=== PATIENT | male | born 1930 | race Caucasian/White ===

== ENCOUNTER 2016-10-31 16:00 | Emergency (ER) | payer MEDICARE, BC ==
[2016-10-31 16:36] VITALS: RESP 16
[2016-10-31] MEDS ORDERED: HYDROcodone/APAP 5-325MG 1 EACH TAB PO STA (17:47)
[2016-10-31 18:31] LABS: INR 1.5 (<1.1); Partial Thromboplastin Time 26.8 sec (22.0-30.0); Prothrombin Time 14.6 sec (9.0-12.0)
--- NOTE | 2016-10-31 18:54 | ED ---
Lower Extremity Injury HPI - General Chief Complaint: Extremity Injury, Lower Stated Complaint: Fall/Leg Lac Time Seen by Provider: 10/31/16 17:42 Source: patient Mode of arrival: ambulatory Limitations: no limitations - History of Present Illness Initial Comments: 86-year-old male presents emergency Department chief complaint left leg injury. Patient states that something was blowing across yard and struck him in the leg. Patient states she is a skin tear. 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 Patient states she also is taking Coumadin and had an elevated INR recently. Patient restarted taking Coumadin after being off for a few days. Patient states he is able to ambulate. Patient states his tetanus is up-to- date. Patient offers no other complaints. - Related Data Home Medications Medication Instructions Recorded Confirmed Acetaminophen-Codeine 300-30mg 1 tab PO Q6H PRN 08/28/15 07/09/16 [Tylenol w/codeine #3] Albuterol Nebulized [Ventolin 2.5 mg INHALATION RT-Q4H PRN 08/28/15 07/09/16 Nebulized] Diphenoxylate HCl/Atropine 1 tab PO QID PRN 08/28/15 07/09/16 [Lomotil] Finasteride [Proscar] 5 mg PO DAILY 08/28/15 07/09/16 Temazepam [Restoril] 7.5 mg PO HS 08/28/15 07/09/16 Tamsulosin HCl [Flomax] 0.4 mg PO DAILY 08/29/15 07/09/16 predniSONE 5 mg PO BID 07/09/16 07/09/16 Previous Rx's Medication Instructions Recorded Digoxin [Lanoxin] 125 mcg PO Q2D #0 07/11/16 Furosemide [Lasix] 20 mg PO DAILY #0 07/11/16 Warfarin [Coumadin] 1 mg PO DAILY #0 07/11/16 rOPINIRole HCL [Requip] 0.25 mg PO HS #30 tab 07/11/16 traMADol HCl [Ultram] 50 mg PO QID PRN #30 tab 07/11/16 Cephalexin [Keflex] 500 mg PO Q6HR #40 cap 10/31/16 Allergies Allergy/AdvReac Type Severity Reaction Status Date / Time No Known Allergies Allergy Verified 10/31/16 18:09 Review of Systems ROS Statement: Those systems with pertinent positive or pertinent negative responses have been documented in the HPI. ROS Other: All systems not noted in ROS Statement are negative. Past Medical History Past Medical History: Atrial Fibrillation, Cancer, COPD, CVA/TIA, Hypertension Additional Past Medical History / Comment(s): 2 TIA affected balance, colon and skin CA, PVD, CHF History of Any Multi-Drug Resistant Organisms: None Reported Past Surgical History: Heart Catheterization, Hernia Repair Additional Past Surgical History / Comment(s): double laminectomy, colon resection, cataract surg Past Anesthesia/Blood Transfusion Reactions: No Reported Reaction Past Psychological History: No Psychological Hx Reported Smoking Status: Former smoker Past Alcohol Use History: None Reported Past Drug Use History: None Reported - Past Family History Brother(s) History Unknown: Yes Family Medical History: Cancer General Exam Limitations: no limitations General appearance: alert, in no apparent distress Head exam: Present: atraumatic, normocephalic, normal inspection Respiratory exam: Present: normal lung sounds bilaterally. Absent: respiratory distress, wheezes, rales, rhonchi, stridor Cardiovascular Exam: Present: regular rate, normal rhythm, normal heart sounds. Absent: systolic murmur, diastolic murmur, rubs, gallop, clicks Extremities exam: Present: other (Left lower leg distal to knee there is a large skin tear measuring approximately 6 cm x 6 cm with irregular edges) Course Vital Signs 10/31/16 16:33 Temperature 97.2 F L Pulse Rate 87 Respiratory 16 Rate Blood Pressure 128/60 O2 Sat by Pulse 99 Oximetry Medical Decision Making - Medical Decision Making Patient's wound was thoroughly cleaned, there was missing skin noted the skin was laid over the open wound and there is no active bleeding. Patient's INR is 1.5. Patient was placed on antibiotics at this time. Return parameters were discussed. Patient refused x-ray of his leg. - Lab Data Lab Results 10/31/16 Range/Units 18:00 PT 14.6 H (9.0-12.0) sec INR 1.5 (<1.1) APTT 26.8 (22.0-30.0) sec Disposition Clinical Impression: Skin tear of left lower leg without complication Disposition: HOME SELF-CARE Condition: Stable Instructions: Skin Tear (ED) Additional Instructions: Please return to the Emergency Department if symptoms worsen or any other concerns. Prescriptions: Cephalexin [Keflex] 500 mg PO Q6HR #40 cap Time of Disposition: 18:54
[2016-10-31 19:14] VITALS: BP 176/79; PULSE 78; TEMP 98.6
== END 2016-10-31 19:14 | disposition home or self-care (01) ==
LOC: EC 16:00
DX: S81.812A Laceration without foreign body, left lower leg, initial encounter (principal); W22.8XXA Striking against or struck by other objects, initial encounter; Y92.007 Garden or yard of unspecified non-institutional (private) residence as the place of occurrence of the external cause; Z79.899 Other long term (current) drug therapy; I10 Essential (primary) hypertension; J44.9 Chronic obstructive pulmonary disease, unspecified; I48.91 Unspecified atrial fibrillation; Z98.61 Coronary angioplasty status; I50.9 Heart failure, unspecified; Z79.01 Long term (current) use of anticoagulants; Z79.51 Long term (current) use of inhaled steroids; Z86.73 Personal history of transient ischemic attack (TIA), and cerebral infarction without residual deficits; Z87.891 Personal history of nicotine dependence
CPT/HCPCS: 36415; 85610; 85730; 99284

== ENCOUNTER 2017-07-06 08:14 | Emergency (ER) | payer MEDICARE, BC ==
[2017-07-06 08:19] VITALS: TEMP 97
[2017-07-06] MEDS ORDERED: IPRATROPIUM-ALBUTEROL 3 ML NEB INHALATION STA (08:23)
[2017-07-06] MEDS ORDERED: SODIUM CHLORIDE 0.9% 1,000 ML IV STA (08:23)
[2017-07-06] MEDS ORDERED: methylPREDNISolone SOD SUCCI 125 MG/2 ML VIAL IV STA (08:23)
--- NOTE | 2017-07-06 08:37 | ED ---
SOB HPI - General Chief Complaint: Shortness of Breath Stated Complaint: CARLOS Time Seen by Provider: 07/06/17 08:19 Source: patient, RN notes reviewed Mode of arrival: wheelchair Limitations: no limitations - History of Present Illness Initial Comments: This is a 87-year-old male with a history of atrial fibrillation CHF and COPD who presents with complaints of shortness of breath this started last night. This is in spite of his home updrafts. He did take extra Lasix an extra oral prednisone. He had some sweats no fevers or chills no phlegm production no other complaints no chest pain. MD Complaint: shortness of breath - Related Data Home Medications Medication Instructions Recorded Confirmed Acetaminophen-Codeine 300-30mg 1 tab PO Q6H PRN 08/28/15 07/09/16 [Tylenol w/codeine #3] Albuterol Nebulized [Ventolin 2.5 mg INHALATION RT-Q4H PRN 08/28/15 07/09/16 Nebulized] Diphenoxylate HCl/Atropine 1 tab PO QID PRN 08/28/15 07/09/16 [Lomotil] Finasteride [Proscar] 5 mg PO DAILY 08/28/15 07/09/16 Temazepam [Restoril] 7.5 mg PO HS 08/28/15 07/09/16 Tamsulosin HCl [Flomax] 0.4 mg PO DAILY 08/29/15 07/09/16 predniSONE 5 mg PO BID 07/09/16 07/09/16 Previous Rx's Medication Instructions Recorded Digoxin [Lanoxin] 125 mcg PO Q2D #0 07/11/16 Furosemide [Lasix] 20 mg PO DAILY #0 07/11/16 Warfarin [Coumadin] 1 mg PO DAILY #0 07/11/16 rOPINIRole HCL [Requip] 0.25 mg PO HS #30 tab 07/11/16 traMADol HCl [Ultram] 50 mg PO QID PRN #30 tab 07/11/16 Cephalexin [Keflex] 500 mg PO Q6HR #40 cap 10/31/16 Azithromycin [Zithromax Z-pack] 250 mg PO DIRECTED #6 tab 07/06/17 methylPREDNISolone Dose Pack 4 mg PO DIRECTED #21 package 07/06/17 [Medrol Dose Pack] Allergies Allergy/AdvReac Type Severity Reaction Status Date / Time No Known Allergies Allergy Verified 07/06/17 08:18 Review of Systems ROS Statement: Those systems with pertinent positive or pertinent negative responses have been documented in the HPI. ROS Other: All systems not noted in ROS Statement are negative. Past Medical History Past Medical History: Atrial Fibrillation, Cancer, COPD, CVA/TIA, Hypertension Additional Past Medical History / Comment(s): 2 TIA affected balance, colon and skin CA, PVD, CHF History of Any Multi-Drug Resistant Organisms: None Reported Past Surgical History: Heart Catheterization, Hernia Repair Additional Past Surgical History / Comment(s): double laminectomy, colon resection, cataract surg Past Anesthesia/Blood Transfusion Reactions: No Reported Reaction Past Psychological History: No Psychological Hx Reported Smoking Status: Former smoker Past Alcohol Use History: None Reported Past Drug Use History: None Reported - Past Family History Brother(s) History Unknown: Yes Family Medical History: Cancer General Exam - General Exam Comments Initial Comments: This is a well-developed well-nourished awake alert oriented x 3 male Limitations: no limitations General appearance: alert, in no apparent distress Head exam: Present: atraumatic, normocephalic, normal inspection Eye exam: Present: normal appearance, PERRL, EOMI. Absent: scleral icterus, conjunctival injection, periorbital swelling ENT exam: Present: normal exam, mucous membranes moist Neck exam: Present: normal inspection. Absent: tenderness, meningismus, lymphadenopathy Respiratory exam: Present: decreased breath sounds. Absent: respiratory distress, wheezes, rales, rhonchi, stridor Cardiovascular Exam: Present: irregular rhythm, normal heart sounds. Absent: systolic murmur, diastolic murmur, rubs, gallop, clicks GI/Abdominal exam: Present: soft. Absent: distended, tenderness, guarding, rebound, rigid Extremities exam: Present: normal inspection, full ROM, normal capillary refill. Absent: tenderness, pedal edema, joint swelling, calf tenderness Back exam: Present: normal inspection Neurological exam: Present: alert, oriented X3, CN II-XII intact Psychiatric exam: Present: normal affect, normal mood Skin exam: Present: warm, dry, intact, normal color. Absent: rash Course Vital Signs 07/06/17 07/06/17 07/06/17 08:16 09:19 09:24 Temperature 97.0 F L Pulse Rate 97 95 98 Respiratory 20 Rate Blood Pressure 142/79 O2 Sat by Pulse 99 Oximetry - Reevaluation(s) Reevaluation #1: 07/06/17 10:42 I did reevaluate the patient is feeling better after the initial treatment. Medical Decision Making - Medical Decision Making The patient is feeling much improved at this time and will be discharge is lung sounds are greatly improved improved aeration no wheezing. Patient will be discharged she is instructed to take an extra Lasix for 2 days he'll be placed on a Medrol Dosepak short course of antibiotics is a follow-up with his doctor return when necessary - Lab Data Result diagrams: 07/06/17 08:51 07/06/17 08:51 Lab Results 07/06/17 07/06/17 07/06/17 Range/Units 08:51 08:51 08:51 WBC 9.8 (3.8-10.6) k/uL RBC 4.09 L (4.30-5.90) m/uL Hgb 12.1 L (13.0-17.5) gm/dL Hct 38.3 L (39.0-53.0) % MCV 93.6 (80.0-100.0) fL MCH 29.5 (25.0-35.0) pg MCHC 31.5 (31.0-37.0) g/dL RDW 13.3 (11.5-15.5) % Plt Count 177 (150-450) k/uL Neutrophils % 88 % Lymphocytes % 5 % Monocytes % 5 % Eosinophils % 1 % Basophils % 0 % Neutrophils # 8.5 H (1.3-7.7) k/uL Lymphocytes # 0.5 L (1.0-4.8) k/uL Monocytes # 0.5 (0-1.0) k/uL Eosinophils # 0.1 (0-0.7) k/uL Basophils # 0.0 (0-0.2) k/uL Hypochromasia Slight PT (9.0-12.0) sec INR (<1.2) APTT (22.0-30.0) sec Sodium 142 (137-145) mmol/L Potassium 4.8 (3.5-5.1) mmol/L Chloride 106 (98-107) mmol/L Carbon Dioxide 30 (22-30) mmol/L Anion Gap 6 mmol/L BUN 30 H (9-20) mg/dL Creatinine 1.18 (0.66-1.25) mg/dL Est GFR (MDRD) Af Amer >60 (>60 ml/min/1.73 sqM) Est GFR (MDRD) Non-Af 59 (>60 ml/min/1.73 sqM) Glucose 96 (74-99) mg/dL Calcium 9.3 (8.4-10.2) mg/dL Magnesium 2.2 (1.6-2.3) mg/dL Total Bilirubin 0.8 (0.2-1.3) mg/dL AST 22 (17-59) U/L ALT 31 (21-72) U/L Alkaline Phosphatase 59 (38-126) U/L Total Creatine Kinase 55 (55-170) U/L CK-MB (CK-2) 2.1 (0.0-2.4) ng/mL CK-MB (CK-2) Rel Index 3.8 Troponin I 0.023 (0.000-0.034) ng/mL NT-Pro-B Natriuret Pep pg/mL Total Protein 6.4 (6.3-8.2) g/dL Albumin 3.4 L (3.5-5.0) g/dL Digoxin 0.8 ng/mL 07/06/17 07/06/17 Range/Units 08:51 08:51 WBC (3.8-10.6) k/uL RBC (4.30-5.90) m/uL Hgb (13.0-17.5) gm/dL Hct (39.0-53.0) % MCV (80.0-100.0) fL MCH (25.0-35.0) pg MCHC (31.0-37.0) g/dL RDW (11.5-15.5) % Plt Count (150-450) k/uL Neutrophils % % Lymphocytes % % Monocytes % % Eosinophils % % Basophils % % Neutrophils # (1.3-7.7) k/uL Lymphocytes # (1.0-4.8) k/uL Monocytes # (0-1.0) k/uL Eosinophils # (0-0.7) k/uL Basophils # (0-0.2) k/uL Hypochromasia PT 27.1 H (9.0-12.0) sec INR 2.8 H (<1.2) APTT 35.6 H (22.0-30.0) sec Sodium (137-145) mmol/L Potassium (3.5-5.1) mmol/L Chloride (98-107) mmol/L Carbon Dioxide (22-30) mmol/L Anion Gap mmol/L BUN (9-20) mg/dL Creatinine (0.66-1.25) mg/dL Est GFR (MDRD) Af Amer (>60 ml/min/1.73 sqM) Est GFR (MDRD) Non-Af (>60 ml/min/1.73 sqM) Glucose (74-99) mg/dL Calcium (8.4-10.2) mg/dL Magnesium (1.6-2.3) mg/dL Total Bilirubin (0.2-1.3) mg/dL AST (17-59) U/L ALT (21-72) U/L Alkaline Phosphatase (38-126) U/L Total Creatine Kinase (55-170) U/L CK-MB (CK-2) (0.0-2.4) ng/mL CK-MB (CK-2) Rel Index Troponin I (0.000-0.034) ng/mL NT-Pro-B Natriuret Pep 2580 pg/mL Total Protein (6.3-8.2) g/dL Albumin (3.5-5.0) g/dL Digoxin ng/mL - EKG Data -: EKG Interpreted by Me (Atrial fibrillation rate of 86 QRS 80 QT since QTC of 340/416 nonspecific S) - Radiology Data Radiology results: report reviewed (I did review the imaging and report no acute findings patient does demonstrate evidence of chronic lung disease with cardiomegaly.), image reviewed Disposition Clinical Impression: Acute exacerbation of chronic obstructive airways disease Disposition: HOME SELF-CARE Condition: Good Instructions: COPD (Chronic Obstructive Pulmonary Disease) (ED) Prescriptions: Azithromycin [Zithromax Z-pack] 250 mg PO DIRECTED #6 tab methylPREDNISolone Dose Pack [Medrol Dose Pack] 4 mg PO DIRECTED #21 package Referrals: Yazmin Niño MD [Primary Care Provider] - 1-2 days
[2017-07-06 09:07] LABS: Basophils % (A) 0 %; CH 29.5; CHCM 31.7; Eosinophils # (A) 0.1 k/uL (0-0.7); Eosinophils % (A) 1 %; HCT 38.3 % (39.0-53.0); HDW 2.66; HGB 12.1 gm/dL (13.0-17.5); Hypochromasia Slight; Luc # (Auto) 0.11; Luc % (Auto) 1; Lymphocytes # (A) 0.5 k/uL (1.0-4.8); Lymphocytes % (A) 5 %; MCH 29.5 pg (25.0-35.0); MCHC 31.5 g/dL (31.0-37.0); MCV 93.6 fL (80.0-100.0); Mean Platelet Volume 7.5; Monocytes # (A) 0.5 k/uL (0-1.0); Monocytes % (A) 5 %; Neutrophils # (A) 8.5 k/uL (1.3-7.7); Neutrophils % (A) 88 %; RBC 4.09 m/uL (4.30-5.90); RDW 13.3 % (11.5-15.5); WBC 9.8 k/uL (3.8-10.6); WBC (Perox) 9.18
[2017-07-06 09:16] LABS: INR 2.8 (<1.2); Partial Thromboplastin Time 35.6 sec (22.0-30.0); Prothrombin Time 27.1 sec (9.0-12.0)
[2017-07-06 09:19] LABS: ALT 31 U/L (21-72); AST 22 U/L (17-59); Alkaline Phosphatase 59 U/L (38-126); Anion Gap 6 mmol/L; Blood Urea Nitrogen 30 mg/dL (9-20); Calcium 9.3 mg/dL (8.4-10.2); Carbon Dioxide 30 mmol/L (22-30); Chloride 106 mmol/L (98-107); Glucose 96 mg/dL (74-99); Magnesium 2.2 mg/dL (1.6-2.3); Non-African American GFR(MDRD) 59 (>60 ml/min/1.73 sqM); Potassium 4.8 mmol/L (3.5-5.1); Sodium 142 mmol/L (137-145); Total Bilirubin 0.8 mg/dL (0.2-1.3); Total Protein 6.4 g/dL (6.3-8.2)
--- NOTE | 2017-07-06 09:19 | XR ---
EXAMINATION TYPE: XR chest 2V DATE OF EXAM: 07/06/2017 HISTORY: difficulty breathing. REFERENCE: Previous study dated 08/28/2015. FINDINGS: The lungs are overinflated. The heart is mildly enlarged. There is a calcified lymph node p rojecting over the hilum on the lateral projection. Pleural spaces are clear. IMPRESSION: 1. COPD. 2. EVIDENCE OF OLD GRANULOMATOUS DISEASE. 3. MILD CARDIOMEGALY.
[2017-07-06 09:32] LABS: Digoxin 0.8 ng/mL
[2017-07-06 10:12] LABS: Creatine Kinase MB 2.1 ng/mL (0.0-2.4); Troponin I 0.023 ng/mL (0.000-0.034)
[2017-07-06 10:52] VITALS: BP 159/74; PULSE 74; RESP 17
== END 2017-07-06 11:09 | disposition home or self-care (01) ==
LOC: EC 08:14
DX: J44.1 Chronic obstructive pulmonary disease with (acute) exacerbation (principal); I48.91 Unspecified atrial fibrillation; I10 Essential (primary) hypertension; Z85.828 Personal history of other malignant neoplasm of skin; Z86.73 Personal history of transient ischemic attack (TIA), and cerebral infarction without residual deficits; Z87.891 Personal history of nicotine dependence; Z79.52 Long term (current) use of systemic steroids; Z79.899 Other long term (current) drug therapy
CPT/HCPCS: 99285; 96374; 36415; 94640; 93005; 83880; 80053; 82550; 82553; 80162; 83735; 84484; 85025; 85610; 85730; 71020; J2930

== ENCOUNTER 2018-02-10 07:56 | Emergency (ER) | payer MEDICARE, BC ==
[2018-02-10 07:59] VITALS: TEMP 97.7
[2018-02-10] MEDS ORDERED: DEXAMETHASONE SOD PHOSPHATE 10 MG/ML 1 ML VIAL IV STA (08:18)
[2018-02-10] MEDS ORDERED: IPRATROPIUM-ALBUTEROL 3 ML NEB INHALATION STA (08:18)
[2018-02-10] MEDS ORDERED: DEXAMETHASONE SOD PHOSPHATE 10 MG/ML 1 ML VIAL IM STA (08:40)
--- NOTE | 2018-02-10 08:51 | ED ---
General Adult HPI - General Chief complaint: Shortness of Breath Stated complaint: Diff Breathing Time Seen by Provider: 02/10/18 08:00 Source: patient, RN notes reviewed, old records reviewed Mode of arrival: wheelchair Limitations: no limitations - History of Present Illness Initial comments: 87-year-old male history of congestive heart failure and COPD presents for evaluation of worsening dyspnea. Patient states this is the same as his previous COPD exacerbations. He does have an appointment with his choker hooker this afternoon however he thought he needed steroids prior to this evaluation. His had minimal cough. No chest pain. No worsening lower extremity swelling. Patient denies fever. His mild cough is nonproductive. Patient has some chronic abdominal pain which is mild and is going to be evaluated by his primary care physician this week with computed tomography scan. - Related Data Home Medications Medication Instructions Recorded Confirmed Acetaminophen-Codeine 300-30mg 1 tab PO Q6H PRN 08/28/15 07/09/16 [Tylenol w/codeine #3] Albuterol Nebulized [Ventolin 2.5 mg INHALATION RT-Q4H PRN 08/28/15 07/09/16 Nebulized] Diphenoxylate HCl/Atropine 1 tab PO QID PRN 08/28/15 07/09/16 [Lomotil] Finasteride [Proscar] 5 mg PO DAILY 08/28/15 07/09/16 Temazepam [Restoril] 7.5 mg PO HS 08/28/15 07/09/16 Tamsulosin HCl [Flomax] 0.4 mg PO DAILY 08/29/15 07/09/16 predniSONE 5 mg PO BID 07/09/16 07/09/16 Previous Rx's Medication Instructions Recorded Digoxin [Lanoxin] 125 mcg PO Q2D #0 07/11/16 Furosemide [Lasix] 20 mg PO DAILY #0 07/11/16 Warfarin [Coumadin] 1 mg PO DAILY #0 07/11/16 rOPINIRole HCL [Requip] 0.25 mg PO HS #30 tab 07/11/16 traMADol HCl [Ultram] 50 mg PO QID PRN #30 tab 07/11/16 Cephalexin [Keflex] 500 mg PO Q6HR #40 cap 10/31/16 Azithromycin [Zithromax Z-pack] 250 mg PO DIRECTED #6 tab 07/06/17 methylPREDNISolone Dose Pack 4 mg PO DIRECTED #21 package 07/06/17 [Medrol Dose Pack] predniSONE 50 mg PO DAILY #5 tab 02/10/18 Allergies Allergy/AdvReac Type Severity Reaction Status Date / Time No Known Allergies Allergy Verified 02/10/18 07:59 Review of Systems ROS Statement: Those systems with pertinent positive or pertinent negative responses have been documented in the HPI. ROS Other: All systems not noted in ROS Statement are negative. Past Medical History Past Medical History: Atrial Fibrillation, Cancer, COPD, CVA/TIA, Hypertension Additional Past Medical History / Comment(s): 2 TIA affected balance, colon and skin CA, PVD, CHF History of Any Multi-Drug Resistant Organisms: None Reported Past Surgical History: Heart Catheterization, Hernia Repair Additional Past Surgical History / Comment(s): double laminectomy, colon resection, cataract surg Past Anesthesia/Blood Transfusion Reactions: No Reported Reaction Past Psychological History: No Psychological Hx Reported Smoking Status: Former smoker Past Alcohol Use History: None Reported Past Drug Use History: None Reported - Past Family History Brother(s) History Unknown: Yes Family Medical History: Cancer General Exam Limitations: no limitations General appearance: alert, in no apparent distress Head exam: Present: atraumatic, normocephalic Eye exam: Present: normal appearance, PERRL ENT exam: Present: normal exam Neck exam: Present: normal inspection. Absent: tenderness, meningismus Respiratory exam: Present: wheezes, decreased breath sounds. Absent: respiratory distress Cardiovascular Exam: Present: regular rate, normal rhythm GI/Abdominal exam: Present: soft. Absent: distended, tenderness Extremities exam: Present: normal inspection, normal capillary refill. Absent: pedal edema Neurological exam: Present: alert, oriented X3, CN II-XII intact. Absent: motor sensory deficit Psychiatric exam: Present: normal affect, normal mood Skin exam: Present: warm, dry, intact. Absent: cyanosis, diaphoretic Course Vital Signs 02/10/18 02/10/18 02/10/18 07:58 08:22 08:30 Temperature 97.7 F Pulse Rate 95 75 77 Respiratory 24 Rate Blood Pressure 128/56 O2 Sat by Pulse 97 Oximetry Medical Decision Making - Medical Decision Making 87 yo male presenting with worsening dyspnea and mild cough. Patient states he this is his COPD. He does not want an x-ray, he does not want blood work. He only wants steroid shot and be started on a course of steroids. He is willing to accept one breathing treatment while in the emergency department. Patient is alert and oriented. He will follow-up with his choker hooker. Disposition Clinical Impression: Acute exacerbation of chronic obstructive airways disease Disposition: HOME SELF-CARE Condition: Fair Instructions: COPD (Chronic Obstructive Pulmonary Disease) (ED) Prescriptions: predniSONE 50 mg PO DAILY #5 tab Is patient prescribed a controlled substance at d/c from ED?: No Referrals: Yazmin Niño MD [Primary Care Provider] - 1-2 days Lizeth Up MD [STAFF PHYSICIAN] - 1-2 days Time of Disposition: 08:50
[2018-02-10 09:40] VITALS: RESP 18
[2018-02-10 09:56] VITALS: BP 154/69; PULSE 75
== END 2018-02-10 09:53 | disposition home or self-care (01) ==
LOC: EC 07:56
DX: J44.1 Chronic obstructive pulmonary disease with (acute) exacerbation (principal); R10.9 Unspecified abdominal pain; G89.29 Other chronic pain; I48.91 Unspecified atrial fibrillation; I11.0 Hypertensive heart disease with heart failure; I50.9 Heart failure, unspecified; Z86.73 Personal history of transient ischemic attack (TIA), and cerebral infarction without residual deficits; Z85.828 Personal history of other malignant neoplasm of skin; Z85.038 Personal history of other malignant neoplasm of large intestine; Z95.818 Presence of other cardiac implants and grafts; Z87.891 Personal history of nicotine dependence; Z79.52 Long term (current) use of systemic steroids; Z79.899 Other long term (current) drug therapy; Z53.8 Procedure and treatment not carried out for other reasons
CPT/HCPCS: 94640; 93005; 99285; 96372; J1100

== ENCOUNTER 2018-04-16 20:12 | Inpatient (IN) | payer MEDICARE, BC ==
[2018-04-16 20:35] LABS: Basophils % (A) 0 %; Eosinophils % (A) 0 %; HCT 36.9 % (39.0-53.0); HGB 11.9 gm/dL (13.0-17.5); Lymphocytes # (A) 0.4 k/uL (1.0-4.8); Lymphocytes % (A) 5 %; MCH 29.1 pg (25.0-35.0); MCHC 32.2 g/dL (31.0-37.0); MCV 90.4 fL (80.0-100.0); Mean Platelet Volume 7.7; Monocytes # (A) 0.4 k/uL (0-1.0); Monocytes % (A) 4 %; Neutrophils # (A) 7.5 k/uL (1.3-7.7); Neutrophils % (A) 88 %; Platelet Count 142 k/uL (150-450); RBC 4.09 m/uL (4.30-5.90); RDW 14.3 % (11.5-15.5); WBC 8.5 k/uL (3.8-10.6)
[2018-04-16 20:37] LABS: Glucose,Whole Blood 104 mg/dL (75-99)
[2018-04-16 20:44] LABS: Partial Thromboplastin Time 29.3 sec (22.0-30.0); Prothrombin Time 26.5 sec (9.0-12.0)
[2018-04-16 20:46] LABS: ALT 25 U/L (21-72); AST 23 U/L (17-59); Albumin 3.4 g/dL (3.5-5.0); Alcohol <10 mg/dL; Alkaline Phosphatase 57 U/L (38-126); Amylase 61 U/L (30-110); Anion Gap 8 mmol/L; Blood Urea Nitrogen 51 mg/dL (9-20); Calcium 8.7 mg/dL (8.4-10.2); Carbon Dioxide 27 mmol/L (22-30); Chloride 102 mmol/L (98-107); Glucose 107 mg/dL (74-99); Lipase 38 U/L (23-300); Potassium 5.3 mmol/L (3.5-5.1); Sodium 137 mmol/L (137-145); Total Protein 6.5 g/dL (6.3-8.2)
--- NOTE | 2018-04-16 20:48 | ED ---
General Adult HPI - General Stated complaint: FALL Time Seen by Provider: 04/16/18 20:13 Source: RN notes reviewed, old records reviewed - History of Present Illness Initial comments: This is a 87-year-old male the ER for evaluation. Today's presenting for evaluation regards to fall. Patient may be to stop fall. Plan is had he did land on his extremities with multiple abrasions, left upper extremity right upper extremity left knee right knee. Patient denies loss of consciousness denies headache or neck pain. - Related Data Home Medications Medication Instructions Recorded Confirmed RX: Albuterol Nebulized [Ventolin 2.5 mg INHALATION RT-Q4H PRN 08/28/15 07/09/16 Nebulized] RX: Finasteride [Proscar] 5 mg PO DAILY 08/28/15 02/10/18 RX: Tamsulosin HCl [Flomax] 0.4 mg PO DAILY 08/29/15 02/10/18 RX: predniSONE 5 mg PO BID 07/09/16 02/10/18 HYDROcodone/APAP 10-325MG [[place] 1 tab PO BID PRN 02/10/18 02/10/18 10-325] Lisinopril [Prinivil] 10 mg PO DAILY 02/10/18 02/10/18 RX: Digoxin [Lanoxin] 125 mcg PO DAILY 02/10/18 02/10/18 RX: Warfarin [Coumadin] 1 mg PO TUTHSA 02/10/18 02/10/18 Temazepam [Restoril] 15 mg PO HS 02/10/18 02/10/18 Warfarin [Coumadin] 2 mg PO SUMOWEFR 02/10/18 02/10/18 Previous Rx's Medication Instructions Recorded RX: Furosemide [Lasix] 20 mg PO DAILY #0 07/11/16 RX: predniSONE 50 mg PO DAILY #5 tab 02/10/18 Allergies Allergy/AdvReac Type Severity Reaction Status Date / Time No Known Allergies Allergy Verified 02/10/18 09:14 Review of Systems ROS Statement: Those systems with pertinent positive or pertinent negative responses have been documented in the HPI. ROS Other: All systems not noted in ROS Statement are negative. Past Medical History Past Medical History: Atrial Fibrillation, Cancer, COPD, CVA/TIA, Hypertension Additional Past Medical History / Comment(s): 2 TIA affected balance, colon and skin CA, PVD, CHF History of Any Multi-Drug Resistant Organisms: None Reported Past Surgical History: Heart Catheterization, Hernia Repair Additional Past Surgical History / Comment(s): double laminectomy, colon resection, cataract surg Past Anesthesia/Blood Transfusion Reactions: No Reported Reaction Past Psychological History: No Psychological Hx Reported Smoking Status: Former smoker Past Alcohol Use History: None Reported Past Drug Use History: None Reported - Past Family History Brother(s) History Unknown: Yes Family Medical History: Cancer General Exam General appearance: alert, in no apparent distress Head exam: Present: atraumatic, normocephalic, normal inspection Eye exam: Present: normal appearance, PERRL, EOMI. Absent: scleral icterus, conjunctival injection, periorbital swelling ENT exam: Present: normal exam, mucous membranes moist Neck exam: Present: normal inspection. Absent: tenderness, meningismus, lymphadenopathy Respiratory exam: Present: normal lung sounds bilaterally. Absent: respiratory distress, wheezes, rales, rhonchi, stridor Cardiovascular Exam: Present: regular rate, normal rhythm, normal heart sounds. Absent: systolic murmur, diastolic murmur, rubs, gallop, clicks GI/Abdominal exam: Present: soft, normal bowel sounds. Absent: distended, tenderness, guarding, rebound, rigid Extremities exam: Present: normal inspection, full ROM, normal capillary refill. Absent: tenderness, pedal edema, joint swelling, calf tenderness Back exam: Present: normal inspection Neurological exam: Present: alert, oriented X3, CN II-XII intact Psychiatric exam: Present: normal affect, normal mood Skin exam: Present: warm, dry, intact, normal color. Absent: rash Course Vital Signs 04/16/18 20:15 Temperature 98.9 F Pulse Rate 73 Respiratory 17 Rate Blood Pressure 158/67 O2 Sat by Pulse 97 Oximetry EKG Findings - EKG Comments: EKG Findings:: EKG shows A. fib rate of 76, QRS 80, QTC 382 Medical Decision Making - Lab Data Result diagrams: 04/16/18 20:21 04/16/18 20:21 Lab Results 04/16/18 04/16/18 04/16/18 Range/Units 20:21 20:21 20:21 WBC 8.5 (3.8-10.6) k/uL RBC 4.09 L (4.30-5.90) m/uL Hgb 11.9 L (13.0-17.5) gm/dL Hct 36.9 L (39.0-53.0) % MCV 90.4 (80.0-100.0) fL MCH 29.1 (25.0-35.0) pg MCHC 32.2 (31.0-37.0) g/dL RDW 14.3 (11.5-15.5) % Plt Count 142 L (150-450) k/uL Neutrophils % 88 % Lymphocytes % 5 % Monocytes % 4 % Eosinophils % 0 % Basophils % 0 % Neutrophils # 7.5 (1.3-7.7) k/uL Lymphocytes # 0.4 L (1.0-4.8) k/uL Monocytes # 0.4 (0-1.0) k/uL Eosinophils # 0.0 (0-0.7) k/uL Basophils # 0.0 (0-0.2) k/uL PT (9.0-12.0) sec INR (<1.2) APTT (22.0-30.0) sec Sodium 137 (137-145) mmol/L Potassium 5.3 H (3.5-5.1) mmol/L Chloride 102 (98-107) mmol/L Carbon Dioxide 27 (22-30) mmol/L Anion Gap 8 mmol/L BUN 51 H (9-20) mg/dL Creatinine 1.40 H (0.66-1.25) mg/dL Est GFR (CKD-EPI)AfAm 52 (>60 ml/min/1.73 sqM) Est GFR (CKD-EPI)NonAf 45 (>60 ml/min/1.73 sqM) Glucose 107 H (74-99) mg/dL POC Glucose (mg/dL) (75-99) mg/dL POC Glu Cosmetics Machine Operator ID Plasma Lactic Acid Cameron (0.7-2.0) mmol/L Calcium 8.7 (8.4-10.2) mg/dL Total Bilirubin 1.0 (0.2-1.3) mg/dL AST 23 (17-59) U/L ALT 25 (21-72) U/L Alkaline Phosphatase 57 (38-126) U/L Total Creatine Kinase 37 L (55-170) U/L CK-MB (CK-2) 1.4 (0.0-2.4) ng/mL CK-MB (CK-2) Rel Index 3.8 Troponin I 0.031 (0.000-0.034) ng/mL Total Protein 6.5 (6.3-8.2) g/dL Albumin 3.4 L (3.5-5.0) g/dL Amylase 61 (30-110) U/L Lipase 38 (23-300) U/L Urine Color Urine Appearance (Clear) Urine pH (5.0-8.0) Ur Specific Stanton (1.001-1.035) Urine Protein (Negative) Urine Glucose (UA) (Negative) Urine Ketones (Negative) Urine Blood (Negative) Urine Nitrite (Negative) Urine Bilirubin (Negative) Urine Urobilinogen (<2.0) mg/dL Ur Leukocyte Esterase (Negative) Serum Alcohol <10 mg/dL Blood Type Blood Type Recheck Antibody Screen Spec Expiration Date 04/16/18 04/16/18 04/16/18 Range/Units 20:21 20:21 20:21 WBC (3.8-10.6) k/uL RBC (4.30-5.90) m/uL Hgb (13.0-17.5) gm/dL Hct (39.0-53.0) % MCV (80.0-100.0) fL MCH (25.0-35.0) pg MCHC (31.0-37.0) g/dL RDW (11.5-15.5) % Plt Count (150-450) k/uL Neutrophils % % Lymphocytes % % Monocytes % % Eosinophils % % Basophils % % Neutrophils # (1.3-7.7) k/uL Lymphocytes # (1.0-4.8) k/uL Monocytes # (0-1.0) k/uL Eosinophils # (0-0.7) k/uL Basophils # (0-0.2) k/uL PT 26.5 H (9.0-12.0) sec INR 3.0 H (<1.2) APTT 29.3 (22.0-30.0) sec Sodium (137-145) mmol/L Potassium (3.5-5.1) mmol/L Chloride (98-107) mmol/L Carbon Dioxide (22-30) mmol/L Anion Gap mmol/L BUN (9-20) mg/dL Creatinine (0.66-1.25) mg/dL Est GFR (CKD-EPI)AfAm (>60 ml/min/1.73 sqM) Est GFR (CKD-EPI)NonAf (>60 ml/min/1.73 sqM) Glucose (74-99) mg/dL POC Glucose (mg/dL) (75-99) mg/dL POC Glu Cosmetics Machine Operator ID Plasma Lactic Acid Cameron 1.1 (0.7-2.0) mmol/L Calcium (8.4-10.2) mg/dL Total Bilirubin (0.2-1.3) mg/dL AST (17-59) U/L ALT (21-72) U/L Alkaline Phosphatase (38-126) U/L Total Creatine Kinase (55-170) U/L CK-MB (CK-2) (0.0-2.4) ng/mL CK-MB (CK-2) Rel Index Troponin I (0.000-0.034) ng/mL Total Protein (6.3-8.2) g/dL Albumin (3.5-5.0) g/dL Amylase (30-110) U/L Lipase (23-300) U/L Urine Color Urine Appearance (Clear) Urine pH (5.0-8.0) Ur Specific Stanton (1.001-1.035) Urine Protein (Negative) Urine Glucose (UA) (Negative) Urine Ketones (Negative) Urine Blood (Negative) Urine Nitrite (Negative) Urine Bilirubin (Negative) Urine Urobilinogen (<2.0) mg/dL Ur Leukocyte Esterase (Negative) Serum Alcohol mg/dL Blood Type A Positive Blood Type Recheck No Antibody Screen NEGATIVE Spec Expiration Date 04/19/2018232004/16/18 04/16/18 Range/Units 20:35 22:52 WBC (3.8-10.6) k/uL RBC (4.30-5.90) m/uL Hgb (13.0-17.5) gm/dL Hct (39.0-53.0) % MCV (80.0-100.0) fL MCH (25.0-35.0) pg MCHC (31.0-37.0) g/dL RDW (11.5-15.5) % Plt Count (150-450) k/uL Neutrophils % % Lymphocytes % % Monocytes % % Eosinophils % % Basophils % % Neutrophils # (1.3-7.7) k/uL Lymphocytes # (1.0-4.8) k/uL Monocytes # (0-1.0) k/uL Eosinophils # (0-0.7) k/uL Basophils # (0-0.2) k/uL PT (9.0-12.0) sec INR (<1.2) APTT (22.0-30.0) sec Sodium (137-145) mmol/L Potassium (3.5-5.1) mmol/L Chloride (98-107) mmol/L Carbon Dioxide (22-30) mmol/L Anion Gap mmol/L BUN (9-20) mg/dL Creatinine (0.66-1.25) mg/dL Est GFR (CKD-EPI)AfAm (>60 ml/min/1.73 sqM) Est GFR (CKD-EPI)NonAf (>60 ml/min/1.73 sqM) Glucose (74-99) mg/dL POC Glucose (mg/dL) 104 H (75-99) mg/dL POC Glu Cosmetics Machine Operator ID Nic Chong Plasma Lactic Acid Cameron (0.7-2.0) mmol/L Calcium (8.4-10.2) mg/dL Total Bilirubin (0.2-1.3) mg/dL AST (17-59) U/L ALT (21-72) U/L Alkaline Phosphatase (38-126) U/L Total Creatine Kinase (55-170) U/L CK-MB (CK-2) (0.0-2.4) ng/mL CK-MB (CK-2) Rel Index Troponin I (0.000-0.034) ng/mL Total Protein (6.3-8.2) g/dL Albumin (3.5-5.0) g/dL Amylase (30-110) U/L Lipase (23-300) U/L Urine Color Yellow Urine Appearance Clear (Clear) Urine pH 6.5 (5.0-8.0) Ur Specific [place] 1.012 (1.001-1.035) Urine Protein Negative (Negative) Urine Glucose (UA) Negative (Negative) Urine Ketones Negative (Negative) Urine Blood Negative (Negative) Urine Nitrite Negative (Negative) Urine Bilirubin Negative (Negative) Urine Urobilinogen <2.0 (<2.0) mg/dL Ur Leukocyte Esterase Negative (Negative) Serum Alcohol mg/dL Blood Type Blood Type Recheck Antibody Screen Spec Expiration Date Disposition Clinical Impression: Fall, Multiple skin tears, Fever, Weakness Disposition: ADMITTED IP TO THIS HOSP Condition: Fair Instructions: Fall Prevention for Older Adults (ED) Is patient prescribed a controlled substance at d/c from ED?: No Referrals: Yazmin Niño MD [Primary Care Provider] - 1-2 days
[2018-04-16 21:05] LABS: Creatine Kinase MB 1.4 ng/mL (0.0-2.4); Troponin I 0.031 ng/mL (0.000-0.034)
--- NOTE | 2018-04-16 21:07 | XR ---
PROCEDURE: XR pelvis AP view DATE AND TIME: 04/16/2018 8:33 PM CLINICAL INDICATION: [facility] trauma TECHNIQUE: Department protocol. 1V COMPARISON: None FINDINGS: There is no fracture or malalignment. The soft tissues are unremarkable. IMPRESSION: NO ACUTE PROCESS.
--- NOTE | 2018-04-16 21:14 | XR ---
EXAMINATION: XR chest 1V portable DATE AND TIME: 04/16/2018 8:33 PM CLINICAL INDICATION: trauma TECHNIQUE: Portable AP supine - 2V COMPARISON: 07/06/2017 FINDINGS: The lungs are clear. The pleural spaces are negative. The cardiomediastinal silhouette is unremarkable. The skeletal structures and soft tissues are negative for acute findings. IMPRESSION: NO ACUTE PROCESS - SUPINE AP PORTABLE CHEST RADIOGRAPH.
--- NOTE | 2018-04-16 21:29 | CT ---
EXAMINATION TYPE: CT brain jet [place] DATE OF EXAM: 04/16/2018 COMPARISON: 09/23/2012 HISTORY: Fall down stairs. Patient on blood thinners. CT DLP: 1107.1 mGycm Automated exposure control for dose reduction was used. TECHNIQUE: CT scan of the head and cervical spine are performed without contrast. FINDINGS: There is no acute intracranial hemorrhage, mass effect, or midline shift identified. No def inite new attenuation defect. The ventricles and sulci are within normal limits in size. The globes are intact and the visualized sinuses are clear. Cervical spine is visualized in its entirety from C1 through upper thoracic levels and demonstrates s atisfactory alignment without evidence of acute fracture or dislocation. Severe multilevel spondylosi s changes are seen. Prevertebral soft tissue appears within normal limits. The C1-C2 articulation is unremarkable. IMPRESSION: 1. There is no acute fracture or dislocation evident in the cervical spine. 2. No acute intracranial hemorrhage, mass effect, or midline shift is seen.
--- NOTE | 2018-04-16 22:07 | XR ---
PROCEDURE: XR elbow complete LT 3V DATE AND TIME: 04/16/2018 9:15 PM CLINICAL INDICATION: [facility] TECHNIQUE: Department protocol. 3V COMPARISON: None FINDINGS: There is a 5 mm metallic solitary radiopaque foreign body projecting anteromedial to the di stal humeral shaft. There is no fracture or malalignment. The soft tissues are otherwise unremarkable. IMPRESSION: 1. Negative for fracture or malalignment. 2. Radiopaque foreign body.
--- NOTE | 2018-04-16 22:08 | XR ---
PROCEDURE: XR forearm LT - 2V DATE AND TIME: 04/16/2018 9:15 PM CLINICAL INDICATION: [facility] Pain TECHNIQUE: Department protocol. COMPARISON: None FINDINGS: There is no fracture or malalignment. The soft tissues are unremarkable. IMPRESSION: Negative for fracture or malalignment. The 5 mm radiopaque foreign body anteromedial to the distal humeral shaft is visualized on these view s.
--- NOTE | 2018-04-16 22:10 | XR ---
PROCEDURE: XR knee complete bilateral - total 6 views DATE AND TIME: 04/16/2018 9:15 PM CLINICAL INDICATION: Pain after injury TECHNIQUE: Department protocol. 3V for each knee. COMPARISON: None FINDINGS: There is no fracture or malalignment. The soft tissues are unremarkable. 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 IMPRESSION: NO ACUTE PROCESS.
[2018-04-16 23:06] LABS: Appearance,Urine Clear (Clear); Bilirubin,Urine Negative (Negative); Blood,Urine Negative (Negative); Color,Urine Yellow; Glucose,Urine (UA) Negative (Negative); Ketones,Urine Negative (Negative); Leukocyte Esterase,Urine Negative (Negative); Nitrite,Urine Negative (Negative); PH, Urine 6.5 (5.0-8.0); Protein,Urine Negative (Negative); Specific Gravity,Urine 1.012 (1.001-1.035); Urobilinogen,Urine <2.0 mg/dL (<2.0)
[2018-04-16] MEDS ORDERED: cefTRIAXone 2,000 MG in SODIUM CHLORIDE 0.9% 100 ML IVPB STA (23:08)
[2018-04-16] MEDS ORDERED: SODIUM CHLORIDE 0.9% 1,000 ML IV ONE (23:09)
[2018-04-16 23:18] LABS: Amphetamine Screen,Urine Not Detected (NotDetected); Barbiturate Screen,Urine Not Detected (NotDetected); Benzodiazepines Screen,Urine Detected (NotDetected); Cocaine Screen,Urine Not Detected (NotDetected); Methadone Screen, Urine Not Detected (NotDetected); Opiate Screen,Urine Detected (NotDetected); Oxycodone Screen, Urine Not Detected (NotDetected); Phencyclidine Screen,Urine Not Detected (NotDetected); Tricyclic Antidepressant,Urine Not Detected (NotDetected); Urn Cannabinoid Scrn Not Detected (NotDetected)
[2018-04-16] MEDS ORDERED: cefTRIAXone IN SWFI 2,000 MG/20 ML SYRINGE IVP ONE (23:30)
[2018-04-17] MEDS ORDERED: HYDROcodone/APAP 5-325MG 1 EACH TAB PO STA (00:15)
[2018-04-17] MEDS ORDERED: CYCLOBENZAPRINE 5 MG TAB PO PRN (08:20)
[2018-04-17] MEDS ORDERED: ALBUTEROL NEBULIZED 2.5 MG/3 ML INHALATION PRN ×2 (08:20→09:12)
[2018-04-17] MEDS: predniSONE 5 MG TAB PO SCH ×2 (10:27→20:08)
[2018-04-17] MEDS: DIGOXIN 125 MCG TAB PO SCH (10:28)
[2018-04-17] MEDS: FINASTERIDE 5 MG TAB PO SCH (10:28)
[2018-04-17] MEDS: SODIUM CHLORIDE 0.9% 1,000 ML IV SCH (10:29)
[2018-04-17 10:34] LABS: Basophils % (A) 0 %; Eosinophils # (A) 0.1 k/uL (0-0.7); Eosinophils % (A) 1 %; HCT 34.4 % (39.0-53.0); HGB 10.9 gm/dL (13.0-17.5); Hypochromasia Slight; Lymphocytes % (A) 15 %; MCH 29.2 pg (25.0-35.0); MCHC 31.6 g/dL (31.0-37.0); MCV 92.4 fL (80.0-100.0); Mean Platelet Volume 8.1; Monocytes # (A) 0.4 k/uL (0-1.0); Monocytes % (A) 7 %; Neutrophils # (A) 4.9 k/uL (1.3-7.7); Neutrophils % (A) 74 %; Platelet Count 140 k/uL (150-450); RBC 3.72 m/uL (4.30-5.90); RDW 14.3 % (11.5-15.5); WBC 6.5 k/uL (3.8-10.6)
[2018-04-17 10:48] LABS: INR 2.9 (<1.2); Prothrombin Time 25.6 sec (9.0-12.0)
[2018-04-17 10:58] LABS: Calcium 8.3 mg/dL (8.4-10.2); Potassium 4.4 mmol/L (3.5-5.1)
[2018-04-17] MEDS: TAMSULOSIN 0.4 MG CAP.ER.24H PO SCH (12:55)
[2018-04-17] MEDS: IPRATROPIUM-ALBUTEROL 3 ML NEB INHALATION SCH ×3 (13:46→19:09)
[2018-04-17] MEDS: HYDROcodone/APAP 10-325MG 1 EACH TAB PO PRN ×2 (14:24→20:05)
[2018-04-17 15:03] VITALS: BMI 19.1
[2018-04-17] MEDS ORDERED: DIPH,PERTUS(ACELL)TETVAC-LF 0.5 ML VIAL IM ONE (15:15)
--- NOTE | 2018-04-17 15:28 | P.HPIM ---
History of Present Illness This is a pleasant 87 years old male with past medical history of CVA, atrial fibrillation on warfarin 1 mg daily except on Saturday he takes 2 mg, COPD, hypertension, CHF, peripheral vascular disease, status post cardiac cath, presents because of all multiple limb lacerations. Also patient noticed to be on Restoril is one of the bile benzodiazepines, which is one of the beers criteria of a decreased for an elderly people, discussed with the patient and he agrees to stop it. In the emergency room patient was found to have acute renal failure with kidney creatinine is 1.4. In the emergency room he got 1 dose of Rocephin 2000 mg, he has negative CT of the head, negative bilateral knee x-rays. Negative x-ray of the left elbow and humerus, and the pelvis. Chest x-ray is negative for acute process. EKG shows atrial fibrillation with heart rate is 76 bpm and he was given normal saline in 100 mL per hour, and given Narco for pain. We'll check digoxin level Review of Systems CONSTITUTIONAL: No fever, no malaise, no fatigue. HEENT: No recent visual problems or hearing problems. Denied any sore throat. CARDIOVASCULAR: No orthopnea, PND, no palpitations, no syncope. PULMONARY: No shortness of breath, no cough, no hemoptysis. GASTROINTESTINAL: No diarrhea, no nausea, no vomiting, no abdominal pain. Normoactive bowel sounds. NEUROLOGICAL: No headaches, no weakness, no numbness. HEMATOLOGICAL: Denies any bleeding or petechiae. GENITOURINARY: Denies any burning micturition, frequency, or urgency. MUSCULOSKELETAL/RHEUMATOLOGICAL: Denies any joint pain, swelling, or any muscle pain. ENDOCRINE: Denies any polyuria or polydipsia. Past Medical History Past Medical History: Atrial Fibrillation, Cancer, COPD, CVA/TIA, Hypertension Additional Past Medical History / Comment(s): 2 TIA affected balance, colon and skin CA, PVD, CHF History of Any Multi-Drug Resistant Organisms: None Reported Past Surgical History: Heart Catheterization, Hernia Repair Additional Past Surgical History / Comment(s): double laminectomy, colon resection, cataract surg Past Anesthesia/Blood Transfusion Reactions: No Reported Reaction Past Psychological History: No Psychological Hx Reported Smoking Status: Former smoker Past Alcohol Use History: None Reported Past Drug Use History: None Reported - Past Family History Brother(s) History Unknown: Yes Family Medical History: Cancer Medications and Allergies Home Medications Medication Instructions Recorded Confirmed Type RX: Albuterol Nebulized [Ventolin 2.5 mg INHALATION RT-Q4H PRN 08/28/15 History Nebulized] RX: Finasteride [Proscar] 5 mg PO DAILY 08/28/15 04/17/18 History RX: Tamsulosin HCl [Flomax] 0.4 mg PO DAILY 08/29/15 04/17/18 History RX: predniSONE 5 mg PO BID 07/09/16 04/17/18 History HYDROcodone/APAP 10-325MG [[place] 1 tab PO BID PRN 02/10/18 04/17/18 History 10-325] Lisinopril [Prinivil] 10 mg PO DAILY 02/10/18 04/17/18 History RX: Digoxin [Lanoxin] 125 mcg PO DAILY 02/10/18 04/17/18 History RX: Warfarin [Coumadin] 2 mg PO WE 02/10/18 04/17/18 History Temazepam [Restoril] 15 mg PO HS 02/10/18 04/17/18 History Warfarin [Coumadin] 1 mg PO SUMOTUTHFRSA 02/10/18 04/17/18 History Cyclobenzaprine [Flexeril] 5 mg PO BID PRN 04/17/18 04/17/18 History RX: Furosemide [Lasix] 20 mg PO BID 04/17/18 04/17/18 History Allergies Allergy/AdvReac Type Severity Reaction Status Date / Time No Known Allergies Allergy Verified 04/17/18 08:52 Physical Exam Vitals: Vital Signs Temp Pulse Pulse Pulse Resp BP BP 04/17/18 14:06 68 04/17/18 13:50 64 04/17/18 08:35 68 04/17/18 08:25 64 04/17/18 08:00 96.9 F L 56 L 18 148/65 04/17/18 01:00 16 04/17/18 00:59 97.6 F 69 17 136/56 04/16/18 20:15 98.9 F 73 17 158/67 Pulse Ox 04/17/18 14:06 04/17/18 13:50 04/17/18 08:35 04/17/18 08:25 04/17/18 08:00 100 04/17/18 01:00 04/17/18 00:59 98 04/16/18 20:15 97 Intake and Output 04/16/18 04/17/18 04/17/18 22:59 06:59 14:59 Output Total 80 Balance -80 Output: Post Void Residual 80 Other: # Voids 1 # Bowel Movements 1 Weight 62.051 kg GENERAL: The patient is alert and oriented x3, not in any acute distress. Well developed, well nourished. HEENT: Pupils are round and equally reacting to light. EOMI. No scleral icterus. No conjunctival pallor. Normocephalic, atraumatic. No pharyngeal erythema. No thyromegaly. CARDIOVASCULAR: S1 and S2 present. No murmurs, rubs, or gallops. PULMONARY: Chest is clear to auscultation, no wheezing or crackles. ABDOMEN: Soft, nontender, nondistended, normoactive bowel sounds. No palpable organomegaly. MUSCULOSKELETAL: No joint swelling or deformity. EXTREMITIES: No cyanosis, clubbing, or pedal edema. Multiple lacerations including the left knee, on the right and left forearms, left shoulder. Some of the wounds are oozing blood as pt is on coumadin NEUROLOGICAL: Gross neurological examination did not reveal any focal deficits. SKIN: No rashes. Results CBC & Chem 7: 04/17/18 10:15 04/17/18 10:15 Labs: Abnormal Lab Results - Last 24 Hours (Table) 04/16/18 04/16/18 04/16/18 Range/Units 20:21 20:21 20:21 RBC 4.09 L (4.30-5.90) m/uL Hgb 11.9 L (13.0-17.5) gm/dL Hct 36.9 L (39.0-53.0) % Plt Count 142 L (150-450) k/uL Lymphocytes # 0.4 L (1.0-4.8) k/uL PT (9.0-12.0) sec INR (<1.2) Potassium 5.3 H (3.5-5.1) mmol/L BUN 51 H (9-20) mg/dL Creatinine 1.40 H (0.66-1.25) mg/dL Glucose 107 H (74-99) mg/dL POC Glucose (mg/dL) (75-99) mg/dL Calcium (8.4-10.2) mg/dL Total Creatine Kinase 37 L (55-170) U/L Albumin 3.4 L (3.5-5.0) g/dL Urine Opiates Screen (NotDetected) U Benzodiazepines Scrn (NotDetected) 04/16/18 04/16/18 04/16/18 Range/Units 20:21 20:35 22:52 RBC (4.30-5.90) m/uL Hgb (13.0-17.5) gm/dL Hct (39.0-53.0) % Plt Count (150-450) k/uL Lymphocytes # (1.0-4.8) k/uL PT 26.5 H (9.0-12.0) sec INR 3.0 H (<1.2) Potassium (3.5-5.1) mmol/L BUN (9-20) mg/dL Creatinine (0.66-1.25) mg/dL Glucose (74-99) mg/dL POC Glucose (mg/dL) 104 H (75-99) mg/dL Calcium (8.4-10.2) mg/dL Total Creatine Kinase (55-170) U/L Albumin (3.5-5.0) g/dL Urine Opiates Screen Detected H (NotDetected) U Benzodiazepines Scrn Detected H (NotDetected) 04/17/18 04/17/18 04/17/18 Range/Units 10:15 10:15 10:15 RBC 3.72 L (4.30-5.90) m/uL Hgb 10.9 L (13.0-17.5) gm/dL Hct 34.4 L (39.0-53.0) % Plt Count 140 L (150-450) k/uL Lymphocytes # (1.0-4.8) k/uL PT 25.6 H (9.0-12.0) sec INR 2.9 H (<1.2) Potassium (3.5-5.1) mmol/L BUN 47 H (9-20) mg/dL Creatinine (0.66-1.25) mg/dL Glucose (74-99) mg/dL POC Glucose (mg/dL) (75-99) mg/dL Calcium 8.3 L (8.4-10.2) mg/dL Total Creatine Kinase (55-170) U/L Albumin (3.5-5.0) g/dL Urine Opiates Screen (NotDetected) U Benzodiazepines Scrn (NotDetected) Thrombosis Risk Factor Assmnt - Choose All That Apply Any of the Below Risk Factors Present?: Yes Each Factor Represents 1 point: Abnormal pulmonary function (COPD), Medical pt on bed rest Other Risk Factors: Yes Each Risk Factor Represents 3 Points: Age 75 years or older Other congenital or acquired thrombophilia - If yes, enter type in comment: Yes Each Risk Factor Represents 5 Points: Multiple trauma (< 1 month) Thrombosis Risk Factor Assessment Total Risk Factor Score: 10 Thrombosis Risk Factor Assessment Level: High Risk Assessment and Plan Assessment: Fall, without evidence of losing consciousness Multiple lacerations and extremities including on the left knee, right forearm and left forearm. With bleeding wounds. Some of the wounds look dirty Acute kidney injury on admission, improving with IV fluid h/o CVA atrial fibrillation on warfarin 1 mg daily except on Saturday he takes 2 mg, COPD hypertension CHF peripheral vascular disease Plan: This is a pleasant 87 years old male WITH falls and rhythm lacerations and acute kidney injury. Continue with same treatment. Continuous symptomatic treatment. Resume home medications. Patient was started on ceftriaxone will continue with that in view of his multiple wounds, at [place] sulfadiazine ointment, tetanus shot when patient stated to me past one was several years ago and some of the was wound looked clean. Continue with IV fluid, but with gentle hydration. Monitor for respiratory status. Patient on admission has Lasix and lisinopril put on hold. Start lisinopril tomorrow as his creatinine is improving. Check digoxin level: Pending. Resume warfarin first dose on . Her monitor INR. GI and DVT prophylaxis. Further recommendations based on the clinical course with the patient Digoxin: Pending, restoril is DC'd DVT prophylaxis: On Coumadin GI prophylaxis Pepcid PT/OT: Pending
[2018-04-17] MEDS: SYMBICORT 160-4.5 MCG INHALER INHALATION SCH (19:09)
[2018-04-17] MEDS ORDERED: FAMOTIDINE 20 MG/2 ML VIAL IV SCH ×2 (21:00)
[2018-04-17] MEDS ORDERED: TEMAZEPAM 15 MG CAP PO SCH (21:00)
[2018-04-18] MEDS: cefTRIAXone IN SWFI 1,000 MG/10 ML SYRINGE IVP SCH ×2 (00:14→23:29)
[2018-04-18] MEDS: SODIUM CHLORIDE 0.9% 1,000 ML IV SCH (02:42)
[2018-04-18] MEDS: FINASTERIDE 5 MG TAB PO SCH (08:24)
[2018-04-18] MEDS: DIGOXIN 125 MCG TAB PO SCH (08:24)
[2018-04-18] MEDS: LISINOPRIL 10 MG TAB PO SCH (08:24)
[2018-04-18] MEDS: TAMSULOSIN 0.4 MG CAP.ER.24H PO SCH (08:25)
[2018-04-18] MEDS: predniSONE 5 MG TAB PO SCH ×2 (08:25→19:47)
[2018-04-18] MEDS: SYMBICORT 160-4.5 MCG INHALER INHALATION SCH ×2 (08:54→20:42)
[2018-04-18] MEDS: IPRATROPIUM-ALBUTEROL 3 ML NEB INHALATION SCH ×4 (08:54→20:12)
[2018-04-18 09:58] LABS: INR 2.1 (<1.2); Prothrombin Time 18.7 sec (9.0-12.0)
--- NOTE | 2018-04-18 14:04 | P.CNOR ---
History of Present Illness - [facility] Consult date: 04/18/18 Requesting physician: Angelo Head Consult reason: other (Falls) History of present illness: Patient is a pleasant 87-year-old male seen at bedside this morning. Orthopedics was consulted for evaluation of his radiologic studies and rule out fractures or other acute orthopedic injury. He was admitted through the emergency department on 04/16/2018 after he had fallen at home. He states he fell down 3 stairs. He suffered multiple bruises and abrasions. He has multiple comorbidities and is on chronic Coumadin. Today at bedside he states he has no significant new pain complaints. He states he has no new significant joint pain, neck pain, back pain, numbness, tingling or radicular symptoms. He states he just has some aches. He has no other complaints. Review of Systems All systems: negative Constitutional: Denies chills, Denies fever Eyes: denies blurred vision, denies pain Ears, nose, mouth and throat: Denies headache, Denies sore throat Cardiovascular: Denies chest pain, Denies shortness of breath Respiratory: Denies cough Gastrointestinal: Denies abdominal pain, Denies diarrhea, Denies nausea, Denies vomiting Musculoskeletal: Denies myalgias Integumentary: Denies pruritus, Denies rash Neurological: Denies numbness, Denies weakness Psychiatric: Denies anxiety, Denies depression Endocrine: Denies fatigue, Denies weight change Past Medical History Past Medical History: Atrial Fibrillation, Cancer, COPD, CVA/TIA, Hypertension Additional Past Medical History / Comment(s): 2 TIA affected balance, colon and skin CA, PVD, CHF History of Any Multi-Drug Resistant Organisms: None Reported Past Surgical History: Heart Catheterization, Hernia Repair Additional Past Surgical History / Comment(s): double laminectomy, colon resection, cataract surg Past Anesthesia/Blood Transfusion Reactions: No Reported Reaction Past Psychological History: No Psychological Hx Reported Smoking Status: Former smoker Past Alcohol Use History: None Reported Past Drug Use History: None Reported - Past Family History Brother(s) History Unknown: Yes Family Medical History: Cancer Medications and Allergies Home Medications Medication Instructions Recorded Confirmed Type Albuterol Nebulized [Ventolin 2.5 mg INHALATION RT-Q4H PRN 08/28/15 04/17/18 History Nebulized] Finasteride [Proscar] 5 mg PO DAILY 08/28/15 04/17/18 History Tamsulosin HCl [Flomax] 0.4 mg PO DAILY 08/29/15 04/17/18 History predniSONE 5 mg PO BID 07/09/16 04/17/18 History Digoxin [Lanoxin] 125 mcg PO DAILY 02/10/18 04/17/18 History HYDROcodone/APAP 10-325MG [[place] 1 tab PO BID PRN 02/10/18 04/17/18 History 10-325] Lisinopril [Prinivil] 10 mg PO DAILY 02/10/18 04/17/18 History Temazepam [Restoril] 15 mg PO HS 02/10/18 04/17/18 History Warfarin [Coumadin] 1 mg PO SUMOTUTHFRSA 02/10/18 04/17/18 History Warfarin [Coumadin] 2 mg PO WE 02/10/18 04/17/18 History Cyclobenzaprine [Flexeril] 5 mg PO BID PRN 04/17/18 04/17/18 History Furosemide [Lasix] 20 mg PO BID 04/17/18 04/17/18 History Allergies Allergy/AdvReac Type Severity Reaction Status Date / Time No Known Allergies Allergy Verified 04/17/18 08:52 Physical Examination Inspection of the cervical spine is benign. There is no step-off or deformity. He can flex 2 fingerbreadths and extend to 20. His negative Spurling sign. Upper extremities she has full painless range of motion of bilateral shoulders, elbows, wrists and hands. Neurovascular status intact with full motor and sensation throughout. Reflexes are 2+ and negative Jessie sign. There are multiple bruises and abrasions to bilateral upper extremities of which none require surgical repair Thoracic and lumbar spine shows no deformity or step-off. Lower extremities he has full painless range of motion of hips, knees, ankles and feet. Neurovascular status intact with motor and sensation throughout. Calves are soft and nontender. There is 2+ dorsalis pedis pulses less than 2 second capillary refill. 2+ knee jerk and ankle jerk reflexes. There is no clonus. Downgoing toes with Babinski. There are multiple bruises and abrasions at the lower extremities of which none require surgical repair. Results X-rays of the knee, elbow, pelvis and forearm were reviewed and show no fractures or dislocations. CT of the cervical spine was reviewed where shows multiple levels of advanced spondylosis and degenerative disc disease with C5 6 there is at least moderate canal stenosis secondary to chronic-appearing disc osteophyte complex. - Labs Labs: Abnormal Lab Results - Last 24 Hours (Table) 04/18/18 Range/Units 09:20 PT 18.7 H (9.0-12.0) sec INR 2.1 H (<1.2) Microbiology - Last 24 Hours (Table) 04/16/18 23:40 Blood Culture - Preliminary Blood No Growth after 24 hours H & H 04/16/18 04/17/18 Range/Units 20:21 10:15 Hgb 11.9 L 10.9 L (13.0-17.5) gm/dL Hct 36.9 L 34.4 L (39.0-53.0) % Coagulation 04/16/18 04/17/18 04/18/18 Range/Units 20:21 10:15 09:20 INR 3.0 H 2.9 H 2.1 H (<1.2) Result Diagrams: 04/17/18 10:15 04/17/18 10:15 - Diagnostic results Elbow x-ray: report reviewed, image reviewed Knee x-ray: report reviewed, image reviewed Assessment and Plan (1) Fall Narrative/Plan: His x-rays are negative for any acute orthopedic injury. His physical exam is relatively benign which no immediate orthopedic intervention is required. He may follow up with Dr. Alanis as an outpatient. Thank you Current Visit: Yes Status: Acute Priority: Medium Code(s): W19.XXXA - UNSPECIFIED FALL, INITIAL ENCOUNTER SNOMED Code(s): 3177023 Time with Patient: Less than 30
[2018-04-18] MEDS ORDERED: WARFARIN 1 MG TAB PO SCH (18:00)
[2018-04-18] MEDS: HYDROcodone/APAP 10-325MG 1 EACH TAB PO PRN (19:47)
[2018-04-18] MEDS ORDERED: FAMOTIDINE 20 MG TAB PO SCH (21:00)
[2018-04-18 23:07] VITALS: RESP 17
[2018-04-19] MEDS: SODIUM CHLORIDE 0.9% 1,000 ML IV SCH (03:09)
[2018-04-19] MEDS: IPRATROPIUM-ALBUTEROL 3 ML NEB INHALATION SCH ×3 (06:05→15:52)
[2018-04-19] MEDS: SYMBICORT 160-4.5 MCG INHALER INHALATION SCH (07:52)
[2018-04-19] MEDS: predniSONE 5 MG TAB PO SCH (08:01)
[2018-04-19] MEDS: LISINOPRIL 10 MG TAB PO SCH (08:02)
[2018-04-19] MEDS: FINASTERIDE 5 MG TAB PO SCH (08:02)
[2018-04-19] MEDS: DIGOXIN 125 MCG TAB PO SCH (08:02)
[2018-04-19] MEDS: TAMSULOSIN 0.4 MG CAP.ER.24H PO SCH (08:02)
[2018-04-19] MEDS: HYDROcodone/APAP 10-325MG 1 EACH TAB PO PRN (08:05)
[2018-04-19 08:55] LABS: INR 1.8 (<1.2); Prothrombin Time 16.6 sec (9.0-12.0)
--- NOTE | 2018-04-19 15:19 | P.PN ---
Subjective Progress Note Date: 04/18/18 87 years old male with past medical history of CVA, atrial fibrillation on warfarin 1 mg daily except on Saturday he takes 2 mg, COPD, hypertension, CHF, peripheral vascular disease, status post cardiac cath, presents because of all multiple limb lacerations. Also patient noticed to be on Restoril is one of the bile benzodiazepines, which is one of the beers criteria of a decreased for an elderly people, discussed with the patient and he agrees to stop it. In the emergency room patient was found to have acute renal failure with kidney creatinine is 1.4. In the emergency room he got 1 dose of Rocephin 2000 mg, he has negative CT of the head, negative bilateral knee x-rays. Negative x-ray of the left elbow and humerus, and the pelvis. Chest x-ray is negative for acute process. EKG shows atrial fibrillation with heart rate is 76 bpm and he was given normal saline in 100 mL per hour, and given Narco for pain. Objective - Vital Signs Vital signs: Vital Signs Temp 97.3 F L 04/18/18 07:00 Pulse 72 04/18/18 09:09 Resp 16 04/18/18 07:00 BP 150/72 04/18/18 07:00 Pulse Ox 100 04/18/18 07:00 Intake & Output 04/17/18 04/18/18 04/18/18 18:59 06:59 18:59 Output Total 80 Balance -80 Weight 62.051 kg Output: Post Void Residual 80 Other: # Voids 3 1 # Bowel Movements 2 1 - Exam GENERAL: The patient is alert and oriented x3, not in any acute distress. Well developed, well nourished. HEENT: Pupils are round and equally reacting to light. EOMI. No scleral icterus. No conjunctival pallor. Normocephalic, atraumatic. No pharyngeal erythema. No thyromegaly. CARDIOVASCULAR: S1 and S2 present. No murmurs, rubs, or gallops. PULMONARY: Chest is clear to auscultation, no wheezing or crackles. ABDOMEN: Soft, nontender, nondistended, normoactive bowel sounds. No palpable organomegaly. MUSCULOSKELETAL: No joint swelling or deformity. EXTREMITIES: No cyanosis, clubbing, or pedal edema. Multiple lacerations including the left knee, on the right and left forearms, left shoulder. Some of the wounds are oozing blood as pt is on coumadin NEUROLOGICAL: Gross neurological examination did not reveal any focal deficits. SKIN: No rashes. - Labs CBC & Chem 7: 04/17/18 10:15 04/17/18 10:15 Labs: Abnormal Lab Results - Last 24 Hours (Table) 04/18/18 Range/Units 09:20 PT 18.7 H (9.0-12.0) sec INR 2.1 H (<1.2) Microbiology - Last 24 Hours (Table) 04/16/18 23:40 Blood Culture - Preliminary Blood No Growth after 24 hours Assessment and Plan Plan: Fall, without evidence of losing consciousness Multiple lacerations and extremities including on the left knee, right forearm and left forearm. With bleeding wounds. Some of the wounds look dirty Acute kidney injury on admission, improving with IV fluid h/o CVA atrial fibrillation on warfarin 1 mg daily except on Saturday he takes 2 mg, COPD hypertension CHF peripheral vascular disease Plan: This is a pleasant 87 years old male WITH falls and rhythm lacerations and acute kidney injury. Continue with same treatment. Continuous symptomatic treatment. Resume home medications. Patient was started on ceftriaxone will continue with that in view of his multiple wounds, at [place] sulfadiazine ointment, tetanus shot when patient stated to me past one was several years ago and some of the was wound looked clean. Continue with IV fluid, but with gentle hydration. Monitor for respiratory status. Patient on admission has Lasix and lisinopril put on hold. Start lisinopril tomorrow as his creatinine is improving. Check digoxin level: Pending. Resume warfarin first dose on . Her monitor INR. GI and DVT prophylaxis. Further recommendations based on the clinical course with the patient Digoxin: Pending, restoril is DC'd DVT prophylaxis: On Coumadin GI prophylaxis Pepcid PT/OT: Pending Time with Patient: Greater than 30
[2018-04-19 15:30] VITALS: BP 138/63; PULSE 72; TEMP 98.2
[2018-04-23] MEDS ORDERED: WARFARIN 2 MG TAB PO SCH (18:00)
== END 2018-04-19 16:34 | disposition home or self-care (01) | DRG 605 ==
LOC: EC 20:12 → 4MS4W 23:10 → OBSVTOIN 04-17 09:59
PROVIDERS: ADMIT Hospitalist; ATTEND Hospitalist
DX: S81.012A Laceration without foreign body, left knee, initial encounter (principal); N17.9 Acute kidney failure, unspecified; S51.812A Laceration without foreign body of left forearm, initial encounter; S51.811A Laceration without foreign body of right forearm, initial encounter; J44.9 Chronic obstructive pulmonary disease, unspecified; I11.0 Hypertensive heart disease with heart failure; I50.9 Heart failure, unspecified; I73.9 Peripheral vascular disease, unspecified; I48.91 Unspecified atrial fibrillation; W10.9XXA Fall (on) (from) unspecified stairs and steps, initial encounter; M50.322 Other cervical disc degeneration at C5-C6 level; M47.9 Spondylosis, unspecified; M48.02 Spinal stenosis, cervical region; R40.2412 Glasgow coma scale score 13-15, at arrival to emergency department; Z87.891 Personal history of nicotine dependence; Y92.009 Unspecified place in unspecified non-institutional (private) residence as the place of occurrence of the external cause; Z90.49 Acquired absence of other specified parts of digestive tract; Z79.01 Long term (current) use of anticoagulants; Z79.52 Long term (current) use of systemic steroids; Z79.899 Other long term (current) drug therapy; Z85.038 Personal history of other malignant neoplasm of large intestine; Z85.828 Personal history of other malignant neoplasm of skin
CPT/HCPCS: 36415; 51702; 70450; 71045; 72125; 72170; 80048; 80053; 80162; 80306; 80320; 81003; 82150; 82550; 82553; 83605; 83690; 84484; 85025; 85610; 85730; 86850; 86900; 86901; 87040; 90715; 93005; 94640; 94760; 96374; 99285

== ENCOUNTER 2018-11-21 10:12 | Inpatient (IN) | payer MEDICARE, BC ==
[2018-11-21] MEDS ORDERED: SODIUM CHLORIDE 0.9% 1,000 ML IV ONE ×2 (11:10)
[2018-11-21] MEDS ORDERED: TOPICAL SKIN ADHESIVE 1 EACH AMP TOPICAL ONE (11:13)
[2018-11-21 11:27] LABS: Basophils % (A) 0 %; Eosinophils % (A) 0 %; HGB 11.7 gm/dL (13.0-17.5); Lymphocytes # (A) 0.6 k/uL (1.0-4.8); Lymphocytes % (A) 4 %; MCH 28.3 pg (25.0-35.0); MCHC 32.5 g/dL (31.0-37.0); MCV 87.2 fL (80.0-100.0); Mean Platelet Volume 8.2; Monocytes # (A) 0.6 k/uL (0-1.0); Monocytes % (A) 4 %; Neutrophils # (A) 12.7 k/uL (1.3-7.7); Neutrophils % (A) 90 %; Platelet Count 141 k/uL (150-450); RBC 4.13 m/uL (4.30-5.90); RDW 13.7 % (11.5-15.5); WBC 14.2 k/uL (3.8-10.6)
[2018-11-21 11:34] LABS: INR 3.3 (<1.2); Partial Thromboplastin Time 43.4 sec (22.0-30.0); Prothrombin Time 32.2 sec (9.0-12.0)
[2018-11-21 11:40] LABS: Albumin 3.5 g/dL (3.5-5.0); Calcium 9.2 mg/dL (8.4-10.2); Potassium 4.6 mmol/L (3.5-5.1); Total Bilirubin 1.6 mg/dL (0.2-1.3); Total Protein 6.5 g/dL (6.3-8.2)
--- NOTE | 2018-11-21 11:47 | ED ---
Fall HPI - General Chief Complaint: Fall Stated Complaint: Syncope Time Seen by Provider: 11/21/18 10:28 Source: patient, family, RN notes reviewed, old records reviewed Mode of arrival: wheelchair - History of Present Illness Initial Comments: Patient is an 88-year-old male who presents today after falling getting out of bed. Patient reports that he landed on the ground for 2 hours until his was able to pick him up. Patient reports that he has an abrasion over his left elbow. He denies any chest pain shortness of breath. She reports she has not been eating or drinking much over the past few days. Patient's reports he's been increasingly frail and weak. Asians with concern he may have pneumonia. He does have a history of nodules on his lung. He follows with Dr. Cunningham. He has history of A. fib. Patient has history of cancer, COPD, CVA and hypertension. He denies any head injury related to any fall. Patient follows with Dr. Ta for cardiology. - Related Data Home Medications Medication Instructions Recorded Confirmed Albuterol Nebulized [Ventolin 2.5 mg INHALATION RT-Q4H PRN 08/28/15 11/21/18 Nebulized] Finasteride [Proscar] 5 mg PO DAILY 08/28/15 11/21/18 Tamsulosin HCl [Flomax] 0.4 mg PO DAILY 08/29/15 11/21/18 predniSONE 5 mg PO BID 07/09/16 11/21/18 Digoxin [Lanoxin] 125 mcg PO DAILY 02/10/18 11/21/18 HYDROcodone/APAP 10-325MG [[place] 1 tab PO TID PRN 02/10/18 11/21/18 10-325] Lisinopril [Prinivil] 10 mg PO DAILY 02/10/18 11/21/18 Temazepam [Restoril] 15 mg PO HS 02/10/18 11/21/18 Warfarin [Coumadin] 1 mg PO SUMOTUTHFRSA 02/10/18 11/21/18 Warfarin [Coumadin] 2 mg PO WE 02/10/18 11/21/18 Cyclobenzaprine [Flexeril] 5 mg PO BID PRN 04/17/18 11/21/18 Furosemide [Lasix] 20 mg PO BID 04/17/18 11/21/18 Ipratropium Nebulized [Atrovent 0.5 mg INHALATION Q6HR 11/21/18 11/21/18 Nebulized 0.2 MG/ML] Allergies Allergy/AdvReac Type Severity Reaction Status Date / Time No Known Allergies Allergy Verified 11/21/18 10:40 Review of Systems ROS Statement: Those systems with pertinent positive or pertinent negative responses have been documented in the HPI. ROS Other: All systems not noted in ROS Statement are negative. Past Medical History Past Medical History: Atrial Fibrillation, Cancer, COPD, CVA/TIA, Hypertension Additional Past Medical History / Comment(s): 2 TIA affected balance, colon and skin CA, PVD, CHF History of Any Multi-Drug Resistant Organisms: None Reported Past Surgical History: Heart Catheterization, Hernia Repair Additional Past Surgical History / Comment(s): double laminectomy, colon rese ction, cataract surg Past Anesthesia/Blood Transfusion Reactions: No Reported Reaction Past Psychological History: No Psychological Hx Reported Smoking Status: Former smoker Past Alcohol Use History: None Reported Past Drug Use History: None Reported - Past Family History Brother(s) History Unknown: Yes Family Medical History: Cancer General Exam - General Exam Comments Initial Comments: 88-year-old male. Frail. Weak. No significant distress. Limitations: no limitations General appearance: alert, in no apparent distress Head exam: Present: atraumatic, normocephalic, normal inspection Eye exam: Present: normal appearance, PERRL, EOMI. Absent: scleral icterus, conjunctival injection, periorbital swelling ENT exam: Present: normal exam Neck exam: Present: normal inspection. Absent: tenderness, meningismus, lymphadenopathy Respiratory exam: Present: normal lung sounds bilaterally. Absent: respiratory distress, wheezes, rales, rhonchi, stridor Cardiovascular Exam: Present: regular rate, normal rhythm, normal heart sounds. Absent: systolic murmur, diastolic murmur, rubs, gallop, clicks GI/Abdominal exam: Present: soft, normal bowel sounds, other (Multiple scars over abdomen from colon resection.). Absent: distended, tenderness, guarding, rebound, rigid Extremities exam: Present: normal inspection, full ROM, normal capillary refill, pedal edema (Bilateral pedal edema. Patient reports is chronic erythema to the right lower extremity.), other (Skin tear over her left elbow. Measuring 4 cm.). Absent: tenderness, joint swelling, calf tenderness Back exam: Present: normal inspection Neurological exam: Present: alert, oriented X3, CN II-XII intact, normal gait, other (Normal finger to nose. No over shooting.) Psychiatric exam: Present: normal affect, normal mood Skin exam: Present: warm, dry, intact, normal color. Absent: rash Course Vital Signs 11/21/18 10:16 Temperature 98.1 F Pulse Rate 84 Respiratory 18 Rate Blood Pressure 104/48 O2 Sat by Pulse 96 Oximetry Medical Decision Making - Medical Decision Making 88-year-old male presents emergency Department after unsteady balance fall while getting out of bed early this point. He laid on the ground for 2 hours. Patient was given IV fluids labwork obtained. He has since passed significant past medical history of CVA hypertension and CAD. Patient reports the only injury from his fall is a left elbow abrasion. His small skin. 2. This is closed with Dermabond. Patient denies any significant complaints of pain. Patient states that he has had poor appetite and slight cough. is concerned for pneumonia. Chest x-rays completed and shows evidence of an early right upper infiltrate or possibly atelectasis. White blood cell count was mildly mildly elevated at 14.2. Patient is given a liter bolus. Still unable to urinate. Pending urinalysis. Patient is given 1 g of Rocephin at this time for possibly early pneumonia. Labwork dishes some acute kidney injury.BUN of 42. Current and 1.42. Troponin is 0.036. INR is mildly elevated this happened 3.3. I will hold on vitamin K. I do not want to see the Patient on heparin as he does not complain of any chest pain this time. Troponin slightly elevated due to dehydration. We'll trend the troponin. I discussed the case with Dr. Giovani Batres discussed the case with on-call physician for [facility]. - Lab Data Result diagrams: 11/21/18 10:45 11/21/18 10:45 Lab Results 11/21/18 11/21/18 11/21/18 Range/Units 10:45 10:45 10:45 WBC 14.2 H (3.8-10.6) k/uL RBC 4.13 L (4.30-5.90) m/uL Hgb 11.7 L (13.0-17.5) gm/dL Hct 36.0 L (39.0-53.0) % MCV 87.2 (80.0-100.0) fL MCH 28.3 (25.0-35.0) pg MCHC 32.5 (31.0-37.0) g/dL RDW 13.7 (11.5-15.5) % Plt Count 141 L (150-450) k/uL Neutrophils % 90 % Lymphocytes % 4 % Monocytes % 4 % Eosinophils % 0 % Basophils % 0 % Neutrophils # 12.7 H (1.3-7.7) k/uL Lymphocytes # 0.6 L (1.0-4.8) k/uL Monocytes # 0.6 (0-1.0) k/uL Eosinophils # 0.0 (0-0.7) k/uL Basophils # 0.0 (0-0.2) k/uL PT 32.2 H (9.0-12.0) sec INR 3.3 H (<1.2) APTT 43.4 H (22.0-30.0) sec Sodium 137 (137-145) mmol/L Potassium 4.6 (3.5-5.1) mmol/L Chloride 102 (98-107) mmol/L Carbon Dioxide 27 (22-30) mmol/L Anion Gap 8 mmol/L BUN 42 H (9-20) mg/dL Creatinine 1.42 H (0.66-1.25) mg/dL Est GFR (CKD-EPI)AfAm 51 (>60 ml/min/1.73 sqM) Est GFR (CKD-EPI)NonAf 44 (>60 ml/min/1.73 sqM) Glucose 70 L (74-99) mg/dL Calcium 9.2 (8.4-10.2) mg/dL Total Bilirubin 1.6 H (0.2-1.3) mg/dL AST 24 (17-59) U/L ALT 25 (21-72) U/L Alkaline Phosphatase 77 (38-126) U/L Creatine Kinase 47 L (55-170) U/L Troponin I (0.000-0.034) ng/mL Total Protein 6.5 (6.3-8.2) g/dL Albumin 3.5 (3.5-5.0) g/dL 11/21/18 Range/Units 10:45 WBC (3.8-10.6) k/uL RBC (4.30-5.90) m/uL Hgb (13.0-17.5) gm/dL Hct (39.0-53.0) % MCV (80.0-100.0) fL MCH (25.0-35.0) pg MCHC (31.0-37.0) g/dL RDW (11.5-15.5) % Plt Count (150-450) k/uL Neutrophils % % Lymphocytes % % Monocytes % % Eosinophils % % Basophils % % Neutrophils # (1.3-7.7) k/uL Lymphocytes # (1.0-4.8) k/uL Monocytes # (0-1.0) k/uL Eosinophils # (0-0.7) k/uL Basophils # (0-0.2) k/uL PT (9.0-12.0) sec INR (<1.2) APTT (22.0-30.0) sec Sodium (137-145) mmol/L Potassium (3.5-5.1) mmol/L Chloride (98-107) mmol/L Carbon Dioxide (22-30) mmol/L Anion Gap mmol/L BUN (9-20) mg/dL Creatinine (0.66-1.25) mg/dL Est GFR (CKD-EPI)AfAm (>60 ml/min/1.73 sqM) Est GFR (CKD-EPI)NonAf (>60 ml/min/1.73 sqM) Glucose (74-99) mg/dL Calcium (8.4-10.2) mg/dL Total Bilirubin (0.2-1.3) mg/dL AST (17-59) U/L ALT (21-72) U/L Alkaline Phosphatase (38-126) U/L Creatine Kinase (55-170) U/L Troponin I 0.036 H* (0.000-0.034) ng/mL Total Protein (6.3-8.2) g/dL Albumin (3.5-5.0) g/dL 11/21/18 11:58 EKG shows atrial fibrillation, nonspecific ST abnormality. Abnormal EKG. Ventricular rate 80 bpm. Was undetected. Stressors and 76 most seconds. QT QTc is 3:30/408 ms. - Radiology Data Radiology results: report reviewed Subtle right upper lung opacity may represent atelectasis or developing pneumonia. Disposition Clinical Impression: Fall, Dehydration, Pneumonia, Elevated troponin I level, Multiple skin tears, Coagulopathy Disposition: ADMITTED IP TO THIS HOSP Condition: Stable Is patient prescribed a controlled substance at d/c from ED?: No Referrals: Yazmin Niño MD [Primary Care Provider] - 1-2 days Time of Disposition: 13:14
--- NOTE | 2018-11-21 11:52 | XR ---
EXAMINATION TYPE: XR chest 2V DATE OF EXAM: 11/21/2018 COMPARISON: 04/16/2018 HISTORY: Weakness TECHNIQUE: Frontal and lateral views of the chest are obtained. FINDINGS: Subtle new hazy lateral right upper lung opacity abuts the pleural surface and minor fissu re. Remainder the lungs are clear. Cardiomediastinal silhouette is stable and mildly enlarged. No acu te osseous pathology is seen. Hemidiaphragm eventration is noted. IMPRESSION: Subtle right upper lung opacity may represent atelectasis or developing pneumonia.
[2018-11-21] MEDS ORDERED: cefTRIAXone IN SWFI 1,000 MG/10 ML SYRINGE IVP STA (13:12)
[2018-11-21] MEDS ORDERED: NALOXONE 0.4 MG/ML 1 ML VIAL IV PRN (13:14)
[2018-11-21] MEDS ORDERED: ONDANSETRON 4 MG/2 ML VIAL IVP PRN (13:14)
[2018-11-21] MEDS ORDERED: SODIUM CHLORIDE 0.9% 1,000 ML IV SCH (13:15)
[2018-11-21] MEDS: HYDROcodone/APAP 5-325MG 1 EACH TAB PO PRN ×3 (14:29→22:38)
[2018-11-21] MEDS ORDERED: IPRATROPIUM-ALBUTEROL 3 ML NEB INHALATION PRN (18:08)
[2018-11-21 18:33] LABS: Appearance,Urine Cloudy (Clear); Bilirubin,Urine Negative (Negative); Blood,Urine Negative (Negative); Color,Urine Yellow; Glucose,Urine (UA) Negative (Negative); Hyaline Casts,Urine 1 /lpf (0-2); Ketones,Urine Negative (Negative); Leukocyte Esterase,Urine Small (Negative); Mucus,Urine Rare /hpf; Nitrite,Urine Negative (Negative); PH, Urine 5.5 (5.0-8.0); Protein,Urine Trace (Negative); RBC,Urine 5 /hpf (0-5); Specific Gravity,Urine 1.019 (1.001-1.035); Urobilinogen,Urine <2.0 mg/dL (<2.0); WBC,Urine 12 /hpf (0-5)
[2018-11-21] MEDS: IPRATROPIUM-ALBUTEROL 3 ML NEB INHALATION SCH (19:18)
[2018-11-21] MEDS ORDERED: ALBUTEROL NEBULIZED 2.5 MG/3 ML INHALATION PRN (19:43)
[2018-11-21] MEDS ORDERED: CYCLOBENZAPRINE 5 MG TAB PO PRN (19:43)
[2018-11-21] MEDS ORDERED: WARFARIN 2 MG TAB PO SCH (19:45)
[2018-11-21] MEDS: TEMAZEPAM 15 MG CAP PO PRN (19:48)
[2018-11-21] MEDS: SODIUM CHLORIDE 0.9% 1,000 ML IV SCH ×2 (19:49→23:53)
[2018-11-21] MEDS: FUROSEMIDE 20 MG TAB PO SCH (20:19)
[2018-11-22] MEDS ORDERED: ACETAMINOPHEN TAB 500 MG TAB PO PRN (01:15)
[2018-11-22] MEDS ORDERED: ALPRAZolam 0.25 MG TAB PO PRN (01:15)
[2018-11-22] MEDS: HYDROcodone/APAP 5-325MG 1 EACH TAB PO PRN ×5 (02:51→20:59)
[2018-11-22 02:54] LABS: Basophils % (A) 0 %; Eosinophils # (A) 0.1 k/uL (0-0.7); Eosinophils % (A) 2 %; HCT 32.7 % (39.0-53.0); HGB 10.2 gm/dL (13.0-17.5); Hypochromasia Moderate; Lymphocytes % (A) 11 %; MCH 28.2 pg (25.0-35.0); MCHC 31.4 g/dL (31.0-37.0); Mean Platelet Volume 8.5; Monocytes # (A) 0.5 k/uL (0-1.0); Monocytes % (A) 6 %; Neutrophils # (A) 6.9 k/uL (1.3-7.7); Neutrophils % (A) 79 %; Platelet Count 105 k/uL (150-450); RBC 3.63 m/uL (4.30-5.90); RDW 13.5 % (11.5-15.5); WBC 8.7 k/uL (3.8-10.6)
[2018-11-22 02:57] LABS: INR 4.6 (<1.2); Prothrombin Time 44.5 sec (9.0-12.0)
[2018-11-22 03:04] LABS: Albumin 2.7 g/dL (3.5-5.0); Calcium 8.2 mg/dL (8.4-10.2); Potassium 4.3 mmol/L (3.5-5.1); Total Bilirubin 0.7 mg/dL (0.2-1.3); Total Protein 5.4 g/dL (6.3-8.2)
[2018-11-22] MEDS: IPRATROPIUM-ALBUTEROL 3 ML NEB INHALATION SCH ×4 (07:17→19:48)
[2018-11-22] MEDS: SYMBICORT 160-4.5 MCG INHALER INHALATION SCH ×2 (07:18→19:48)
[2018-11-22] MEDS: LISINOPRIL 10 MG TAB PO SCH (08:13)
[2018-11-22] MEDS: PANTOPRAZOLE 40 MG/10 ML VIAL IV SCH (08:14)
[2018-11-22] MEDS: TAMSULOSIN 0.4 MG CAP.ER.24H PO SCH (08:14)
[2018-11-22] MEDS: FUROSEMIDE 20 MG TAB PO SCH ×2 (08:14→17:15)
[2018-11-22] MEDS: MULTIVITAMINS, THERA 1 EACH TAB PO SCH (08:14)
[2018-11-22] MEDS: DIGOXIN 125 MCG TAB PO SCH (08:17)
[2018-11-22] MEDS: FINASTERIDE 5 MG TAB PO SCH (08:17)
--- NOTE | 2018-11-22 09:03 | HP ---
HISTORY AND PHYSICAL DATE OF SERVICE: 11/21/2018 CHIEF COMPLAINT: Fall and syncope. HISTORY OF PRESENT ILLNESS: This 88-year-old gentleman with a past medical history of multiple medical problems including history of atrial ablation, history of CHF, COPD, CVA, hypertension and hyperlipidemia, history of DJD, history of pneumonia being followed by Dr. Yazmin Niño in the outpatient setting was complaining of weakness. The patient has balance issues. Patient had a fall. The patient had multiple fractures previously apparently including acetabular fracture. Currently the patient also has COPD. The patient has shortness of breath also. The patient fell down and was unable to get up and the patient taken to [facility] and admitted for further evaluation and treatment. The patient increasingly feeling weak per the 's report given to the ER. After admission, the patient was found to have high white count and troponin was found to be indeterminate. The chest x-ray which I reviewed personally, also showed possibly some pneumonic changes also. The patient admitted to the hospital for further evaluation and treatment. There is no history of any fever, rigors or chills at this time. A flu swab was also requested which is found to be negative. PAST MEDICAL HISTORY: History of atrial ablation, history of CHF, COPD, CVA, TIA, hypertension, hyperlipidemia, history of DJD, history of pneumonia, history of cardiac catheterization. MEDICATIONS: Prior to admission home medications are: 1. Atrovent 0.5 mg q.6h p.r.n. 2. Coumadin 1 mg Saturday, and , Saturday. 3. [place] 10 mg t.i.d. p.r.n. 4. Prednisone 5 mg p.o. b.i.d. 5. Coumadin 2 mg Saturday. 6. Restoril 15 mg q.h.s. 7. Flomax 0.4 daily. 8. Prinivil 10 mg p.o. daily. 9. Lasix 20 mg p.o. b.i.d. 10.Proscar 5 mg p.o. daily. 11.Lanoxin 125 mcg p.o. daily. 12.Flexeril 5 mg p.o. b.i.d. p.r.n. 13.Ventolin 2.5 q.4 p.r.n. ALLERGIES: None. FAMILY HISTORY: Family history of cancer in the family. SOCIAL HISTORY: Previous history of smoking. No history of current smoking or alcohol intake. REVIEW OF SYSTEMS: ENT: Diminished hearing and diminished vision. CARDIOVASCULAR: No angina or palpitations. RESPIRATORY: As mentioned earlier. GI no nausea or vomiting. no dysuria. NERVOUS SYSTEM: as mentioned earlier. ALLERGIES: No asthma or hayfever. MUSCULOSKELETAL as mentioned earlier. HEMATOLOGY/ONCOLOGY: As mentioned earlier. ENDOCRINE: No history of diabetes mellitus or hypothyroidism. CONSTITUTIONAL: As mentioned earlier. Dermatology: Negative. Rheumatology: Negative. Psychiatry: As mentioned earlier. PHYSICAL EXAMINATION: Alert and oriented x3. Pulse 84. Blood pressure 102/48. Respirations 18. Temperature 98.4, pulse ox 97% on room air. HEENT: Conjunctivae normal. Oral mucosa moist. Neck is no jugular venous distention. No carotid bruit. No lymph node enlargement. Cardiovascular system: S1, S2 muffled. RESPIRATORY: Breath sounds diminished in the bases. Bilateral scattered rhonchi and crackles. Expiratory wheezing also present. ABDOMEN: Soft, nontender. No mass palpable. LEGS: No edema. No swelling. CENTRAL NERVOUS SYSTEM: Higher functions as mentioned earlier. Moves all four limbs. Mild diffuse weakness. Lymphatics: No lymph nodes palpable in the neck, axillae or groin.. SKIN: No ulcer. Bruises. JOINTS: No active deforming arthropathy. LAB STUDIES: At this time shows WBC 14.7, hemoglobin 11.7, INR 3.3, and NT proBNP 6080 and troponin 0.036. ASSESSMENT: 1. Chronic obstructive pulmonary disease acute exacerbation with possible acute bilateral pneumonia. 2. Rule out congestive heart failure. 3. Increased creatinine with chronic kidney disease stage III. 4. Increased WBC. 5. Anemia, normocytic anemia of chronic disease. 6. History of atrial fibrillation. 7. History of congestive heart failure. 8. History of chronic obstructive pulmonary disease. 9. History of cerebrovascular accident, transient ischemic attack. 10.History of hypertension. 11.History of hyperlipidemia. 12.Gait dysfunction. 13.Falls and gait instability. 14.Degenerative joint disease. 16.History of prostate disorder. 17.History of cardiac catheterization. 18.History of degenerative joint disease, lumbar laminectomy and back pain. 19.History of depression. RECOMMENDATIONS AND DISCUSSION: In this 88-year-old gentleman who presented with multiple complex medical issues, we will monitor the patient closely, continue the current medications, management and symptomatic treatment. At this time, I recommend bronchodilators. I would also recommend continue with diuretics. Otherwise, I would also recommend empiric antibiotics and I would recommend evaluation by the Pulmonary and PT/OT evaluation, possible ECF rehab. Resume the home medications. Monitor PT, INR closely. Prognosis guarded because of multiple complex medical issues. Further recommendations to follow. A copy of dictation being forwarded to Dr. Niño who is the primary care physician. JORDI / ELYSSAN: [id number] / [id number]
[2018-11-22 13:25] VITALS: BMI 20.7
--- NOTE | 2018-11-22 14:12 | P.CNPUL ---
History of Present Illness Consult date: 11/22/18 Requesting physician: Napoleon Palacios Reason for consult: COPD, pneumonia Chief complaint: Fall and weakness History of present illness: This is an 88-year-old white male familiar to my service, I have seen this patient for many years for severe COPD. However the patient is not O2 dependent, he is prednisone dependent. Patient is also known to have history of atrial fibrillation, hypertension, hyperlipidemia, degenerative joint disease, his primary care physician is Dr. Niño. Patient has been seeing Dr. Cunningham recently at the [facility] pulmonary clinic. Last time he saw him was in the last couple of months. Patient was being followed for abnormal chest x-ray showing some nodule which has been stable and did not require any intervention. Patient was brought in this time. Mostly because he fell, did not have a syncopal episode, patient was very weak after he fell, and it took his about 2 hours to get him up from the floor. Patient was brought into the ER, and workup was basically nondiagnostic. His labs were all noted, his chest x-ray question atelectasis or scarring or possibly pneumonia in the right upper lobe. Patient had no symptoms to suggest pneumonia. He had no fever, no chills, no hemoptysis, no chest pain. And his overall pulmonary st atus has been relatively stable over the last couple of years. Considering his abnormal chest x-ray, I was asked to see him on consultation. Review of Systems CONSTITUTIONAL: No fever, mild fatigue and weakness HEENT: No recent visual problems or hearing problems. Denied any sore throat. CARDIOVASCULAR: No orthopnea, PND, no palpitations, no syncope. PULMONARY: No shortness of breath, no cough, no hemoptysis. GASTROINTESTINAL: No diarrhea, no nausea, no vomiting, no abdominal pain. Normoactive bowel sounds. NEUROLOGICAL: No headaches, status post falling, and unable to get up on his own. HEMATOLOGICAL: Denies any bleeding or petechiae. GENITOURINARY: Denies any burning micturition, frequency, or urgency. MUSCULOSKELETAL/RHEUMATOLOGICAL: Denies any joint pain, swelling, or any muscle pain. ENDOCRINE: Denies heat or cold intolerance, denies any symptoms of diabetes. Past Medical History Past Medical History: Atrial Fibrillation, Cancer, Heart Failure, COPD, CVA/TIA, Hyperlipidemia, Hypertension, Osteoarthritis (OA), Pneumonia, Prostate Disorder Additional Past Medical History / Comment(s): TIA x 2, balance issues, falls, past fall with acetabular fracture, colon and skin cancer with surgery, R sided abdominal hernia, seasonal allergies, PVD, past bilateral leg wounds, pneumotho rax with chest tube when in his 20s after a fall, bilateral tinnitis, chronic back pain, past L2 fracture, recent L4 fracture. History of Any Multi-Drug Resistant Organisms: None Reported Past Surgical History: Heart Catheterization, Hernia Repair Additional Past Surgical History / Comment(s): Laminictomy-lumbar, umbilical and incisional hernia repair, 1990 colon resection and temporary colostomy, skin cancer removal from face, L leg laser vein surgery, bronchoscopy, bilateral lower leg wounds with debridements, bilateral cataract removals. Past Anesthesia/Blood Transfusion Reactions: Postoperative Nausea & Vomiting (PONV) Additional Past Anesthesia/Blood Transfusion Reaction / Comment(s): Pt has received blood in past without reaction. Smoking Status: Former smoker - Past Family History Father Additional Family Medical History / Comment(s): Father had mental health issues. He lived to be 84 yrs old. Mother Family Medical History: Pneumonia Additional Family Medical History / Comment(s): Mother of pneumonia at the age of 29yrs. Brother(s) History Unknown: Yes Family Medical History: Cancer Medications and Allergies Home Medications Medication Instructions Recorded Confirmed Type Albuterol Nebulized [Ventolin 2.5 mg INHALATION RT-Q4H PRN 08/28/15 11/21/18 History Nebulized] Finasteride [Proscar] 5 mg PO DAILY 08/28/15 11/21/18 History Tamsulosin HCl [Flomax] 0.4 mg PO DAILY 08/29/15 11/21/18 History predniSONE 5 mg PO BID 07/09/16 11/21/18 History Digoxin [Lanoxin] 125 mcg PO DAILY 02/10/18 11/21/18 History HYDROcodone/APAP 10-325MG [[place] 1 tab PO TID PRN 02/10/18 11/21/18 History 10-325] Lisinopril [Prinivil] 10 mg PO DAILY 02/10/18 11/21/18 History Temazepam [Restoril] 15 mg PO HS 02/10/18 11/21/18 History Warfarin [Coumadin] 1 mg PO SUMOTUTHFRSA 02/10/18 11/21/18 History Warfarin [Coumadin] 2 mg PO WE 02/10/18 11/21/18 History Cyclobenzaprine [Flexeril] 5 mg PO BID PRN 04/17/18 11/21/18 History Furosemide [Lasix] 20 mg PO BID 04/17/18 11/21/18 History Ipratropium Nebulized [Atrovent 0.5 mg INHALATION Q6HR 11/21/18 11/21/18 History Nebulized 0.2 MG/ML] Allergies Allergy/AdvReac Type Severity Reaction Status Date / Time No Known Allergies Allergy Verified 11/21/18 10:40 Physical Exam Vitals: Vital Signs Temp Pulse Pulse Pulse Pulse Resp BP 11/22/18 12:40 98.3 F 84 17 128/48 11/22/18 11:08 82 11/22/18 10:56 80 11/22/18 07:48 18 11/22/18 07:28 78 11/22/18 07:18 76 11/22/18 05:00 98.2 F 59 L 18 130/65 11/21/18 22:49 69 117/53 11/21/18 20:46 98.5 F 84 18 102/48 11/21/18 19:24 88 11/21/18 19:20 82 Pulse Ox 11/22/18 12:40 96 11/22/18 11:08 11/22/18 10:56 11/22/18 07:48 11/22/18 07:28 11/22/18 07:18 11/22/18 05:00 96 11/21/18 22:49 11/21/18 20:46 11/21/18 19:24 11/21/18 19:20 Intake and Output 11/21/18 11/22/18 11/22/18 22:59 06:59 14:59 Intake Total 400 650 Balance 400 650 Intake: Intake, IV Titration 650 Amount Sodium Chloride 0.9% 1, 650 000 ml @ 75 mls/hr IV . [id number] [facility] Rx#:[id number] Oral 400 Other: Voiding Method Urinal Urinal Urinal Diaper Diaper Diaper Incontinent Incontinent Incontinent # Voids 2 2 Weight 63.503 kg Physical Exam: Revealed 88-year-old white male in no distress. Very pleasant. Head: Atraumatic, normocephalic. HEENT:[Neck is supple.] [No neck masses.] [No thyromegaly.] [No JVD.] Chest: [Diminished breath sounds at the bases, minimal wheezing on forced expiratory maneuver noted. Cardiac Exam: [Normal S1 and S2, no S3 gallop, no murmur.] Abdomen: [Soft, nontender, no megaly, no rebound, no guarding, normal bowel sounds.] Extremities: [No clubbing, no edema, no cyanosis.] Neurological Exam: [No focal neurologic deficit.] Results - Laboratory Findings CBC and BMP: 11/22/18 02:33 11/22/18 02:33 PT/INR, D-dimer PT 44.5 sec (9.0-12.0) H 11/22/18 02:33 INR 4.6 (<1.2) H 11/22/18 02:33 Abnormal lab findings: Abnormal Labs 11/21/18 11/21/18 11/21/18 10:45 10:45 10:45 WBC 14.2 H RBC 4.13 L Hgb 11.7 L Hct 36.0 L Plt Count 141 L Neutrophils # 12.7 H Lymphocytes # 0.6 L PT 32.2 H INR 3.3 H APTT 43.4 H Sodium BUN 42 H Creatinine 1.42 H Glucose 70 L Calcium Total Bilirubin 1.6 H Creatine Kinase 47 L Troponin I Total Protein Albumin Urine Protein Ur Leukocyte Esterase Urine WBC Urine Mucus 11/21/18 11/21/18 11/22/18 10:45 18:17 02:33 WBC RBC 3.63 L Hgb 10.2 L Hct 32.7 L Plt Count 105 L Neutrophils # Lymphocytes # PT INR APTT Sodium BUN Creatinine Glucose Calcium Total Bilirubin Creatine Kinase Troponin I 0.036 H* Total Protein Albumin Urine Protein Trace H Ur Leukocyte Esterase Small H Urine WBC 12 H Urine Mucus Rare H 11/22/18 11/22/18 02:33 02:33 WBC RBC Hgb Hct Plt Count Neutrophils # Lymphocytes # PT 44.5 H INR 4.6 H APTT Sodium 134 L BUN 39 H Creatinine 1.28 H Glucose Calcium 8.2 L Total Bilirubin Creatine Kinase Troponin I Total Protein 5.4 L Albumin 2.7 L Urine Protein Ur Leukocyte Esterase Urine WBC Urine Mucus - Diagnostic Findings Chest x-ray: image reviewed (Chest x-ray was reviewed, the findings in the right upper lobar most likely related to scarring, nonspecific, strongly doubt pneumonia.) Assessment and Plan Assessment: Impression: 1 status post fall, exact etiology is not clear, but not syncopal in nature. Apparently for some reason the patient lost his balance, and couldn't get up off the floor once he fell. 2 history of COPD, relatively stable and inactive at present. 3 no evidence of pneumonia on the chest x-ray, the findings are nonspecific and the patient has no clinical symptoms to suggest pneumonia. 4 chronic atrial fibrillation 5 previous CVA and TIA. 6 hypertension 7 falls and gait instability, etiology is not clear, may eventually require neurological evaluation on outpatient basis. 8 degenerative joint disease and previous lumbar laminectomy. Recommendation: Continue present treatment plan for his COPD, pulmonary-robertson, patient was cleared for discharge unless he has other issues not related to his lungs. Follow-up on outpatient basis with Dr. Octavio buckley at [facility]/pulmonary clinic. Time with Patient: Greater than 30
[2018-11-22] MEDS: SODIUM CHLORIDE 0.9% 1,000 ML IV SCH (18:30)
[2018-11-22] MEDS ORDERED: PANTOPRAZOLE 40 MG/10 ML VIAL IVP ONE (20:05)
[2018-11-22] MEDS: TEMAZEPAM 15 MG CAP PO PRN (20:59)
--- NOTE | 2018-11-22 23:27 | PN ---
PROGRESS NOTE DATE OF SERVICE: 11/22/2018 This 88-year-old gentleman was admitted with history of fall and syncope; also had some COPD exacerbation, bilateral pneumonia. The patient is on IV antibiotics also. No chest pain. No palpitations. No fever. EXAM: Alert and oriented x3. Pulse 84, blood pressure 98/40, respiration 17, temperature 98.2, pulse ox 98% on room air. HEENT: Conjunctivae clear. NECK: No JVD. CARDIAC: S1, S2 muffled. RESPIRATORY: Diminished breath sounds at the bases. Bilateral scattered rhonchi and crackles. ABDOMEN: Soft, nontender. LEGS: No edema, no swelling. LAB STUDIES: WBC 8.8, hemoglobin is ( ), and INR is 0.6. Creatinine is 1.28. Troponins are noted. Influenza is negative. ASSESSMENT: 1. Chronic obstructive pulmonary disease acute exacerbation with possible acute bilateral pneumonia. 2. Rule out congestive heart failure. 3. Increased creatinine with chronic kidney disease stage III. 4. Increased WBC. 5. Anemia, normocytic, anemia of chronic disease. 6. History atrial fibrillation. 7. Coumadin coagulopathy. 8. History of congestive heart failure. 9. History of chronic obstructive pulmonary disease. 10.History of cerebrovascular accident, transient ischemic attack. 11.History of hypertension. 12.History of hyperlipidemia. 13.Gait dysfunction. 14.Fall and gait instability. 15.Degenerative joint disease. 16.History of prostate disorder. 17.History of cardiac catheterization. 18.History of lumbar laminectomy and back pain. 19.History of depression. 20.NO CODE, NO CPR, NO VENT. RECOMMENDATIONS AND DISCUSSION: Recommend to continue current management and symptomatic treatment. PT/OT evaluation. Continue with antibiotics. Otherwise, I would also recommend closely follow with pulmonary. Guarded prognosis because of multiple complex medical issues. Further recommendations to follow. Possible ECF rehab. Patient has had falls and ecchymoses also. MMODL / IJN: [id number] /
[2018-11-23] MEDS: HYDROcodone/APAP 5-325MG 1 EACH TAB PO PRN ×2 (02:22→08:01)
[2018-11-23] MEDS: IPRATROPIUM-ALBUTEROL 3 ML NEB INHALATION SCH ×2 (07:09→11:07)
[2018-11-23] MEDS: SYMBICORT 160-4.5 MCG INHALER INHALATION SCH (07:09)
[2018-11-23 07:50] LABS: Basophils % (A) 1 %; Eosinophils # (A) 0.2 k/uL (0-0.7); Eosinophils % (A) 4 %; HCT 32.4 % (39.0-53.0); Hypochromasia Slight; Lymphocytes # (A) 0.8 k/uL (1.0-4.8); Lymphocytes % (A) 16 %; MCHC 31.1 g/dL (31.0-37.0); MCV 90.1 fL (80.0-100.0); Mean Platelet Volume 8.2; Monocytes # (A) 0.3 k/uL (0-1.0); Monocytes % (A) 7 %; Neutrophils # (A) 3.6 k/uL (1.3-7.7); Neutrophils % (A) 71 %; Platelet Count 128 k/uL (150-450); RBC 3.59 m/uL (4.30-5.90); RDW 13.7 % (11.5-15.5); WBC 5.1 k/uL (3.8-10.6)
[2018-11-23 07:52] LABS: INR 2.7 (<1.2); Prothrombin Time 26.1 sec (9.0-12.0)
[2018-11-23] MEDS: MULTIVITAMINS, THERA 1 EACH TAB PO SCH (08:01)
[2018-11-23] MEDS: TAMSULOSIN 0.4 MG CAP.ER.24H PO SCH (08:01)
[2018-11-23] MEDS: FUROSEMIDE 20 MG TAB PO SCH (08:01)
[2018-11-23] MEDS: LISINOPRIL 10 MG TAB PO SCH (08:01)
[2018-11-23] MEDS: DIGOXIN 125 MCG TAB PO SCH (08:03)
[2018-11-23] MEDS: PANTOPRAZOLE 40 MG/10 ML VIAL IV SCH (08:03)
[2018-11-23] MEDS: SODIUM CHLORIDE 0.9% 1,000 ML IV SCH (08:03)
[2018-11-23] MEDS: FINASTERIDE 5 MG TAB PO SCH (08:03)
[2018-11-23 08:08] LABS: Calcium 8.4 mg/dL (8.4-10.2); Potassium 4.7 mmol/L (3.5-5.1)
[2018-11-23 12:21] VITALS: BP 147/55; PULSE 72; RESP 17; TEMP 98.1
--- NOTE | 2018-11-23 14:29 | P.PN ---
Subjective Progress Note Date: 11/23/18 Principal diagnosis: Status post Fall and gait instability This is an 88-year-old white male familiar to my service, I have seen this patient for many years for severe COPD. However the patient is not O2 dependent, he is prednisone dependent. Patient is also known to have history of atrial fibrillation, hypertension, hyperlipidemia, degenerative joint disease, his primary care physician is Dr. Niño. Patient has been seeing Dr. Cunningham recently at the [facility] pulmonary clinic. Last time he saw him was in the last couple of months. Patient was being followed for abnormal chest x-ray showing some nodule which has been stable and did not require any intervention. Patient was brought in this time. Mostly because he fell, did not have a syncopal episode, patient was very weak after he fell, and it took his about 2 hours to get him up from the floor. Patient was brought into the ER, and workup was basically nondiagnostic. His labs were all noted, his chest x-ray question atelectasis or scarring or possibly pneumonia in the right upper lobe. Patient had no symptoms to suggest pneumonia. He had no fever, no chills, no hemoptysis, no chest pain. And his overall pulmonary status has been relatively stable over the last couple of years. Considering his abnormal chest x-ray, I was asked to see him on consultation. Patient was reevaluated today on 11/23/2018, patient is doing well, he was actually ambulating on his own with the use of a walker down the hallway earlier this morning. Patient denies any cough no wheezing, he is a bit unsteady on his feet, but overall he seems to be doing better. I did mention to the patient zarina t he could be considered for rehab referral, however he is extremely against the idea, and he is insisting that if he is to be discharged he will go only home. No rales. Very robertson, the patient is doing well, asymptomatic, no cough no wheezing, no fever no chills no hemoptysis. No documented fever since admission. Objective - Vital Signs Vital signs: Vital Signs Temp 98.1 F 11/23/18 12:20 Pulse 72 11/23/18 12:20 Resp 17 11/23/18 12:20 BP 147/55 11/23/18 12:20 Pulse Ox 98 11/23/18 12:20 Intake & Output 11/22/18 11/23/18 11/23/18 18:59 06:59 18:59 Intake Total 850 Balance 850 Weight 63.503 kg Intake: Intake, IV Titration 650 Amount Sodium Chloride 0.9% 1, 650 000 ml @ 75 mls/hr IV . [id number] [facility] Rx#:[id number] Oral 200 Other: Voiding Method Urinal Urinal Urinal Diaper Diaper Diaper Incontinent Incontinent Incontinent # Voids 2 1 - Exam Physical Exam: Revealed 88-year-old white male in no distress. Sitting in bed, asymptomatic Head: Atraumatic, normocephalic. HEENT:[Neck is supple.] [No neck masses.] [No thyromegaly.] [No JVD.] Chest: [Diminished breath sounds at the bases, minimal wheezing on forced expiratory maneuver noted. Cardiac Exam: [Normal S1 and S2, no S3 gallop, no murmur.] Abdomen: [Soft, nontender, no megaly, no rebound, no guarding, normal bowel sounds.] Extremities: [No clubbing, no edema, no cyanosis.] Neurological Exam: [No focal neurologic deficit.] - Labs CBC & Chem 7: 11/23/18 06:28 11/23/18 06:28 Labs: Abnormal Lab Results - Last 24 Hours (Table) 11/23/18 11/23/18 11/23/18 Range/Units 06:28 06:28 06:28 RBC 3.59 L (4.30-5.90) m/uL Hgb 10.0 L (13.0-17.5) gm/dL Hct 32.4 L (39.0-53.0) % Plt Count 128 L (150-450) k/uL Lymphocytes # 0.8 L (1.0-4.8) k/uL PT 26.1 H (9.0-12.0) sec INR 2.7 H (<1.2) BUN 38 H (9-20) mg/dL Creatinine 1.36 H (0.66-1.25) mg/dL Microbiology - Last 24 Hours (Table) 11/21/18 23:50 Urine Culture - Final Urine,Voided 11/21/18 13:35 Blood Culture - Preliminary Blood No Growth after 24 hours Assessment and Plan Assessment: Impression: 1 status post fall, exact etiology is not clear, but not syncopal in nature. Apparently for some reason the patient lost his balance, and couldn't get up off the floor once he fell. 2 history of COPD, relatively stable and inactive at present. 3 no evidence of pneumonia on the chest x-ray, the findings are nonspecific and the patient has no clinical symptoms to suggest pneumonia. 4 chronic atrial fibrillation 5 previous CVA and TIA. 6 hypertension 7 falls and gait instability, etiology is not clear, may eventually require neurological evaluation on outpatient basis. 8 degenerative joint disease and previous lumbar laminectomy. Recommendation: Patient will be cleared from our perspective for discharge planning, I'm suggesting that he goes to a rehab facility, however the patient is extremely against the idea. Patient could be followed up on outpatient basis by Dr. Cunningham, again his pulmonary status is relatively stable, and the f indings in the right upper lobe are nonspecific, could be monitored on outpatient basis. Time with Patient: Less than 30
--- NOTE | 2018-11-23 14:29 | P.PN ---
Subjective Progress Note Date: 11/23/18 Principal diagnosis: Status post fall secondary to loss of balance This is an 88-year-old white male familiar to my service, I have seen this patient for many years for severe COPD. However the patient is not O2 dependent, he is prednisone dependent. Patient is also known to have history of atrial fibrillation, hypertension, hyperlipidemia, degenerative joint disease, his primary care physician is Dr. Niño. Patient has been seeing Dr. Cunningham recently at the [facility] pulmonary clinic. Last time he saw him was in the last couple of months. Patient was being followed for abnormal chest x-ray showing some nodule which has been stable and did not re quire any intervention. Patient was brought in this time. Mostly because he fell, did not have a syncopal episode, patient was very weak after he fell, and it took his about 2 hours to get him up from the floor. Patient was brought into the ER, and workup was basically nondiagnostic. His labs were all noted, his chest x-ray question atelectasis or scarring or possibly pneumonia in the right upper lobe. Patient had no symptoms to suggest pneumonia. He had no fever, no chills, no hemoptysis, no chest pain. And his overall pulmonary status has been relatively stable over the last couple of years. Considering his abnormal chest x-ray, I was asked to see him on consultation. The patient is seen today 11/23/2018 in follow-up on the regular medical floor. He is awake and alert in no acute distress. Maintaining good O2 saturations in the upper 90s on room air. He's been afebrile. Hemodynamically stable. Blood and urine cultures negative. White count 5.1. Hemoglobin 10.0. INR 2.7. Creatinine 1.36. Influenza screen was negative. Objective - Vital Signs Vital signs: Vital Signs Temp 98.1 F 11/23/18 12:20 Pulse 72 11/23/18 12:20 Resp 17 11/23/18 12:20 BP 147/55 11/23/18 12:20 Pulse Ox 98 11/23/18 12:20 Intake & Output 11/22/18 11/23/18 11/23/18 18:59 06:59 18:59 Intake Total 850 Balance 850 Weight 63.503 kg Intake: Intake, IV Titration 650 Amount Sodium Chloride 0.9% 1, 650 000 ml @ 75 mls/hr IV . [id number] [facility] Rx#:[id number] Oral 200 Other: Voiding Method Urinal Urinal Urinal Diaper Diaper Diaper Incontinent Incontinent Incontinent # Voids 2 1 - Exam GENERAL EXAM: Alert, active, comfortable in no apparent distress. On room air. HEAD: Normocephalic. EYES: Normal reaction of pupils, equal size. NOSE: Clear with pink turbinates. THROAT: No erythema or exudates. NECK: No masses, no JVD. CHEST: No chest wall deformity. LUNGS: Equal air entry with no crackles, wheeze, rhonchi or dullness. Diminished in the bases. CVS: S1 and S2 normal with no audible murmur, regular rhythm. ABDOMEN: No hepatosplenomegaly, normal bowel sounds, no guarding or rigidity. SPINE: No scoliosis or deformity SKIN: No rashes CENTRAL NERVOUS SYSTEM: No focal deficits, tone is normal in all 4 extremities. EXTREMITIES: There is no peripheral edema. No clubbing, no cyanosis. Peripheral pulses are intact. - Labs CBC & Chem 7: 11/23/18 06:28 11/23/18 06:28 Labs: Abnormal Lab Results - Last 24 Hours (Table) 11/23/18 11/23/18 11/23/18 Range/Units 06:28 06:28 06:28 RBC 3.59 L (4.30-5.90) m/uL Hgb 10.0 L (13.0-17.5) gm/dL Hct 32.4 L (39.0-53.0) % Plt Count 128 L (150-450) k/uL Lymphocytes # 0.8 L (1.0-4.8) k/uL PT 26.1 H (9.0-12.0) sec INR 2.7 H (<1.2) BUN 38 H (9-20) mg/dL Creatinine 1.36 H (0.66-1.25) mg/dL Microbiology - Last 24 Hours (Table) 11/21/18 23:50 Urine Culture - Final Urine,Voided 11/21/18 13:35 Blood Culture - Preliminary Blood No Growth after 24 hours Assessment and Plan Assessment: Impression: 1 status post fall, exact etiology is not clear, but not syncopal in nature. Apparently for some reason the patient lost his balance, and couldn't get up off the floor once he fell. 2 history of COPD, relatively stable and inactive at present. 3 no evidence of pneumonia on the chest x-ray, the findings are nonspecific and the patient has no clinical symptoms to suggest pneumonia. 4 chronic atrial fibrillation 5 previous CVA and TIA. 6 hypertension 7 falls and gait instability, etiology is not clear, may eventually require neurological evaluation on outpatient basis. 8 degenerative joint disease and previous lumbar laminectomy. Recommendation: The patient was seen and evaluated by Dr. Up. He'll continue with his home pulmonary medications. Follow up with Dr. Cunningham at the [facility]. He is encouraged to call sooner with any vomiting issues or other questions or concerns I, the cosigning physician, performed a history & physical examination of the patient. Lungs sounds are clear, diminished. Maintaining good O2 saturations in the 90s on room air. I discussed the assessment and plan of care with my nurse practitioner, Mindy Wells. I attest to the above note as dictated by her.
--- NOTE | 2018-11-24 00:28 | DS ---
DISCHARGE SUMMARY DATE OF SERVICE: 11/23/2018. FINAL DIAGNOSES: 1. Chronic obstructive pulmonary disease acute exacerbation with possible acute bilateral pneumonia possibly gram-negative. 2. Rule out congestive heart failure. 3. Increased creatinine with chronic kidney stage III. 4. Increased WBC. 5. Anemia, normocytic anemia of chronic disease. 6. History atrial fibrillation. 7. History of Coumadin coagulopathy. 8. History of congestive heart failure. 9. History of chronic obstructive pulmonary disease. 10.History of cerebrovascular accident, transient ischemic attack. 11.Hypertension. 12.Hyperlipidemia. 13.Gait dysfunction. 14.History of fall and gait instability. 15.Degenerative joint disease. 16.History of prostate disorder. 17.History of cardiac catheterization. 18.History of lumbar laminectomy and back pain. 19.History of depression. 20.NO CODE, NO CPR, NO VENT. DISCHARGE DISPOSITION: The patient will be discharged in stable condition with guarded prognosis. HISTORY OF PRESENT ILLNESS: This 88 -year-old gentleman with past medical history of multiple medical problems was admitted with weakness and some cough and features of possible pneumonia. Treated with antibiotics. Patient improved significantly. Dr. Up saw the patient during this hospitalization. PHYSICAL EXAMINATION: On exam, vital signs are stable. Cardiovascular S1, S2. Abdomen soft. No system focal neurological deficits. The creatinine is 1.36 and WBC 5.9, hemoglobin is 10. As mentioned earlier patient has significant weakness and multiple falls, but however with antibiotic treatment, the patient improved significantly with clear chest and much improved appetite and general conditioning. DISCHARGE ADVICE AND MEDICATIONS: 1. Diet is cardiac diet. 2. Activity until follow up. 3. Follow up with Dr. Niño in 2-3 days. 4. Follow up with pulmonary service. MEDICATIONS: As follows: 1. Coumadin 1 mg. Saturday, Saturday, Saturday, , Saturday, Saturday and 2 mg Saturday. 2. Flexeril 5 mg b.i.d. p.r.n. 3. Flomax 0.4 daily. 4. Lanoxin 125 mcg p.o. daily. 5. Lasix 20 mg b.i.d. p.r.n. 6. [place] 10 mg t.i.d. p.r.n. 7. Prednisone 5 mg p.o. b.i.d. 8. Prinivil 10 mg. 9. Proscar 5 mg. 10.Restoril 50 mg q.h.s. 11.Ventolin 2.5 q.4 p.r.n. 12.Ceftin 500 mg p.o. b.i.d. for 3 days. 13.DuoNeb q.i.d. 14.Symbicort 160/4.5 two puffs b.i.d. Once again, the patient is being discharged in stable condition with guarded prognosis. MMODL / IJN: [id number] /
[2018-11-26] MEDS ORDERED: WARFARIN 2 MG TAB PO SCH (19:43)
== END 2018-11-23 13:35 | disposition home or self-care (01) | DRG 190 ==
LOC: EC 10:12 → 3NMEDONC 12:55
PROVIDERS: ADMIT Hospitalist; ATTEND Hospitalist
DX: J44.1 Chronic obstructive pulmonary disease with (acute) exacerbation (principal); J18.9 Pneumonia, unspecified organism; D68.9 Coagulation defect, unspecified; I13.0 Hypertensive heart and chronic kidney disease with heart failure and stage 1 through stage 4 chronic kidney disease, or unspecified chronic kidney disease; I50.9 Heart failure, unspecified; E86.0 Dehydration; I48.2 Chronic atrial fibrillation; N18.3 Chronic kidney disease, stage 3 (moderate); I73.9 Peripheral vascular disease, unspecified; D63.8 Anemia in other chronic diseases classified elsewhere; R63.0 Anorexia; I69.898 Other sequelae of other cerebrovascular disease; J44.0 Chronic obstructive pulmonary disease with (acute) lower respiratory infection; S50.312A Abrasion of left elbow, initial encounter; I25.10 Atherosclerotic heart disease of native coronary artery without angina pectoris; E78.5 Hyperlipidemia, unspecified; R26.9 Unspecified abnormalities of gait and mobility; M19.90 Unspecified osteoarthritis, unspecified site; N42.9 Disorder of prostate, unspecified; F32.9 Major depressive disorder, single episode, unspecified; M54.9 Dorsalgia, unspecified; G89.29 Other chronic pain; T45.515A Adverse effect of anticoagulants, initial encounter; Z66 Do not resuscitate; R74.8 Abnormal levels of other serum enzymes; J30.2 Other seasonal allergic rhinitis; Z90.49 Acquired absence of other specified parts of digestive tract; W06.XXXA Fall from bed, initial encounter; Z71.3 Dietary counseling and surveillance; Z68.20 Body mass index [BMI] 20.0-20.9, adult; Z79.52 Long term (current) use of systemic steroids; Z79.899 Other long term (current) drug therapy; Z79.01 Long term (current) use of anticoagulants; Z98.42 Cataract extraction status, left eye; Z98.41 Cataract extraction status, right eye; Z85.038 Personal history of other malignant neoplasm of large intestine; Z87.81 Personal history of (healed) traumatic fracture; Z87.01 Personal history of pneumonia (recurrent); Z85.828 Personal history of other malignant neoplasm of skin; Z87.891 Personal history of nicotine dependence; Z80.9 Family history of malignant neoplasm, unspecified
CPT/HCPCS: 12002; 36415; 71046; 80048; 80053; 81001; 82550; 83880; 84484; 85025; 85610; 85730; 87040; 87086; 87502; 93005; 94640; 96361; 96374; 99285

== ENCOUNTER 2019-03-15 14:17 | Inpatient (IN) | payer MEDICARE, BC ==
[2019-03-15] MEDS ORDERED: HYDROmorphone 0.5 MG/0.5 ML SYRINGE IVP STA (15:08)
[2019-03-15] MEDS ORDERED: TETANUS-DIPHTHERIA TOX (PF) 0.5 ML VIAL IM ONE (15:08)
[2019-03-15] MEDS ORDERED: SODIUM CHLORIDE 0.9% 500 ML 500 ML IV ONE (15:08)
--- NOTE | 2019-03-15 15:16 | ED ---
General Adult HPI - General Chief complaint: Fall Stated complaint: FALL Time Seen by Provider: 03/15/19 14:39 Source: patient, EMS Mode of arrival: EMS - History of Present Illness Initial comments: Patient is a 8-year-old male with a history of atrial fibrillation, currently on Coumadin, presents with a chief complaint of left leg pain after a fall injury. The patient was putting together a carport associated loss of swelling. When he fell he noticed there was a provided and he could not get himself up. EMS was called and brought the patient to the emergency department. Patient states he did not hit his head or lose consciousness, he denies any other injuries. Patie nt states that he is an 10 out of 10 pain. - Related Data Home Medications Medication Instructions Recorded Confirmed Finasteride [Proscar] 5 mg PO DAILY 08/28/15 03/15/19 Tamsulosin HCl [Flomax] 0.4 mg PO DAILY 08/29/15 03/15/19 predniSONE 5 mg PO BID 07/09/16 03/15/19 HYDROcodone/APAP 10-325MG [[place] 1 tab PO TID PRN 02/10/18 03/15/19 10-325] Lisinopril [Prinivil] 10 mg PO DAILY 02/10/18 03/15/19 Temazepam [Restoril] 15 mg PO HS PRN 02/10/18 03/15/19 Furosemide [Lasix] 20 mg PO BID 04/17/18 03/15/19 Budesonide [Pulmicort] 0.5 mg INHALATION RT-BID 03/15/19 03/15/19 Warfarin [Coumadin] 1 mg PO DAILY 03/15/19 03/15/19 Previous Rx's Medication Instructions Recorded Cephalexin [Keflex] 500 mg PO Q6HR 7 Days #28 cap 03/15/19 Sulfamethox-Tmp 800-160Mg [Bactrim 1 tab PO Q12HR #14 tab 03/15/19 DS 800-160 mg] Allergies Allergy/AdvReac Type Severity Reaction Status Date / Time No Known Allergies Allergy Verified 11/21/18 10:40 Review of Systems ROS Statement: Those systems with pertinent positive or pertinent negative responses have been documented in the HPI. ROS Other: All systems not noted in ROS Statement are negative. Past Medical History Past Medical History: Atrial Fibrillation, Cancer, Heart Failure, COPD, CVA/TIA, Hyperlipidemia, Hypertension, Osteoarthritis (OA), Pneumonia, Prostate Disorder Additional Past Medical History / Comment(s): TIA x 2, balance issues, falls, past fall with acetabular fracture, colon and skin cancer with surgery, R sided abdominal hernia, seasonal allergies, PVD, past bilateral leg wounds, pneumothorax with chest tube when in his 20s after a fall, bilateral tinnitis, chronic back pain, past L2 fracture, recent L4 fracture. History of Any Multi-Drug Resistant Organisms: None Reported Past Surgical History: Heart Catheterization, Hernia Repair Additional Past Surgical History / Comment(s): Laminictomy-lumbar, umbilical and incisional hernia repair, 1990 colon resection and temporary colostomy, skin cancer removal from face, L leg laser vein surgery, bronchoscopy, bilateral lower leg wounds with debridements, bilateral cataract removals. Past Anesthesia/Blood Transfusion Reactions: Postoperative Nausea & Vomiting (PONV) Additional Past Anesthesia/Blood Transfusion Reaction / Comment(s): Pt has received blood in past without reaction. Past Psychological History: No Psychological Hx Reported Smoking Status: Former smoker Past Alcohol Use History: None Reported Past Drug Use History: None Reported - Past Family History Father Additional Family Medical History / Comment(s): Father had mental health issues. He lived to be 84 yrs old. Mother Family Medical History: Pneumonia Additional Family Medical History / Comment(s): Mother of pneumonia at the age of 29yrs. Brother(s) History Unknown: Yes Family Medical History: Cancer General Exam Limitations: physical limitation General appearance: alert, in no apparent distress Head exam: Present: atraumatic, normocephalic Eye exam: Present: normal appearance ENT exam: Present: normal exam Neck exam: Present: normal inspection Respiratory exam: Present: normal lung sounds bilaterally. Absent: respiratory distress, wheezes Cardiovascular Exam: Present: regular rate, normal rhythm GI/Abdominal exam: Present: soft. Absent: distended, tenderness Rectal exam: Present: deferred Extremities exam: Present: other (Patient has a large skin tear over the left anterior lateral aspect of his lower extremity. There is exposed bone just distal to the knee. Patient is venous oozing blood. The extremities are otherwise neurovascularly intact.) Back exam: Present: normal inspection Neurological exam: Present: alert, oriented X3 Psychiatric exam: Present: normal affect, normal mood Skin exam: Present: warm, dry Course Vital Signs 07/21/19 07/21/19 07/21/19 14:20 15:23 15:34 Temperature 97.1 F L 97.1 F L Pulse Rate 92 92 85 Respiratory 18 18 16 Rate Blood Pressure 97/44 97/44 101/56 O2 Sat by Pulse 100 100 100 Oximetry 03/15/19 17:36 Temperature Pulse Rate 70 Respiratory 18 Rate Blood Pressure 115/57 O2 Sat by Pulse 100 Oximetry Medical Decision Making - Medical Decision Making Patient presents with a chief complaint of leg pain after a fall at home. On initial evaluation, vitals are stable, patient is in no acute distress. Examination of the leg shows a very large skin tear. Patient is chronically on prednisone likely causing fragile skin. There is exposed bone. Patient to be evaluated with basic labs including INR, x-rays of the pelvis and left lower extremity will be obtained. Patient given a tetanus booster, and a gram of Ancef. Patient given a half milligram of Dilaudid for pain. EKG performed at 1424 shows atrial fibrillation with a rate of 92 bpm, segs are otherwise within normal limits, no acute ischemic findings. X-ray does not show any acute fracture. Case is discussed with orthopedics, at this time they are recommending washout of the wound, sterile bandages. They'll follow-up with the patient in the office to discuss whether or not the patient would require skin flaps. Evaluation of the wound does not show that there is any viable tissue to suture. Patient's daughter who is a nurse in the emergency Department David Wiggins is now in the exam room, she states that she is willing and able to perform bandage changes. Patient will be discharged on Bactrim and Keflex and given close follow-up instructions to orthopedics. The patient's skin tear was irrigated extensively with sterile water. The wound was wrapped with Vaseline gauze, Kerlix, and Coban. Patient will be discharged with antibiotics. He was given follow-up instructions to orthopedics and instructed to follow-up in 1-2 days. - Lab Data Result diagrams: 03/15/19 14:35 03/15/19 14:35 Lab Results 03/15/19 03/15/19 03/15/19 Range/Units 14:35 14:35 14:35 WBC 6.0 (3.8-10.6) k/uL RBC 3.63 L (4.30-5.90) m/uL Hgb 10.6 L (13.0-17.5) gm/dL Hct 33.0 L (39.0-53.0) % MCV 90.9 (80.0-100.0) fL MCH 29.3 (25.0-35.0) pg MCHC 32.3 (31.0-37.0) g/dL RDW 15.5 (11.5-15.5) % Plt Count 149 L (150-450) k/uL Neutrophils % 80 % Lymphocytes % 12 % Monocytes % 5 % Eosinophils % 2 % Basophils % 1 % Neutrophils # 4.8 (1.3-7.7) k/uL Lymphocytes # 0.7 L (1.0-4.8) k/uL Monocytes # 0.3 (0-1.0) k/uL Eosinophils # 0.1 (0-0.7) k/uL Basophils # 0.0 (0-0.2) k/uL PT 22.4 H (9.0-12.0) sec INR 2.3 H (<1.2) Sodium 140 (137-145) mmol/L Potassium 4.4 (3.5-5.1) mmol/L Chloride 105 (98-107) mmol/L Carbon Dioxide 27 (22-30) mmol/L Anion Gap 8 mmol/L BUN 64 H (9-20) mg/dL Creatinine 1.59 H (0.66-1.25) mg/dL Est GFR (CKD-EPI)AfAm 45 (>60 ml/min/1.73 sqM) Est GFR (CKD-EPI)NonAf 39 (>60 ml/min/1.73 sqM) Glucose 163 H (74-99) mg/dL Calcium 8.5 (8.4-10.2) mg/dL Disposition Clinical Impression: Fall, Skin tear Disposition: HOME SELF-CARE Condition: Good Instructions (If sedation given, give patient instructions): Fall Prevention for Older Adults (ED) Is patient prescribed a controlled substance at d/c from ED?: No Referrals: Yazmin Niño MD [Primary Care Provider] - 1-2 days Arian Anderson MD [STAFF PHYSICIAN] - 1-2 days
[2019-03-15 15:40] LABS: Basophils % (A) 1 %; Eosinophils # (A) 0.1 k/uL (0-0.7); Eosinophils % (A) 2 %; HGB 10.6 gm/dL (13.0-17.5); Lymphocytes # (A) 0.7 k/uL (1.0-4.8); Lymphocytes % (A) 12 %; MCH 29.3 pg (25.0-35.0); MCHC 32.3 g/dL (31.0-37.0); MCV 90.9 fL (80.0-100.0); Mean Platelet Volume 7.8; Monocytes # (A) 0.3 k/uL (0-1.0); Monocytes % (A) 5 %; Neutrophils # (A) 4.8 k/uL (1.3-7.7); Neutrophils % (A) 80 %; Platelet Count 149 k/uL (150-450); RBC 3.63 m/uL (4.30-5.90); RDW 15.5 % (11.5-15.5)
[2019-03-15 15:46] LABS: INR 2.3 (<1.2); Prothrombin Time 22.4 sec (9.0-12.0)
[2019-03-15 15:50] LABS: Calcium 8.5 mg/dL (8.4-10.2); Potassium 4.4 mmol/L (3.5-5.1)
--- NOTE | 2019-03-15 16:20 | XR ---
EXAMINATION TYPE: XR ankle limited LT DATE OF EXAM: 03/15/2019 COMPARISON: NONE HISTORY: Laceration TECHNIQUE: 2 views FINDINGS: Ankle mortise is anatomic. I see no fracture nor dislocation. Joint spaces are normal. Ther e is some laceration soft tissue deformity over the anterior lower tibia. IMPRESSION: No fracture seen. No sign of a foreign body.
--- NOTE | 2019-03-15 16:21 | XR ---
EXAMINATION TYPE: XR pelvis AP view DATE OF EXAM: 03/15/2019 COMPARISON: 04/16/2018 HISTORY: Pain TECHNIQUE: Single view FINDINGS: Pelvic ring is intact. Proximal femurs and hip joints are intact. Sacroiliac joints are int act. There are surgical clips at the floor of the pelvis. IMPRESSION: No acute abnormality of the pelvis. No change. No fracture.
--- NOTE | 2019-03-15 16:22 | XR ---
EXAMINATION TYPE: XR femur LT DATE OF EXAM: 03/15/2019 COMPARISON: NONE HISTORY: Laceration TECHNIQUE: 4 views FINDINGS: The femur appears intact. I see no fracture nor dislocation. There is vascular calcificatio n in the femoral artery. Knee joint and hip joint appear intact. There is some lucency over the soft tissues of the proximal femur on the medial aspect of the thigh that could relate to laceration. IMPRESSION: No fracture. Possible laceration deformity.
--- NOTE | 2019-03-15 16:23 | XR ---
EXAMINATION TYPE: XR tibia fibula LT DATE OF EXAM: 03/15/2019 COMPARISON: NONE HISTORY: Laceration TECHNIQUE: 4 views FINDINGS: Tibia and fibula appear intact. I see no fracture nor dislocation. There is soft tissue def ormity on the medial aspect of the mid and proximal tibia consistent with laceration. Foreign body is possible. IMPRESSION: No fracture seen. Laceration deformity and possible foreign body.
[2019-03-15] MEDS ORDERED: LIDOCAINE 1%-EPI 1:100,000 20 ML VIAL SUBMUCOSAL ONE (17:20)
[2019-03-15] MEDS ORDERED: NALOXONE 0.4 MG/ML 1 ML VIAL IV PRN (19:47)
[2019-03-15] MEDS ORDERED: HYDROmorphone 0.5 MG/0.5 ML SYRINGE IVP PRN (19:47)
[2019-03-15] MEDS ORDERED: PHYTONADIONE ORAL 5 MG/5 ML ORAL.SYRG PO STA (19:49)
[2019-03-15] MEDS: HYDROcodone/APAP 10-325MG 1 EACH TAB PO PRN (21:42)
[2019-03-15] MEDS: TEMAZEPAM 15 MG CAP PO SCH (22:08)
[2019-03-16] MEDS: HYDROcodone/APAP 10-325MG 1 EACH TAB PO PRN ×4 (02:47→20:10)
[2019-03-16 08:46] LABS: Basophils % (A) 1 %; Eosinophils # (A) 0.2 k/uL (0-0.7); Eosinophils % (A) 4 %; HCT 33.8 % (39.0-53.0); HGB 10.4 gm/dL (13.0-17.5); Hypochromasia Slight; Lymphocytes # (A) 1.2 k/uL (1.0-4.8); Lymphocytes % (A) 19 %; MCH 28.4 pg (25.0-35.0); MCHC 30.6 g/dL (31.0-37.0); MCV 92.6 fL (80.0-100.0); Mean Platelet Volume 7.8; Monocytes # (A) 0.3 k/uL (0-1.0); Monocytes % (A) 4 %; Neutrophils # (A) 4.4 k/uL (1.3-7.7); Neutrophils % (A) 71 %; Platelet Count 164 k/uL (150-450); RBC 3.65 m/uL (4.30-5.90); RDW 15.5 % (11.5-15.5); WBC 6.1 k/uL (3.8-10.6)
[2019-03-16 08:47] LABS: Calcium 8.7 mg/dL (8.4-10.2); Potassium 4.4 mmol/L (3.5-5.1)
[2019-03-16] MEDS: TAMSULOSIN 0.4 MG CAP.ER.24H PO SCH (08:53)
[2019-03-16] MEDS: LISINOPRIL 10 MG TAB PO SCH (08:53)
[2019-03-16] MEDS: FINASTERIDE 5 MG TAB PO SCH (08:53)
[2019-03-16] MEDS: FUROSEMIDE 20 MG TAB PO SCH ×2 (08:53→16:06)
[2019-03-16] MEDS: predniSONE 5 MG TAB PO SCH ×2 (08:54→20:10)
[2019-03-16] MEDS: BUDESONIDE 0.5 MG/2 ML NEBU INHALATION SCH ×2 (09:02→19:48)
[2019-03-16 09:22] LABS: INR 1.9 (<1.2)
[2019-03-16] MEDS ORDERED: POLYETHYLENE GLYCOL 3350 17 GM POWD.PACK PO STA (11:12)
--- NOTE | 2019-03-16 11:34 | P.HPOR ---
History of Present Illness H&P Date: 03/16/19 Chief Complaint: Left lower leg skin tear The patient is a pleasant 88-year-old male with a medical history including A. fib, colon cancer, COPD, CVA, hyperlipidemia, hypertension, and BPH, who presented to the emergency department after sustaining an injury to his left lower leg. He states he was putting together a carport and a large piece of metal fell onto his leg. The patient is on prednisone and Coumadin and has very thin skin secondarily. Local wound care was administered in the emergency department and the patient was to be discharged home. However the patient was standing while still in the emergency department and the dressing became very saturated and there is a pool of blood on the floor. The patient was admitted for further evaluation and wound care by orthopedic surgery. Today, the patient states his pain is well-controlled. He denies fever, chills, rigors, chest pain, abdominal pain, and shortness of breath this morning. Review of Systems Constitutional: Denies chills, Denies fatigue, Denies fever Cardiovascular: Denies chest pain, Denies shortness of breath Respiratory: Denies cough Gastrointestinal: Denies diarrhea, Denies nausea, Denies vomiting Integumentary: Reports wounds (Complete skin loss to the anterior left lower leg) Past Medical History Past Medical History: Atrial Fibrillation, Cancer, Heart Failure, COPD, CVA/TIA, Hyperlipidemia, Hypertension, Osteoarthritis (OA), Pneumonia, Prostate Disorder Additional Past Medical History / Comment(s): TIA x 2, balance issues, falls, past fall with acetabular fracture, colon and skin cancer with surgery, R sided abdominal hernia, seasonal allergies, PVD, past bilateral leg wounds, pneumothorax with chest tube when in his 20s after a fall, bilateral tinnitis, chronic back pain, past L2 fracture, recent L4 fracture. History of Any Multi-Drug Resistant Organisms: None Reported Past Surgical History: Heart Catheterization, Hernia Repair Additional Past Surgical History / Comment(s): Laminictomy-lumbar, umbilical and incisional hernia repair, 1991 colon resection and temporary colostomy, skin cancer removal from face, L leg laser vein surgery, bronchoscopy, bilateral lower leg wounds with debridements, bilateral cataract removals. Past Anesthesia/Blood Transfusion Reactions: Postoperative Nausea & Vomiting (PONV) Additional Past Anesthesia/Blood Transfusion Reaction / Comment(s): Pt has received blood in past without reaction. Past Psychological History: No Psychological Hx Reported Smoking Status: Former smoker Past Alcohol Use History: None Reported Past Drug Use History: None Reported - Past Family History Father Additional Family Medical History / Comment(s): Father had mental health issues. He lived to be 84 yrs old. Mother Family Medical History: Pneumonia Additional Family Medical History / Comment(s): Mother of pneumonia at the age of 29yrs. Brother(s) History Unknown: Yes Family Medical History: Cancer Medications and Allergies Home Medications Medication Instructions Recorded Confirmed Type Finasteride [Proscar] 5 mg PO DAILY 08/28/15 03/15/19 History Tamsulosin HCl [Flomax] 0.4 mg PO DAILY 08/29/15 03/15/19 History predniSONE 5 mg PO BID 07/09/16 03/15/19 History HYDROcodone/APAP 10-325MG [[place] 1 tab PO TID PRN 02/10/18 03/15/19 History 10-325] Lisinopril [Prinivil] 10 mg PO DAILY 02/10/18 03/15/19 History Temazepam [Restoril] 15 mg PO HS PRN 02/10/18 03/15/19 History Furosemide [Lasix] 20 mg PO BID 04/17/18 03/15/19 History Budesonide [Pulmicort] 0.5 mg INHALATION RT-BID 03/15/19 03/15/19 History Cephalexin [Keflex] 500 mg PO Q6HR 7 Days #28 cap 03/15/19 Rx Sulfamethox-Tmp 800-160Mg [Bactrim 1 tab PO Q12HR #14 tab 03/15/19 Rx DS 800-160 mg] Warfarin [Coumadin] 1 mg PO DAILY 03/15/19 03/15/19 History Allergies Allergy/AdvReac Type Severity Reaction Status Date / Time No Known Allergies Allergy Verified 11/21/18 10:40 Physical Examination The patient is an 88 year old who is in no acute distress. He is alert and oriented 3. Exam of the left lower leg reveals complete skin loss to the anterior tibial area from the knee to 3 inches above the ankle. There appears to be fascia/periosteum covering the bone. There is minimal swelling to the leg. Calf is soft and nontender. Good foot and ankle motion. Foot is well- perfused and warm. Capillary refill less than 2 seconds. Results X-ray reports reviewed. No images were available at this time. - Labs Labs: Abnormal Lab Results - Last 24 Hours (Table) 03/15/19 03/15/19 03/15/19 Range/Units 14:35 14:35 14:35 RBC 3.63 L (4.30-5.90) m/uL Hgb 10.6 L (13.0-17.5) gm/dL Hct 33.0 L (39.0-53.0) % MCHC (31.0-37.0) g/dL Plt Count 149 L (150-450) k/uL Lymphocytes # 0.7 L (1.0-4.8) k/uL PT 22.4 H (9.0-12.0) sec INR 2.3 H (<1.2) BUN 64 H (9-20) mg/dL Creatinine 1.59 H (0.66-1.25) mg/dL Glucose 163 H (74-99) mg/dL 03/16/19 03/16/19 03/16/19 Range/Units 07:35 07:35 08:45 RBC 3.65 L (4.30-5.90) m/uL Hgb 10.4 L (13.0-17.5) gm/dL Hct 33.8 L (39.0-53.0) % MCHC 30.6 L (31.0-37.0) g/dL Plt Count (150-450) k/uL Lymphocytes # (1.0-4.8) k/uL PT 19.0 H (9.0-12.0) sec INR 1.9 H (<1.2) BUN 48 H (9-20) mg/dL Creatinine 1.44 H (0.66-1.25) mg/dL Glucose 104 H (74-99) mg/dL H & H 03/15/19 03/16/19 Range/Units 14:35 07:35 Hgb 10.6 L 10.4 L (13.0-17.5) gm/dL Hct 33.0 L 33.8 L (39.0-53.0) % Coagulation 03/15/19 03/16/19 Range/Units 14:35 08:45 INR 2.3 H 1.9 H (<1.2) Result Diagrams: 03/16/19 07:35 03/16/19 07:35 Assessment and Plan (1) Skin tear Current Visit: Yes Status: Acute Code(s): IMS2249 - SNOMED Code(s): 160466816 (2) Weakness Current Visit: No Status: Acute Code(s): R53.1 - WEAKNESS SNOMED Code(s): 23377556 Plan: The clinical and x-ray findings were discussed with the patient. The patient was also examined by Dr. Anderson. Continue IV antibiotics. A consult for infectious disease and wound care, Dr. Olson or Dr. Berger, will be placed. While we're waiting for wound care consultation, bacitracin will be ordered to apply to the wound as well as Adaptics, ABDs, and Kerlix. Skin grafting is not recommended at this time due to friable skin and lack of good donor skin. The patient was encouraged to increase motion to his left knee from 0-45 and con tinue ankle motion. We will await infectious disease/wound care recommendations at this time.
[2019-03-16] MEDS: BACITRACIN 500 UNIT/GM OINT 28.4 GM TUBE TOPICAL SCH ×2 (13:56→20:16)
[2019-03-16] MEDS ORDERED: WARFARIN 1 MG TAB PO ONE (18:00)
[2019-03-16] MEDS: TEMAZEPAM 15 MG CAP PO SCH (20:09)
--- NOTE | 2019-03-16 22:57 | P.CONS ---
History of Present Illness - History of Present Illness this is a pleasant 88 yo M with pmh of HTN, HLP, a fib on coumadin , CHF, COPD who is steroid dependant, CVA/TIA. multiple falls with acetabular fracture , colon and skin cancer status post surgeries, PVD , chronic back pain , previous L2 and L4 fractures, . pt presents with right leg injury after heavy metal fell on his leg. pt has significant bleed from his wound being on coumadin , pt was admitted to the hospital for further evaluation and management . INR 1.9. creatinine 1.59 and 1.44 (Baseline 1.2-1.4) . he had multiple xray which were negative for fracures. EKG: a fib with Heart rate of 92. Vitals stable Review of Systems CONSTITUTIONAL: No fever, no malaise, no fatigue. HEENT: No recent visual problems or hearing problems. Denied any sore throat. CARDIOVASCULAR: No orthopnea, PND, no palpitations, no syncope. PULMONARY: No shortness of breath, no cough, no hemoptysis. GASTROINTESTINAL: No diarrhea, no nausea, no vomiting, no abdominal pain. Normoactive bowel sounds. NEUROLOGICAL: No headaches, no weakness, no numbness. HEMATOLOGICAL: Denies any bleeding or petechiae. GENITOURINARY: Denies any burning micturition, frequency, or urgency. MUSCULOSKELETAL/RHEUMATOLOGICAL: Denies any joint pain, swelling, or any muscle pain. ENDOCRINE: Denies any polyuria or polydipsia. Past Medical History Past Medical History: Atrial Fibrillation, Cancer, Heart Failure, COPD, CVA/TIA, Hyperlipidemia, Hypertension, Osteoarthritis (OA), Pneumonia, Prostate Disorder Additional Past Medical History / Comment(s): TIA x 2, balance issues, falls, past fall with acetabular fracture, colon and skin cancer with surgery, R sided abdominal hernia, seasonal allergies, PVD, past bilateral leg wounds, pneumothorax with chest tube when in his 20s after a fall, bilateral tinnitis, chronic back pain, past L2 fracture, recent L4 fracture. History of Any Multi-Drug Resistant Organisms: None Reported Past Surgical History: Heart Catheterization, Hernia Repair Additional Past Surgical History / Comment(s): Laminictomy-lumbar, umbilical and incisional hernia repair, 1990 colon resection and temporary colostomy, skin cancer removal from face, L leg laser vein surgery, bronchoscopy, bilateral lower leg wounds with debridements, bilateral cataract removals. Past Anesthesia/Blood Transfusion Reactions: Postoperative Nausea & Vomiting (PONV) Additional Past Anesthesia/Blood Transfusion Reaction / Comm: Pt has received blood in past without reaction. Past Psychological History: No Psychological Hx Reported Smoking Status: Former smoker Past Alcohol Use History: None Reported Past Drug Use History: None Reported - Past Family History Father Additional Family Medical History / Comment(s): Father had mental health issues. He lived to be 84 yrs old. Mother Family Medical History: Pneumonia Additional Family Medical History / Comment(s): Mother of pneumonia at the age of 29yrs. Brother(s) History Unknown: Yes Family Medical History: Cancer Medications and Allergies Home Medications Medication Instructions Recorded Confirmed Type Finasteride [Proscar] 5 mg PO DAILY 08/28/15 03/15/19 History Tamsulosin HCl [Flomax] 0.4 mg PO DAILY 08/29/15 03/15/19 History predniSONE 5 mg PO BID 07/09/16 03/15/19 History HYDROcodone/APAP 10-325MG [[place] 1 tab PO TID PRN 02/10/18 03/15/19 History 10-325] Lisinopril [Prinivil] 10 mg PO DAILY 02/10/18 03/15/19 History Temazepam [Restoril] 15 mg PO HS PRN 02/10/18 03/15/19 History Furosemide [Lasix] 20 mg PO BID 04/17/18 03/15/19 History Budesonide [Pulmicort] 0.5 mg INHALATION RT-BID 03/15/19 03/15/19 History Cephalexin [Keflex] 500 mg PO Q6HR 7 Days #28 cap 03/15/19 Rx Sulfamethox-Tmp 800-160Mg [Bactrim 1 tab PO Q12HR #14 tab 03/15/19 Rx DS 800-160 mg] Warfarin [Coumadin] 1 mg PO DAILY 03/15/19 03/15/19 History Allergies Allergy/AdvReac Type Severity Reaction Status Date / Time No Known Allergies Allergy Verified 11/21/18 10:40 Physical Exam Vitals: Vital Signs Temp Pulse Pulse Resp BP BP Pulse Ox 03/16/19 19:57 58 L 03/16/19 19:50 60 12 03/16/19 19:33 98.0 F 61 18 109/58 99 03/16/19 15:00 97.7 F 74 16 107/57 03/16/19 09:00 80 03/16/19 07:00 97.6 F 80 14 112/57 03/16/19 06:43 68 16 119/68 03/16/19 03:01 73 16 119/68 98 Intake and Output 03/16/19 03/16/19 03/16/19 06:59 14:59 22:59 Intake Total 532 836 Balance 532 836 Intake: Oral 532 836 Other: Voiding Method Toilet # Voids 1 GENERAL: The patient is alert and oriented x3, not in any acute distress. Well developed, well nourished. HEENT: Pupils are round and equally reacting to light. EOMI. No scleral icterus. No conjunctival pallor. Normocephalic, atraumatic. No pharyngeal erythema. No thyromegaly. CARDIOVASCULAR: S1 and S2 present. No murmurs, rubs, or gallops. PULMONARY: Chest is clear to auscultation, no wheezing or crackles. ABDOMEN: Soft, nontender, nondistended, normoactive bowel sounds. No palpable organomegaly. MUSCULOSKELETAL: No joint swelling or deformity. EXTREMITIES: No cyanosis, clubbing, or pedal edema. right leg is wrapped in dressing ( pt refused to open the dressing for examination) NEUROLOGICAL: Gross neurological examination did not reveal any focal deficits. SKIN: No rashes. Results CBC & Chem 7: 03/16/19 07:35 03/16/19 07:35 Labs: Abnormal Lab Results - Last 24 Hours (Table) 03/16/19 03/16/19 03/16/19 Range/Units 07:35 07:35 08:45 RBC 3.65 L (4.30-5.90) m/uL Hgb 10.4 L (13.0-17.5) gm/dL Hct 33.8 L (39.0-53.0) % MCHC 30.6 L (31.0-37.0) g/dL PT 19.0 H (9.0-12.0) sec INR 1.9 H (<1.2) BUN 48 H (9-20) mg/dL Creatinine 1.44 H (0.66-1.25) mg/dL Glucose 104 H (74-99) mg/dL Assessment and Plan Assessment: right leg injury with local infection chronic a fib on coumadin chronic kidney disease h/o congestive heart failure hypertension hyperlipidemia COPD , not in acute exacerbation h/o CVA/TIA H/o multiple falls h/o colon and skin cancer status post surgeries chronic peripheral vascular disease chronic back pain previous L2 and L4 fractures Plan: pt presents with right leg injury and wound. continue with antibiotic as per ID recommendation and pt was started on cefazolin. pt is on steroid prednisone 5 mg daily also. add vitamin D and ca. pt got tetanus shot in ED. Labs and medication were reviewed.. Continue same treatment. Continue with symptomatic treatment. Resume home medication. Monitor lytes and vitals. DVT and GI prophylaxis. Further recommendations of the clinical course of the patient DVT prophylaxis: coumadin GI Prophylaxis: Pepcid PT/OT: Pending Prognosis is guarded
--- NOTE | 2019-03-16 23:57 | P.CONS ---
History of Present Illness - Reason for Consult Consult date: 03/16/19 Left leg wound Requesting physician: Arian Anderson - Chief Complaint Left leg laceration traumatic and bleeding x 1 day - History of Present Illness Patient is 88-year-old male presenting to the ER at [facility] with left lower extremity laceration sustained as an injury when the patient was putting together a carport metal fell on his left leg with resulting extensive laceration to the leg patient subsequently presented to the ER for further management of the same he has been complaining of pain to the left leg more of a dull aching to sharp 5 out of 10 and no radiation , no fever no chills, patient was seen in the ER and did have left leg wound care done and is supposed to be discharged home however was noticed to have significant sat uration of his dressing in the pool blood and the patient has been admitted hospital for further management of the same he did received a dose of cefazolin the ER infection disease was consulted for local wound care and need for antibiotic therapy Review of Systems Positive points has been mentioned in HPI rest of the systems are negative Past Medical History Past Medical History: Atrial Fibrillation, Cancer, Heart Failure, COPD, CVA/TIA, Hyperlipidemia, Hypertension, Osteoarthritis (OA), Pneumonia, Prostate Disorder Additional Past Medical History / Comment(s): TIA x 2, balance issues, falls, past fall with acetabular fracture, colon and skin cancer with surgery, R sided abdominal hernia, seasonal allergies, PVD, past bilateral leg wounds, pneumothorax with chest tube when in his 20s after a fall, bilateral tinnitis, chronic back pain, past L2 fracture, recent L4 fracture. History of Any Multi-Drug Resistant Organisms: None Reported Past Surgical History: Heart Catheterization, Hernia Repair Additional Past Surgical History / Comment(s): Laminictomy-lumbar, umbilical and incisional hernia repair, 1990 colon resection and temporary colostomy, skin cancer removal from face, L leg laser vein surgery, bronchoscopy, bilateral lower leg wounds with debridements, bilateral cataract removals. Past Anesthesia/Blood Transfusion Reactions: Postoperative Nausea & Vomiting (PONV) Additional Past Anesthesia/Blood Transfusion Reaction / Comm: Pt has received blood in past without reaction. Past Psychological History: No Psychological Hx Reported Smoking Status: Former smoker Past Alcohol Use History: None Reported Past Drug Use History: None Reported - Past Family History Father Additional Family Medical History / Comment(s): Father had mental health issues. He lived to be 84 yrs old. Mother Family Medical History: Pneumonia Additional Family Medical History / Comment(s): Mother of pneumonia at the age of 29yrs. Brother(s) History Unknown: Yes Family Medical History: Cancer Medications and Allergies Home Medications Medication Instructions Recorded Confirmed Type Finasteride [Proscar] 5 mg PO DAILY 08/28/15 03/15/19 History Tamsulosin HCl [Flomax] 0.4 mg PO DAILY 08/29/15 03/15/19 History predniSONE 5 mg PO BID 07/09/16 03/15/19 History HYDROcodone/APAP 10-325MG [[place] 1 tab PO TID PRN 02/10/18 03/15/19 History 10-325] Lisinopril [Prinivil] 10 mg PO DAILY 02/10/18 03/15/19 History Temazepam [Restoril] 15 mg PO HS PRN 02/10/18 03/15/19 History Furosemide [Lasix] 20 mg PO BID 04/17/18 03/15/19 History Budesonide [Pulmicort] 0.5 mg INHALATION RT-BID 03/15/19 03/15/19 History Cephalexin [Keflex] 500 mg PO Q6HR 7 Days #28 cap 03/15/19 Rx Sulfamethox-Tmp 800-160Mg [Bactrim 1 tab PO Q12HR #14 tab 03/15/19 Rx DS 800-160 mg] Warfarin [Coumadin] 1 mg PO DAILY 03/15/19 03/15/19 History Allergies Allergy/AdvReac Type Severity Reaction Status Date / Time No Known Allergies Allergy Verified 11/21/18 10:40 Physical Exam Vitals: Vital Signs Temp Pulse Pulse Resp BP BP Pulse Ox 03/16/19 19:57 58 L 03/16/19 19:50 60 12 03/16/19 19:33 98.0 F 61 18 109/58 99 03/16/19 15:00 97.7 F 74 16 107/57 03/16/19 09:00 80 03/16/19 07:00 97.6 F 80 14 112/57 03/16/19 06:43 68 16 119/68 03/16/19 03:01 73 16 119/68 98 Intake and Output 03/16/19 03/16/19 03/17/19 14:59 22:59 06:59 Intake Total 532 836 Balance 532 836 Intake: Oral 532 836 Other: Voiding Method Toilet # Voids 1 GENERAL DESCRIPTION: An elderly male lying in bed, no distress. No tachypnea or accessory muscle of respiration use. HEENT: Shows Pallor , no scleral icterus. Oral mucous membrane is dry. No pharyngeal erythema or thrush NECK: Trachea central, no thyromegaly. LUNGS: Unlabored breathing. Clear to auscultation anteriorly. No wheeze or crackle. HEART: S1, S2, irregular rate and rhythm. No loud murmur ABDOMEN: Soft, no tenderness , guarding or rigidity, no organomegaly EXTREMITIES: Left leg with extensive laceration to the wound base looks clean with no slough tissue no sniffing surrounding erythema minimal blood stained drainage. SKIN: No rash, no masses palpable. NEUROLOGICAL: The patient is awake, alert, oriented x3, mood and affect normal. Results CBC & Chem 7: 03/16/19 07:35 03/16/19 07:35 Labs: Abnormal Lab Results - Last 24 Hours (Table) 03/16/19 03/16/19 03/16/19 Range/Units 07:35 07:35 08:45 RBC 3.65 L (4.30-5.90) m/uL Hgb 10.4 L (13.0-17.5) gm/dL Hct 33.8 L (39.0-53.0) % MCHC 30.6 L (31.0-37.0) g/dL PT 19.0 H (9.0-12.0) sec INR 1.9 H (<1.2) BUN 48 H (9-20) mg/dL Creatinine 1.44 H (0.66-1.25) mg/dL Glucose 104 H (74-99) mg/dL Assessment and Plan Assessment: 1-patient with extensive left lower extremity laceration traumatic currently with no features suggestive of cellulitis however in view of the extensive wound patient has on the left leg with consider a short course of empiric antibiotic therapy directed against the gram-positive skin chyna Plan: 1-local wound care to the left leg wound with non adherent dressing, once the skin fall off completely to apply Aquacel silver dressing followed by Kerlix to be changed every 24 hours 48 hour 2-short course of IV cefazolin 1 g every 8 hours while inpatient we will follow on clinical condition and culture to further adjust medication if needed Thank you for this consultation will follow this patient along with you Time with Patient: Greater than 30
[2019-03-17] MEDS: HYDROcodone/APAP 10-325MG 1 EACH TAB PO PRN ×4 (04:59→20:27)
[2019-03-17] MEDS: TAMSULOSIN 0.4 MG CAP.ER.24H PO SCH (08:27)
[2019-03-17] MEDS: FINASTERIDE 5 MG TAB PO SCH (08:27)
[2019-03-17] MEDS: BACITRACIN 500 UNIT/GM OINT 28.4 GM TUBE TOPICAL SCH ×2 (08:27→20:09)
[2019-03-17] MEDS: predniSONE 5 MG TAB PO SCH ×2 (08:27→20:09)
[2019-03-17] MEDS: LISINOPRIL 10 MG TAB PO SCH (08:27)
[2019-03-17] MEDS: CALCIUM CARB-VIT D 500MG-200UN 1 EACH TAB PO SCH ×3 (08:27→16:32)
[2019-03-17] MEDS: FUROSEMIDE 20 MG TAB PO SCH ×2 (08:27→16:32)
[2019-03-17] MEDS: POLYETHYLENE GLYCOL 3350 17 GM POWD.PACK PO SCH (08:28)
[2019-03-17 08:31] LABS: INR 1.3 (<1.2); Prothrombin Time 13.4 sec (9.0-12.0)
[2019-03-17 08:33] LABS: Calcium 8.5 mg/dL (8.4-10.2); Potassium 4.8 mmol/L (3.5-5.1)
[2019-03-17 08:37] LABS: Basophils % (A) 0 %; Eosinophils # (A) 0.1 k/uL (0-0.7); Eosinophils % (A) 2 %; HCT 31.1 % (39.0-53.0); HGB 9.6 gm/dL (13.0-17.5); Hypochromasia Slight; Lymphocytes % (A) 16 %; MCH 28.7 pg (25.0-35.0); MCHC 30.9 g/dL (31.0-37.0); MCV 92.6 fL (80.0-100.0); Mean Platelet Volume 7.6; Monocytes # (A) 0.4 k/uL (0-1.0); Monocytes % (A) 6 %; Neutrophils # (A) 4.7 k/uL (1.3-7.7); Neutrophils % (A) 74 %; Platelet Count 143 k/uL (150-450); RBC 3.36 m/uL (4.30-5.90); RDW 15.5 % (11.5-15.5); WBC 6.4 k/uL (3.8-10.6)
[2019-03-17] MEDS: BUDESONIDE 0.5 MG/2 ML NEBU INHALATION SCH ×2 (09:05→20:19)
--- NOTE | 2019-03-17 09:09 | P.PN ---
Subjective Progress Note Date: 03/17/19 Principal diagnosis: Extensive skin tear left lower leg The patient is an 88-year-old male with a medical history including A. fib, colon cancer, COPD, CVA, hyperlipidemia, hypertension, and BPH, who presented to the emergency department after sustaining an injury to his left lower leg. He states he was putting together a carport and a large piece of metal fell onto his leg. The patient is on prednisone and Coumadin and has very thin skin secondarily. Local wound care was administered in the emergency department and the patient was to be discharged home. However the patient was standing while still in the emergency department and the dressing became very saturated and there is a pool of blood on the floor. The patient was admitted for further evaluation and wound care by orthopedic surgery. Today, the patient states his pain is well-controlled. He states he would like to get out of bed and ambulate in the hallway. Dr. Berger has evaluated the patient and suggest applying an Aquacel dressing after the skin flap has fallen off his leg. He continues on Kefzol IV. He denies fever, chills, rigors, chest pain, abdominal pain, and shortness of breath this morning. Objective - Vital Signs Vital signs: Vital Signs Temp 97.8 F 03/17/19 07:00 Pulse 70 03/17/19 09:07 Resp 15 03/17/19 07:00 BP 112/57 03/17/19 07:00 Pulse Ox 98 03/17/19 07:00 Intake & Output 03/16/19 03/17/19 03/17/19 18:59 06:59 18:59 Intake Total 828 1130 Balance 828 1130 Weight 59.6 kg Intake: Intake, IV Titration 50 Amount ceFAZolin 1,000 mg In 50 Sodium Chloride 0.9% 50 ml @ 100 mls/hr IVPB Q8HR [facility] Rx#:[id number] Oral 828 1080 Other: Voiding Method Toilet # Voids 1 - Exam The patient is an 88 year old who is in no acute distress. He is alert and oriented 3. Exam of the left lower leg reveals complete skin loss to the anterior tibial area from the knee to 3 inches above the ankle. There appears to be fascia/periosteum covering the bone. There is minimal swelling to the leg. Calf is soft and nontender. Good foot and ankle motion. Foot is well- perfused and warm. Capillary refill less than 2 seconds. - Labs CBC & Chem 7: 03/17/19 07:27 03/17/19 07:27 Labs: Abnormal Lab Results - Last 24 Hours (Table) 03/16/19 03/17/19 03/17/19 Range/Units 08:45 07:27 07:27 RBC 3.36 L (4.30-5.90) m/uL Hgb 9.6 L (13.0-17.5) gm/dL Hct 31.1 L (39.0-53.0) % MCHC 30.9 L (31.0-37.0) g/dL Plt Count 143 L (150-450) k/uL PT 19.0 H 13.4 H (9.0-12.0) sec INR 1.9 H 1.3 H (<1.2) BUN (9-20) mg/dL 03/17/19 Range/Units 07:27 RBC (4.30-5.90) m/uL Hgb (13.0-17.5) gm/dL Hct (39.0-53.0) % MCHC (31.0-37.0) g/dL Plt Count (150-450) k/uL PT (9.0-12.0) sec INR (<1.2) BUN 38 H (9-20) mg/dL Assessment and Plan (1) Skin tear Current Visit: Yes Status: Acute Code(s): XBJ0643 - SNOMED Code(s): 006142954 (2) Weakness Current Visit: No Status: Acute Code(s): R53.1 - WEAKNESS SNOMED Code(s): 55793050 Plan: The clinical and x-ray findings were discussed with the patient. The case was discussed with Dr. Anderson Continue IV antibiotics and wound care per infectious disease. Skin grafting is not recommended at this time due to friable skin and lack of good donor skin. The patient was encouraged to increase motion to his left knee from 0-45 and continue ankle motion. The patient may discharge home when cleared by infectious disease and wound care is set up either with the wound care center or homecare. He will follow-up in our office on an outpatient basis.
--- NOTE | 2019-03-17 11:04 | P.PN ---
Subjective this is a pleasant 88 yo M with pmh of HTN, HLP, a fib on coumadin , CHF, COPD who is steroid dependant, CVA/TIA. multiple falls with acetabular fracture , colon and skin cancer status post surgeries, PVD , chronic back pain , previous L2 and L4 fractures, . pt presents with right leg injury after heavy metal fell on his leg. pt has significant bleed from his wound being on coumadin , pt was admitted to the hospital for further evaluation and management . INR 1.9. creatinine 1.59 and 1.44 (Baseline 1.2-1.4) . he had multiple xray which were negative for fracures. EKG: a fib with Heart rate of 92. Vitals stable Also I instructed patient to follow-up with his PCP within one week and he agrees. 03/17/2019 Patient today states that when he came in he wasn't sure how his leg Trapped and he fell or something dropped on his leg but there was bleeding from his leg wound and his neighbor called embolus for him. Patient denies syncope or diz ziness. Vitas looks stable. Labs from today including CBC and BMP showing improvement in his creatinine down to 1.2, hemoglobin is slightly low at 9.6. No leukocytosis. His INR is trending down to 1.3. His postoperative 2 mg of Coumadin today we going to increase it to 5 mg tonight. Patient confirmed to me he takes the Coumadin for A. fib with no history of DVT/PE or clots anywhere else as per patient. Surgery team to consider the patient for discharge. Patient is getting cefazolin as per ID team for possible infectious element in his leg. I discussed with the patient and recommended physical therapy and possible ECF for rehab. Patient declines going for ECF for inpatient rehab and he wants to go home. Physical therapy evaluation is pending. Objective - Vital Signs Vital signs: Vital Signs Temp 97.8 F 03/17/19 07:00 Pulse 64 03/17/19 09:16 Resp 15 03/17/19 07:00 BP 112/57 03/17/19 07:00 Pulse Ox 98 03/17/19 07:00 Intake & Output 03/16/19 03/17/19 03/17/19 18:59 06:59 18:59 Intake Total 828 1130 236 Balance 828 1130 236 Weight 59.6 kg Intake: Intake, IV Titration 50 Amount ceFAZolin 1,000 mg In 50 Sodium Chloride 0.9% 50 ml @ 100 mls/hr IVPB Q8HR [facility] Rx#:[id number] Oral [id number] Other: Voiding Method Toilet # Voids 1 - Exam GENERAL: The patient is alert and oriented x3, not in any acute distress. Well developed, well nourished. HEENT: Pupils are round and equally reacting to light. EOMI. No scleral icterus. No conjunctival pallor. Normocephalic, atraumatic. No pharyngeal erythema. No thyromegaly. CARDIOVASCULAR: S1 and S2 present. No murmurs, rubs, or gallops. PULMONARY: Chest is clear to auscultation, no wheezing or crackles. ABDOMEN: Soft, nontender, nondistended, normoactive bowel sounds. No palpable organomegaly. MUSCULOSKELETAL: No joint swelling or deformity. -EXTREMITIES: No cyanosis, clubbing, or pedal edema. right leg is wrapped in dressing ( pt refused to open the dressing for examination however it was able to take the edge of the dressing which shows skin tear was superficial went in the lower part of the leg, as per staff the wound extends up to the knee.) Right elbow also in a dressing, patient also refused to take the dressing off NEUROLOGICAL: Gross neurological examination did not reveal any focal deficits. SKIN: No rashes. - Labs CBC & Chem 7: 03/17/19 07:27 03/17/19 07:27 Labs: Abnormal Lab Results - Last 24 Hours (Table) 03/17/19 03/17/19 03/17/19 Range/Units 07:27 07:27 07:27 RBC 3.36 L (4.30-5.90) m/uL Hgb 9.6 L (13.0-17.5) gm/dL Hct 31.1 L (39.0-53.0) % MCHC 30.9 L (31.0-37.0) g/dL Plt Count 143 L (150-450) k/uL PT 13.4 H (9.0-12.0) sec INR 1.3 H (<1.2) BUN 38 H (9-20) mg/dL Assessment and Plan Assessment: right leg injury with local infection chronic a fib on coumadin chronic kidney disease h/o congestive heart failure hypertension hyperlipidemia COPD , not in acute exacerbation h/o CVA/TIA H/o multiple falls h/o colon and skin cancer status post surgeries chronic peripheral vascular disease chronic back pain previous L2 and L4 fractures Plan: pt presents with right leg injury and wound. continue with antibiotic as per ID recommendation and pt was started on cefazolin. pt is on steroid prednisone 5 mg daily also. add vitamin D and ca. pt got tetanus shot in ED. Labs and medication were reviewed.. Continue same treatment. Continue with symptomatic treatment. Resume home medication. Monitor lytes and vitals. DVT and GI prophylaxis. Further recommendations of the clinical course of the patient DVT prophylaxis: coumadin GI Prophylaxis: Pepcid PT/OT: Pending Prognosis is guarded
[2019-03-17 11:42] VITALS: BMI 18.8
--- NOTE | 2019-03-17 14:36 | CDI ---
Documentation Clarification Form Date: 03/17/2019 2:28:19 PM From: Annamaria Jiménez RN, CCDS Admit Date: 03/17/2019 1:54:00 PM Patient Name: Donald Payne Visit Number: [id number] ATTENTION: The Clinical Documentation Specialists (CDI) and [facility] Coding Staff appreciate your assistance in clarifying documentation. Please respond to the clarification below the line at the bottom and electronically sign. The CDI & [facility] Coding staff will review the response and follow-up if needed. Please note: Queries are made part of the Legal Health Record. If you have any questions, please contact the author of this message via ITS. Dr. Daniel Douglas Patient was admitted with right lower extremity wound with cellulitis, CKD is documented and requires further specificity. History/Risk Factors: CKD, CHF, HTN, Hyperlipidemia, PVD Clinical Indicators: Current BUN: 64/48/38 CR: 1.59/1.44/1.21 GFR: 39/43/54 11/23/18 Patients Baseline BUN/CR/GFR: 38/1.36/46 Treatment: Lasix 20 mg PO BID IVF Bolus 500 cc In order to capture the severity of condition, please clarify if the condition signifies: CKD Stage 1 (GFR > 90) CKD Stage 2 (GFR 60-89) CKD Stage 3 (GFR 30-59) CKD Stage 4 (GFR 15-29) Other, please specify Unable to determine (Last Revision: November 2017) CKD Stage 2 (GFR 60-89) MTDD
--- NOTE | 2019-03-17 14:47 | CDI ---
Documentation Clarification Form Date: 03/17/2019 2:37:45 PM From: Annamaria Jiménez RN, CCDS Admit Date: 03/17/2019 1:54:00 PM Patient Name: Donald Payne Visit Number: [id number] ATTENTION: The Clinical Documentation Specialists (CDI) and [facility] Coding Staff appreciate your assistance in clarifying documentation. Please respond to the clarification below the line at the bottom and electronically sign. The CDI & [facility] Coding staff will review the response and follow-up if needed. Please note: Queries are made part of the Legal Health Record. If you have any questions, please contact the author of this message via ITS. Dr. Daniel Douglas CHF is documented in the Medical Consult and Progress notes and requires further specificity. History/Risk Factors: Weakness, CKD, HTN, Hyperlipidemia, COPD, CVA hx, chronic PVD Clinical Indicators: VS/Pulse OX: temp 97.1, hr 92, RR 18, B/P 97/44, po2 100% 2l NC BNP: not done 07/10/16 Echocardiogram Results: EF 55-60% 11/21/18 Chest X Ray: stable RUL opacity- not one done this admission Treatment: Lasix 20 mg PO QD In your professional opinion, can you please clarify the acuity and type of CHF if known? Chronic Diastolic Heart Failure: Unable to Determine Other, please specify (Last Revision: November 2017) probable Chronic Diastolic Heart Failure: MTDD
--- NOTE | 2019-03-17 15:16 | CDI ---
Documentation Clarification Form Date: 03/17/2019 3:06:00 PM From: Annamaria Jiménez RN, CCDS Admit Date: 03/17/2019 1:54:00 PM Patient Name: Donald Payne Visit Number: [id number] ATTENTION: The Clinical Documentation Specialists (CDI) and [facility] Coding Staff appreciate your assistance in clarifying documentation. Please respond to the clarification below the line at the bottom and electronically sign. The CDI & [facility] Coding staff will review the response and follow-up if needed. Please note: Queries are made part of the Legal Health Record. If you have any questions, please contact the author of this message via ITS. Dr. Douglas History/Risk Factors: COPD with steroid dependence, multiple falls with acetabular FX, hx of skin and colon CA surgeries, atrial fib. Back pain with chronic L2 and L4 FX Clinical Indicators: Patients weight is 59.6 kg Patients height is 70 in Calculated BMI is 18.9 kg/m2 Muscle wasting: nutritional consult, Pt appears "underweight" Treatments: Nutritional Education Dietary Consult Completed 1136 Ensure Enlive TID In order to capture the severity of condition associated with patient BMI of 18.9, a clinical diagnosis needs to be documented by the physician. Please clarify: Cachexia Underweight Protein Calorie Malnutrition- (please specify Mild, Moderate, Severe) Other Unable to determine (Last Revision: November 2017) Unable to determine MTDD
[2019-03-17] MEDS ORDERED: WARFARIN 3 MG TAB PO ONE (18:00)
[2019-03-17] MEDS ORDERED: WARFARIN 2 MG TAB PO ONE (18:00)
[2019-03-17] MEDS: TEMAZEPAM 15 MG CAP PO SCH (20:09)
[2019-03-17] MEDS: SODIUM CHLORIDE 0.9% 1,000 ML IV SCH (20:23)
--- NOTE | 2019-03-17 21:02 | PN ---
PROGRESS NOTE DATE OF SERVICE: 03/17/2019 REASON FOR FOLLOWUP: Left leg laceration, traumatic, and a question of cellulitis. INTERVAL HISTORY: The patient is currently afebrile. Pain and discomfort in the left leg have improved. Did have some problem with bleeding. Some of the wound has been put on hold. Denies having any chest pain, shortness of breath or cough. No abdominal pain or diarrhea. PHYSICAL EXAMINATION: Blood pressure 101/56, pulse of 52, temperature 97.7. He is 97% on room air. General description is an elderly male lying in bed in no distress. RESPIRATORY SYSTEM: Unlabored breathing. Clear to auscultation anteriorly. HEART: S1, S2. Regular rate and rhythm. ABDOMEN: Soft. No tenderness. Left leg wound is currently dressed up. Minimal blood-tinged drainage on the lower end of the wound. LABS: Hemoglobin 9.6, white count 6.4, BUN of 38, creatinine 1.21. DIAGNOSTIC IMPRESSION AND PLAN: Patient with left leg laceration, traumatic, with suspicion of underlying cellulitis. Local wound care to continue as ordered. Iron has been advised. Advised to apply Aquacel Silver dressing, dry. This should control the bleeding and prevent any infection. He has been instructed to follow up with us in the wound care center next week. Continue supportive care. MMODL / IJN: [id number] /
[2019-03-18 04:30] LABS: Appearance,Urine Clear (Clear); Bacteria,Urine Rare /hpf; Bilirubin,Urine Negative (Negative); Blood,Urine Negative (Negative); Color,Urine Light Yellow; Glucose,Urine (UA) Negative (Negative); Hyaline Casts,Urine 7 /lpf (0-2); Ketones,Urine Negative (Negative); Leukocyte Esterase,Urine Large (Negative); Mucus,Urine Rare /hpf; Nitrite,Urine Negative (Negative); PH, Urine 6.5 (5.0-8.0); Protein,Urine Negative (Negative); RBC,Urine 1 /hpf (0-5); Specific Gravity,Urine 1.011 (1.001-1.035); Squamous Epithelial Cell,Urine <1 /hpf (0-4); Urobilinogen,Urine <2.0 mg/dL (<2.0)
[2019-03-18] MEDS: BUDESONIDE 0.5 MG/2 ML NEBU INHALATION SCH ×2 (07:23→20:15)
[2019-03-18 08:35] LABS: Basophils % (A) 1 %; Eosinophils # (A) 0.1 k/uL (0-0.7); Eosinophils % (A) 2 %; HCT 31.6 % (39.0-53.0); HGB 10.1 gm/dL (13.0-17.5); Hypochromasia Slight; Lymphocytes # (A) 1.1 k/uL (1.0-4.8); Lymphocytes % (A) 18 %; MCH 29.8 pg (25.0-35.0); MCHC 31.8 g/dL (31.0-37.0); MCV 93.8 fL (80.0-100.0); Mean Platelet Volume 7.8; Monocytes # (A) 0.3 k/uL (0-1.0); Monocytes % (A) 5 %; Neutrophils # (A) 4.4 k/uL (1.3-7.7); Neutrophils % (A) 73 %; Platelet Count 143 k/uL (150-450); RBC 3.37 m/uL (4.30-5.90); RDW 15.3 % (11.5-15.5); WBC 6.1 k/uL (3.8-10.6)
[2019-03-18 08:44] LABS: INR 1.2 (<1.2); Prothrombin Time 12.6 sec (9.0-12.0)
--- NOTE | 2019-03-18 09:00 | P.DS ---
Providers Date of admission: 03/17/19 13:54 Expected date of discharge: 03/18/19 Attending physician: Arian Anderson Consults: 03/16/19 10:44 Consult Physician Routine Consulting Provider: Senia Berger Consult Reason/Comments: wound care and antibiotic management Do you want consulting provider notified?: Yes 03/16/19 13:42 Consult Physician Routine Consulting Provider: Napoleon Palacios Consult Reason/Comments: medical management Do you want consulting provider notified?: Yes Primary care physician: Yazmin Niño - Discharge Diagnosis(es) (1) Skin tear Current Visit: Yes Status: Acute (2) Weakness Current Visit: No Status: Acute Patient Condition at Discharge: Good Plan - Discharge Summary Discharge Rx Participant: No New Discharge Prescriptions: New Sulfamethox-Tmp 800-160Mg [Bactrim DS 800-160 mg] 1 tab PO Q12HR #14 tab Cephalexin [Keflex] 500 mg PO Q6HR 7 Days #28 cap No Action Finasteride [Proscar] 5 mg PO DAILY Tamsulosin HCl [Flomax] 0.4 mg PO DAILY predniSONE 5 mg PO BID Temazepam [Restoril] 15 mg PO HS PRN PRN Reason: Insomnia HYDROcodone/APAP 10-325MG [[place] 10-325] 1 tab PO TID PRN PRN Reason: Pain Lisinopril [Prinivil] 10 mg PO DAILY Furosemide [Lasix] 20 mg PO BID Warfarin [Coumadin] 1 mg PO DAILY Budesonide [Pulmicort] 0.5 mg INHALATION RT-BID Discharge Medication List Finasteride [Proscar] 5 mg PO DAILY 08/28/15 [History] Tamsulosin HCl [Flomax] 0.4 mg PO DAILY 08/29/15 [History] predniSONE 5 mg PO BID 07/09/16 [History] HYDROcodone/APAP 10-325MG [[place] 10-325] 1 tab PO TID PRN 02/10/18 [History] Lisinopril [Prinivil] 10 mg PO DAILY 02/10/18 [History] Temazepam [Restoril] 15 mg PO HS PRN 02/10/18 [History] Furosemide [Lasix] 20 mg PO BID 04/17/18 [History] Budesonide [Pulmicort] 0.5 mg INHALATION RT-BID 03/15/19 [History] Cephalexin [Keflex] 500 mg PO Q6HR 7 Days #28 cap 03/15/19 [Rx] Sulfamethox-Tmp 800-160Mg [Bactrim DS 800-160 mg] 1 tab PO Q12HR #14 tab 03/15/19 [Rx] Warfarin [Coumadin] 1 mg PO DAILY 03/15/19 [History] Follow up Appointment(s)/Referral(s): WOUND, CENTER [Other] - 04/02/19 12:30 pm ([facility] with Dr. Berger) Yazmin Niño MD [Primary Care Provider] - 03/24/19 11:15 am Arian Anderson MD [STAFF PHYSICIAN] - 03/30/19 9:20 am Patient Instructions/Handouts: Fall Prevention for Older Adults (ED) Activity/Diet/Wound Care/Special Instructions: Wound care --Aquacel silver dressing to the left leg wound apply dry changed every 48 hours Follow-up with Dr. Berger in the wound care center next week call [phone] to make an appointment Discharge Disposition: HOME SELF-CARE
[2019-03-18] MEDS: LISINOPRIL 10 MG TAB PO SCH (09:46)
[2019-03-18] MEDS: POLYETHYLENE GLYCOL 3350 17 GM POWD.PACK PO SCH (09:52)
--- NOTE | 2019-03-18 09:54 | P.PN ---
Subjective this is a pleasant 88 yo M with pmh of HTN, HLP, a fib on coumadin , CHF, COPD who is steroid dependant, CVA/TIA. multiple falls with acetabular fracture , colon and skin cancer status post surgeries, PVD , chronic back pain , previous L2 and L4 fractures, . pt presents with right leg injury after heavy metal fell on his leg. pt has significant bleed from his wound being on coumadin , pt was admitted to the hospital for further evaluation and management . INR 1.9. creatinine 1.59 and 1.44 (Baseline 1.2-1.4) . he had multiple xray which were negative for fracures. EKG: a fib with Heart rate of 92. Vitals stable Also I instructed patient to follow-up with his PCP within one week and he agrees. 03/17/2019 Patient today states that when he came in he wasn't sure how his leg Trapped and he fell or something dropped on his leg but there was bleeding from his leg wound and his neighbor called embolus for him. Patient denies syncope or diz ziness. Vitas looks stable. Labs from today including CBC and BMP showing improvement in his creatinine down to 1.2, hemoglobin is slightly low at 9.6. No leukocytosis. His INR is trending down to 1.3. His postoperative 2 mg of Coumadin today we going to increase it to 5 mg tonight. Patient confirmed to me he takes the Coumadin for A. fib with no history of DVT/PE or clots anywhere else as per patient. Surgery team to consider the patient for discharge. Patient is getting cefazolin as per ID team for possible infectious element in his leg. I discussed with the patient and recommended physical therapy and possible ECF for rehab. Patient declines going for ECF for inpatient rehab and he wants to go home. Physical therapy evaluation is pending. 03/18/2019 Patient wanted still being treated with local measures, dressing and antibiotics and he is on cefazolin as per infectious disease recommendation. Patient wanted to go home with home care, however yesterday during walking with PT/OT staff he felt dizzy and asymptomatic and back to bed, and after IV fluids and some oxygen he felt better. Urinalysis was sent which showing signs of urinary tract infection urine culture is sent and results still pending. Discussed with staff to let infectious disease team know about his Finding of urine analysis suspicious for urinary tract infection. However patient looks still eager to be discharged today. Occupational therapy is recommended home with home care, physical therapy evaluation is still pending. Yesterday he got 3 mg of Coumadin and his INR 1.2. Continue with Coumadin and follow up INR with target goal is 2-3. Objective - Vital Signs Vital signs: Vital Signs Temp 97.6 F 03/18/19 07:00 Pulse 64 03/18/19 07:34 Resp 17 03/18/19 07:00 BP 143/63 03/18/19 07:00 Pulse Ox 100 03/18/19 07:00 Intake & Output 03/17/19 03/18/19 03/18/19 18:59 06:59 18:59 Intake Total 948 900 Balance 948 900 Weight 59.6 kg 61.5 kg Intake: Intake, IV Titration 900 Amount Sodium Chloride 0.9% 1, 900 000 ml @ 75 mls/hr IV . [id number] [facility] Rx#:[id number] Oral 948 Other: # Voids 3 1 - Exam GENERAL: The patient is alert and oriented x3, not in any acute distress. Well developed, well nourished. HEENT: Pupils are round and equally reacting to light. EOMI. No scleral icterus. No conjunctival pallor. Normocephalic, atraumatic. No pharyngeal erythema. No thyromegaly. CARDIOVASCULAR: S1 and S2 present. No murmurs, rubs, or gallops. PULMONARY: Chest is clear to auscultation, no wheezing or crackles. ABDOMEN: Soft, nontender, nondistended, normoactive bowel sounds. No palpable organomegaly. MUSCULOSKELETAL: No joint swelling or deformity. -EXTREMITIES: No cyanosis, clubbing, or pedal edema. right leg is wrapped in dressing ( pt refused to open the dressing for examination however it was able to take the edge of the dressing which shows skin tear was superficial went in the lower part of the leg, as per staff the wound extends up to the knee.) Right elbow also in a dressing, patient also refused to take the dressing off NEUROLOGICAL: Gross neurological examination did not reveal any focal deficits. SKIN: No rashes. - Labs CBC & Chem 7: 03/18/19 07:25 03/17/19 07:27 Labs: Abnormal Lab Results - Last 24 Hours (Table) 03/18/19 03/18/19 03/18/19 Range/Units 03:55 07:25 07:25 RBC 3.37 L (4.30-5.90) m/uL Hgb 10.1 L (13.0-17.5) gm/dL Hct 31.6 L (39.0-53.0) % Plt Count 143 L (150-450) k/uL PT 12.6 H (9.0-12.0) sec INR 1.2 H (<1.2) Ur Leukocyte Esterase Large H (Negative) Urine WBC 40 H (0-5) /hpf Urine WBC Clumps Rare H (None) /hpf Urine Bacteria Rare H (None) /hpf Hyaline Casts 7 H (0-2) /lpf Urine Mucus Rare H (None) /hpf Assessment and Plan Assessment: right leg injury with local infection chronic a fib on coumadin chronic kidney disease h/o congestive heart failure hypertension hyperlipidemia COPD , not in acute exacerbation h/o CVA/TIA H/o multiple falls h/o colon and skin cancer status post surgeries chronic peripheral vascular disease chronic back pain previous L2 and L4 fractures Plan: pt presents with right leg injury and wound. continue with antibiotic as per ID recommendation and pt was started on cefazolin. However her urinalysis is suspicious for infection and patient is already on antibiotics and urine culture has been sent.discussed with staff toilet because he knows pt is on steroid prednisone 5 mg daily also. add vitamin D and ca. pt got tetanus shot in ED. patient had 3 mg of Coumadin yesterday, continue with Coumadin and follow up INR closely. Goal INR is 2-3 Labs and medication were reviewed.. Continue same treatment. Continue with symptomatic treatment. Resume home medication. Monitor lytes and vitals. DVT and GI prophylaxis. Further recommendations of the clinical course of the patient DVT prophylaxis: coumadin GI Prophylaxis: Pepcid PT/OT: Pending. Prognosis is guarded Thank you for consulting us
[2019-03-18] MEDS: FUROSEMIDE 20 MG TAB PO SCH ×2 (09:56→15:52)
[2019-03-18] MEDS: FINASTERIDE 5 MG TAB PO SCH (09:56)
[2019-03-18] MEDS: BACITRACIN 500 UNIT/GM OINT 28.4 GM TUBE TOPICAL SCH ×2 (09:56→21:13)
[2019-03-18] MEDS: CALCIUM CARB-VIT D 500MG-200UN 1 EACH TAB PO SCH ×3 (09:56→17:22)
[2019-03-18] MEDS: predniSONE 5 MG TAB PO SCH ×2 (09:57→21:35)
[2019-03-18] MEDS: HYDROcodone/APAP 10-325MG 1 EACH TAB PO PRN ×3 (09:58→21:11)
[2019-03-18] MEDS: TAMSULOSIN 0.4 MG CAP.ER.24H PO SCH (09:58)
[2019-03-18] MEDS: SODIUM CHLORIDE 0.9% 1,000 ML IV SCH (09:58)
--- NOTE | 2019-03-18 17:10 | PN ---
PROGRESS NOTE DATE OF SERVICE: 03/18/2019. REASON FOR FOLLOWUP: Left leg wound, traumatic. INTERVAL HISTORY: The patient is currently afebrile. The patient currently denies having any chest pain. No shortness of breath. No cough. No abdominal pain or any worsening pain in the left leg area. Denies any burning or frequency of urine and no difficulty urination. PHYSICAL EXAMINATION: Blood pressure 137/65 with a pulse of 83. Temperature 97.6. He is 100% on room air. General description is an elderly male lying in bed in no distress. Respiratory system: Unlabored breathing. Clear to auscultation anteriorly. Heart S1, S2. Regular rate and rhythm. ABDOMEN: Soft. No tenderness. Left leg is currently dressed up. No obvious drainage. No bleeding was noted. LABS: Hemoglobin is 10.2, white count 6.1. DIAGNOSTIC IMPRESSION AND PLAN: Patient with left leg wound, traumatic with question of cellulitis. The patient currently covered with Cefazolin, may give a short course of oral Keflex. We will monitor his INR very closely. Local care to continue with Aquacel Silver dressing. Follow up with wound care next week. Continue supportive care. MMODL / IJN: [id number] /
[2019-03-18] MEDS ORDERED: WARFARIN 2 MG TAB PO ONE (18:00)
[2019-03-18] MEDS ORDERED: WARFARIN 3 MG TAB PO ONE (19:00)
[2019-03-18] MEDS: TEMAZEPAM 15 MG CAP PO SCH (21:11)
[2019-03-19] MEDS: HYDROcodone/APAP 10-325MG 1 EACH TAB PO PRN ×2 (02:02→08:17)
[2019-03-19] MEDS: SODIUM CHLORIDE 0.9% 1,000 ML IV SCH (08:06)
[2019-03-19] MEDS: LISINOPRIL 10 MG TAB PO SCH (08:17)
[2019-03-19] MEDS: FUROSEMIDE 20 MG TAB PO SCH (08:17)
[2019-03-19] MEDS: predniSONE 5 MG TAB PO SCH (08:17)
[2019-03-19] MEDS: FINASTERIDE 5 MG TAB PO SCH (08:17)
[2019-03-19] MEDS: TAMSULOSIN 0.4 MG CAP.ER.24H PO SCH (08:18)
[2019-03-19] MEDS: CALCIUM CARB-VIT D 500MG-200UN 1 EACH TAB PO SCH (08:18)
[2019-03-19] MEDS: POLYETHYLENE GLYCOL 3350 17 GM POWD.PACK PO SCH (08:18)
[2019-03-19] MEDS: BACITRACIN 500 UNIT/GM OINT 28.4 GM TUBE TOPICAL SCH (08:18)
[2019-03-19 08:27] VITALS: BP 145/66; RESP 12; TEMP 97.9
--- NOTE | 2019-03-19 08:53 | P.DS ---
Providers Date of admission: 03/17/19 13:54 Expected date of discharge: 03/19/19 Attending physician: Arian Anderson Consults: 03/16/19 10:44 Consult Physician Routine Consulting Provider: Senia Berger Consult Reason/Comments: wound care and antibiotic management Do you want consulting provider notified?: Yes 03/16/19 13:42 Consult Physician Routine Consulting Provider: Napoleon Palacios Consult Reason/Comments: medical management Do you want consulting provider notified?: Yes Primary care physician: Yazmin Niño - Discharge Diagnosis(es) (1) Skin tear Current Visit: Yes Status: Acute (2) Weakness Current Visit: No Status: Acute Hospital Course: Extensive skin tear left lower leg The patient is an 88-year-old male with a medical history including A. fib, colon cancer, COPD, CVA, hyperlipidemia, hypertension, and BPH, who presented to the emergency department after sustaining an injury to his left lower leg. He states he was putting together a carport and a large piece of metal fell onto his leg. The patient is on prednisone and Coumadin and has very thin skin secondarily. Local wound care was administered in the emergency department and the patient was to be discharged home. However the patient was standing while still in the emergency department and the dressing became very saturated and there is a pool of blood on the floor. The patient was admitted for further evaluation and wound care by orthopedic surgery. Infectious disease has directed antibiotics and wound care. He will follow up in the wound care center at [facility] and will have homecare to assist with dressing changes. Today, exam of the left lower leg reveals a dressing clean, dry, and intact. There is minimal swelling to the leg. Calf is soft and nontender. Good foot and ankle motion. Foot is well-perfused and warm. Capillary refill less than 2 seconds. He is stable for discharge home with homecare today. Pertinent Studies: Laboratory Tests 03/18/19 03/18/19 07:25 07:25 WBC 6.1 RBC 3.37 L Hgb 10.1 L Hct 31.6 L Plt Count 143 L PT 12.6 H INR 1.2 H Patient Condition at Discharge: Stable Plan - Discharge Summary Discharge Rx Participant: No New Discharge Prescriptions: New Sulfamethox-Tmp 800-160Mg [Bactrim DS 800-160 mg] 1 tab PO Q12HR #14 tab Cephalexin [Keflex] 500 mg PO Q6HR 7 Days #28 cap No Action Finasteride [Proscar] 5 mg PO DAILY Tamsulosin HCl [Flomax] 0.4 mg PO DAILY predniSONE 5 mg PO BID Temazepam [Restoril] 15 mg PO HS PRN PRN Reason: Insomnia HYDROcodone/APAP 10-325MG [Kamas 10-325] 1 tab PO TID PRN PRN Reason: Pain Lisinopril [Prinivil] 10 mg PO DAILY Furosemide [Lasix] 20 mg PO BID Warfarin [Coumadin] 1 mg PO DAILY Budesonide [Pulmicort] 0.5 mg INHALATION RT-BID Discharge Medication List Finasteride [Proscar] 5 mg PO DAILY 08/28/15 [History] Tamsulosin HCl [Flomax] 0.4 mg PO DAILY 08/29/15 [History] predniSONE 5 mg PO BID 07/09/16 [History] HYDROcodone/APAP 10-325MG [Kamas 10-325] 1 tab PO TID PRN 02/10/18 [History] Lisinopril [Prinivil] 10 mg PO DAILY 02/10/18 [History] Temazepam [Restoril] 15 mg PO HS PRN 02/10/18 [History] Furosemide [Lasix] 20 mg PO BID 04/17/18 [History] Budesonide [Pulmicort] 0.5 mg INHALATION RT-BID 03/15/19 [History] Cephalexin [Keflex] 500 mg PO Q6HR 7 Days #28 cap 03/15/19 [Rx] Sulfamethox-Tmp 800-160Mg [Bactrim DS 800-160 mg] 1 tab PO Q12HR #14 tab 03/15 [Rx] Warfarin [Coumadin] 1 mg PO DAILY 03/15/19 [History] Follow up Appointment(s)/Referral(s): WOUND, CENTER [Other] - 04/02/19 12:30 pm ([facility] with Dr. Berger) Yazmin Niño MD [Primary Care Provider] - 03/24/19 11:15 am [facility], [NON-STAFF] - As Needed Arian Anderson MD [STAFF PHYSICIAN] - 03/30/19 9:20 am Patient Instructions/Handouts: Fall Prevention for Older Adults (ED) Activity/Diet/Wound Care/Special Instructions: Wound care --Aquacel silver dressing to the left leg wound apply dry changed every 48 hours Follow-up with Dr. Berger in the wound care center next week call [phone] to make an appointment Discharge Disposition: HOME SELF-CARE
--- NOTE | 2019-03-19 08:53 | P.PN ---
Subjective Progress Note Date: 03/18/19 Principal diagnosis: Extensive skin tear left lower leg The patient is an 88-year-old male with a medical history including A. fib, colon cancer, COPD, CVA, hyperlipidemia, hypertension, and BPH, who presented to the emergency department after sustaining an injury to his left lower leg. He states he was putting together a carport and a large piece of metal fell onto his leg. The patient is on prednisone and Coumadin and has very thin skin secondarily. Local wound care was administered in the emergency department and the patient was to be discharged home. However the patient was standing while still in the emergency department and the dressing became very saturated and there is a pool of blood on the floor. The patient was admitted for further evaluation and wound care by orthopedic surgery. Today, the patient states his pain is well-controlled. He states he would like to get out of bed and ambulate in the hallway. Dr. Berger has ordered Aquacel dressings to the left leg. He continues on Kefzol IV. He denies fever, chills, rigors, chest pain, abdominal pain, and shortness of breath this morning. Objective - Vital Signs Vital signs: Vital Signs Temp 97.9 F 03/19/19 07:00 Pulse 80 03/19/19 07:00 Resp 12 03/19/19 07:00 BP 145/66 03/19/19 07:00 Pulse Ox 99 03/19/19 07:00 Intake & Output 03/18/19 03/19/19 03/19/19 18:59 06:59 18:59 Intake Total 708 580 Balance 708 580 Weight 62.5 kg Intake: Intake, IV Titration 100 Amount Sodium Chloride 0.9% 1, 100 000 ml @ 50 mls/hr IV . Q20H [facility] Rx#:[id number] Oral 708 480 Other: # Voids 1 1 - Exam The patient is an 88 year old who is in no acute distress. He is alert and oriented 3. Exam of the left lower leg reveals a dressing clean, dry, and intact. There is minimal swelling to the leg. Calf is soft and nontender. Good foot and ankle motion. Foot is well-perfused and warm. Capillary refill less than 2 seconds. - Labs CBC & Chem 7: 03/18/19 07:25 03/17/19 07:27 Labs: Microbiology - Last 24 Hours (Table) 07/24/19 03:55 Urine Culture - Preliminary Urine,Voided Assessment and Plan (1) Skin tear Current Visit: Yes Status: Acute Code(s): HCP8679 - SNOMED Code(s): 321309329 (2) Weakness Current Visit: No Status: Acute Code(s): R53.1 - WEAKNESS SNOMED Code(s): 28758513 Plan: The clinical and x-ray findings were discussed with the patient. The case was discussed with Dr. Anderson Continue IV antibiotics and wound care per infectious disease. Skin grafting is not recommended at this time due to friable skin and lack of good donor skin. The patient was encouraged to increase motion to his left knee from 0-45 and continue ankle motion. The patient may discharge home when cleared by infectious disease and wound care is set up either with the wound care center or homecare. He will follow-up in our office on an outpatient basis.
[2019-03-19 09:03] LABS: INR 1.7 (<1.2)
--- NOTE | 2019-03-19 10:10 | P.PN ---
Subjective this is a pleasant 88 yo M with pmh of HTN, HLP, a fib on coumadin , CHF, COPD who is steroid dependant, CVA/TIA. multiple falls with acetabular fracture , colon and skin cancer status post surgeries, PVD , chronic back pain , previous L2 and L4 fractures, . pt presents with right leg injury after heavy metal fell on his leg. pt has significant bleed from his wound being on coumadin , pt was admitted to the hospital for further evaluation and management . INR 1.9. creatinine 1.59 and 1.44 (Baseline 1.2-1.4) . he had multiple xray which were negative for fracures. EKG: a fib with Heart rate of 92. Vitals stable Also I instructed patient to follow-up with his PCP within one week and he agrees. 03/17/2019 Patient today states that when he came in he wasn't sure how his leg Trapped and he fell or something dropped on his leg but there was bleeding from his leg wound and his neighbor called embolus for him. Patient denies syncope or diz ziness. Vitas looks stable. Labs from today including CBC and BMP showing improvement in his creatinine down to 1.2, hemoglobin is slightly low at 9.6. No leukocytosis. His INR is trending down to 1.3. His postoperative 2 mg of Coumadin today we going to increase it to 5 mg tonight. Patient confirmed to me he takes the Coumadin for A. fib with no history of DVT/PE or clots anywhere else as per patient. Surgery team to consider the patient for discharge. Patient is getting cefazolin as per ID team for possible infectious element in his leg. I discussed with the patient and recommended physical therapy and possible ECF for rehab. Patient declines going for ECF for inpatient rehab and he wants to go home. Physical therapy evaluation is pending. 03/18/2019 Patient wanted still being treated with local measures, dressing and antibiotics and he is on cefazolin as per infectious disease recommendation. Patient wanted to go home with home care, however yesterday during walking with PT/OT staff he felt dizzy and asymptomatic and back to bed, and after IV fluids and some oxygen he felt better. Urinalysis was sent which showing signs of urinary tract infection urine culture is sent and results still pending. Discussed with staff to let infectious disease team know about his Finding of urine analysis suspicious for urinary tract infection. However patient looks still eager to be discharged today. Occupational therapy is recommended home with home care, physical therapy evaluation is still pending. Yesterday he got 3 mg of Coumadin and his INR 1.2. Continue with Coumadin and follow up INR with target goal is 2-3. 03/19/2019 Patient is fully awake and oriented with no chest pain or dyspnea. Patient Yesterday because he felt a little bit weak and dizzy. And UA was suspicious for infection however he had no signs symptoms of UTI for example he denies dyspnea or change in frequency or hesitancy. Patient received parental hydration with normal saline and his systolic blood pressure from 110s up to 130s to 140s. Patient today feels better with no dizziness has gone. And he denies urinary symptoms as above. His wound in his left leg is improving, I was able to look at it during the change of the dressing this morning. His INR went up to 1.7. Infectious diseases been following the patient and he remains on cefazolin with a recommendation to change to oral complex upon discharge. Urine culture is still pending. Patient is medically stable for discharge once his been cleared by infectious disease. Recommend that the patient to follow-up with his PCP in one week and the wound clinic and infectious disease upon discharge. Objective - Vital Signs Vital signs: Vital Signs Temp 97.9 F 03/19/19 07:00 Pulse 80 03/19/19 07:00 Resp 12 03/19/19 07:00 BP 145/66 03/19/19 07:00 Pulse Ox 99 03/19/19 07:00 Intake & Output 03/18/19 03/19/19 03/19/19 18:59 06:59 18:59 Intake Total 708 580 Balance 708 580 Weight 62.5 kg Intake: Intake, IV Titration 100 Amount Sodium Chloride 0.9% 1, 100 000 ml @ 50 mls/hr IV . Q20H [facility] Rx#:[id number] Oral 708 480 Other: # Voids 1 1 - Exam GENERAL: The patient is alert and oriented x3, not in any acute distress. Well developed, well nourished. HEENT: Pupils are round and equally reacting to light. EOMI. No scleral icterus. No conjunctival pallor. Normocephalic, atraumatic. No pharyngeal erythema. No thyromegaly. CARDIOVASCULAR: S1 and S2 present. No murmurs, rubs, or gallops. PULMONARY: Chest is clear to auscultation, no wheezing or crackles. ABDOMEN: Soft, nontender, nondistended, normoactive bowel sounds. No palpable organomegaly. MUSCULOSKELETAL: No joint swelling or deformity. -EXTREMITIES: No cyanosis, clubbing, or pedal edema. Left leg wound is looking better although it's extents along the entire front of the left leg Right elbow also in a dressing, patient also refused to take the dressing off NEUROLOGICAL: Gross neurological examination did not reveal any focal deficits. SKIN: No rashes. - Labs CBC & Chem 7: 03/18/19 07:25 03/17/19 07:27 Labs: Abnormal Lab Results - Last 24 Hours (Table) 03/19/19 Range/Units 07:43 PT 17.0 H (9.0-12.0) sec INR 1.7 H (<1.2) Microbiology - Last 24 Hours (Table) 03/18/19 03:55 Urine Culture - Preliminary Urine,Voided Assessment and Plan Assessment: Left leg injury with local infection chronic a fib on coumadin chronic kidney disease h/o congestive heart failure hypertension hyperlipidemia COPD , not in acute exacerbation h/o CVA/TIA H/o multiple falls h/o colon and skin cancer status post surgeries chronic peripheral vascular disease chronic back pain previous L2 and L4 fractures Plan: pt presents with right leg injury and wound. continue with antibiotic as per ID recommendation and pt was started on cefazolin. However her urinalysis is s uspicious for infection and patient is already on antibiotics and urine culture is still pending. Antibiotics upon discharge as per infectious disease. Recommend patient continue Coumadin and check his INR very closely upon discharge with his PCP. Goal INR is 2-3. Patient is aware. Labs and medication were reviewed.. Continue same treatment. Continue with symptomatic treatment. Resume home medication. Monitor lytes and vitals. DVT and GI prophylaxis. Further recommendations of the clinical course of the patient DVT prophylaxis: coumadin GI Prophylaxis: Pepcid PT/OT: Home with home health care Prognosis is guarded Patient is medically stable for discharge was cleared by infectious disease for discharge Thank you for consulting us. Please feel free to contact us for any further qu estion or clarification
[2019-03-19] MEDS: BUDESONIDE 0.5 MG/2 ML NEBU INHALATION SCH (10:49)
[2019-03-19 10:51] VITALS: PULSE 70
--- NOTE | 2019-03-19 12:52 | PN ---
PROGRESS NOTE DATE OF SERVICE: 03/19/2019 REASON FOR FOLLOWUP: Left leg laceration, wound cellulitis. INTERVAL HISTORY: The patient is currently afebrile, has been breathing comfortably. Denies having any chest pain or any cough, pain to the left leg has improved. No further bleeding. No nausea, no vomiting. No diarrhea. No urinary symptoms. PHYSICAL EXAMINATION: Blood pressure 145/66, pulse of 80, temperature 97.9, he is 99% on room air. General description is an elderly male up in the bed, in no distress. RESPIRATORY SYSTEM: Unlabored breathing, clear to auscultation anteriorly. HEART: S1, S2. Regular rate and rhythm. ABDOMEN:: Soft, no tenderness. Left leg is currently dressed up. Already mentioned the wound looks good, no dressing changes. No further bleeding. LABS: Urine culture negative. DIAGNOSTIC IMPRESSION AND PLAN: Patient with left leg laceration from a trauma with possible second cellulitis. Patient had clinical improvement. Local wound care with Aquacel Silver dressing, mild compression. Follow up in the Wound Care next week. Short course of oral Keflex. Monitor INR closely. Continue supportive care. MMODL / IJN: [id number] /
[2019-03-19] MEDS ORDERED: WARFARIN 1 MG TAB PO ONE (18:00)
== END 2019-03-19 12:30 | disposition home or self-care (01) | DRG 603 ==
LOC: EC 14:17 → 4SSUR 19:49 → OBSVTOIN 03-17 13:54
PROVIDERS: ADMIT Orthopaedic Surgery; ATTEND Orthopaedic Surgery
PROC: 3E0234Z Introduction of Serum, Toxoid and Vaccine into Muscle, Percutaneous Approach (ICD-10-PCS; principal; 2019-03-15)
PROC: 3E10X8Z Irrigation of Skin and Mucous Membranes using Irrigating Substance (ICD-10-PCS; 2019-03-15)
DX: L08.9 Local infection of the skin and subcutaneous tissue, unspecified (principal); I13.0 Hypertensive heart and chronic kidney disease with heart failure and stage 1 through stage 4 chronic kidney disease, or unspecified chronic kidney disease; I50.32 Chronic diastolic (congestive) heart failure; Z68.1 Body mass index [BMI] 19.9 or less, adult; M48.56XA Collapsed vertebra, not elsewhere classified, lumbar region, initial encounter for fracture; S81.812A Laceration without foreign body, left lower leg, initial encounter; W19.XXXA Unspecified fall, initial encounter; Y92.009 Unspecified place in unspecified non-institutional (private) residence as the place of occurrence of the external cause; Z23 Encounter for immunization; Z85.828 Personal history of other malignant neoplasm of skin; Z85.038 Personal history of other malignant neoplasm of large intestine; Z90.49 Acquired absence of other specified parts of digestive tract; N40.0 Benign prostatic hyperplasia without lower urinary tract symptoms; N18.2 Chronic kidney disease, stage 2 (mild); Z87.891 Personal history of nicotine dependence; E78.5 Hyperlipidemia, unspecified; G89.29 Other chronic pain; I48.2 Chronic atrial fibrillation; I73.9 Peripheral vascular disease, unspecified; J44.9 Chronic obstructive pulmonary disease, unspecified; R29.6 Repeated falls; S32.409D Unspecified fracture of unspecified acetabulum, subsequent encounter for fracture with routine healing; Z79.01 Long term (current) use of anticoagulants; Z79.52 Long term (current) use of systemic steroids; Z79.899 Other long term (current) drug therapy; Z86.73 Personal history of transient ischemic attack (TIA), and cerebral infarction without residual deficits; Z91.81 History of falling; R53.1 Weakness; M19.90 Unspecified osteoarthritis, unspecified site; Z87.01 Personal history of pneumonia (recurrent); R63.6 Underweight; Z81.8 Family history of other mental and behavioral disorders; Z83.6 Family history of other diseases of the respiratory system; Z80.9 Family history of malignant neoplasm, unspecified
CPT/HCPCS: 36415; 72170; 80048; 81001; 85025; 85610; 87086; 90471; 90714; 94640; 96374; 99285

== ENCOUNTER 2019-06-03 17:10 | Inpatient (IN) | payer MEDICARE, BC ==
--- NOTE | 2019-06-03 17:37 | ED ---
Fever HPI - General Chief Complaint: Fever Stated Complaint: Weakness Time Seen by Provider: 06/03/19 17:16 Source: EMS, RN notes reviewed, old records reviewed Mode of arrival: EMS Limitations: no limitations - History of Present Illness Initial Comments: This is an 88-year-old male the ER for evaluation. Patient's poor historian unable to. She weighs. States when called he was acting weak not himself. EMS patient was noted a fever been increasingly weak and not acting himself per the . Patient presents today stating that his mouth is dry denying cough congestion or denying any pain. MD Complaint: fever, weakness -: unknown Temperature Source: subjective Associated Symptoms: chills, myalgias, nausea, confusion Treatments Prior to Arrival: none - Related Data Home Medications Medication Instructions Recorded Confirmed Finasteride [Proscar] 5 mg PO DAILY 08/28/15 06/03/19 Tamsulosin HCl [Flomax] 0.4 mg PO DAILY 08/29/15 06/03/19 predniSONE 5 mg PO BID 07/09/16 06/03/19 HYDROcodone/APAP 10-325MG [[place] 1 tab PO TID PRN 02/10/18 06/03/19 10-325] Lisinopril [Prinivil] 10 mg PO DAILY 02/10/18 06/03/19 Temazepam [Restoril] 15 mg PO HS PRN 02/10/18 06/03/19 Furosemide [Lasix] 20 mg PO BID 04/17/18 06/03/19 Budesonide [Pulmicort] 0.5 mg INHALATION RT-BID 03/15/19 06/03/19 Warfarin [Coumadin] 1 mg PO DAILY 03/15/19 06/03/19 Allergies Allergy/AdvReac Type Severity Reaction Status Date / Time No Known Allergies Allergy Verified 06/03/19 18:03 Review of Systems ROS Statement: Those systems with pertinent positive or pertinent negative responses have been documented in the HPI. ROS Other: All systems not noted in ROS Statement are negative. Past Medical History Past Medical History: Atrial Fibrillation, Cancer, Heart Failure, COPD, CVA/TIA, Hyperlipidemia, Hypertension, Osteoarthritis (OA), Pneumonia, Prostate Disorder Additional Past Medical History / Comment(s): TIA x 2, balance issues, falls, past fall with acetabular fracture, colon and skin cancer with surgery, R sided abdominal hernia, seasonal allergies, PVD, past bilateral leg wounds, pneumothorax with chest tube when in his 20s after a fall, bilateral tinnitis, chronic back pain, past L2 fracture, recent L4 fracture. History of Any Multi-Drug Resistant Organisms: None Reported Past Surgical History: Heart Catheterization, Hernia Repair Additional Past Surgical History / Comment(s): Laminictomy-lumbar, umbilical and incisional hernia repair, 1990 colon resection and temporary colostomy, skin cancer removal from face, L leg laser vein surgery, bronchoscopy, bilateral lower leg wounds with debridements, bilateral cataract removals. Past Anesthesia/Blood Transfusion Reactions: Postoperative Nausea & Vomiting (PONV) Additional Past Anesthesia/Blood Transfusion Reaction / Comment(s): Pt has received blood in past without reaction. Past Psychological History: No Psychological Hx Reported Smoking Status: Former smoker Past Alcohol Use History: None Reported Past Drug Use History: None Reported - Past Family History Father Additional Family Medical History / Comment(s): Father had mental health issues. He lived to be 84 yrs old. Mother Family Medical History: Pneumonia Additional Family Medical History / Comment(s): Mother of pneumonia at the age of 29yrs. Brother(s) History Unknown: Yes Family Medical History: Cancer General Exam Limitations: no limitations General appearance: alert, in no apparent distress Head exam: Present: atraumatic, normocephalic, normal inspection Eye exam: Present: normal appearance, PERRL, EOMI. Absent: scleral icterus, conjunctival injection, periorbital swelling ENT exam: Present: normal exam, mucous membranes dry Neck exam: Present: normal inspection. Absent: tenderness, meningismus, lymphadenopathy Respiratory exam: Present: normal lung sounds bilaterally. Absent: respiratory distress, wheezes, rales, rhonchi, stridor Cardiovascular Exam: Present: tachycardia, irregular rhythm, normal heart sounds. Absent: systolic murmur, diastolic murmur, rubs, gallop, clicks GI/Abdominal exam: Present: soft, normal bowel sounds. Absent: distended, tenderness, guarding, rebound, rigid Extremities exam: Present: normal inspection, full ROM, normal capillary refill. Absent: tenderness, pedal edema, joint swelling, calf tenderness Back exam: Present: normal inspection Neurological exam: Present: alert, oriented X3, CN II-XII intact Psychiatric exam: Present: normal affect, normal mood Skin exam: Present: warm, dry, intact, normal color. Absent: rash Course Vital Signs 06/03/19 17:15 Temperature 100.8 F H Pulse Rate 114 H Respiratory 16 Rate Blood Pressure 132/86 O2 Sat by Pulse 97 Oximetry - Reevaluation(s) Reevaluation #1: 06/03/19 17:37 Medical records reviewed Reevaluation #2: 06/03/19 20:42 Spoke with patient's family at bedside, performed with no distress noted of cause of fever, awaiting urine, will admit for IV hydration and antibiotics - Consultations Consultation #1: Spoke with Dr. Philip michael for admission Medical Decision Making - Medical Decision Making 88 male the ER for evaluation. Patient resents today for evaluation of weakness and fever. Fever of unknown origin we'll start on antibiotics and admit for IV hydration - Lab Data Result diagrams: 06/03/19 17:42 06/03/19 19:04 Lab Results 06/03/19 06/03/19 06/03/19 Range/Units 17:42 17:42 18:30 WBC 10.2 (3.8-10.6) k/uL RBC 3.83 L (4.30-5.90) m/uL Hgb 10.4 L (13.0-17.5) gm/dL Hct 36.2 L (39.0-53.0) % MCV 94.5 (80.0-100.0) fL MCH 27.2 (25.0-35.0) pg MCHC 28.7 L (31.0-37.0) g/dL RDW 13.7 (11.5-15.5) % Plt Count 244 (150-450) k/uL Neutrophils % 87 % Lymphocytes % 5 % Monocytes % 5 % Eosinophils % 1 % Basophils % 1 % Neutrophils # 8.9 H (1.3-7.7) k/uL Lymphocytes # 0.5 L (1.0-4.8) k/uL Monocytes # 0.5 (0-1.0) k/uL Eosinophils # 0.1 (0-0.7) k/uL Basophils # 0.1 (0-0.2) k/uL Hypochromasia Marked Sodium (137-145) mmol/L Potassium (3.5-5.1) mmol/L Chloride (98-107) mmol/L Carbon Dioxide (22-30) mmol/L Anion Gap mmol/L BUN (9-20) mg/dL Creatinine (0.66-1.25) mg/dL Est GFR (CKD-EPI)AfAm (>60 ml/min/1.73 sqM) Est GFR (CKD-EPI)NonAf (>60 ml/min/1.73 sqM) Glucose (74-99) mg/dL Plasma Lactic Acid Cameron (0.7-2.0) mmol/L Calcium (8.4-10.2) mg/dL Phosphorus 2.8 (2.5-4.5) mg/dL Magnesium 2.2 (1.6-2.3) mg/dL Total Bilirubin (0.2-1.3) mg/dL AST (17-59) U/L ALT (21-72) U/L Alkaline Phosphatase (38-126) U/L Total Protein (6.3-8.2) g/dL Albumin (3.5-5.0) g/dL Influenza Type A RNA Not Detected (Not Detectd) Influenza Type B (PCR) Not Detected (Not Detectd) 06/03/19 06/03/19 Range/Units 19:04 19:04 WBC (3.8-10.6) k/uL RBC (4.30-5.90) m/uL Hgb (13.0-17.5) gm/dL Hct (39.0-53.0) % MCV (80.0-100.0) fL MCH (25.0-35.0) pg MCHC (31.0-37.0) g/dL RDW (11.5-15.5) % Plt Count (150-450) k/uL Neutrophils % % Lymphocytes % % Monocytes % % Eosinophils % % Basophils % % Neutrophils # (1.3-7.7) k/uL Lymphocytes # (1.0-4.8) k/uL Monocytes # (0-1.0) k/uL Eosinophils # (0-0.7) k/uL Basophils # (0-0.2) k/uL Hypochromasia Sodium 136 L (137-145) mmol/L Potassium 4.1 (3.5-5.1) mmol/L Chloride 100 (98-107) mmol/L Carbon Dioxide 30 (22-30) mmol/L Anion Gap 6 mmol/L BUN 30 H (9-20) mg/dL Creatinine 1.04 (0.66-1.25) mg/dL Est GFR (CKD-EPI)AfAm 75 (>60 ml/min/1.73 sqM) Est GFR (CKD-EPI)NonAf 65 (>60 ml/min/1.73 sqM) Glucose 94 (74-99) mg/dL Plasma Lactic Acid Cameron 0.7 (0.7-2.0) mmol/L Calcium 8.5 (8.4-10.2) mg/dL Phosphorus (2.5-4.5) mg/dL Magnesium (1.6-2.3) mg/dL Total Bilirubin 0.8 (0.2-1.3) mg/dL AST 18 (17-59) U/L ALT 21 (21-72) U/L Alkaline Phosphatase 74 (38-126) U/L Total Protein 6.0 L (6.3-8.2) g/dL Albumin 3.1 L (3.5-5.0) g/dL Influenza Type A RNA (Not Detectd) Influenza Type B (PCR) (Not Detectd) - EKG Data -: EKG Interpreted by Me (EKG shows A. fib with RVR rate of 15, QRS 114, QTc 452) - Radiology Data Radiology results: report reviewed (Chest x-rays negative for acute disease), image reviewed Disposition Clinical Impression: Fever, Dehydration, Fall, Weakness Disposition: ADMITTED IP TO THIS HOSP Condition: Fair Is patient prescribed a controlled substance at d/c from ED?: No Referrals: Yazmin Niño MD [Primary Care Provider] - 1-2 days
[2019-06-03] MEDS ORDERED: ACETAMINOPHEN TAB 500 MG TAB PO STA (18:21)
[2019-06-03] MEDS ORDERED: SODIUM CHLORIDE 0.9% 1,000 ML IV STA ×2 (18:21)
[2019-06-03 18:33] LABS: Basophils # (A) 0.1 k/uL (0-0.2); Basophils % (A) 1 %; Eosinophils # (A) 0.1 k/uL (0-0.7); Eosinophils % (A) 1 %; HCT 36.2 % (39.0-53.0); HGB 10.4 gm/dL (13.0-17.5); Hypochromasia Marked; Lymphocytes # (A) 0.5 k/uL (1.0-4.8); Lymphocytes % (A) 5 %; MCH 27.2 pg (25.0-35.0); MCHC 28.7 g/dL (31.0-37.0); MCV 94.5 fL (80.0-100.0); Mean Platelet Volume 7.4; Monocytes # (A) 0.5 k/uL (0-1.0); Monocytes % (A) 5 %; Neutrophils # (A) 8.9 k/uL (1.3-7.7); Neutrophils % (A) 87 %; Platelet Count 244 k/uL (150-450); RBC 3.83 m/uL (4.30-5.90); RDW 13.7 % (11.5-15.5); WBC 10.2 k/uL (3.8-10.6)
[2019-06-03 18:40] LABS: Magnesium 2.2 mg/dL (1.6-2.3); Phosphorus 2.8 mg/dL (2.5-4.5)
--- NOTE | 2019-06-03 18:57 | XR ---
EXAMINATION TYPE: XR chest 2V DATE OF EXAM: 06/03/2019 COMPARISON: Chest x-ray November 21, 2018. HISTORY: Fever. TECHNIQUE: Frontal and lateral views of the chest are obtained. FINDINGS: Overlying EKG leads are seen. There is chronic parenchymal changes without suspicious foca l air space opacity or pneumothorax seen. Small to tiny bilateral pleural effusions are present with blunting of posterior costophrenic angles. New mild interstitial edema. The cardiac silhouette size i s mildly enlarged with atherosclerotic aorta. The osseous structures are intact. IMPRESSION: CHF exacerbation may be present as there is mild cardiomegaly with new small to tiny bila teral pleural effusions and suspected new mild interstitial edema. No new focal infiltrate noted. Cor relate clinically.
[2019-06-03 19:33] LABS: Albumin 3.1 g/dL (3.5-5.0); Calcium 8.5 mg/dL (8.4-10.2); Potassium 4.1 mmol/L (3.5-5.1); Total Bilirubin 0.8 mg/dL (0.2-1.3)
[2019-06-03] MEDS ORDERED: SODIUM CHLORIDE 0.9% 500 ML 500 ML IV STA (20:41)
[2019-06-03] MEDS ORDERED: PNEUMONIA PROTOCOL UTILIZED 1 EACH MISC PO PRN (23:25)
[2019-06-04] MEDS: HYDROcodone/APAP 10-325MG 1 EACH TAB PO PRN ×3 (01:09→20:09)
[2019-06-04] MEDS: TEMAZEPAM 15 MG CAP PO PRN ×2 (01:09→20:09)
[2019-06-04] MEDS: SODIUM CHLORIDE 0.9% 1,000 ML IV SCH ×2 (01:34→22:49)
[2019-06-04 05:02] LABS: Appearance,Urine Cloudy (Clear); Bilirubin,Urine Negative (Negative); Blood,Urine Small (Negative); Color,Urine Yellow; Glucose,Urine (UA) Negative (Negative); Ketones,Urine Negative (Negative); Leukocyte Esterase,Urine Moderate (Negative); Nitrite,Urine Negative (Negative); PH, Urine 6.5 (5.0-8.0); Protein,Urine Trace (Negative); RBC,Urine 12 /hpf (0-5); Specific Gravity,Urine 1.018 (1.001-1.035); Squamous Epithelial Cell,Urine <1 /hpf (0-4)
[2019-06-04 07:09] LABS: INR 2.8 (<1.2); Prothrombin Time 26.7 sec (9.0-12.0)
[2019-06-04] MEDS: BUDESONIDE 0.5 MG/2 ML NEBU INHALATION SCH ×2 (08:52→20:33)
[2019-06-04] MEDS ORDERED: FUROSEMIDE 20 MG TAB PO SCH (09:00)
[2019-06-04] MEDS ORDERED: HEPARIN SODIUM,PORCINE 5,000 UNIT/ML 1 ML VIAL SQ SCH (09:00)
[2019-06-04] MEDS: LISINOPRIL 10 MG TAB PO SCH (09:08)
[2019-06-04] MEDS: TAMSULOSIN 0.4 MG CAP.ER.24H PO SCH (09:08)
[2019-06-04] MEDS: FINASTERIDE 5 MG TAB PO SCH (09:08)
[2019-06-04] MEDS: predniSONE 5 MG TAB PO SCH ×2 (09:09→20:09)
[2019-06-04] MEDS ORDERED: FUROSEMIDE 10 MG/ML 4 ML VIAL IV SCH (12:00)
--- NOTE | 2019-06-04 12:07 | P.HPIM ---
History of Present Illness this is a pleasant 88 yo M with PMH of atrial fibrillation, congestive heart failure, COPD, CVA/TIA, hyperlipidemia, hypertension, osteoarthritis, recurrent falls, colon and skin cancer status post surgery, chronic back pain. Chronic left leg wound. He presents because he felt weak and he could not get out of the chair yesterday so him and his decided to call 911. Patient has chronic dyspnea and he attributed that to his COPD and he is a steroid- dependent, however he denies chest pain or coughing. He denies abdominal pain or burning in his urine. However he says that his right arm got swollen about 2 days ago and it hurts. No headache or weakness or numbness. No palpitation or dizziness patient was admitted he had a fever of 100.8, rest of vitals looks stable. showing normal WBC at 10.2 K, rest of labs are unremarkable, INR is 2.8 which is therapeutic. UA is suspicious for infection, influenza is negative. Chest x- ray showing CHF exacerbation with a new mild interstitial edema, no new infiltrates however on admission he got 2 L of normal saline Review of Systems CONSTITUTIONAL: No fever, no malaise, no fatigue. HEENT: No recent visual problems or hearing problems. Denied any sore throat. CARDIOVASCULAR: No orthopnea, PND, no palpitations, no syncope. PULMONARY: No shortness of breath, no cough, no hemoptysis. GASTROINTESTINAL: No diarrhea, no nausea, no vomiting, no abdominal pain. Normoactive bowel sounds. NEUROLOGICAL: No headaches, no weakness, no numbness. HEMATOLOGICAL: Denies any bleeding or petechiae. GENITOURINARY: Denies any burning micturition, frequency, or urgency. MUSCULOSKELETAL/RHEUMATOLOGICAL: Denies any joint pain, swelling, or any muscle pain. ENDOCRINE: Denies any polyuria or polydipsia. Past Medical History Past Medical History: Atrial Fibrillation, Cancer, Heart Failure, COPD, CVA/TIA, Hyperlipidemia, Hypertension, Osteoarthritis (OA), Pneumonia, Prostate Disorder Additional Past Medical History / Comment(s): TIA x 2, balance issues, falls, past fall with acetabular fracture, colon and skin cancer with surgery, R sided abdominal hernia, seasonal allergies, PVD, past bilateral leg wounds, pneumothorax with chest tube when in his 20s after a fall, bilateral tinnitis, chronic back pain, past L2 fracture, recent L4 fracture. History of Any Multi-Drug Resistant Organisms: None Reported Past Surgical History: Heart Catheterization, Hernia Repair Additional Past Surgical History / Comment(s): Laminictomy-lumbar, umbilical and incisional hernia repair, 1990 colon resection and temporary colostomy, skin cancer removal from face, L leg laser vein surgery, bronchoscopy, bilateral lower leg wounds with debridements, bilateral cataract removals. Past Anesthesia/Blood Transfusion Reactions: Postoperative Nausea & Vomiting (PONV) Additional Past Anesthesia/Blood Transfusion Reaction / Comment(s): Pt has received blood in past without reaction. Past Psychological History: No Psychological Hx Reported Additional Psychological History / Comment(s): Pt resides with his spouse. He states he has depression and in the past thoughts of suicide but not currently. He ambulates with a cane. He drives. He is an [employer] . Smoking Status: Former smoker Past Alcohol Use History: None Reported Additional Past Alcohol Use History / Comment(s): Pt started smoking in 1948 and quit in 4. 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 Past Drug Use History: None Reported - Past Family History Father Additional Family Medical History / Comment(s): Father had mental health issues. He lived to be 84 yrs old. Mother Family Medical History: Pneumonia Additional Family Medical History / Comment(s): Mother of pneumonia at the age of 29yrs. Brother(s) History Unknown: Yes Family Medical History: Cancer Medications and Allergies Home Medications Medication Instructions Recorded Confirmed Type Finasteride [Proscar] 5 mg PO DAILY 08/28/15 06/03/19 History Tamsulosin HCl [Flomax] 0.4 mg PO DAILY 08/29/15 06/03/19 History predniSONE 5 mg PO BID 07/09/16 06/03/19 History HYDROcodone/APAP 10-325MG [[place] 1 tab PO TID PRN 02/10/18 06/03/19 History 10-325] Lisinopril [Prinivil] 10 mg PO DAILY 02/10/18 06/03/19 History Temazepam [Restoril] 15 mg PO HS PRN 02/10/18 06/03/19 History Furosemide [Lasix] 20 mg PO BID 04/17/18 06/03/19 History Budesonide [Pulmicort] 0.5 mg INHALATION RT-BID 03/15/19 06/03/19 History Warfarin [Coumadin] 1 mg PO DAILY 03/15/19 06/03/19 History Allergies Allergy/AdvReac Type Severity Reaction Status Date / Time No Known Allergies Allergy Verified 06/03/19 18:03 Physical Exam Vitals: Vital Signs Temp Pulse Pulse Resp BP BP Pulse Ox 06/04/19 09:01 76 06/04/19 08:52 76 06/04/19 07:00 98 F 68 16 125/62 98 06/04/19 00:40 98.7 F 91 20 147/68 100 06/03/19 23:37 69 20 96/60 95 06/03/19 23:25 100 06/03/19 20:52 83 20 110/56 95 06/03/19 17:15 100.8 F H 114 H 16 132/86 97 Intake and Output 06/03/19 06/04/19 06/04/19 22:59 06:59 14:59 Intake Total 250 Output Total 200 Balance 50 Intake: Amount of Fluid Infused ( 250 ml) Output: Urine 200 Other: Voiding Method Urinal # Voids 1 Weight 46.72 kg -GENERAL: The patient is alert and oriented x3, not in any acute distress. Thin built. He generally weak HEENT: Pupils are round and equally reacting to light. EOMI. No scleral icterus. No conjunctival pallor. Normocephalic, atraumatic. No pharyngeal erythema. No thyromegaly. CARDIOVASCULAR: S1 and S2 present. No murmurs, rubs, or gallops. PULMONARY: Chest is clear to auscultation, no wheezing or crackles. ABDOMEN: Soft, nontender, nondistended, normoactive bowel sounds. No palpable organomegaly. MUSCULOSKELETAL: No joint swelling or deformity. -EXTREMITIES: No cyanosis, clubbing, or pedal edema. Right hand is swollen, also the right forearm is swollen. Redness in the right forearm and hand. T enderness in the right hand NEUROLOGICAL: Gross neurological examination did not reveal any focal deficits. SKIN: No rashes. No petechiae Results CBC & Chem 7: 06/03/19 17:42 06/03/19 19:04 Labs: Abnormal Lab Results - Last 24 Hours (Table) 06/03/19 06/03/19 06/04/19 Range/Units 17:42 19:04 04:50 RBC 3.83 L (4.30-5.90) m/uL Hgb 10.4 L (13.0-17.5) gm/dL Hct 36.2 L (39.0-53.0) % MCHC 28.7 L (31.0-37.0) g/dL Neutrophils # 8.9 H (1.3-7.7) k/uL Lymphocytes # 0.5 L (1.0-4.8) k/uL PT (9.0-12.0) sec INR (<1.2) Sodium 136 L (137-145) mmol/L BUN 30 H (9-20) mg/dL Total Protein 6.0 L (6.3-8.2) g/dL Albumin 3.1 L (3.5-5.0) g/dL Urine Protein Trace H (Negative) Urine Blood Small H (Negative) Ur Leukocyte Esterase Moderate H (Negative) Urine RBC 12 H (0-5) /hpf Urine WBC 82 H (0-5) /hpf 06/04/19 Range/Units 06:40 RBC (4.30-5.90) m/uL Hgb (13.0-17.5) gm/dL Hct (39.0-53.0) % MCHC (31.0-37.0) g/dL Neutrophils # (1.3-7.7) k/uL Lymphocytes # (1.0-4.8) k/uL PT 26.7 H (9.0-12.0) sec INR 2.8 H (<1.2) Sodium (137-145) mmol/L BUN (9-20) mg/dL Total Protein (6.3-8.2) g/dL Albumin (3.5-5.0) g/dL Urine Protein (Negative) Urine Blood (Negative) Ur Leukocyte Esterase (Negative) Urine RBC (0-5) /hpf Urine WBC (0-5) /hpf Microbiology - Last 24 Hours (Table) 06/04/19 04:50 Urine Culture - Preliminary Urine,Clean Catch Thrombosis Risk Factor Assmnt - Choose All That Apply Each Factor Represents 1 point: Swollen legs (current) Each Risk Factor Represents 3 Points: Age 75 years or older Thrombosis Risk Factor Assessment Total Risk Factor Score: 4 Thrombosis Risk Factor Assessment Level: Moderate Risk Assessment and Plan Assessment: Urinary tract infection Right forearm and hand cellulitis Acute on chronic congestive heart failure, unknown ejection fraction Chronic left leg wound, he follows up with wound clinic Chronic atrial fibrillation Chronic congestive heart failure COPD, not in acute exacerbation History of CVA/TIA Hypertension Hyperlipidemia Primary osteoarthritis and chronic back pain History of recurrent falls History of colon and skin cancer status post surgery Plan: This is a pleasant 88 years old male who presents with UTI, possible right forearm and hand cellulitis and acute CHF. We'll call infectious disease consult. Continue with ceftriaxone. Continue with Lasix. Follow-up urine culture results on warfarin. We will switch his oral Lasix to IV Lasix 40 mg. We'll check right hand x-ray Labs and medication were reviewed.. Continue same treatment. Continue with symptomatic treatment. Resume home medication. Monitor lytes and vitals. DVT and GI prophylaxis. Further recommendations of the clinical course of the patient DVT prophylaxis: warfarin GI Prophylaxis: Pepcid PT/OT: Pending Prognosis is guarded
[2019-06-04] MEDS: FUROSEMIDE 10 MG/ML 4 ML VIAL IV SCH ×2 (12:53→20:09)
[2019-06-04] MEDS: FAMOTIDINE 20 MG/2 ML VIAL IV SCH (12:54)
--- NOTE | 2019-06-04 13:05 | XR ---
EXAMINATION TYPE: XR hand complete RT DATE OF EXAM: 06/04/2019 CLINICAL HISTORY: Redness and swelling. TECHNIQUE: Frontal, lateral and oblique images of the right hand are obtained. COMPARISON: None. FINDINGS: There is no acute fracture/dislocation evident in the right hand. Mild to moderate narrowi ng and mild spurring throughout the phalanges with relative sparing of the MCP joints. Some varus pos itioning of the third and fourth PIP joints. Bony projection distal radial metaphysis radial aspect c ould reflect osteochondroma. Subchondral cystic change distal radius and distal scaphoid. Mild diffus e soft tissue swelling. No suspicious cortical destruction or periosteal reaction. IMPRESSION: As above.
[2019-06-04] MEDS ORDERED: AZITHROMYCIN 500 MG TAB PO SCH (16:00)
[2019-06-04] MEDS: CALCIUM CARB-VIT D 500MG-200UN 1 EACH TAB PO SCH (17:32)
[2019-06-04] MEDS ORDERED: WARFARIN 0.5 MG TAB PO ONE (18:00)
--- NOTE | 2019-06-04 23:25 | P.CONS ---
History of Present Illness - Reason for Consult Consult date: 06/04/19 Fever Requesting physician: Daniel E Sheet - Chief Complaint Fever and generalized weakness 1 day - History of Present Illness Patient is 87-year-old male currently under my care and [facility] wound care for a traumatic wound to his left lower extremity that is currently being treated with Hydrofera Blue dressing the patient was seen in the wound care center yesterday and did have debridement of his wound and there was no evidence of cellulitis patient said he went for lunch after the wound care visit with his after lunch,The patient [place] and was feeling very weak and unable to bear his weight. Denies having any fall. Denies having any headache or URI symptoms no chest pain and minimal shortness of breath occasional cough but no worsening denies any abdominal pain and no diarrhea EMS was called and the patient was brought into the ER on arrival to the patient did have fever of 100.8 degrees Fahrenheit, chest x-ray with a question of CHF but no active consolidatio patient did have a positive UA and influenza serology was negative patient was started on Rocephin has been admitted to the hospital infectious disease was consulted for further recommendation regarding antibiotic as well as local wound care to the left leg patient currently denies having any pain to the left leg wound area with no surrounding swelling redness or any foul-smelling drainage Review of Systems Positive point has been mentioned in the HPI rest of the systems are negative Past Medical History Past Medical History: Atrial Fibrillation, Cancer, Heart Failure, COPD, CVA/TIA, Hyperlipidemia, Hypertension, Osteoarthritis (OA), Pneumonia, Prostate Disorder Additional Past Medical History / Comment(s): TIA x 2, balance issues, falls, past fall with acetabular fracture, colon and skin cancer with surgery, R sided abdominal hernia, seasonal allergies, PVD, past bilateral leg wounds, pneumothorax with chest tube when in his 20s after a fall, bilateral tinnitis, chronic back pain, past L2 fracture, recent L4 fracture. History of Any Multi-Drug Resistant Organisms: None Reported Past Surgical History: Heart Catheterization, Hernia Repair Additional Past Surgical History / Comment(s): Laminictomy-lumbar, umbilical and incisional hernia repair, 1990 colon resection and temporary colostomy, skin cancer removal from face, L leg laser vein surgery, bronchoscopy, bilateral lower leg wounds with debridements, bilateral cataract removals. Past Anesthesia/Blood Transfusion Reactions: Postoperative Nausea & Vomiting (PONV) Additional Past Anesthesia/Blood Transfusion Reaction / Comm: Pt has received blood in past without reaction. Past Psychological History: No Psychological Hx Reported Additional Psychological History / Comment(s): Pt resides with his spouse. He states he has depression and in the past thoughts of suicide but not currently. He ambulates with a cane. He drives. He is an [employer] . Smoking Status: Former smoker Past Alcohol Use History: None Reported Additional Past Alcohol Use History / Comment(s): Pt started smoking in 1948 and quit in 1954. 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 Past Drug Use History: None Reported - Past Family History Father Additional Family Medical History / Comment(s): Father had mental health issues. He lived to be 84 yrs old. Mother Family Medical History: Pneumonia Additional Family Medical History / Comment(s): Mother of pneumonia at the age of 29yrs. Brother(s) History Unknown: Yes Family Medical History: Cancer Medications and Allergies Home Medications Medication Instructions Recorded Confirmed Type Finasteride [Proscar] 5 mg PO DAILY 08/28/15 06/03/19 History Tamsulosin HCl [Flomax] 0.4 mg PO DAILY 08/29/15 06/03/19 History predniSONE 5 mg PO BID 07/09/16 06/03/19 History HYDROcodone/APAP 10-325MG [Zebulon 1 tab PO TID PRN 02/10/18 06/03/19 History 10-325] Lisinopril [Prinivil] 10 mg PO DAILY 02/10/18 06/03/19 History Temazepam [Restoril] 15 mg PO HS PRN 02/10/18 06/03/19 History Furosemide [Lasix] 20 mg PO BID 04/17/18 06/03/19 History Budesonide [Pulmicort] 0.5 mg INHALATION RT-BID 03/15/19 06/03/19 History Warfarin [Coumadin] 1 mg PO DAILY 03/15/19 06/03/19 History Allergies Allergy/AdvReac Type Severity Reaction Status Date / Time No Known Allergies Allergy Verified 06/03/19 18:03 Physical Exam Vitals: Vital Signs Temp Pulse Pulse Resp BP BP Pulse Ox 06/04/19 09:01 76 06/04/19 08:52 76 06/04/19 07:00 98 F 68 16 125/62 98 06/04/19 00:40 98.7 F 91 20 147/68 100 06/03/19 23:37 69 20 96/60 95 06/03/19 23:25 100 06/03/19 20:52 83 20 110/56 95 06/03/19 17:15 100.8 F H 114 H 16 132/86 97 Intake and Output 06/03/19 06/04/19 06/04/19 22:59 06:59 14:59 Intake Total 250 Output Total 200 Balance 50 Intake: Amount of Fluid Infused ( 250 ml) Output: Urine 200 Other: Voiding Method Urinal # Voids 1 1 Weight 46.72 kg 46.72 kg GENERAL DESCRIPTION: Elderly male lying in bed, no distress. No tachypnea or accessory muscle of respiration use. HEENT: Shows Pallor , no scleral icterus. Oral mucous membrane is dry. No pharyngeal erythema or thrush NECK: Trachea central, no thyromegaly. LUNGS: Unlabored breathing. Decreased breath sound at the base. No wheeze or crackle. HEART: S1, S2, regular rate and rhythm. No loud murmur ABDOMEN: Soft, no tenderness , guarding or rigidity, no organomegaly EXTREMITIES: Left leg is currently dressed up no obvious drainage on the dressing. SKIN: No rash, no masses palpable. NEUROLOGICAL: The patient is awake, alert, oriented x3, mood and affect normal. Results CBC & Chem 7: 06/03/19 17:42 06/03/19 19:04 Labs: Abnormal Lab Results - Last 24 Hours (Table) 06/03/19 06/03/19 06/04/19 Range/Units 17:42 19:04 04:50 RBC 3.83 L (4.30-5.90) m/uL Hgb 10.4 L (13.0-17.5) gm/dL Hct 36.2 L (39.0-53.0) % MCHC 28.7 L (31.0-37.0) g/dL Neutrophils # 8.9 H (1.3-7.7) k/uL Lymphocytes # 0.5 L (1.0-4.8) k/uL PT (9.0-12.0) sec INR (<1.2) Sodium 136 L (137-145) mmol/L BUN 30 H (9-20) mg/dL Total Protein 6.0 L (6.3-8.2) g/dL Albumin 3.1 L (3.5-5.0) g/dL Urine Protein Trace H (Negative) Urine Blood Small H (Negative) Ur Leukocyte Esterase Moderate H (Negative) Urine RBC 12 H (0-5) /hpf Urine WBC 82 H (0-5) /hpf 06/04/19 Range/Units 06:40 RBC (4.30-5.90) m/uL Hgb (13.0-17.5) gm/dL Hct (39.0-53.0) % MCHC (31.0-37.0) g/dL Neutrophils # (1.3-7.7) k/uL Lymphocytes # (1.0-4.8) k/uL PT 26.7 H (9.0-12.0) sec INR 2.8 H (<1.2) Sodium (137-145) mmol/L BUN (9-20) mg/dL Total Protein (6.3-8.2) g/dL Albumin (3.5-5.0) g/dL Urine Protein (Negative) Urine Blood (Negative) Ur Leukocyte Esterase (Negative) Urine RBC (0-5) /hpf Urine WBC (0-5) /hpf Microbiology - Last 24 Hours (Table) 06/04/19 04:50 Urine Culture - Preliminary Urine,Clean Catch Assessment and Plan Assessment: 1- patient presented to hospital with generalized weakness did have low-grade fever and a positive UA likely source is urinary tract infection clinically doubt pneumonia. No evidence of left lower extremity cellulitis (1) Urinary tract infection Current Visit: Yes Status: Acute Code(s): N39.0 - URINARY TRACT INFECTION, S ITE NOT SPECIFIED SNOMED Code(s): 12303705 (2) Leg wound, left Current Visit: Yes Status: Acute Code(s): S81.802A - UNSPECIFIED OPEN WOUND, LEFT LOWER LEG, INITIAL ENCOUNTER SNOMED Code(s): 954962576 Plan: 1-Rocephin 1 g daily while waiting for urine culture finalized 2-local wound care to the left leg wound with Hydrofera Blue dressing should be changed tomorrow 3-gentle IV fluid We will follow on clinical condition and cultures to further adjust medication if needed Thank you for this consultation will follow this patient with you Time with Patient: Greater than 30
[2019-06-05 07:56] LABS: Basophils # (A) 0.1 k/uL (0-0.2); Basophils % (A) 1 %; Eosinophils % (A) 0 %; HCT 31.5 % (39.0-53.0); HGB 9.8 gm/dL (13.0-17.5); Hypochromasia Marked; Lymphocytes % (A) 11 %; MCH 28.6 pg (25.0-35.0); MCHC 31.2 g/dL (31.0-37.0); MCV 91.7 fL (80.0-100.0); Mean Platelet Volume 6.7; Monocytes # (A) 0.5 k/uL (0-1.0); Monocytes % (A) 6 %; Neutrophils # (A) 7.5 k/uL (1.3-7.7); Neutrophils % (A) 81 %; Platelet Count 209 k/uL (150-450); RBC 3.44 m/uL (4.30-5.90); RDW 13.3 % (11.5-15.5); WBC 9.3 k/uL (3.8-10.6)
[2019-06-05 08:07] LABS: INR 1.8 (<1.2); Prothrombin Time 17.8 sec (9.0-12.0)
[2019-06-05 08:17] LABS: Calcium 8.2 mg/dL (8.4-10.2); Potassium 4.2 mmol/L (3.5-5.1)
[2019-06-05] MEDS: BUDESONIDE 0.5 MG/2 ML NEBU INHALATION SCH ×2 (08:41→21:58)
--- NOTE | 2019-06-05 09:21 | P.PN ---
Subjective this is a pleasant 88 yo M with PMH of atrial fibrillation, congestive heart failure, COPD, CVA/TIA, hyperlipidemia, hypertension, osteoarthritis, recurrent falls, colon and skin cancer status post surgery, chronic back pain. Chronic left leg wound. He presents because he felt weak and he could not get out of the chair yesterday so him and his decided to call 911. Patient has chronic dyspnea and he attributed that to his COPD and he is a steroid- dependent, however he denies chest pain or coughing. He denies abdominal pain or burning in his urine. However he says that his right arm got swollen about 2 days ago and it hurts. No headache or weakness or numbness. No palpitation or dizziness patient was admitted he had a fever of 100.8, rest of vitals looks stable. showing normal WBC at 10.2 K, rest of labs are unremarkable, INR is 2.8 which is therapeutic. UA is suspicious for infection, influenza is negative. Chest x-ray showing CHF exacerbation with a new mild interstitial edema, no new infiltrates however on admission he got 2 L of normal saline 06/05/2019 Patient is lying in bed comfortable, he still have baseline dyspnea probably related to his COPD and lung disease. He denies chest pain. No abdominal pain or vomiting. His cellulitis in his right upper extremity including the hand and forearm are improving he still complaining from pain in his right hand however it's less tender and the redness is regressing. Swelling also is decreasing. Hand x-ray done yesterday show no fracture. Patient remains on ceftriaxone. Infectious disease consult is appreciated. Continue with Lasix for his CHF. Physical therapy recommended home health care versus subacute rehab. Social work consult is placed Review of systems CONSTITUTIONAL: No fever, no malaise, no fatigue. HEENT: No recent visual problems or hearing problems. Denied any sore throat. CARDIOVASCULAR: No orthopnea, PND, no palpitations, no syncope. PULMONARY: no cough, no hemoptysis. GASTROINTESTINAL: No diarrhea, no nausea, no vomiting, no abdominal pain. Normoactive bowel sounds. NEUROLOGICAL: No headaches, no weakness, no numbness. HEMATOLOGICAL: Denies any bleeding or petechiae. GENITOURINARY: Denies any burning micturition, frequency, or urgency. MUSCULOSKELETAL/RHEUMATOLOGICAL: Denies any joint pain, swelling, or any muscle pain. ENDOCRINE: Denies any polyuria or polydipsia. Active Medications Generic Name Dose Route Start Last Admin Trade Name Freq PRN Reason Stop Dose Admin Hydrocodone Bitart/Acetaminophen 1 each 06/03/19 23:34 06/04/19 20:09 Woodson 10 PO 1 each TID PRN Administration Pain Budesonide 0.5 mg 06/04/19 08:00 06/05/19 08:41 Pulmicort INHALATION 0.5 mg RT-BID ISHMAEL Administration Calcium Carbonate 1 each 06/04/19 17:30 06/04/19 17:32 Oscal 500+D PO 1 each BID-W/MEALS ISHMAEL Administration Famotidine 20 mg 06/04/19 12:15 06/04/19 12:54 Pepcid IV 20 mg DAILY ISHMAEL Administration Finasteride 5 mg 06/04/19 09:00 06/04/19 09:08 Proscar PO 5 mg DAILY ISHMAEL Administration Furosemide 40 mg 06/04/19 12:15 06/04/19 20:09 Lasix IV 40 mg BID ISHMAEL Administration Sodium Chloride 1,000 mls @ 20 mls/hr 06/03/19 23:30 06/04/19 22:49 Saline 0.9% IV 20 mls/hr .Q24H ISHMAEL Administration Ceftriaxone Sodium 1 gm/ 50 mls @ 100 mls/hr 06/04/19 23:33 06/04/19 22:49 Sodium Chloride IVPB 100 mls/hr Q24H ISHMAEL Administration Lisinopril 10 mg 06/04/19 09:00 06/04/19 09:08 Zestril PO 10 mg DAILY ISHMAEL Administration Miscellaneous Information 1 each 06/03/19 23:25 Pneumonia Protocol Utilized PO ONCE PRN Per Protocol Miscellaneous Information 1 each 06/04/19 08:40 Coumadin Per Pharmacy MISCELLANE DIRECTED PRN Per Protocol Prednisone 5 mg 06/04/19 09:00 06/04/19 20:09 PO 5 mg BID ISHMAEL Administration Tamsulosin HCl 0.4 mg 06/04/19 09:00 06/04/19 09:08 Flomax PO 0.4 mg DAILY ISHMAEL Administration Temazepam 15 mg 06/03/19 23:34 06/04/19 20:09 Restoril PO 15 mg HS PRN Administration Insomnia Warfarin Sodium 1 mg 06/05/19 18:00 Coumadin PO 06/05/19 18:01 ONCE ONE Objective - Vital Signs Vital signs: Vital Signs Temp 98 F 06/05/19 07:00 Pulse 80 06/05/19 08:53 Resp 16 06/05/19 08:53 BP 115/77 06/05/19 07:00 Pulse Ox 99 06/05/19 08:43 Intake & Output 06/04/19 06/05/19 06/05/19 18:59 06:59 18:59 Intake Total 220 Balance 220 Weight 58.967 kg Intake: Intake, IV Titration 220 Amount Sodium Chloride 0.9% 1, 220 000 ml @ 20 mls/hr IV . Q24H ISHMAEL Rx#:[id number] Other: Voiding Method Urinal # Voids 1 - Exam -GENERAL: The patient is alert and oriented x3, not in any acute distress. Thin built. He generally weak HEENT: Pupils are round and equally reacting to light. EOMI. No scleral icterus. No conjunctival pallor. Normocephalic, atraumatic. No pharyngeal erythema. No thyromegaly. CARDIOVASCULAR: S1 and S2 present. No murmurs, rubs, or gallops. PULMONARY: Chest is clear to auscultation, no wheezing or crackles. ABDOMEN: Soft, nontender, nondistended, normoactive bowel sounds. No palpable organomegaly. MUSCULOSKELETAL: No joint swelling or deformity. -EXTREMITIES: No cyanosis, clubbing, or pedal edema. Improvement of his Right hand and forearm swelling, redness and tenderness, NEUROLOGICAL: Gross neurological examination did not reveal any focal deficits. SKIN: No rashes. No petechiae - Labs CBC & Chem 7: 06/05/19 07:11 06/05/19 07:11 Labs: Abnormal Lab Results - Last 24 Hours (Table) 06/05/19 06/05/19 06/05/19 Range/Units 07:11 07:11 07:11 RBC 3.44 L (4.30-5.90) m/uL Hgb 9.8 L (13.0-17.5) gm/dL Hct 31.5 L (39.0-53.0) % PT 17.8 H (9.0-12.0) sec INR 1.8 H (<1.2) BUN 37 H (9-20) mg/dL Creatinine 1.29 H (0.66-1.25) mg/dL Glucose 104 H (74-99) mg/dL Calcium 8.2 L (8.4-10.2) mg/dL Microbiology - Last 24 Hours (Table) 06/03/19 17:42 Blood Culture - Preliminary Blood No Growth after 24 hours 06/04/19 04:50 Urine Culture - Preliminary Urine,Clean Catch Assessment and Plan Assessment: Urinary tract infection Right forearm and hand cellulitis Acute on chronic congestive heart failure, unknown ejection fraction Chronic left leg wound, he follows up with wound clinic Chronic atrial fibrillation Chronic congestive heart failure COPD, not in acute exacerbation History of CVA/TIA Hypertension Hyperlipidemia Primary osteoarthritis and chronic back pain History of recurrent falls History of colon and skin cancer status post surgery Plan: This is a pleasant 88 years old male who presents with UTI, possible right forearm and hand cellulitis and acute CHF. We'll call infectious disease consult. Continue with ceftriaxone. Continue with Lasix. Follow-up urine cult ure results on warfarin. We will switch his oral Lasix to IV Lasix 40 mg. We'll check right hand x-ray Labs and medication were reviewed.. Continue same treatment. Continue with symptomatic treatment. Resume home medication. Monitor lytes and vitals. DVT and GI prophylaxis. Further recommendations of the clinical course of the patient DVT prophylaxis: warfarin GI Prophylaxis: Pepcid PT/OT: Pending Prognosis is guarded
[2019-06-05] MEDS: CALCIUM CARB-VIT D 500MG-200UN 1 EACH TAB PO SCH ×2 (10:07→17:37)
[2019-06-05] MEDS: predniSONE 5 MG TAB PO SCH ×2 (10:08→21:49)
[2019-06-05] MEDS: FAMOTIDINE 20 MG/2 ML VIAL IV SCH (10:08)
[2019-06-05] MEDS: FINASTERIDE 5 MG TAB PO SCH (10:08)
[2019-06-05] MEDS: TAMSULOSIN 0.4 MG CAP.ER.24H PO SCH (10:08)
[2019-06-05] MEDS: LISINOPRIL 10 MG TAB PO SCH (10:08)
[2019-06-05] MEDS: FUROSEMIDE 10 MG/ML 4 ML VIAL IV SCH ×2 (10:14→21:46)
[2019-06-05] MEDS: HYDROcodone/APAP 10-325MG 1 EACH TAB PO PRN ×2 (10:25→19:17)
[2019-06-05] MEDS ORDERED: WARFARIN 1 MG TAB PO ONE (18:00)
[2019-06-05 20:08] LABS: Calcium 8.2 mg/dL (8.4-10.2); Potassium 4.2 mmol/L (3.5-5.1)
[2019-06-05] MEDS: TEMAZEPAM 15 MG CAP PO PRN (21:46)
[2019-06-05] MEDS: SODIUM CHLORIDE 0.9% 1,000 ML IV SCH (21:49)
--- NOTE | 2019-06-05 23:54 | PN ---
PROGRESS NOTE DATE OF SERVICE: 06/05/2019. REASON FOR FOLLOWUP: 1. Urinary tract infection. 2. Left leg wound. INTERVAL HISTORY: The patient is currently afebrile, has been breathing comfortably. Complaining of feeling weak and tired and pain and swelling to the right hand area. No chest pain, shortness of breath or cough. No abdominal pain. No diarrhea or any worsening pain to the left ankle wound area. PHYSICAL EXAMINATION: Blood pressure 130/65 with a pulse of 87, temperature 98.6. He is 96% on room air. General description is an elderly male lying in bed in no distress. Respiratory system: Unlabored breathing. Clear to auscultation anteriorly. Heart S1, S2. Regular rate and rhythm. Abdomen soft. No tenderness. Left leg wound looks clean with no significant slough tissue, surrounding redness. LABS: Hemoglobin 9.8, white count 9.3, BUN of 44, creatinine 1.22. DIAGNOSTIC IMPRESSION AND PLAN: 1. Patient admitted to the hospital with fever, concern likely for urinary tract infection. The patient is currently covered with Rocephin to continue with no improvement in his fever. Waiting for the urine culture to finalize. 2. Left leg wound, no cellulitis. Continue with Hydrofera Blue and dressing changes. . 3. Continue supportive care. MMODL / IJN: [id number] /
[2019-06-06 06:50] LABS: Basophils % (A) 1 %; Eosinophils # (A) 0.1 k/uL (0-0.7); Eosinophils % (A) 2 %; HCT 33.4 % (39.0-53.0); HGB 10.3 gm/dL (13.0-17.5); Hypochromasia Moderate; Lymphocytes % (A) 13 %; MCH 27.8 pg (25.0-35.0); MCHC 30.9 g/dL (31.0-37.0); Mean Platelet Volume 6.2; Monocytes # (A) 0.3 k/uL (0-1.0); Monocytes % (A) 4 %; Neutrophils # (A) 6.3 k/uL (1.3-7.7); Neutrophils % (A) 79 %; Platelet Count 257 k/uL (150-450); RBC 3.71 m/uL (4.30-5.90); RDW 13.2 % (11.5-15.5)
[2019-06-06 06:54] LABS: INR 1.4 (<1.2); Prothrombin Time 14.4 sec (9.0-12.0)
[2019-06-06 06:58] LABS: Calcium 8.6 mg/dL (8.4-10.2); Potassium 3.5 mmol/L (3.5-5.1)
[2019-06-06] MEDS: BUDESONIDE 0.5 MG/2 ML NEBU INHALATION SCH ×2 (07:38→19:12)
[2019-06-06] MEDS: LISINOPRIL 10 MG TAB PO SCH (07:50)
[2019-06-06] MEDS: predniSONE 5 MG TAB PO SCH ×2 (07:50→17:14)
[2019-06-06] MEDS: FINASTERIDE 5 MG TAB PO SCH (07:50)
[2019-06-06] MEDS: TAMSULOSIN 0.4 MG CAP.ER.24H PO SCH (07:50)
[2019-06-06] MEDS: CALCIUM CARB-VIT D 500MG-200UN 1 EACH TAB PO SCH ×2 (07:50→17:18)
[2019-06-06] MEDS: FAMOTIDINE 20 MG TAB PO SCH (07:50)
[2019-06-06] MEDS: HYDROcodone/APAP 10-325MG 1 EACH TAB PO PRN ×2 (11:46→19:57)
--- NOTE | 2019-06-06 13:49 | P.PN ---
Subjective this is a pleasant 88 yo M with PMH of atrial fibrillation, congestive heart failure, COPD, CVA/TIA, hyperlipidemia, hypertension, osteoarthritis, recurrent falls, colon and skin cancer status post surgery, chronic back pain. Chronic left leg wound. He presents because he felt weak and he could not get out of the chair yesterday so him and his decided to call 911. Patient has chronic dyspnea and he attributed that to his COPD and he is a steroid- dependent, however he denies chest pain or coughing. He denies abdominal pain or burning in his urine. However he says that his right arm got swollen about 2 days ago and it hurts. No headache or weakness or numbness. No palpitation or dizziness patient was admitted he had a fever of 100.8, rest of vitals looks stable. showing normal WBC at 10.2 K, rest of labs are unremarkable, INR is 2.8 which is therapeutic. UA is suspicious for infection, influenza is negative. Chest x-ray showing CHF exacerbation with a new mild interstitial edema, no new infiltrates however on admission he got 2 L of normal saline 06/05/2019 Patient is lying in bed comfortable, he still have baseline dyspnea probably related to his COPD and lung disease. He denies chest pain. No abdominal pain or vomiting. His cellulitis in his right upper extremity including the hand and forearm are improving he still complaining from pain in his right hand however it's less tender and the redness is regressing. Swelling also is decreasing. Hand x-ray done yesterday show no fracture. Patient remains on ceftriaxone. Infectious disease consult is appreciated. Continue with Lasix for his CHF. Physical therapy recommended home health care versus subacute rehab. Social work consult is placed 06/06/2019 Patient is awake, he has chronic dyspnea which is at his baseline as per patient, he so Dr. Cunningham #20 [place] to come to the hospital and at that time he had the same level of dyspnea as he confirms to me patient today. His cellulitis and swelling in the right forearm and hand are improving gradually. He had no fever and and CBC is within normal limits. INRs today is 1.4, so besides his usual 2 milligram of warfarin, going to give her another 1 mg. Creatinine is normal. Patient is medically getting close to discharge, discussed with social insurance adviser he needs 3 days stay in the hospital to go to ECF for subacute rehab, possible discharge on Saturday if he keep improving with no complications Objective - Vital Signs Vital signs: Vital Signs Temp 97.6 F 06/06/19 07:00 Pulse 86 06/06/19 07:39 Resp 16 06/06/19 07:39 BP 111/54 06/06/19 07:00 Pulse Ox 96 06/06/19 07:39 Intake & Output 06/05/19 06/06/19 06/06/19 18:59 06:59 18:59 Intake Total 450 380 Output Total 200 Balance 250 380 Intake: Oral 450 380 Output: Urine 200 Other: Voiding Method Urinal Toilet Urinal # Voids 1 - Exam -GENERAL: The patient is alert and oriented x3, not in any acute distress. Thin built. He generally weak HEENT: Pupils are round and equally reacting to light. EOMI. No scleral icterus. No conjunctival pallor. Normocephalic, atraumatic. No pharyngeal erythema. No thyromegaly. CARDIOVASCULAR: S1 and S2 present. No murmurs, rubs, or gallops. PULMONARY: Chest is clear to auscultation, no wheezing or crackles. ABDOMEN: Soft, nontender, nondistended, normoactive bowel sounds. No palpable organomegaly. MUSCULOSKELETAL: No joint swelling or deformity. -EXTREMITIES: No cyanosis, clubbing, or pedal edema. Improvement of his Right hand and forearm swelling, redness and tenderness, NEUROLOGICAL: Gross neurological examination did not reveal any focal deficits. SKIN: No rashes. No petechiae - Labs CBC & Chem 7: 06/06/19 06:22 06/06/19 06:22 Labs: Abnormal Lab Results - Last 24 Hours (Table) 06/05/19 06/06/19 06/06/19 Range/Units 19:40 06:22 06:22 RBC 3.71 L (4.30-5.90) m/uL Hgb 10.3 L (13.0-17.5) gm/dL Hct 33.4 L (39.0-53.0) % MCHC 30.9 L (31.0-37.0) g/dL PT 14.4 H (9.0-12.0) sec INR 1.4 H (<1.2) Sodium 136 L (137-145) mmol/L Carbon Dioxide 31 H (22-30) mmol/L BUN 44 H (9-20) mg/dL Glucose 128 H (74-99) mg/dL Calcium 8.2 L (8.4-10.2) mg/dL 06/06/19 Range/Units 06:22 RBC (4.30-5.90) m/uL Hgb (13.0-17.5) gm/dL Hct (39.0-53.0) % MCHC (31.0-37.0) g/dL PT (9.0-12.0) sec INR (<1.2) Sodium (137-145) mmol/L Carbon Dioxide 34 H (22-30) mmol/L BUN 42 H (9-20) mg/dL Glucose 105 H (74-99) mg/dL Calcium (8.4-10.2) mg/dL Microbiology - Last 24 Hours (Table) 06/03/19 17:42 Blood Culture - Preliminary Blood No Growth after 48 hours 06/04/19 04:50 Urine Culture - Final Urine,Clean Catch Assessment and Plan Assessment: Urinary tract infection Right forearm and hand cellulitis Acute on chronic congestive heart failure, unknown ejection fraction Chronic left leg wound, he follows up with wound clinic Chronic atrial fibrillation Chronic congestive heart failure COPD, not in acute exacerbation History of CVA/TIA Hypertension Hyperlipidemia Primary osteoarthritis and chronic back pain History of recurrent falls History of colon and skin cancer status post surgery Plan: This is a pleasant 88 years old male who presents with UTI, possible right forearm and hand cellulitis and acute CHF. We'll call infectious disease consult. Continue with ceftriaxone. Continue with Lasix. Follow-up urine culture results on warfarin. We will switch his oral Lasix to IV Lasix 40 mg. We'll check right hand x-ray Labs and medication were reviewed.. Continue same treatment. Continue with symptomatic treatment. Resume home medication. Monitor lytes and vitals. DVT and GI prophylaxis. Further recommendations of the clinical course of the patient DVT prophylaxis: warfarin GI Prophylaxis: Pepcid PT/OT: Pending Prognosis is guarded
[2019-06-06] MEDS ORDERED: WARFARIN 3 MG TAB PO ONE (18:00)
[2019-06-06] MEDS ORDERED: WARFARIN 2 MG TAB PO ONE (18:00)
[2019-06-06] MEDS: TEMAZEPAM 15 MG CAP PO PRN (19:57)
--- NOTE | 2019-06-06 22:34 | PN ---
PROGRESS NOTE DATE OF SERVICE: 06/06/2019. REASON FOR FOLLOWUP: Right urinary tract infection and left leg wound. INTERVAL HISTORY: The patient is currently afebrile, has been breathing comfortably. Still complaining of feeling weak and tired. No energy. Though feeling slightly a bit better. No chest pain. No cough. No abdominal pain. No diarrhea. Denies any pain to the left leg. PHYSICAL EXAMINATION: Blood pressure 114/57 with a pulse of 77, temperature of 98.3. He is 97% on 2 L nasal cannula. General description is an elderly male lying in bed in no distress. Respiratory system: Unlabored breathing. Clear to auscultation anteriorly. Heart S1, S2. Regular rate and rhythm. Abdomen soft. No tenderness. Left leg wound is currently dressed up. No obvious drainage on the dressing. LABS: Hemoglobin is 10.8, white count 8.0, BUN of 42, creatinine is 1.19. Blood culture negative. DIAGNOSTIC IMPRESSION AND PLAN: 1. Patient admitted to hospital with low-grade fever with concern for possible did have positive UA plus-minus pneumonia. Patient showed overall clinical improvement on IV Rocephin to finish therapy with a short course of oral Ceftin. 2. Left leg wound. Local wound care with Hydrofera Blue dressing to change every 48 hours. MMODL / IJN: [id number] /
[2019-06-07] MEDS: SODIUM CHLORIDE 0.9% 1,000 ML IV SCH (01:36)
[2019-06-07 06:36] LABS: Basophils # (A) 0.1 k/uL (0-0.2); Basophils % (A) 1 %; Eosinophils # (A) 0.2 k/uL (0-0.7); Eosinophils % (A) 3 %; HCT 31.4 % (39.0-53.0); Hypochromasia Marked; Lymphocytes # (A) 0.9 k/uL (1.0-4.8); Lymphocytes % (A) 16 %; MCH 26.5 pg (25.0-35.0); MCHC 28.7 g/dL (31.0-37.0); MCV 92.4 fL (80.0-100.0); Mean Platelet Volume 6.8; Monocytes # (A) 0.4 k/uL (0-1.0); Monocytes % (A) 7 %; Neutrophils # (A) 3.8 k/uL (1.3-7.7); Neutrophils % (A) 69 %; Platelet Count 248 k/uL (150-450); RDW 13.5 % (11.5-15.5); WBC 5.4 k/uL (3.8-10.6)
[2019-06-07 06:40] LABS: INR 1.5 (<1.2); Prothrombin Time 15.1 sec (9.0-12.0)
[2019-06-07 07:01] LABS: Calcium 8.4 mg/dL (8.4-10.2); Potassium 3.9 mmol/L (3.5-5.1)
[2019-06-07] MEDS: FINASTERIDE 5 MG TAB PO SCH (08:11)
[2019-06-07] MEDS: HYDROcodone/APAP 10-325MG 1 EACH TAB PO PRN ×2 (08:11→20:01)
[2019-06-07] MEDS: LISINOPRIL 10 MG TAB PO SCH (08:12)
[2019-06-07] MEDS: FAMOTIDINE 20 MG TAB PO SCH (08:12)
[2019-06-07] MEDS: CALCIUM CARB-VIT D 500MG-200UN 1 EACH TAB PO SCH ×3 (08:12→17:50)
[2019-06-07] MEDS: predniSONE 5 MG TAB PO SCH ×2 (08:12→16:41)
[2019-06-07 08:29] LABS: Appearance,Urine Clear (Clear); Bilirubin,Urine Negative (Negative); Blood,Urine Negative (Negative); Color,Urine Yellow; Glucose,Urine (UA) Negative (Negative); Ketones,Urine Negative (Negative); Leukocyte Esterase,Urine Trace (Negative); Nitrite,Urine Negative (Negative); PH, Urine 7.5 (5.0-8.0); Protein,Urine Trace (Negative); RBC,Urine 1 /hpf (0-5); Squamous Epithelial Cell,Urine <1 /hpf (0-4); Urobilinogen,Urine <2.0 mg/dL (<2.0); WBC,Urine 5 /hpf (0-5)
[2019-06-07] MEDS: TAMSULOSIN 0.4 MG CAP.ER.24H PO SCH (08:45)
[2019-06-07] MEDS: BUDESONIDE 0.5 MG/2 ML NEBU INHALATION SCH ×2 (09:02→20:26)
--- NOTE | 2019-06-07 12:38 | P.PN ---
Subjective this is a pleasant 88 yo M with PMH of atrial fibrillation, congestive heart failure, COPD, CVA/TIA, hyperlipidemia, hypertension, osteoarthritis, recurrent falls, colon and skin cancer status post surgery, chronic back pain. Chronic left leg wound. He presents because he felt weak and he could not get out of the chair yesterday so him and his decided to call 911. Patient has chronic dyspnea and he attributed that to his COPD and he is a steroid- dependent, however he denies chest pain or coughing. He denies abdominal pain or burning in his urine. However he says that his right arm got swollen about 2 days ago and it hurts. No headache or weakness or numbness. No palpitation or dizziness patient was admitted he had a fever of 100.8, rest of vitals looks stable. showing normal WBC at 10.2 K, rest of labs are unremarkable, INR is 2.8 which is therapeutic. UA is suspicious for infection, influenza is negative. Chest x-ray showing CHF exacerbation with a new mild interstitial edema, no new infiltrates however on admission he got 2 L of normal saline 06/05/2019 Patient is lying in bed comfortable, he still have baseline dyspnea probably related to his COPD and lung disease. He denies chest pain. No abdominal pain or vomiting. His cellulitis in his right upper extremity including the hand and forearm are improving he still complaining from pain in his right hand however it's less tender and the redness is regressing. Swelling also is decreasing. Hand x-ray done yesterday show no fracture. Patient remains on ceftriaxone. Infectious disease consult is appreciated. Continue with Lasix for his CHF. Physical therapy recommended home health care versus subacute rehab. Social work consult is placed 06/06/2019 Patient is awake, he has chronic dyspnea which is at his baseline as per patient, he so Dr. Cunningham #20 [place] to come to the hospital and at that time he had the same level of dyspnea as he confirms to me patient today. His cellulitis and swelling in the right forearm and hand are improving gradually. He had no fever and and CBC is within normal limits. INRs today is 1.4, so besides his usual 2 milligram of warfarin, going to give her another 1 mg. Creatinine is normal. Patient is medically getting close to discharge, discussed with social security benefits interviewer he needs 3 days stay in the hospital to go to ECF for subacute rehab, possible discharge on Saturday if he keep improving with no complications 06/07/2019 Patient improving gradually, his cellulitis and swelling and tenderness in the right forearm and hand are improved significantly. Vitals are stable. His repeat urine analysis is almost back to normal with only trace leukocyte esterase. No leukocytosis or fever. Creatinine is normal as well as sodium and potassium levels. INR is 1.5 today we going to give him 5 mg of Coumadin. We'll repeat chest x-ray tomorrow for he has another congestion on presentation Objective - Vital Signs Vital signs: Vital Signs Temp 98.3 F 06/07/19 07:00 Pulse 77 06/07/19 09:12 Resp 16 06/07/19 07:00 BP 123/68 06/07/19 07:00 Pulse Ox 95 06/07/19 07:00 Intake & Output 06/06/19 06/07/19 06/07/19 18:59 06:59 18:59 Intake Total 580 110 Balance 580 110 Weight 60 kg 60 kg Intake: Intake, IV Titration 110 Amount Sodium Chloride 0.9% 1, 60 000 ml @ 20 mls/hr IV . Q24H [facility] Rx#:[id number] cefTRIAXone 1 gm In 50 Sodium Chloride 0.9% 50 ml @ 100 mls/hr IVPB Q24H [facility] Rx#:[id number] Oral 580 Other: Voiding Method Toilet Toilet Toilet Urinal Urinal Urinal Incontinent Incontinent # Voids 1 2 # Bowel Movements 1 - Exam -GENERAL: The patient is alert and oriented x3, not in any acute distress. Thin built. He generally weak HEENT: Pupils are round and equally reacting to light. EOMI. No scleral icterus. No conjunctival pallor. Normocephalic, atraumatic. No pharyngeal erythema. No thyromegaly. CARDIOVASCULAR: S1 and S2 present. No murmurs, rubs, or gallops. PULMONARY: Chest is clear to auscultation, no wheezing or crackles. ABDOMEN: Soft, nontender, nondistended, normoactive bowel sounds. No palpable organomegaly. MUSCULOSKELETAL: No joint swelling or deformity. -EXTREMITIES: No cyanosis, clubbing, or pedal edema. Improvement of his Right hand and forearm swelling, redness and tenderness, NEUROLOGICAL: Gross neurological examination did not reveal any focal deficits. SKIN: No rashes. No petechiae - Labs CBC & Chem 7: 06/07/19 06:26 06/07/19 06:26 Labs: Abnormal Lab Results - Last 24 Hours (Table) 06/07/19 06/07/19 06/07/19 Range/Units 06:26 06:26 06:26 RBC 3.40 L (4.30-5.90) m/uL Hgb 9.0 L (13.0-17.5) gm/dL Hct 31.4 L (39.0-53.0) % MCHC 28.7 L (31.0-37.0) g/dL Lymphocytes # 0.9 L (1.0-4.8) k/uL PT 15.1 H (9.0-12.0) sec INR 1.5 H (<1.2) Carbon Dioxide 35 H (22-30) mmol/L BUN 42 H (9-20) mg/dL Urine Protein (Negative) Ur Leukocyte Esterase (Negative) 06/07/19 Range/Units 08:16 RBC (4.30-5.90) m/uL Hgb (13.0-17.5) gm/dL Hct (39.0-53.0) % MCHC (31.0-37.0) g/dL Lymphocytes # (1.0-4.8) k/uL PT (9.0-12.0) sec INR (<1.2) Carbon Dioxide (22-30) mmol/L BUN (9-20) mg/dL Urine Protein Trace H (Negative) Ur Leukocyte Esterase Trace H (Negative) Microbiology - Last 24 Hours (Table) 06/03/19 17:42 Blood Culture - Preliminary Blood No Growth after 72 hours Assessment and Plan Assessment: Urinary tract infection Right forearm and hand cellulitis Acute on chronic congestive heart failure, unknown ejection fraction Chronic left leg wound, he follows up with wound clinic Chronic atrial fibrillation Chronic congestive heart failure COPD, not in acute exacerbation History of CVA/TIA Hypertension Hyperlipidemia Primary osteoarthritis and chronic back pain History of recurrent falls History of colon and skin cancer status post surgery Plan: This is a pleasant 88 years old male who presents with UTI, possible right forearm and hand cellulitis and acute CHF. We'll call infectious disease consult. Continue with ceftriaxone. Continue with Lasix. Follow-up urine culture results on warfarin. We will switch his oral Lasix to IV Lasix 40 mg. We'll check right hand x-ray Labs and medication were reviewed.. Continue same treatment. Continue with symptomatic treatment. Resume home medication. Monitor lytes and vitals. DVT and GI prophylaxis. Further recommendations of the clinical course of the patient DVT prophylaxis: warfarin GI Prophylaxis: Pepcid PT/OT: Pending Prognosis is guarded
--- NOTE | 2019-06-07 13:02 | XR ---
EXAMINATION TYPE: XR chest 1V DATE OF EXAM: 06/07/2019 HISTORY: f/u. REFERENCE: Previous study dated 06/03/2019. FINDINGS: The lungs are overinflated. The heart is enlarged. There is a worsening opacity in the left lower lobe which may represent a developing pneumonia. There is blunting of both CP angles and I cou ld not exclude small effusions. IMPRESSION: 1. COPD. 2. CARDIOMEGALY. 3. I SUSPECT SMALL, BILATERAL EFFUSIONS. 4. WORSENING LEFT LOWER LOBE INFILTRATE MAY REPRESENT PNEUMONIA.
[2019-06-07] MEDS ORDERED: SENNOSIDES 8.6 MG TAB PO STA (16:53)
--- NOTE | 2019-06-07 17:01 | PN ---
PROGRESS NOTE DATE OF SERVICE: 06/24/2019. REASON FOR FOLLOWUP: 1. Fever, possible pneumonia. 2. Left leg wound traumatic, no cellulitis. INTERVAL HISTORY: The patient is currently afebrile. The patient has been breathing comfortably. The patient denies any significant chest pain. No shortness of breath or cough. No nausea or abdominal pain. No painful urination or pain to the left leg. PHYSICAL EXAMINATION: Blood pressure 123/68 with a pulse of 75, temperature 98.3. He is 95% on room air. General description is an elderly male lying in bed in no distress. Respiratory system: Unlabored breathing. Clear to auscultation anteriorly. Heart S1, S2. Regular rate and rhythm. Abdomen soft. No tenderness. Left leg wound is currently dressed up. No obvious drainage on the dressing. LABS: Repeat UA is currently negative. Chest x-ray shows left lower lobe pneumonia, slightly worsening. DIAGNOSTIC IMPRESSION AND PLAN: Patient admitted to the hospital with low-grade fever with concern for possible urinary tract infection. The patient did not have significant urinary symptoms. However, the patient's urine cultures remain to be negative and a followup UA is negative as well. Chest x-ray now shows some worsening of left lower lobe infiltrate, possible atelectasis, unlikely pneumonia not entirely excluded. The patient is covered with Rocephin to continue. The patient will be advised incentive spirometry and monitor his clinical course closely. MMELLAL / ELYSSAN: [id number] /
[2019-06-07] MEDS: FUROSEMIDE 10 MG/ML 4 ML VIAL IV SCH (17:50)
[2019-06-07] MEDS: PIPERACILLIN-TAZOBACTAM 3.375 GM in SODIUM CHLORIDE 0.9% 100 ML IVPB SCH ×2 (17:50→23:08)
[2019-06-07] MEDS ORDERED: WARFARIN 3 MG TAB PO ONE (18:00)
[2019-06-07] MEDS ORDERED: WARFARIN 5 MG TAB PO ONE (18:00)
[2019-06-07] MEDS: TEMAZEPAM 15 MG CAP PO PRN (20:02)
[2019-06-07] MEDS: SENNOSIDES 8.6 MG TAB PO SCH (20:02)
[2019-06-08] MEDS: SODIUM CHLORIDE 0.9% 1,000 ML IV SCH (00:35)
[2019-06-08 07:13] LABS: Basophils # (A) 0.1 k/uL (0-0.2); Basophils % (A) 1 %; Eosinophils # (A) 0.2 k/uL (0-0.7); Eosinophils % (A) 3 %; HCT 34.2 % (39.0-53.0); HGB 10.6 gm/dL (13.0-17.5); Hypochromasia Marked; Lymphocytes # (A) 1.3 k/uL (1.0-4.8); Lymphocytes % (A) 19 %; MCV 90.4 fL (80.0-100.0); Mean Platelet Volume 6.2; Monocytes # (A) 0.4 k/uL (0-1.0); Monocytes % (A) 6 %; Neutrophils # (A) 4.5 k/uL (1.3-7.7); Neutrophils % (A) 68 %; Platelet Count 291 k/uL (150-450); RBC 3.78 m/uL (4.30-5.90); WBC 6.6 k/uL (3.8-10.6)
[2019-06-08 07:20] LABS: INR 2.2 (<1.2); Prothrombin Time 21.9 sec (9.0-12.0)
--- NOTE | 2019-06-08 07:24 | XR ---
EXAMINATION TYPE: XR chest 1V DATE OF EXAM: 06/08/2019 COMPARISON: 06/07/2019 HISTORY: Fever and weakness TECHNIQUE: Single frontal view of the chest is obtained. FINDINGS: Right middle lobe linear airspace disease likely atelectasis. Retrocardiac airspace diseas e has improved as has tenting of the left hemidiaphragm. COPD is seen with pulmonary hyperinflation. Blunting of the costophrenic angles likely relates to pleural parenchymal scarring. Diffuse osseous d emineralization is seen. Cardia mediastinal silhouette is mildly enlarged. IMPRESSION: Worsening right middle lobe airspace disease, probable atelectasis with slightly improvi ng retrocardiac airspace disease. Multifocal pneumonia is possible in the appropriate clinical settin g.
[2019-06-08 07:30] LABS: Calcium 8.9 mg/dL (8.4-10.2); Potassium 4.5 mmol/L (3.5-5.1)
[2019-06-08] MEDS: CALCIUM CARB-VIT D 500MG-200UN 1 EACH TAB PO SCH ×3 (08:00→17:36)
[2019-06-08] MEDS: SENNOSIDES 8.6 MG TAB PO SCH ×2 (08:00→20:28)
[2019-06-08] MEDS: FAMOTIDINE 20 MG TAB PO SCH (08:00)
[2019-06-08] MEDS: PIPERACILLIN-TAZOBACTAM 3.375 GM in SODIUM CHLORIDE 0.9% 100 ML IVPB SCH ×3 (08:00→23:32)
[2019-06-08] MEDS: predniSONE 5 MG TAB PO SCH ×2 (08:01→20:28)
[2019-06-08] MEDS: HYDROcodone/APAP 10-325MG 1 EACH TAB PO PRN (08:01)
[2019-06-08] MEDS: FINASTERIDE 5 MG TAB PO SCH (08:01)
[2019-06-08] MEDS: TAMSULOSIN 0.4 MG CAP.ER.24H PO SCH (08:01)
[2019-06-08] MEDS: FUROSEMIDE 10 MG/ML 4 ML VIAL IV SCH (08:01)
[2019-06-08] MEDS: LISINOPRIL 10 MG TAB PO SCH (08:02)
[2019-06-08] MEDS: BUDESONIDE 0.5 MG/2 ML NEBU INHALATION SCH ×2 (08:53→21:14)
[2019-06-08] MEDS: SODIUM CHLORIDE 0.9% 250 ML IV SCH ×2 (11:16→11:17)
--- NOTE | 2019-06-08 16:45 | P.PN ---
Subjective this is a pleasant 88 yo M with PMH of atrial fibrillation, congestive heart failure, COPD, CVA/TIA, hyperlipidemia, hypertension, osteoarthritis, recurrent falls, colon and skin cancer status post surgery, chronic back pain. Chronic left leg wound. He presents because he felt weak and he could not get out of the chair yesterday so him and his decided to call 911. Patient has chronic dyspnea and he attributed that to his COPD and he is a steroid- dependent, however he denies chest pain or coughing. He denies abdominal pain or burning in his urine. However he says that his right arm got swollen about 2 days ago and it hurts. No headache or weakness or numbness. No palpitation or dizziness patient was admitted he had a fever of 100.8, rest of vitals looks stable. showing normal WBC at 10.2 K, rest of labs are unremarkable, INR is 2.8 which is therapeutic. UA is suspicious for infection, influenza is negative. Chest x-ray showing CHF exacerbation with a new mild interstitial edema, no new infiltrates however on admission he got 2 L of normal saline 06/05/2019 Patient is lying in bed comfortable, he still have baseline dyspnea probably related to his COPD and lung disease. He denies chest pain. No abdominal pain or vomiting. His cellulitis in his right upper extremity including the hand and forearm are improving he still complaining from pain in his right hand however it's less tender and the redness is regressing. Swelling also is decreasing. Hand x-ray done yesterday show no fracture. Patient remains on ceftriaxone. Infectious disease consult is appreciated. Continue with Lasix for his CHF. Physical therapy recommended home health care versus subacute rehab. Social work consult is placed 06/06/2019 Patient is awake, he has chronic dyspnea which is at his baseline as per patient, he so Dr. Cunningham #20 [place] to come to the hospital and at that time he had the same level of dyspnea as he confirms to me patient today. His cellulitis and swelling in the right forearm and hand are improving gradually. He had no fever and and CBC is within normal limits. INRs today is 1.4, so besides his usual 2 milligram of warfarin, going to give her another 1 mg. Creatinine is normal. Patient is medically getting close to discharge, discussed with social media intern he needs 3 days stay in the hospital to go to ECF for subacute rehab, possible discharge on Saturday if he keep improving with no complications 06/07/2019 Patient improving gradually, his cellulitis and swelling and tenderness in the right forearm and hand are improved significantly. Vitals are stable. His repeat urine analysis is almost back to normal with only trace leukocyte esterase. No leukocytosis or fever. Creatinine is normal as well as sodium and potassium levels. INR is 1.5 today we going to give him 5 mg of Coumadin. We'll repeat chest x-ray tomorrow for he has another congestion on presentation 06/08/2019 Patient today is more short of breath, is a bit hypotensive and feeling dizzy. Repeat chest x-ray showing a new infiltrate in the right middle lobe. Also on examination his cellulitis in his right hand and forearm are significantly improving with less swelling, redness and tenderness however he has pockets of purulent material in the middle of his right palm about half inch in diameter with surrounding area of erythema and tenderness. Patient antibiotics was already been changed from subtraction to Zosyn. His warfarin increased yesterday and his INR today is 2.2. Because of worsening pulmonary infection we are calling Pulmonary consult. And orthopedic consult Review of systems CONSTITUTIONAL: No fever, no malaise, no fatigue. HEENT: No recent visual problems or hearing problems. Denied any sore throat. CARDIOVASCULAR: No orthopnea, PND, no palpitations, no syncope. PULMONARY: no hemoptysis. GASTROINTESTINAL: No diarrhea, no nausea, no vomiting, no abdominal pain. Normoactive bowel sounds. NEUROLOGICAL: No headaches, no weakness, no numbness. HEMATOLOGICAL: Denies any bleeding or petechiae. GENITOURINARY: Denies any burning micturition, frequency, or urgency. MUSCULOSKELETAL/RHEUMATOLOGICAL: Denies any joint pain, swelling, or any muscle pain. ENDOCRINE: Denies any polyuria or polydipsia. Active Medications Generic Name Dose Route Start Last Admin Trade Name Freq PRN Reason Stop Dose Admin Hydrocodone Bitart/Acetaminophen 1 each 06/03/19 23:34 06/08/19 08:01 [place] 10 PO 1 each TID PRN Administration Pain Budesonide 0.5 mg 06/04/19 08:00 06/08/19 08:53 Pulmicort INHALATION 0.5 mg RT-BID [facility] Administration Calcium Carbonate 1 each 06/07/19 07:30 06/08/19 12:18 Oscal 500+D PO 1 each TID-W/MEALS [facility] Administration Famotidine 20 mg 06/06/19 09:00 06/08/19 08:00 Pepcid PO 20 mg DAILY [facility] Administration Finasteride 5 mg 06/04/19 09:00 06/08/19 08:01 Proscar PO 5 mg DAILY [facility] Administration Sodium Chloride 1,000 mls @ 20 mls/hr 06/03/19 23:30 06/08/19 00:35 Saline 0.9% IV Not Given .Q24H [facility] Piperacillin Sod/Tazobactam 100 mls @ 25 mls/hr 06/07/19 17:15 06/08/19 08:00 Sod 3.375 gm/ Sodium Chloride IVPB 25 mls/hr Q8HR [facility] Administration Lisinopril 10 mg 06/04/19 09:00 06/08/19 08:02 Zestril PO Not Given DAILY [facility] Miscellaneous Information 1 each 06/03/19 23:25 Pneumonia Protocol Utilized PO ONCE PRN Per Protocol Miscellaneous Information 1 each 06/04/19 08:40 Coumadin Per Pharmacy MISCELLANE DIRECTED PRN Per Protocol Prednisone 5 mg 06/04/19 09:00 06/08/19 08:01 PO 5 mg BID [facility] Administration Senna 8.6 mg 06/07/19 21:00 06/08/19 08:00 Senokot PO 8.6 mg BID [facility] Administration Tamsulosin HCl 0.4 mg 06/04/19 09:00 06/08/19 08:01 Flomax PO 0.4 mg DAILY [facility] Administration Temazepam 15 mg 06/03/19 23:34 06/07/19 20:02 Restoril PO 15 mg HS PRN Administration Insomnia Warfarin Sodium 1 mg 06/08/19 18:00 Coumadin PO 06/08/19 18:01 ONCE@1800 ONE Objective - Vital Signs Vital signs: Vital Signs Temp 97.5 F L 06/08/19 15:00 Pulse 73 06/08/19 15:00 Resp 17 06/08/19 15:00 BP 106/60 06/08/19 15:00 Pulse Ox 97 06/08/19 15:00 Intake & Output 06/07/19 06/08/19 06/08/19 18:59 06:59 18:59 Intake Total 1670 350 240 Output Total 500 Balance 1670 -150 240 Weight 60 kg 60 kg Intake: Intake, IV Titration 190 100 Amount Piperacillin-Tazobactam 3 100 .375 gm In Sodium Chloride 0.9% 100 ml @ 25 mls/hr IVPB Q8HR [facility] Rx# :[id number] Sodium Chloride 0.9% 1, 140 000 ml @ 20 mls/hr IV . Q24H [facility] Rx#:[id number] cefTRIAXone 1 gm In 50 Sodium Chloride 0.9% 50 ml @ 100 mls/hr IVPB Q24H [facility] Rx#:[id number] Oral 1480 250 240 Output: Urine 500 Other: Voiding Method Toilet Toilet Toilet Urinal Urinal Urinal Incontinent Incontinent Incontinent # Voids 2 3 3 # Bowel Movements 2 - Exam -GENERAL: The patient is alert and oriented x3, not in any acute distress. Thin built. He generally weak HEENT: Pupils are round and equally reacting to light. EOMI. No scleral icterus. No conjunctival pallor. Normocephalic, atraumatic. No pharyngeal erythema. No thyromegaly. CARDIOVASCULAR: S1 and S2 present. No murmurs, rubs, or gallops. PULMONARY: Chest is clear to auscultation, no wheezing or crackles. ABDOMEN: Soft, nontender, nondistended, normoactive bowel sounds. No palpable organomegaly. MUSCULOSKELETAL: No joint swelling or deformity. -EXTREMITIES: No cyanosis, clubbing, or pedal edema. significant Improvement of his Right hand and forearm swelling, redness and tenderness, pocket of pus about half an inch in diameter in the middle of right hand with surrounding of redness and cellulitis NEUROLOGICAL: Gross neurological examination did not reveal any focal deficits. SKIN: No rashes. No petechiae - Labs CBC & Chem 7: 06/08/19 06:30 06/08/19 06:30 Labs: Abnormal Lab Results - Last 24 Hours (Table) 06/08/19 06/08/19 06/08/19 Range/Units 06:30 06:30 06:30 RBC 3.78 L (4.30-5.90) m/uL Hgb 10.6 L (13.0-17.5) gm/dL Hct 34.2 L (39.0-53.0) % PT 21.9 H (9.0-12.0) sec INR 2.2 H (<1.2) Carbon Dioxide 37 H (22-30) mmol/L BUN 40 H (9-20) mg/dL Microbiology - Last 24 Hours (Table) 06/03/19 17:42 Blood Culture - Preliminary Blood No Growth after 96 hours Assessment and Plan Assessment: Urinary tract infection Right forearm and hand cellulitis. With pocket of abscess in the middle of his right palm Suspected pneumonia unlikely patient has acute heart failure, as he became hypotensive on one-day dose of Lasix Chronic left leg wound, he follows up with wound clinic Chronic atrial fibrillation Chronic congestive heart failure COPD, not in acute exacerbation History of CVA/TIA Hypertension Hyperlipidemia Primary osteoarthritis and chronic back pain History of recurrent falls History of colon and skin cancer status post surgery Plan: This is a pleasant 88 years old male who presents with UTI, possible right forearm and hand cellulitis and right hand abscess in the palm. Patient in the morning was hypotensive after he was started and 2 doses of Lasix yesterday. He became dizzy and hypotensive, so we still talked Lasix and give him a small bolus of no muscle and at 250 and he feels better with less dyspnea and no dizziness. Patient is going for I&D by orthopedic team tomorrow for his right hand and patient at some risk during the surgery however he needs to clear his abscess from his hand. However were not sure what kind of anesthesia patient is going to get. Patient currently does not have active symptoms of chest pain or dyspnea. We'll ask for pulmonary preoperative evaluation. Continue with Zosyn. Discontinue Lasix. Hold warfarin today Labs and medication were reviewed.. Continue same treatment. Continue with symptomatic treatment. Resume home medication. Monitor lytes and vitals. DVT and GI prophylaxis. Further recommendations of the clinical course of the patient DVT prophylaxis: warfarin, on hold GI Prophylaxis: Pepcid PT/OT: Patient is going to [facility] upon discharge for rehab Prognosis is guarded
--- NOTE | 2019-06-08 16:55 | PN ---
PROGRESS NOTE DATE OF SERVICE: 06/08/2019. REASON FOR FOLLOWUP: 1. Fever with concern for right palm abscess. 2. Left leg wound. INTERVAL HISTORY: The patient is currently afebrile. Patient has been breathing comfortably. Denies any chest pain, cough. No nausea, vomiting. No abdominal pain or pain in the left leg area. The patient has developed a small area of fluctuation on the palm of his right hand though the right hand dorsum redness and swelling has resolved. PHYSICAL EXAMINATION: Blood pressure 106/60 with a pulse of 73. Temperature 97.5. He is 97% on room air. General description is an elderly male lying in bed in no distress. Respiratory system: Unlabored breathing. Clear to auscultation anteriorly. Heart S1, S2. Regular rate and rhythm. Abdomen soft, no tenderness. Right hand palm did have a fluctuant area with minimal redness. Left leg wound significantly improved. No redness. LABS: Hemoglobin is 10.8, white count 6.6, BUN of 14, creatinine 1.16. DIAGNOSTIC IMPRESSION AND PLAN: 1. Patient with fever with initial concern for urinary tract infection. Urine culture negative. Clinically doubt pneumonia, now with concern for possible right hand formal abscess. Awaiting surgical drainage. Continue Rocephin and will adjust antibiotic base on the culture report. 2. Left leg wound with no evidence of any cellulitis. Local wound care with Hydrofera Blue dressing. MMODL / IJN: [id number] /
--- NOTE | 2019-06-08 17:20 | P.CNPUL ---
History of Present Illness Consult date: 06/08/19 Requesting physician: Daniel E Sheet Reason for consult: other Chief complaint: Weakness, fever, nausea, confusion History of present illness: This is a 88-year-old white male patient of Dr. 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 He denied any cough or congestion, denied any pain. Reports pain in his right palm area and he states he uses a cane on a regular basis for balance issues, but has noti adin some redness and some antacids formation in his right palm, with redness traveling up the medial tendon up to his elbow area, he also reports some swelling in his right arm. Denied any worsening dyspnea, denies any chest pain, or chest congestion, no wheezing, no urinary symptoms, patient was afebrile on admission with a temp of 100.8F, and the rest of the vitals were stable, initial chest x-ray showed chronic parenchymal changes without suspicious focal airspace opacity, small to tiny bilateral pleural effusions and suspected mild interstitial edema, no new focal infiltrates. Admission blood work showed white count of 9.3, hemoglobin of 9.8, INR was 2.8, electrolytes were within normal limits, BUN of 37, creatinine is 1.29. Influenza screen was negative, urinalysis showed elevated white count at 82, and moderate leuk trase. Right hand x-ray was obtained related to redness and swelling and showed no acute fracture or dislocation in the right hand, mild to moderate narrowing and mild spurring throughout the phalanges with relative sparing of the MCP joints, though some varus positioning of the third and fourth proximal interphalangeal joints, bony projection distal radial metaphysis radial aspect could reflect osteochondroma. Some mild diffuse tissue swelling but no suspicious cortical destruction or periosteal reaction. Blood and urine culture showed no growth, patient is on empiric and maximum form of Zosyn. Follow-up chest x-ray today showed right middle lobe airspace disease, which was felt to be worsening, possibility of atelectasis and slightly improving retrocardiac airspace disease, and we were consulted for the same Review of Systems All systems: negative Constitutional: Reports weakness, Denies chills, Denies fever Eyes: denies blurred vision, denies pain Ears, nose, mouth and throat: Denies headache, Denies sore throat Cardiovascular: Denies chest pain, Denies shortness of breath Respiratory: Denies cough Gastrointestinal: Denies abdominal pain, Denies diarrhea, Denies nausea, Denies vomiting Musculoskeletal: Denies myalgias Musculoskeletal: right: hand pain, hand swelling Integumentary: Denies pruritus, Denies rash Neurological: Reports change in mentation, Reports weakness, Denies numbness Psychiatric: Denies anxiety, Denies depression Endocrine: Denies fatigue, Denies weight change Past Medical History Past Medical History: Atrial Fibrillation, Cancer, Heart Failure, COPD, CVA/TIA, Hyperlipidemia, Hypertension, Osteoarthritis (OA), Pneumonia, Prostate Disorder Additional Past Medical History / Comment(s): TIA x 2, balance issues, falls, past fall with acetabular fracture, colon and skin cancer with surgery, R sided abdominal hernia, seasonal allergies, PVD, past bilateral leg wounds, pneumothorax with chest tube when in his 20s after a fall, bilateral tinnitis, chronic back pain, past L2 fracture, recent L4 fracture. History of Any Multi-Drug Resistant Organisms: None Reported Past Surgical History: Heart Catheterization, Hernia Repair Additional Past Surgical History / Comment(s): Laminictomy-lumbar, umbilical and incisional hernia repair, 1990 colon resection and temporary colostomy, skin cancer removal from face, L leg laser vein surgery, bronchoscopy, bilateral lower leg wounds with debridements, bilateral cataract removals. Past Anesthesia/Blood Transfusion Reactions: Postoperative Nausea & Vomiting (PO NV) Additional Past Anesthesia/Blood Transfusion Reaction / Comment(s): Pt has received blood in past without reaction. Past Psychological History: No Psychological Hx Reported Additional Psychological History / Comment(s): Pt resides with his spouse. He states he has depression and in the past thoughts of suicide but not currently. He ambulates with a cane. He drives. He is an [employer] . Smoking Status: Former smoker Past Alcohol Use History: None Reported Additional Past Alcohol Use History / Comment(s): Pt started smoking in 1948 and quit in 1954. 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 Past Drug Use History: None Reported - Past Family History Father Additional Family Medical History / Comment(s): Father had mental health issues. He lived to be 84 yrs old. Mother Family Medical History: Pneumonia Additional Family Medical History / Comment(s): Mother of pneumonia at the age of 29yrs. Brother(s) History Unknown: Yes Family Medical History: Cancer Medications and Allergies Home Medications Medication Instructions Recorded Confirmed Type Finasteride [Proscar] 5 mg PO DAILY 08/28/15 06/03/19 History Tamsulosin HCl [Flomax] 0.4 mg PO DAILY 08/29/15 06/03/19 History predniSONE 5 mg PO BID 07/09/16 06/03/19 History HYDROcodone/APAP 10-325MG [[place] 1 tab PO TID PRN 02/10/18 06/03/19 History 10-325] Lisinopril [Prinivil] 10 mg PO DAILY 02/10/18 06/03/19 History Temazepam [Restoril] 15 mg PO HS PRN 02/10/18 06/03/19 History Furosemide [Lasix] 20 mg PO BID 04/17/18 06/03/19 History Budesonide [Pulmicort] 0.5 mg INHALATION RT-BID 03/15/19 06/03/19 History Warfarin [Coumadin] 1 mg PO DAILY 03/15/19 06/03/19 History Allergies Allergy/AdvReac Type Severity Reaction Status Date / Time No Known Allergies Allergy Verified 06/03/19 18:03 Physical Exam Vitals: Vital Signs Temp Pulse Pulse Resp BP Pulse Ox 06/08/19 15:00 97.5 F L 73 17 106/60 97 06/08/19 09:03 80 06/08/19 08:55 76 06/08/19 07:00 97.6 F 78 17 97/59 96 06/08/19 01:57 97.5 F L 62 16 125/70 98 06/07/19 20:00 98.2 F 84 18 131/68 96 Intake and Output 06/08/19 06/08/19 06/08/19 06:59 14:59 22:59 Intake Total 100 240 Balance 100 240 Intake: Intake, IV Titration 100 Amount Piperacillin-Tazobactam 3 100 .375 gm In Sodium Chloride 0.9% 100 ml @ 25 mls/hr IVPB Q8HR [facility] Rx# :[id number] Oral 240 Other: Voiding Method Toilet Urinal Incontinent # Voids 3 3 # Bowel Movements 2 Weight 60 kg GENERAL EXAM: Alert, very pleasant, 88-year-old white male, comfortable in no apparent distress. HEAD: Normocephalic/atraumatic. EYES: Normal reaction of pupils, equal size. Conjunctiva pink, sclera white. NOSE: Clear with pink turbinates. THROAT: No erythema or exudates. NECK: No masses, no JVD, no thyroid enlargement, no adenopathy. CHEST: No chest wall deformity. Symmetrical expansion. LUNGS: Equal air entry with no crackles, wheeze, rhonchi or dullness. CVS: Regular rate and rhythm, normal S1 and S2, no gallops, no murmurs, no rubs ABDOMEN: Soft, nontender. No hepatosplenomegaly, normal bowel sounds, no guarding or rigidity. EXTREMITIES: No clubbing, no edema, no cyanosis, 2+ pulses and upper and lower extremities. MUSCULOSKELETAL: Muscle strength and tone normal. SPINE: No scoliosis or deformity SKIN: Right palm redness, and swelling and a pocket of pus in the center of his right palm, with a redness tracking along the medial tendon, up to his inner forearm to the area of his right elbow. Left arm swelling. Patient has skin tears are present to his bilateral forearms and covered with dressings. He has a chronic left lower extremity wound covered with the dressing CENTRAL NERVOUS SYSTEM: Alert and oriented -3. No focal deficits, tone is normal in all 4 extremities. PSYCHIATRIC: Alert and oriented -3. Appropriate affect. Intact judgment and insight. Results - Laboratory Findings CBC and BMP: 06/08/19 06:30 06/08/19 06:30 PT/INR, D-dimer PT 21.9 sec (9.0-12.0) H 06/08/19 06:30 INR 2.2 (<1.2) H 06/08/19 06:30 Abnormal lab findings: Abnormal Labs 06/03/19 06/03/19 06/04/19 17:42 19:04 04:50 RBC 3.83 L Hgb 10.4 L Hct 36.2 L MCHC 28.7 L Neutrophils # 8.9 H Lymphocytes # 0.5 L PT INR Sodium 136 L Carbon Dioxide BUN 30 H Creatinine Glucose Calcium Total Protein 6.0 L Albumin 3.1 L Urine Protein Trace H Urine Blood Small H Ur Leukocyte Esterase Moderate H Urine RBC 12 H Urine WBC 82 H 06/04/19 06/05/19 06/05/19 06:40 07:11 07:11 RBC 3.44 L Hgb 9.8 L Hct 31.5 L MCHC Neutrophils # Lymphocytes # PT 26.7 H 17.8 H INR 2.8 H 1.8 H Sodium Carbon Dioxide BUN Creatinine Glucose Calcium Total Protein Albumin Urine Protein Urine Blood Ur Leukocyte Esterase Urine RBC Urine WBC 06/05/19 06/05/19 06/06/19 07:11 19:40 06:22 RBC Hgb Hct MCHC Neutrophils # Lymphocytes # PT 14.4 H INR 1.4 H Sodium 136 L Carbon Dioxide 31 H BUN 37 H 44 H Creatinine 1.29 H Glucose 104 H 128 H Calcium 8.2 L 8.2 L Total Protein Albumin Urine Protein Urine Blood Ur Leukocyte Esterase Urine RBC Urine WBC 06/06/19 06/06/19 06/07/19 06:22 06:22 06:26 RBC 3.71 L 3.40 L Hgb 10.3 L 9.0 L Hct 33.4 L 31.4 L MCHC 30.9 L 28.7 L Neutrophils # Lymphocytes # 0.9 L PT INR Sodium Carbon Dioxide 34 H BUN 42 H Creatinine Glucose 105 H Calcium Total Protein Albumin Urine Protein Urine Blood Ur Leukocyte Esterase Urine RBC Urine WBC 06/07/19 06/07/19 06/07/19 06:26 06:26 08:16 RBC Hgb Hct MCHC Neutrophils # Lymphocytes # PT 15.1 H INR 1.5 H Sodium Carbon Dioxide 35 H BUN 42 H Creatinine Glucose Calcium Total Protein Albumin Urine Protein Trace H Urine Blood Ur Leukocyte Esterase Trace H Urine RBC Urine WBC 06/08/19 06/08/19 06/08/19 06:30 06:30 06:30 RBC 3.78 L Hgb 10.6 L Hct 34.2 L MCHC Neutrophils # Lymphocytes # PT 21.9 H INR 2.2 H Sodium Carbon Dioxide 37 H BUN 40 H Creatinine Glucose Calcium Total Protein Albumin Urine Protein Urine Blood Ur Leukocyte Esterase Urine RBC Urine WBC - Diagnostic Findings Chest x-ray: report reviewed, image reviewed Assessment and Plan Plan: Assessment: #1. Airspace disease in the right middle lobe, the possibility of atelectasis, doubt underlying pneumonia #2. Right palm abscess and lymphangitis #3. Possibility of urinary tract infection, urine culture showed no growth #4. Chronic left leg wound, all as in the wound clinic #5. Chronic congestive heart failure #6. Severe COPD, baseline FEV1 of 50%, on his dose of prednisone 5 mg daily #7. History of CVA/TIA #8. Hypertension #9. Hyperlipidemia #10. History of osteoarthritis and chronic back pain #11. Gait dysfunction, uses a cane #12. Compression fracture of lumbar spine #13. 8 mm smooth rounded nodule in the right upper lobe under surveillance, patient follows Dr. Cunningham in the pulmonary clinic Plan: Continue with current medical treatment, continue with current antibiotics, possibility of pneumonia is felt to be not likely, and patient is maintaining stable oxygenation, he denies any cough or congestion, no hemoptysis, no compla int of chest pain, continue with maintenance dose of prednisone, nebulized bronchodilators, ID service is following, and the patient surgery has been consulted for the right hand abscess. COPD seems to be stable at this time, we'll continue to follow I performed a history & physical examination of the patient and discussed their management with my nurse practitioner, Anabella Telles. I reviewed the nurse practitioner's note and agree with the documented findings and plan of care. Lung sounds are positive for diminished breath sounds. The findings and the impression was discussed with the patient. I attest to the documentation by the nurse practitioner. Time with Patient: Greater than 30
--- NOTE | 2019-06-08 17:30 | P.CNOR ---
History of Present Illness - [facility] Consult date: 06/08/19 Consult reason: other History of present illness: Patient is an 88-year-old male who is examined today at bedside on the surgical floor. Patient's been in the hospital for the last 4 days with regards to fever and weakness. Patient is being followed by multiple medical specialists at this time. We were reconsulted it today with regards to an area of swelling on the right palm. At bedside today, patient states this began about 3 days ago while in the hospital. He denies any recent trauma.He does use a walker and cane when ambulating. He lives at home with his . Any previous surgery involving the right upper extremity. Patient has history of multiple skin tears of the extremities. He has no other orthopedic complaints this time. Review of Systems Constitutional: Reports as per [facility] Past Medical History Past Medical History: Atrial Fibrillation, Cancer, Heart Failure, COPD, CVA/TIA, Hyperlipidemia, Hypertension, Osteoarthritis (OA), Pneumonia, Prostate Disorder Additional Past Medical History / Comment(s): TIA x 2, balance issues, falls, past fall with acetabular fracture, colon and skin cancer with surgery, R sided abdominal hernia, seasonal allergies, PVD, past bilateral leg wounds, pneumothorax with chest tube when in his 20s after a fall, bilateral tinnitis, chronic back pain, past L2 fracture, recent L4 fracture. History of Any Multi-Drug Resistant Organisms: None Reported Past Surgical History: Heart Catheterization, Hernia Repair Additional Past Surgical History / Comment(s): Laminictomy-lumbar, umbilical and incisional hernia repair, 1990 colon resection and temporary colostomy, skin c ancer removal from face, L leg laser vein surgery, bronchoscopy, bilateral lower leg wounds with debridements, bilateral cataract removals. Past Anesthesia/Blood Transfusion Reactions: Postoperative Nausea & Vomiting (PONV) Additional Past Anesthesia/Blood Transfusion Reaction / Comm: Pt has received blood in past without reaction. Past Psychological History: No Psychological Hx Reported Additional Psychological History / Comment(s): Pt resides with his spouse. He states he has depression and in the past thoughts of suicide but not currently. He ambulates with a cane. He drives. He is an [employer] . Smoking Status: Former smoker Past Alcohol Use History: None Reported Additional Past Alcohol Use History / Comment(s): Pt started smoking in 1948 and quit in 4. 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 Past Drug Use History: None Reported - Past Family History Father Additional Family Medical History / Comment(s): Father had mental health issues. He lived to be 84 yrs old. Mother Family Medical History: Pneumonia Additional Family Medical History / Comment(s): Mother of pneumonia at the age of 29yrs. Brother(s) History Unknown: Yes Family Medical History: Cancer Medications and Allergies Home Medications Medication Instructions Recorded Confirmed Type Finasteride [Proscar] 5 mg PO DAILY 08/28/15 06/03/19 History Tamsulosin HCl [Flomax] 0.4 mg PO DAILY 08/29/15 06/03/19 History predniSONE 5 mg PO BID 07/09/16 06/03/19 History HYDROcodone/APAP 10-325MG [[place] 1 tab PO TID PRN 02/10/18 06/03/19 History 10-325] Lisinopril [Prinivil] 10 mg PO DAILY 02/10/18 06/03/19 History Temazepam [Restoril] 15 mg PO HS PRN 02/10/18 06/03/19 History Furosemide [Lasix] 20 mg PO BID 04/17/18 06/03/19 History Budesonide [Pulmicort] 0.5 mg INHALATION RT-BID 03/15/19 06/03/19 History Warfarin [Coumadin] 1 mg PO DAILY 03/15/19 06/03/19 History Allergies Allergy/AdvReac Type Severity Reaction Status Date / Time No Known Allergies Allergy Verified 06/03/19 18:03 Physical Examination Right upper extremity: There is a bandage in place along the forearm, no other open lesions noted in the forearm. Exam of the hand, on the palmar aspect there is a abscess appreciated along the flexor tendon distribution of the third digit. There is redness in that area also. He is able to make a full fist. Range of motion of the fingers, there is some tenderness in that area when I do range the middle finger. No tenderness in the finger itself. No tenderness in the wrist with range of motion. Sensation to light touch throughout the extremities intact. Radial pulses 2+. Results - Labs Labs: Abnormal Lab Results - Last 24 Hours (Table) 06/08/19 06/08/19 06/08/19 Range/Units 06:30 06:30 06:30 RBC 3.78 L (4.30-5.90) m/uL Hgb 10.6 L (13.0-17.5) gm/dL Hct 34.2 L (39.0-53.0) % PT 21.9 H (9.0-12.0) sec INR 2.2 H (<1.2) Carbon Dioxide 37 H (22-30) mmol/L BUN 40 H (9-20) mg/dL Microbiology - Last 24 Hours (Table) 06/03/19 17:42 Blood Culture - Preliminary Blood No Growth after 96 hours H & H 06/03/19 06/05/19 06/06/19 Range/Units 17:42 07:11 06:22 Hgb 10.4 L 9.8 L 10.3 L (13.0-17.5) gm/dL Hct 36.2 L 31.5 L 33.4 L (39.0-53.0) % 06/07/19 06/08/19 Range/Units 06:26 06:30 Hgb 9.0 L 10.6 L (13.0-17.5) gm/dL Hct 31.4 L 34.2 L (39.0-53.0) % Coagulation 06/04/19 06/05/19 06/06/19 Range/Units 06:40 07:11 06:22 INR 2.8 H 1.8 H 1.4 H (<1.2) 06/07/19 06/08/19 Range/Units 06:26 06:30 INR 1.5 H 2.2 H (<1.2) Result Diagrams: 06/08/19 06:30 06/08/19 06:30 - Diagnostic results Wrist/Hand x-ray: report reviewed, image reviewed Assessment and Plan Plan: Imaging: X-rays of the hand were obtained, no acute fractures or dislocations. Ost eoarthritis noted throughout the hand. Assessment: 1. Right hand palmar abscess 2. Multiple medical comorbidities Plan: I was able to discuss the case, including with physical exam findings and im aging studies my attending Dr. Maxwell. We would like to proceed with surgery, more specifically and incision and drainage with irrigation and debridement of the abscess of the right hand. We would like to proceed with this on 06/09/2019. Patient will be made nothing by mouth tonight Obtain consent Other medical technologist prn recommendations Further recommendations to follow Time with Patient: Less than 30
[2019-06-08] MEDS ORDERED: WARFARIN 1 MG TAB PO ONE (18:00)
[2019-06-08] MEDS: TEMAZEPAM 15 MG CAP PO PRN (20:27)
[2019-06-09] MEDS: SODIUM CHLORIDE 0.9% 1,000 ML IV SCH ×2 (00:36→16:15)
[2019-06-09 06:41] LABS: Basophils % (A) 1 %; Eosinophils # (A) 0.2 k/uL (0-0.7); Eosinophils % (A) 2 %; HCT 34.2 % (39.0-53.0); Hypochromasia Marked; Lymphocytes # (A) 1.3 k/uL (1.0-4.8); Lymphocytes % (A) 15 %; MCH 26.6 pg (25.0-35.0); MCHC 29.3 g/dL (31.0-37.0); MCV 90.6 fL (80.0-100.0); Mean Platelet Volume 6.9; Monocytes # (A) 0.5 k/uL (0-1.0); Monocytes % (A) 6 %; Neutrophils # (A) 6.3 k/uL (1.3-7.7); Neutrophils % (A) 75 %; Platelet Count 269 k/uL (150-450); RBC 3.77 m/uL (4.30-5.90); RDW 13.5 % (11.5-15.5); WBC 8.4 k/uL (3.8-10.6)
[2019-06-09 06:43] LABS: INR 4.3 (<1.2); Prothrombin Time 41.3 sec (9.0-12.0)
[2019-06-09 07:17] LABS: Calcium 8.8 mg/dL (8.4-10.2); Potassium 4.3 mmol/L (3.5-5.1)
[2019-06-09] MEDS: BUDESONIDE 0.5 MG/2 ML NEBU INHALATION SCH ×2 (07:45→20:08)
[2019-06-09] MEDS: CALCIUM CARB-VIT D 500MG-200UN 1 EACH TAB PO SCH ×3 (08:01→17:48)
[2019-06-09] MEDS: FINASTERIDE 5 MG TAB PO SCH (08:01)
[2019-06-09] MEDS: FAMOTIDINE 20 MG TAB PO SCH (08:01)
[2019-06-09] MEDS: predniSONE 5 MG TAB PO SCH ×2 (08:02→21:00)
[2019-06-09] MEDS: SENNOSIDES 8.6 MG TAB PO SCH ×2 (08:02→21:00)
[2019-06-09] MEDS: TAMSULOSIN 0.4 MG CAP.ER.24H PO SCH (08:02)
[2019-06-09] MEDS: LISINOPRIL 10 MG TAB PO SCH (08:03)
[2019-06-09] MEDS: PIPERACILLIN-TAZOBACTAM 3.375 GM in SODIUM CHLORIDE 0.9% 100 ML IVPB SCH ×2 (08:03→16:15)
[2019-06-09] MEDS ORDERED: PHYTONADIONE 10 MG in SODIUM CHLORIDE 0.9% 50 ML IVPB STA (10:20)
--- NOTE | 2019-06-09 10:20 | P.PN ---
Subjective Progress Note Date: 06/09/19 Today's evaluation of 06/09/2019, the patient is a bit frustrated. He was supposed to go in for a I and D of a palmar abscess and his INR was above 4 and for that reason the procedure was canceled. He has no fever. No significant leukocytosis. He remains on broad-spectrum antibiotics. He was seen by orthopedic surgery yesterday. He has COPD and his FEV1 is normal to 50% of predicted. No clear evidence of pneumonia. He has chronic atrial fibrillation for that reason he was on long-term warfarin. He is also known to have coronary artery disease and hypertension hyperlipidemia and BPH and compression fracture of the lumbar spine. He has moderate degree of mitral regurgitation along with preserved LV function. Objective - Vital Signs Vital signs: Vital Signs Temp 97.6 F 06/09/19 07:00 Pulse 72 06/09/19 07:54 Resp 17 06/09/19 07:00 BP 147/82 06/09/19 07:00 Pulse Ox 96 06/09/19 07:00 Intake & Output 06/08/19 06/09/19 06/09/19 18:59 06:59 18:59 Intake Total 240 1120 Balance 240 1120 Weight 61.5 kg Intake: Intake, IV Titration 1120 Amount Piperacillin-Tazobactam 3 100 .375 gm In Sodium Chloride 0.9% 100 ml @ 25 mls/hr IVPB Q8HR [facility] Rx# :[id number] Sodium Chloride 0.9% 1, 20 000 ml @ 20 mls/hr IV . Q24H [facility] Rx#:[id number] Sodium Chloride 0.9% 250 1000 ml @ 999 mls/hr IV .Q16M [facility] Rx#:[id number] Oral 240 Other: Voiding Method Toilet Urinal Incontinent # Voids 3 1 # Bowel Movements 2 1 - Exam GENERAL EXAM: Alert, very pleasant, 88-year-old white male, comfortable in no apparent distress. HEAD: Normocephalic/atraumatic. EYES: Normal reaction of pupils, equal size. Conjunctiva pink, sclera white. NOSE: Clear with pink turbinates. THROAT: No erythema or exudates. NECK: No masses, no JVD, no thyroid enlargement, no adenopathy. CHEST: No chest wall deformity. Symmetrical expansion. LUNGS: Equal air entry with no crackles, wheeze, rhonchi or dullness. CVS: Regular rate and rhythm, normal S1 and S2, no gallops, no murmurs, no rubs ABDOMEN: Soft, nontender. No hepatosplenomegaly, normal bowel sounds, no guarding or rigidity. EXTREMITIES: No clubbing, no edema, no cyanosis, 2+ pulses and upper and lower extremities. MUSCULOSKELETAL: Muscle strength and tone normal. SPINE: No scoliosis or deformity SKIN: Right palm redness, and swelling and a pocket of pus in the center of his right palm, with a redness tracking along the medial tendon, up to his inner forearm to the area of his right elbow. Left arm swelling. Patient has skin tears are present to his bilateral forearms and covered with dressings. He has a chronic left lower extremity wound covered with the dressing CENTRAL NERVOUS SYSTEM: Alert and oriented -3. No focal deficits, tone is normal in all 4 extremities. PSYCHIATRIC: Alert and oriented -3. Appropriate affect. Intact judgment and insight. - Labs CBC & Chem 7: 06/09/19 06:23 06/09/19 06:23 Labs: Abnormal Lab Results - Last 24 Hours (Table) 06/08/19 06/09/19 06/09/19 Range/Units 06:30 06:23 06:23 RBC 3.77 L (4.30-5.90) m/uL Hgb 10.0 L (13.0-17.5) gm/dL Hct 34.2 L (39.0-53.0) % MCHC 29.3 L (31.0-37.0) g/dL PT 41.3 H (9.0-12.0) sec INR 4.3 H (<1.2) Carbon Dioxide (22-30) mmol/L BUN (9-20) mg/dL Creatinine (0.66-1.25) mg/dL Procalcitonin 0.17 H (0.02-0.09) ng/mL 06/09/19 Range/Units 06:23 RBC (4.30-5.90) m/uL Hgb (13.0-17.5) gm/dL Hct (39.0-53.0) % MCHC (31.0-37.0) g/dL PT (9.0-12.0) sec INR (<1.2) Carbon Dioxide 35 H (22-30) mmol/L BUN 44 H (9-20) mg/dL Creatinine 1.33 H (0.66-1.25) mg/dL Procalcitonin (0.02-0.09) ng/mL Microbiology - Last 24 Hours (Table) 06/03/19 17:42 Blood Culture - Preliminary Blood No Growth after 120 hours Assessment and Plan Plan: #1. nonspecific airspace disease in the right middle lobe, the possibility of atelectasis, doubt underlying pneumonia #2. Right palm abscess and lymphangitis #3. Possibility of urinary tract infection, urine culture showed no growth #4. Chronic left leg wound, all as in the wound clinic #5. Chronic congestive heart failure #6. Severe COPD, baseline FEV1 of 50%, on his dose of prednisone 5 mg daily #7. History of CVA/TIA #8. Hypertension #9. Hyperlipidemia #10. History of osteoarthritis and chronic back pain #11. Gait dysfunction, uses a cane #12. Compression fracture of lumbar spine #13. 8 mm smooth rounded nodule in the right upper lobe under surveillance, p atient follows Dr. Cunningham in the pulmonary clinic Plan Discontinue the Coumadin. Give the patient 10 mg of vitamin K. Repeat PT/INR in the morning. We'll coordinate incision and drainage with orthopedic surgery, Dr. Reed. Pulmonary status is stable for now. He has been on IV Zosyn.
--- NOTE | 2019-06-09 12:03 | P.PN ---
Subjective Progress Note Date: 06/09/19 Principal diagnosis: Right hand palmar abscess Patient evaluated at bedside today. No improvement in his hand. We did cancel surgery today, his INR is about 4. Recommended nursing to contact medical with regards to bridging while patient's of Coumadin Objective - Vital Signs Vital signs: Vital Signs Temp 97.6 F 06/09/19 07:00 Pulse 72 06/09/19 07:54 Resp 17 06/09/19 07:00 BP 147/82 06/09/19 07:00 Pulse Ox 96 06/09/19 07:00 Intake & Output 06/08/19 06/09/19 06/09/19 18:59 06:59 18:59 Intake Total 240 1120 Balance 240 1120 Weight 61.5 kg Intake: Intake, IV Titration 1120 Amount Piperacillin-Tazobactam 3 100 .375 gm In Sodium Chloride 0.9% 100 ml @ 25 mls/hr IVPB Q8HR [facility] Rx# :[id number] Sodium Chloride 0.9% 1, 20 000 ml @ 20 mls/hr IV . Q24H [facility] Rx#:[id number] Sodium Chloride 0.9% 250 1000 ml @ 999 mls/hr IV .Q16M [facility] Rx#:[id number] Oral 240 Other: Voiding Method Toilet Toilet Urinal Urinal Incontinent Incontinent # Voids 3 1 # Bowel Movements 2 1 - Exam Physical exam is unchanged - Labs CBC & Chem 7: 06/09/19 06:23 06/09/19 06:23 Labs: Abnormal Lab Results - Last 24 Hours (Table) 06/08/19 06/09/19 06/09/19 Range/Units 06:30 06:23 06:23 RBC 3.77 L (4.30-5.90) m/uL Hgb 10.0 L (13.0-17.5) gm/dL Hct 34.2 L (39.0-53.0) % MCHC 29.3 L (31.0-37.0) g/dL PT 41.3 H (9.0-12.0) sec INR 4.3 H (<1.2) Carbon Dioxide (22-30) mmol/L BUN (9-20) mg/dL Creatinine (0.66-1.25) mg/dL Procalcitonin 0.17 H (0.02-0.09) ng/mL 06/09/19 Range/Units 06:23 RBC (4.30-5.90) m/uL Hgb (13.0-17.5) gm/dL Hct (39.0-53.0) % MCHC (31.0-37.0) g/dL PT (9.0-12.0) sec INR (<1.2) Carbon Dioxide 35 H (22-30) mmol/L BUN 44 H (9-20) mg/dL Creatinine 1.33 H (0.66-1.25) mg/dL Procalcitonin (0.02-0.09) ng/mL Microbiology - Last 24 Hours (Table) 06/03/19 17:42 Blood Culture - Preliminary Blood No Growth after 120 hours Assessment and Plan Plan: Assessment: 1. Right hand palmar abscess 2. Multiple medical comorbidities Plan: We will plan for surgery when INR is therapeutic Continue to make nothing by mouth after midnight, daily INR checks Obtain consent Other medical education manager recommendations Further recommendations to follow Time with Patient: Less than 30
--- NOTE | 2019-06-09 17:28 | P.PN ---
Subjective 88 yo M with PMH of atrial fibrillation, congestive heart failure, COPD, CVA/TIA, hyperlipidemia, hypertension, osteoarthritis, recurrent falls, colon and skin cancer status post surgery, chronic back pain. Chronic left leg wound. He presents because he felt weak and he could not get out of the chair yesterday so him and his decided to call 911. Patient has chronic dyspnea and he attributed that to his COPD and he is a steroid-dependent, however he denies chest pain or coughing. He denies abdominal pain or burning in his urine. However he says that his right arm got swollen about 2 days ago and it hurts. No headache or weakness or numbness. No palpitation or dizziness patient was admitted he had a fever of 100.8, rest of vitals looks stable. showing normal WBC at 10.2 K, rest of labs are unremarkable, INR is 2.8 which is therapeutic. UA is suspicious for infection, influenza is negative. Chest x- ray showing CHF exacerbation with a new mild interstitial edema, no new infiltrates however on admission he got 2 L of normal saline 06/05/2019 Patient is lying in bed comfortable, he still have baseline dyspnea probably related to his COPD and lung disease. He denies chest pain. No abdominal pain or vomiting. His cellulitis in his right upper extremity including the hand and forearm are improving he still complaining from pain in his right hand however it's less tender and the redness is regressing. Swelling also is decreasing. Hand x-ray done yesterday show no fracture. Patient remains on ceftriaxone. I nfectious disease consult is appreciated. Continue with Lasix for his CHF. Physical therapy recommended home health care versus subacute rehab. Social work consult is placed 06/06/2019 Patient is awake, he has chronic dyspnea which is at his baseline as per patient, he so Dr. Cunningham #[id number] [place] to come to the hospital and at that time he had the same level of dyspnea as he confirms to me patient today. His cellulitis and swelling in the right forearm and hand are improving gradually. He had no fever and and CBC is within normal limits. INRs today is 1.4, so besides his usual 2 milligram of warfarin, going to give her another 1 mg. Creatinine is normal. Patient is medically getting close to discharge, discussed with social worker aide he needs 3 days stay in the hospital to go to [facility] for subacute rehab, possible discharge on Saturday if he keep improving with no complications 06/07/2019 Patient improving gradually, his cellulitis and swelling and tenderness in the right forearm and hand are improved significantly. Vitals are stable. His repeat urine analysis is almost back to normal with only trace leukocyte esterase. No leukocytosis or fever. Creatinine is normal as well as sodium and potassium levels. INR is 1.5 today we going to give him 5 mg of Coumadin. We'll repeat chest x-ray tomorrow for he has another congestion on presentation 06/08/2019 Patient today is more short of breath, is a bit hypotensive and feeling dizzy. Repeat chest x-ray showing a new infiltrate in the right middle lobe. Also on examination his cellulitis in his right hand and forearm are significantly improving with less swelling, redness and tenderness however he has pockets of purulent material in the middle of his right palm about half inch in diameter with surrounding area of erythema and tenderness. Patient antibiotics was already been changed from subtraction to Zosyn. His warfarin increased yesterday and his INR today is 2.2. Because of worsening pulmonary infection we are calling Pulmonary consult. And orthopedic consult 06/09/2019 Patient will undergo incision and drainage tomorrow patient's INR is elevated to 4.2 Coumadin is being held and patient received vitamin K today. Constitutional: Denied any fatigue denied any fever. Cardio vascular: denied any chest pain, palpitations Gastrointestinal denied any nausea vomiting Pulmonary: Denied any shortness of breath cough Neurologic denied any new focal deficits All inpatient medications were reviewed and appropriate changes in these medications as dictated in the interval history and assessment and plan. Objective - Vital Signs Vital signs: Vital Signs Temp 96.5 F L 06/09/19 15:33 Pulse 57 L 06/09/19 15:33 Resp 16 06/09/19 16:00 BP 124/60 06/09/19 15:33 Pulse Ox 96 06/09/19 07:00 Intake & Output 06/08/19 06/09/19 06/09/19 18:59 06:59 18:59 Intake Total 240 1120 150 Balance 240 1120 150 Weight 61.5 kg Intake: Intake, IV Titration 1120 150 Amount Phytonadione 10 mg In 50 Sodium Chloride 0.9% 50 ml @ 100 mls/hr IVPB [facility] Rx#:[id number] Piperacillin-Tazobactam 3 100 100 .375 gm In Sodium Chloride 0.9% 100 ml @ 25 mls/hr IVPB Q8HR [facility] Rx# :[id number] Sodium Chloride 0.9% 1, 20 000 ml @ 20 mls/hr IV . Q24H [facility] Rx#:[id number] Sodium Chloride 0.9% 250 1000 ml @ 999 mls/hr IV .Q16M [facility] Rx#:[id number] Oral 240 Other: Voiding Method Toilet Toilet Urinal Urinal Incontinent Incontinent # Voids 3 1 1 # Bowel Movements 2 1 - Exam PHYSICAL EXAMINATION: GENERAL: The patient is alert and oriented x3, not in any acute distress. Well developed, well nourished. HEENT: Pupils are round and equally reacting to light. EOMI. No scleral icterus. No conjunctival pallor. Normocephalic, atraumatic. No pharyngeal erythema. No thyromegaly. CARDIOVASCULAR: S1 and S2 present. No murmurs, rubs, or gallops. PULMONARY: Chest is clear to auscultation, no wheezing or crackles. ABDOMEN: Soft, nontender, nondistended, normoactive bowel sounds. No palpable organomegaly. MUSCULOSKELETAL: No joint swelling or deformity.patient has an abscess and swelling in the palmar surface of the right hand in the middle of the right hand EXTREMITIES: No cyanosis, clubbing, or pedal edema. NEUROLOGICAL: Gross neurological examination did not reveal any focal deficits. SKIN: No rashes. - Labs CBC & Chem 7: 06/09/19 06:23 06/09/19 06:23 Labs: Abnormal Lab Results - Last 24 Hours (Table) 06/08/19 06/09/19 06/09/19 Range/Units 06:30 06:23 06:23 RBC 3.77 L (4.30-5.90) m/uL Hgb 10.0 L (13.0-17.5) gm/dL Hct 34.2 L (39.0-53.0) % MCHC 29.3 L (31.0-37.0) g/dL PT 41.3 H (9.0-12.0) sec INR 4.3 H (<1.2) Carbon Dioxide (22-30) mmol/L BUN (9-20) mg/dL Creatinine (0.66-1.25) mg/dL Procalcitonin 0.17 H (0.02-0.09) ng/mL 06/09/19 Range/Units 06:23 RBC (4.30-5.90) m/uL Hgb (13.0-17.5) gm/dL Hct (39.0-53.0) % MCHC (31.0-37.0) g/dL PT (9.0-12.0) sec INR (<1.2) Carbon Dioxide 35 H (22-30) mmol/L BUN 44 H (9-20) mg/dL Creatinine 1.33 H (0.66-1.25) mg/dL Procalcitonin (0.02-0.09) ng/mL Microbiology - Last 24 Hours (Table) 06/08/19 10:34 Blood Culture - Preliminary Blood No Growth after 24 hours 06/03/19 17:42 Blood Culture - Preliminary Blood No Growth after 120 hours Assessment and Plan Plan: Right forearm and hand cellulitisan abscess patient will undergo incision and drainage. continue with present antibiotics no evidence of pneumonia or urinary tract infection. Chronic left leg wound, he follows up with wound clinic Chronic atrial fibrillation possibility of Chronic diastolic congestive heart failureRD acute exacerbation actually hypovolemic receiving IV fluids at this time COPD, not in acute exacerbationwith moderate pulmonary hypertension History of CVA/TIA Hypertension Hyperlipidemia Primary osteoarthritis and chronic back pain History of recurrent falls History of colon and skin cancer status post surgery
[2019-06-09] MEDS ORDERED: WARFARIN 0.5 MG TAB PO ONE (18:00)
--- NOTE | 2019-06-09 18:59 | PN ---
PROGRESS NOTE DATE OF SERVICE: 06/09/2019. REASON FOR FOLLOWUP: Right palm abscess and cellulitis. INTERVAL HISTORY: The patient is currently afebrile. Patient has been breathing comfortably. Denies having any chest pain or cough. Patient surgical procedure was put on hold today because of the high INR. No abdominal pain. No diarrhea. PHYSICAL EXAMINATION: Blood pressure 124/50 with a pulse of 57. Temperature 96.5. General description is an elderly male lying in bed in no distress. Respiratory system: Unlabored breathing. Clear to auscultation anteriorly. Heart S1, S2. Regular rate and rhythm. Abdomen soft, no tenderness. Right hand palm did have fluctuant red area but no drainage. LABS: White count 8.4. DIAGNOSTIC IMPRESSION AND PLAN: 1. Patient with fever, multifactorial, did have a right foot cellulitis with possible abscess on the palmar site awaiting surgical drainage. Currently on Zosyn. Adjusting antibiotic based on the culture report. 2. Left leg wound with no cellulitis. To continue local wound care with Hydrofera Blue dressing. 3. Continue supportive care. MMODL / IJN: [id number] /
[2019-06-09 19:31] LABS: Prothrombin Time 19.7 sec (9.0-12.0)
[2019-06-09] MEDS: TEMAZEPAM 15 MG CAP PO PRN (20:59)
[2019-06-09] MEDS: HYDROcodone/APAP 10-325MG 1 EACH TAB PO PRN (20:59)
[2019-06-10] MEDS: BUDESONIDE 0.5 MG/2 ML NEBU INHALATION SCH ×2 (07:50→19:46)
[2019-06-10] MEDS: CALCIUM CARB-VIT D 500MG-200UN 1 EACH TAB PO SCH ×3 (07:51→16:43)
[2019-06-10] MEDS: SENNOSIDES 8.6 MG TAB PO SCH ×2 (07:51→22:11)
[2019-06-10] MEDS: FAMOTIDINE 20 MG TAB PO SCH (07:51)
[2019-06-10] MEDS: FINASTERIDE 5 MG TAB PO SCH (07:51)
[2019-06-10] MEDS: TAMSULOSIN 0.4 MG CAP.ER.24H PO SCH (07:59)
[2019-06-10] MEDS: predniSONE 5 MG TAB PO SCH ×2 (07:59→22:11)
[2019-06-10] MEDS: LISINOPRIL 10 MG TAB PO SCH (07:59)
[2019-06-10] MEDS: SODIUM CHLORIDE 0.9% 1,000 ML IV SCH ×3 (08:10→17:39)
[2019-06-10] MEDS: PIPERACILLIN-TAZOBACTAM 3.375 GM in SODIUM CHLORIDE 0.9% 100 ML IVPB SCH ×3 (08:10→16:43)
[2019-06-10 08:21] LABS: Calcium 8.5 mg/dL (8.4-10.2); Potassium 4.7 mmol/L (3.5-5.1)
[2019-06-10 08:22] LABS: Basophils # (A) 0.1 k/uL (0-0.2); Basophils % (A) 1 %; Eosinophils # (A) 0.1 k/uL (0-0.7); Eosinophils % (A) 1 %; HCT 33.4 % (39.0-53.0); HGB 9.8 gm/dL (13.0-17.5); Hypochromasia Marked; Lymphocytes % (A) 13 %; MCH 26.7 pg (25.0-35.0); MCHC 29.3 g/dL (31.0-37.0); MCV 91.2 fL (80.0-100.0); Mean Platelet Volume 7.1; Monocytes # (A) 0.4 k/uL (0-1.0); Monocytes % (A) 5 %; Neutrophils # (A) 6.5 k/uL (1.3-7.7); Neutrophils % (A) 79 %; Platelet Count 277 k/uL (150-450); RBC 3.66 m/uL (4.30-5.90); RDW 13.6 % (11.5-15.5); WBC 8.2 k/uL (3.8-10.6)
[2019-06-10 08:26] LABS: INR 1.4 (<1.2); Prothrombin Time 14.4 sec (9.0-12.0)
[2019-06-10] MEDS ORDERED: WARFARIN 0.5 MG TAB PO ONE (09:15)
--- NOTE | 2019-06-10 10:12 | P.GSCN ---
History of Present Illness Consult date: 06/10/19 History of present illness: This is an 88-year-old gentleman who came in the hospital because of overall weakness. Upon admission it was thought that he had a urine infection. His urine was inflamed but the culture came back negative. was asked to see this patient for urinary frequency. Over the last 6 months he has had increasing frequency there is been no blood or burning. Frequency is urgency to the point leakage. He sees on an annual basis. He has been on tamsulosin and Proscar. I have discussed TURP in the past. He has declined. Review of Systems - Constitutional Reports lethargy, Reports weakness - Genitourinary Reports as per HPI Past Medical History Past Medical History: Atrial Fibrillation, Cancer, Heart Failure, COPD, CVA/TIA, Hyperlipidemia, Hypertension, Osteoarthritis (OA), Pneumonia, Prostate Disorder Additional Past Medical History / Comment(s): TIA x 2, balance issues, falls, past fall with acetabular fracture, colon and skin cancer with surgery, R sided abdominal hernia, seasonal allergies, PVD, past bilateral leg wounds, pneumothorax with chest tube when in his 20s after a fall, bilateral tinnitis, chronic back pain, past L2 fracture, recent L4 fracture. History of Any Multi-Drug Resistant Organisms: None Reported Past Surgical History: Heart Catheterization, Hernia Repair Additional Past Surgical History / Comment(s): Laminictomy-lumbar, umbilical and incisional hernia repair, 1990 colon resection and temporary colostomy, skin cancer removal from face, L leg laser vein surgery, bronchoscopy, bilateral lower leg wounds with debridements, bilateral cataract removals. Past Anesthesia/Blood Transfusion Reactions: Postoperative Nausea & Vomiting (PONV) Additional Past Anesthesia/Blood Transfusion Reaction / Comm: Pt has received b lood in past without reaction. Past Psychological History: No Psychological Hx Reported Additional Psychological History / Comment(s): Pt resides with his spouse. He states he has depression and in the past thoughts of suicide but not currently. He ambulates with a cane. He drives. He is an [employer] . Smoking Status: Former smoker Past Alcohol Use History: None Reported Additional Past Alcohol Use History / Comment(s): Pt started smoking in 1948 and quit in 1954. 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 Past Drug Use History: None Reported - Past Family History Father Additional Family Medical History / Comment(s): Father had mental health issues. He lived to be 84 yrs old. Mother Family Medical History: Pneumonia Additional Family Medical History / Comment(s): Mother of pneumonia at the age of 29yrs. Brother(s) History Unknown: Yes Family Medical History: Cancer Medications and Allergies Home Medications Medication Instructions Recorded Confirmed Type Finasteride [Proscar] 5 mg PO DAILY 08/28/15 06/03/19 History Tamsulosin HCl [Flomax] 0.4 mg PO DAILY 08/29/15 06/03/19 History predniSONE 5 mg PO BID 07/09/16 06/03/19 History HYDROcodone/APAP 10-325MG [Maxbass 1 tab PO TID PRN 02/10/18 06/03/19 History 10-325] Lisinopril [Prinivil] 10 mg PO DAILY 02/10/18 06/03/19 History Temazepam [Restoril] 15 mg PO HS PRN 02/10/18 06/03/19 History Furosemide [Lasix] 20 mg PO BID 04/17/18 06/03/19 History Budesonide [Pulmicort] 0.5 mg INHALATION RT-BID 03/15/19 06/03/19 History Warfarin [Coumadin] 1 mg PO DAILY 03/15/19 06/03/19 History Allergies Allergy/AdvReac Type Severity Reaction Status Date / Time No Known Allergies Allergy Verified 06/03/19 18:03 Surgical - Exam Vital Signs Temp Pulse Resp BP Pulse Ox 100.8 F H 114 H 16 132/86 97 06/03/19 17:15 06/03/19 17:15 06/03/19 17:15 06/03/19 17:15 06/03/19 17:15 - General Disheveled thin well developed - Eyes PERRL - ENT no hearing loss, poor longterm - Neck trachea midline - Respiratory normal expansion, normal respiratory effort - Cardiovascular Rhythm: regular - Abdomen Abdomen: soft, non tender - Genitourinary The patient declines prostate exam normal penis with no external lesions - Integumentary no rash, no growths - Neurologic normal coordination, normal sensation - Musculoskeletal normal posture - Psychiatric oriented to time, oriented to person, oriented to place, speech is normal, memory intact Results - Labs 06/10/19 06:20 06/10/19 06:20 Abnormal Lab Results - Last 24 Hours (Table) 06/09/19 06/10/19 06/10/19 Range/Units 19:02 06:20 06:20 RBC 3.66 L (4.30-5.90) m/uL Hgb 9.8 L (13.0-17.5) gm/dL Hct 33.4 L (39.0-53.0) % MCHC 29.3 L (31.0-37.0) g/dL PT 19.7 H (9.0-12.0) sec INR 2.0 H (<1.2) BUN 36 H (9-20) mg/dL 06/10/19 Range/Units 06:20 RBC (4.30-5.90) m/uL Hgb (13.0-17.5) gm/dL Hct (39.0-53.0) % MCHC (31.0-37.0) g/dL PT 14.4 H (9.0-12.0) sec INR 1.4 H (<1.2) BUN (9-20) mg/dL Microbiology - Last 24 Hours (Table) 06/03/19 17:42 Blood Culture - Final Blood No Growth after 144 hours 06/08/19 10:34 Blood Culture - Preliminary Blood No Growth after 24 hours Diabetes panel 06/10/19 Range/Units 06:20 Sodium 140 (137-145) mmol/L Potassium 4.7 (3.5-5.1) mmol/L Chloride 104 (98-107) mmol/L Carbon Dioxide 30 (22-30) mmol/L BUN 36 H (9-20) mg/dL Creatinine 1.23 (0.66-1.25) mg/dL Glucose 85 (74-99) mg/dL Calcium 8.5 (8.4-10.2) mg/dL Calcium panel 06/10/19 Range/Units 06:20 Calcium 8.5 (8.4-10.2) mg/dL Pituitary panel 06/10/19 Range/Units 06:20 Sodium 140 (137-145) mmol/L Potassium 4.7 (3.5-5.1) mmol/L Chloride 104 (98-107) mmol/L Carbon Dioxide 30 (22-30) mmol/L BUN 36 H (9-20) mg/dL Creatinine 1.23 (0.66-1.25) mg/dL Glucose 85 (74-99) mg/dL Calcium 8.5 (8.4-10.2) mg/dL Adrenal panel 06/10/19 Range/Units 06:20 Sodium 140 (137-145) mmol/L Potassium 4.7 (3.5-5.1) mmol/L Chloride 104 (98-107) mmol/L Carbon Dioxide 30 (22-30) mmol/L BUN 36 H (9-20) mg/dL Creatinine 1.23 (0.66-1.25) mg/dL Glucose 85 (74-99) mg/dL Calcium 8.5 (8.4-10.2) mg/dL Assessment and Plan Assessment: Impression: Urinary frequency. Inflamed urine. History of BPH. Recommendations: The patient is on both finasteride and tamsulosin. His urine was inflamed but the culture grew skin chyna. I will obtain a urine for postvoid residual. I will notify of his admission.
[2019-06-10] MEDS ORDERED: LORazepam 2 MG/ML INJ IV STA (12:35)
[2019-06-10] MEDS ORDERED: IV FLUID CONTINUATION 1,000 ML IV ONE (13:05)
[2019-06-10] MEDS ORDERED: HYDROCORTISONE SUCCINATE 100 MG/2 ML VIAL IVP ONE (13:20)
[2019-06-10] MEDS ORDERED: SUCCINYLCHOLINE CHLORIDE 100 MG/5 ML SYR IV ONE (13:25)
[2019-06-10] MEDS ORDERED: LIDOCAINE 1% INJ 10MG/ML (20 ML MDV) ONE (13:25)
[2019-06-10] MEDS ORDERED: PROPOFOL 10 MG/ML 20 ML VIAL IV ONE (13:25)
[2019-06-10] MEDS ORDERED: fentaNYL (PF) 50 MCG/ML 2 ML AMP ONE (13:25)
[2019-06-10] MEDS ORDERED: MIDAZOLAM 2 MG/2 ML VIAL ONE (13:25)
[2019-06-10] MEDS ORDERED: LACTATED RINGERS 1,000 ML IV ONE (13:30)
[2019-06-10] MEDS ORDERED: ceFAZolin 1,000 MG in SODIUM CHLORIDE 0.9% 1,000 ML IRRIGATION ONE (14:07)
--- NOTE | 2019-06-10 14:29 | P.OP ---
Date of Procedure: 06/10/19 Preoperative Diagnosis: Right palmar abscess Postoperative Diagnosis: Same Procedure(s) Performed: Incision and drainage with irrigation and debridement right palmar abscess Anesthesia: HARDEEPA Surgeon: Gianluca Maxwell Estimated Blood Loss (ml): 4 Pathology: other (Deep cultures) Condition: stable Disposition: PACU Indications for Procedure: The patient's an 88-year-old gentleman who presents with right palmar swelling/erythema/and subcutaneous purulence for the past several days. He's been on IV antibiotics for other issues for quite some time. A discussion of the risks and benefits of incision and drainage was made with the patient. He opted to proceed. Risks to include persistence of infection, neurovascular injury and possible need for subsequent procedures was discussed. Informed consent was obtained. Operative Findings: As below Description of Procedure: The patient was brought to the operating room, and after induction of general anesthesia the right upper extremity was prepped and draped in normal fashion. A 3 cm incision was made along the palpable abscess along the palm of the right hand. The skin was incised sharply. Subcutaneous tissues were divided bluntly. The palmar fascia was bluntly dissected. Deeper soft tissues were bluntly dissected. Small amount of purulence was expressed. Deep cultures were obtained. The wound edges were sharply debrided with a scalpel removing necrotic tissue. The wound was copiously irrigated with normal saline. The skin edges were then loosely reapproximated with simple 3-0 nylon suture. A sterile dressing was applied. The patient was awoken from general anesthesia and transferred to recovery room in fair condition. Blood loss was estimated 4 mL. No complications were incurred.
[2019-06-10] MEDS: HYDROmorphone 1 MG/ML 1 ML SYRINGE IVP ONE ×2 (15:09→15:35)
--- NOTE | 2019-06-10 16:13 | P.PN ---
Subjective 88 yo M with PMH of atrial fibrillation, congestive heart failure, COPD, CVA/TIA, hyperlipidemia, hypertension, osteoarthritis, recurrent falls, colon and skin cancer status post surgery, chronic back pain. Chronic left leg wound. He presents because he felt weak and he could not get out of the chair yesterday so him and his decided to call 911. Patient has chronic dyspnea and he attributed that to his COPD and he is a steroid-dependent, however he denies chest pain or coughing. He denies abdominal pain or burning in his urine. However he says that his right arm got swollen about 2 days ago and it hurts. No headache or weakness or numbness. No palpitation or dizziness patient was admitted he had a fever of 100.8, rest of vitals looks stable. showing normal WBC at 10.2 K, rest of labs are unremarkable, INR is 2.8 which is therapeutic. UA is suspicious for infection, influenza is negative. Chest x- ray showing CHF exacerbation with a new mild interstitial edema, no new infiltrates however on admission he got 2 L of normal saline 06/05/2019 Patient is lying in bed comfortable, he still have baseline dyspnea probably related to his COPD and lung disease. He denies chest pain. No abdominal pain or vomiting. His cellulitis in his right upper extremity including the hand and forearm are improving he still complaining from pain in his right hand however it's less tender and the redness is regressing. Swelling also is decreasing. Hand x-ray done yesterday show no fracture. Patient remains on ceftriaxone. I nfectious disease consult is appreciated. Continue with Lasix for his CHF. Physical therapy recommended home health care versus subacute rehab. Social work consult is placed 06/06/2019 Patient is awake, he has chronic dyspnea which is at his baseline as per patient, he so Dr. Cunningham #[address] [place] to come to the hospital and at that time he had the same level of dyspnea as he confirms to me patient today. His cellulitis and swelling in the right forearm and hand are improving gradually. He had no fever and and CBC is within normal limits. INRs today is 1.4, so besides his usual 2 milligram of warfarin, going to give her another 1 mg. Creatinine is normal. Patient is medically getting close to discharge, discussed with manager social he needs 3 days stay in the hospital to go [facility], possible discharge on Saturday if he keep improving with no complications 06/07/2019 Patient improving gradually, his cellulitis and swelling and tenderness in the right forearm and hand are improved significantly. Vitals are stable. His repeat urine analysis is almost back to normal with only trace leukocyte esterase. No leukocytosis or fever. Creatinine is normal as well as sodium and potassium levels. INR is 1.5 today we going to give him 5 mg of Coumadin. We'll repeat chest x-ray tomorrow for he has another congestion on presentation 06/08/2019 Patient today is more short of breath, is a bit hypotensive and feeling dizzy. Repeat chest x-ray showing a new infiltrate in the right middle lobe. Also on examination his cellulitis in his right hand and forearm are significantly improving with less swelling, redness and tenderness however he has pockets of purulent material in the middle of his right palm about half inch in diameter with surrounding area of erythema and tenderness. Patient antibiotics was already been changed from subtraction to Zosyn. His warfarin increased yesterday and his INR today is 2.2. Because of worsening pulmonary infection we are calling Pulmonary consult. And orthopedic consult 06/09/2019 Patient will undergo incision and drainage tomorrow patient's INR is elevated to 4.2 Coumadin is being held and patient received vitamin K today. 06/10/2019 Patient's INR has come down patient will undergo incision and drainage today patient is complaining of pain in the right hand but fairly controlled at this time. Constitutional: Denied any fatigue denied any fever. Cardio vascular: denied any chest pain, palpitations Gastrointestinal denied any nausea vomiting Pulmonary: Denied any shortness of breath cough Neurologic denied any new focal deficits All inpatient medications were reviewed and appropriate changes in these medications as dictated in the interval history and assessment and plan. Objective - Vital Signs Vital signs: Vital Signs Temp 99.0 F 06/10/19 13:01 Pulse 63 06/10/19 15:34 Resp 16 06/10/19 15:34 BP 151/67 06/10/19 15:34 Pulse Ox 96 06/10/19 15:34 Intake & Output 06/09/19 06/10/19 06/10/19 18:59 06:59 18:59 Intake Total 150 906 Output Total 15 Balance 150 891 Weight 62 kg Intake: IV 426 Intake, IV Titration 150 Amount Phytonadione 10 mg In 50 Sodium Chloride 0.9% 50 ml @ 100 mls/hr IVPB ONCE STA Rx#:[id number] Piperacillin-Tazobactam 3 100 .375 gm In Sodium Chloride 0.9% 100 ml @ 25 mls/hr IVPB Q8HR [facility] Rx# :[id number] Oral 480 Output: Estimated Blood Loss 15 Other: Voiding Method Toilet Toilet Urinal Urinal Incontinent Incontinent # Voids 1 1 # Bowel Movements 1 - Exam PHYSICAL EXAMINATION: GENERAL: The patient is alert and oriented x3, not in any acute distress. Well developed, well nourished. HEENT: Pupils are round and equally reacting to light. EOMI. No scleral icterus. No conjunctival pallor. Normocephalic, atraumatic. No pharyngeal erythema. No thyromegaly. CARDIOVASCULAR: S1 and S2 present. No murmurs, rubs, or gallops. PULMONARY: Chest is clear to auscultation, no wheezing or crackles. ABDOMEN: Soft, nontender, nondistended, normoactive bowel sounds. No palpable organomegaly. MUSCULOSKELETAL: No joint swelling or deformity.patient has an abscess and swelling in the palmar surface of the right hand in the middle of the right hand EXTREMITIES: No cyanosis, clubbing, or pedal edema. NEUROLOGICAL: Gross neurological examination did not reveal any focal deficits. SKIN: No rashes. - Labs CBC & Chem 7: 06/10/19 06:20 06/10/19 06:20 Labs: Abnormal Lab Results - Last 24 Hours (Table) 06/09/19 06/10/19 06/10/19 Range/Units 19:02 06:20 06:20 RBC 3.66 L (4.30-5.90) m/uL Hgb 9.8 L (13.0-17.5) gm/dL Hct 33.4 L (39.0-53.0) % MCHC 29.3 L (31.0-37.0) g/dL PT 19.7 H (9.0-12.0) sec INR 2.0 H (<1.2) BUN 36 H (9-20) mg/dL 06/10/19 Range/Units 06:20 RBC (4.30-5.90) m/uL Hgb (13.0-17.5) gm/dL Hct (39.0-53.0) % MCHC (31.0-37.0) g/dL PT 14.4 H (9.0-12.0) sec INR 1.4 H (<1.2) BUN (9-20) mg/dL Microbiology - Last 24 Hours (Table) 06/08/19 10:34 Blood Culture - Preliminary Blood No Growth after 48 hours 06/03/19 17:42 Blood Culture - Final Blood No Growth after 144 hours Assessment and Plan Plan: Right forearm and hand cellulitisan abscess patient will undergo incision and drainage. continue with present antibiotics no evidence of pneumonia or urinary tract infection. Chronic left leg wound, he follows up with wound clinic Chronic atrial fibrillation possibility of Chronic diastolic congestive heart failureRD acute exacerbation actually hypovolemic receiving IV fluids at this time COPD, not in acute exacerbationwith moderate pulmonary hypertension History of CVA/TIA Hypertension Hyperlipidemia Primary osteoarthritis and chronic back pain History of recurrent falls History of colon and skin cancer status post surgery
[2019-06-10] MEDS: HYDROcodone/APAP 10-325MG 1 EACH TAB PO PRN (16:42)
[2019-06-10 17:21] LABS: Glucose,Whole Blood 116 mg/dL (75-99)
[2019-06-10] MEDS ORDERED: VANCOMYCIN IV PER PHARMACY 1 EACH MISC MISCELLANE PRN (20:56)
[2019-06-10] MEDS: TEMAZEPAM 15 MG CAP PO PRN (22:11)
--- NOTE | 2019-06-10 22:36 | PN ---
PROGRESS NOTE DATE OF SERVICE: 06/10/2019. REASON FOR FOLLOWUP: 1. Right hand palmar abscess. 2. Left leg wound. INTERVAL HISTORY: The patient is currently afebrile. The patient has been taken to the OR and is status post drainage of a small abscess of the right hand. The fluid has been sent for culture. The patient denies having any chest pain. No cough. No nausea, vomiting, abdominal pain, no diarrhea. PHYSICAL EXAMINATION: Blood pressure is 94/53 with a pulse of 80. Temperature 96.4. He is 98% on 2 L nasal cannula. General description is an elderly male lying in bed in no distress. Respiratory system: Unlabored breathing. Clear to auscultation anteriorly. Heart S1, S2. Regular rate and rhythm. ABDOMEN: Soft. No tenderness. Right hand is currently dressed up. No obvious drainage on the dressing. LABS: White count of 8.2. DIAGNOSTIC IMPRESSION AND PLAN: 1. Patient with right hand abscess status post drainage. Will wait for the culture to finalize to determine discharge antibiotic. Antibiotic was switched over to vancomycin. 2. Left leg wound. Hydrofera Blue dressing to change every 48 hours. MMODL / IJN: [id number] /
[2019-06-10] MEDS: VANCOMYCIN 1,250 MG in SODIUM CHLORIDE 0.9% 250 ML IVPB SCH (23:18)
[2019-06-11] MEDS: HYDROcodone/APAP 10-325MG 1 EACH TAB PO PRN ×3 (01:00→20:17)
[2019-06-11] MEDS: SODIUM CHLORIDE 0.9% 1,000 ML IV SCH ×2 (01:01→01:04)
[2019-06-11] MEDS: SENNOSIDES 8.6 MG TAB PO SCH ×2 (07:37→20:21)
[2019-06-11] MEDS: LISINOPRIL 10 MG TAB PO SCH (07:37)
[2019-06-11] MEDS: predniSONE 5 MG TAB PO SCH ×3 (07:37→20:20)
[2019-06-11] MEDS: TAMSULOSIN 0.4 MG CAP.ER.24H PO SCH (07:37)
[2019-06-11] MEDS: FAMOTIDINE 20 MG TAB PO SCH (07:38)
[2019-06-11] MEDS: CALCIUM CARB-VIT D 500MG-200UN 1 EACH TAB PO SCH ×3 (07:38→17:04)
[2019-06-11] MEDS: FINASTERIDE 5 MG TAB PO SCH (07:38)
[2019-06-11 07:57] LABS: INR 1.5 (<1.2)
[2019-06-11] MEDS: BUDESONIDE 0.5 MG/2 ML NEBU INHALATION SCH ×2 (10:52→19:45)
--- NOTE | 2019-06-11 12:26 | P.PN ---
Subjective Progress Note Date: 06/11/19 Principal diagnosis: Right hand palmar abscess Patient evaluated at bedside, is resting comfortably. He notes less discomfort with range of motion of the hand. Postop bandage is in good position and condition. Denies any fevers or chills this time. Objective - Vital Signs Vital signs: Vital Signs Temp 97.6 F 06/11/19 07:00 Pulse 80 06/11/19 11:02 Resp 16 06/11/19 07:00 BP 114/61 06/11/19 07:00 Pulse Ox 98 06/11/19 07:00 Intake & Output 06/10/19 06/11/19 06/11/19 18:59 06:59 18:59 Intake Total 906 Output Total 15 950 225 Balance 891 -950 -225 Weight 61.8 kg Intake: IV 426 Oral 480 Output: Urine 950 225 Straight 950 225 Estimated Blood Loss 15 Other: Voiding Method Toilet Toilet Toilet Urinal Urinal Urinal Incontinent Incontinent Incontinent # Voids 0 # Bowel Movements 1 - Exam Right upper extremity: Postop bandage in good position and condition. No redness noted throughout the fingers or forearm. Sensation to light touch throughout extremities intact. - Labs CBC & Chem 7: 06/10/19 06:20 06/10/19 06:20 Labs: Abnormal Lab Results - Last 24 Hours (Table) 06/10/19 06/11/19 Range/Units 17:09 07:12 PT 15.0 H (9.0-12.0) sec INR 1.5 H (<1.2) POC Glucose (mg/dL) 116 H (75-99) mg/dL Microbiology - Last 24 Hours (Table) 06/10/19 14:15 Gram Stain - Preliminary Hand - Right Wound Culture - Preliminary 06/10/19 14:15 Gram Stain - Preliminary Hand - Right Wound Culture - Preliminary 06/10/19 14:15 Anaerobic Culture - Preliminary Hand - Right 06/10/19 14:15 Fungal Culture - Preliminary Hand - Right 06/10/19 14:15 Fungal Culture - Preliminary Hand - Right 06/10/19 14:15 Anaerobic Culture - Preliminary Hand - Right 06/08/19 10:34 Blood Culture - Preliminary Blood No Growth after 48 hours Assessment and Plan Plan: Assessment: Postoperative day #1 status post I&D right hand abscess Plan: I will change bandage tomorrow morning Ice and elevate Other medical special recommendations Time with Patient: Less than 30
[2019-06-11] MEDS: VANCOMYCIN 1,250 MG in SODIUM CHLORIDE 0.9% 250 ML IVPB SCH (13:09)
--- NOTE | 2019-06-11 14:37 | P.PN ---
Subjective 88 yo M with PMH of atrial fibrillation, congestive heart failure, COPD, CVA/TIA, hyperlipidemia, hypertension, osteoarthritis, recurrent falls, colon and skin cancer status post surgery, chronic back pain. Chronic left leg wound. He presents because he felt weak and he could not get out of the chair yesterday so him and his decided to call 911. Patient has chronic dyspnea and he attributed that to his COPD and he is a steroid-dependent, however he denies chest pain or coughing. He denies abdominal pain or burning in his urine. However he says that his right arm got swollen about 2 days ago and it hurts. No headache or weakness or numbness. No palpitation or dizziness patient was admitted he had a fever of 100.8, rest of vitals looks stable. showing normal WBC at 10.2 K, rest of labs are unremarkable, INR is 2.8 which is therapeutic. UA is suspicious for infection, influenza is negative. Chest x- ray showing CHF exacerbation with a new mild interstitial edema, no new infiltrates however on admission he got 2 L of normal saline 06/05/2019 Patient is lying in bed comfortable, he still have baseline dyspnea probably related to his COPD and lung disease. He denies chest pain. No abdominal pain or vomiting. His cellulitis in his right upper extremity including the hand and forearm are improving he still complaining from pain in his right hand however it's less tender and the redness is regressing. Swelling also is decreasing. Hand x-ray done yesterday show no fracture. Patient remains on ceftriaxone. I nfectious disease consult is appreciated. Continue with Lasix for his CHF. Physical therapy recommended home health care versus subacute rehab. Social work consult is placed 06/06/2019 Patient is awake, he has chronic dyspnea which is at his baseline as per patient, he so Dr. Cunningham #20 [place] to come to the hospital and at that time he had the same level of dyspnea as he confirms to me patient today. His cellulitis and swelling in the right forearm and hand are improving gradually. He had no fever and and CBC is within normal limits. INRs today is 1.4, so besides his usual 2 milligram of warfarin, going to give her another 1 mg. Creatinine is normal. Patient is medically getting close to discharge, discussed with public health social worker he needs 3 days stay in the hospital to go to [facility] for subacute rehab, possible discharge on Saturday if he keep improving with no complications 06/07/2019 Patient improving gradually, his cellulitis and swelling and tenderness in the right forearm and hand are improved significantly. Vitals are stable. His repeat urine analysis is almost back to normal with only trace leukocyte esterase. No leukocytosis or fever. Creatinine is normal as well as sodium and potassium levels. INR is 1.5 today we going to give him 5 mg of Coumadin. We'll repeat chest x-ray tomorrow for he has another congestion on presentation 06/08/2019 Patient today is more short of breath, is a bit hypotensive and feeling dizzy. Repeat chest x-ray showing a new infiltrate in the right middle lobe. Also on examination his cellulitis in his right hand and forearm are significantly improving with less swelling, redness and tenderness however he has pockets of purulent material in the middle of his right palm about half inch in diameter with surrounding area of erythema and tenderness. Patient antibiotics was already been changed from subtraction to Zosyn. His warfarin increased yesterday and his INR today is 2.2. Because of worsening pulmonary infection we are calling Pulmonary consult. And orthopedic consult 06/09/2019 Patient will undergo incision and drainage tomorrow patient's INR is elevated to 4.2 Coumadin is being held and patient received vitamin K today. 06/10/2019 Patient's INR has come down patient will undergo incision and drainage today patient is complaining of pain in the right hand but fairly controlled at this time. 06/11/2019 Patient had incision and drainage of his right hand abscess pain is better, patient appears to be bit depressed and apparently complained that he wanted to although he doesn't have a plan and he denied any suicidal ideation to me suggest depressed. Patient presently has a sitter because of his possible suicidal complaints., Psychiatry was consulted. Patient is on vancomycin at this time wound cultures are still pending Constitutional: Denied any fatigue denied any fever. Cardio vascular: denied any chest pain, palpitations Gastrointestinal denied any nausea vomiting Pulmonary: Denied any shortness of breath cough Neurologic denied any new focal deficits All inpatient medications were reviewed and appropriate changes in these medications as dictated in the interval history and assessment and plan. Objective - Vital Signs Vital signs: Vital Signs Temp 97.6 F 06/11/19 07:00 Pulse 80 06/11/19 11:02 Resp 16 06/11/19 07:00 BP 114/61 06/11/19 07:00 Pulse Ox 98 06/11/19 07:00 Intake & Output 06/10/19 06/11/19 06/11/19 18:59 06:59 18:59 Intake Total 906 240 Output Total 15 950 225 Balance 891 -950 15 Weight 61.8 kg Intake: IV 426 Oral 480 240 Output: Urine 950 225 Straight 950 225 Estimated Blood Loss 15 Other: Voiding Method Toilet Toilet Toilet Urinal Urinal Urinal Incontinent Incontinent Incontinent # Voids 0 3 # Bowel Movements 1 - Exam PHYSICAL EXAMINATION: GENERAL: The patient is alert and oriented x3, not in any acute distress. Well developed, well nourished. HEENT: Pupils are round and equally reacting to light. EOMI. No scleral icterus. No conjunctival pallor. Normocephalic, atraumatic. No pharyngeal erythema. No thyromegaly. CARDIOVASCULAR: S1 and S2 present. No murmurs, rubs, or gallops. PULMONARY: Chest is clear to auscultation, no wheezing or crackles. ABDOMEN: Soft, nontender, nondistended, normoactive bowel sounds. No palpable organomegaly. MUSCULOSKELETAL: No joint swelling or deformity.patient is status post incision and drainage of the right arm patient has a postsurgical HEENT EXTREMITIES: No cyanosis, clubbing, or pedal edema. NEUROLOGICAL: Gross neurological examination did not reveal any focal deficits. SKIN: No rashes. - Labs CBC & Chem 7: 06/10/19 06:20 06/10/19 06:20 Labs: Abnormal Lab Results - Last 24 Hours (Table) 06/10/19 06/11/19 Range/Units 17:09 07:12 PT 15.0 H (9.0-12.0) sec INR 1.5 H (<1.2) POC Glucose (mg/dL) 116 H (75-99) mg/dL Microbiology - Last 24 Hours (Table) 06/08/19 10:34 Blood Culture - Preliminary Blood No Growth after 72 hours 06/10/19 14:15 Gram Stain - Preliminary Hand - Right Wound Culture - Preliminary 06/10/19 14:15 Gram Stain - Preliminary Hand - Right Wound Culture - Preliminary 06/10/19 14:15 Anaerobic Culture - Preliminary Hand - Right 06/10/19 14:15 Fungal Culture - Preliminary Hand - Right 06/10/19 14:15 Fungal Culture - Preliminary Hand - Right 06/10/19 14:15 Anaerobic Culture - Preliminary Hand - Right Assessment and Plan Plan: Right forearm and hand cellulitis and abscess patient had incision and drainage Patient on vancomycin which will be continued -Suicidal ideation: Management as mentioned above Chronic left leg wound, he follows up with wound clinic Chronic atrial fibrillation possibility of Chronic diastolic congestive heart failure not in acute exacerbation actually hypovolemic, received IV fluids which will be discontinued repeat basic metabolic profile tomorrow COPD, not in acute exacerbationwith moderate pulmonary hypertension History of CVA/TIA Hypertension Hyperlipidemia Primary osteoarthritis and chronic back pain History of recurrent falls History of colon and skin cancer status post surgery
[2019-06-11] MEDS ORDERED: WARFARIN 1 MG TAB PO ONE (18:00)
--- NOTE | 2019-06-11 19:03 | PN ---
PROGRESS NOTE DATE OF SERVICE: 06/11/2019. REASON FOR FOLLOWUP: Right hand abscess and cellulitis. INTERVAL HISTORY: The patient is currently afebrile. Patient has been breathing comfortably. The patient denies having any chest pain, shortness of breath or cough. His main symptom has been urinary retention and requiring self catheterization. No abdominal pain. No diarrhea. PHYSICAL EXAMINATION: Blood pressure 114/61 with a pulse of 87, temperature is 97.6. He is 98% on room air. General description is an elderly male lying in bed in no distress. Respiratory system: Unlabored breathing. Clear to auscultation anteriorly. Heart is S1, S2. Regular rate and rhythm. Abdomen soft. No tenderness. Right hand is currently dressed up. No obvious drainage on the dressing. LABS: The wound culture is currently pending. DIAGNOSTIC IMPRESSION AND PLAN: 1. Patient with right hand abscess status post drainage. We will wait for the culture to finalize. Keep the patient on vancomycin. Discharge antibiotic to be determined by culture report. 2. Left leg wound. Local wound care to continue with Hydrofera Blue dressing. 3. Continue supportive care. MMODL / IJN: [id number] /
[2019-06-11] MEDS: TEMAZEPAM 15 MG CAP PO PRN (20:17)
[2019-06-12] MEDS: VANCOMYCIN 1,250 MG in SODIUM CHLORIDE 0.9% 250 ML IVPB SCH ×2 (06:09→20:15)
[2019-06-12] MEDS: HYDROcodone/APAP 10-325MG 1 EACH TAB PO PRN ×2 (06:10→17:52)
[2019-06-12] MEDS: BUDESONIDE 0.5 MG/2 ML NEBU INHALATION SCH ×2 (08:14→19:21)
[2019-06-12] MEDS: predniSONE 5 MG TAB PO SCH ×3 (08:41→20:17)
[2019-06-12] MEDS: CALCIUM CARB-VIT D 500MG-200UN 1 EACH TAB PO SCH ×3 (08:41→17:52)
[2019-06-12] MEDS: SENNOSIDES 8.6 MG TAB PO SCH ×2 (08:41→20:15)
[2019-06-12] MEDS: TAMSULOSIN 0.4 MG CAP.ER.24H PO SCH (08:41)
[2019-06-12] MEDS: FINASTERIDE 5 MG TAB PO SCH (08:41)
[2019-06-12] MEDS: FAMOTIDINE 20 MG TAB PO SCH (08:41)
[2019-06-12 09:20] LABS: INR 1.9 (<1.2); Prothrombin Time 18.6 sec (9.0-12.0)
[2019-06-12 09:21] LABS: Potassium 4.4 mmol/L (3.5-5.1)
--- NOTE | 2019-06-12 10:15 | P.PN ---
Subjective Progress Note Date: 06/12/19 Principal diagnosis: Right hand palmar abscess Patient evaluated at bedside, is resting comfortably. Symptoms continue to improve, no fever or chills. Objective - Vital Signs Vital signs: Vital Signs Temp 97.5 F L 06/12/19 07:00 Pulse 92 06/12/19 08:30 Resp 16 06/12/19 07:00 BP 158/67 06/12/19 07:00 Pulse Ox 100 06/12/19 07:00 Intake & Output 06/11/19 06/12/19 06/12/19 18:59 06:59 18:59 Intake Total 240 296 Output Total 225 2 Balance 15 -2 296 Weight 61.8 kg Intake: Oral 240 296 Output: Urine 225 Straight 225 Stool 2 Other: Voiding Method Toilet Toilet Urinal Incontinent Incontinent # Voids 3 1 - Exam Right upper extremity: Bandage removed today, incision is clean, dry and intact. Sutures are in good position. Mild erythema noted around the incision. No streaking redness noted. Radial pulses 2+, sensation to light touch intact - Labs CBC & Chem 7: 06/10/19 06:20 06/12/19 08:49 Labs: Abnormal Lab Results - Last 24 Hours (Table) 06/12/19 06/12/19 Range/Units 08:49 08:49 PT 18.6 H (9.0-12.0) sec INR 1.9 H (<1.2) Chloride 110 H (98-107) mmol/L BUN 28 H (9-20) mg/dL Calcium 8.0 L (8.4-10.2) mg/dL Microbiology - Last 24 Hours (Table) 06/10/19 14:15 Gram Stain - Preliminary Hand - Right Wound Culture - Preliminary 06/10/19 14:15 Gram Stain - Preliminary Hand - Right Wound Culture - Preliminary 06/08/19 10:34 Blood Culture - Preliminary Blood No Growth after 72 hours Assessment and Plan Plan: Assessment: Postoperative day #2 status post I&D right hand abscess Plan: Dressing changes every 2 days Basic range of motion exercises ok, avoid strenuous use Ice and elevate Plan for follow-up in the outpatient setting in 10 days for suture removal, we'll be signing off patient at this time. We'll be available for any further questions. Time with Patient: Less than 30
--- NOTE | 2019-06-12 12:01 | P.PN ---
Progress Note - Text Progress Note Date: 06/11/19 The patient had difficulty with a slow urinary flow, urgency and urge incontinence prior to his admission. Last night he was unable to void and was in and out cathed for 950 mL. If the patient continues to have elevated post void residuals a Tomlin catheter should be placed. He could be released with the catheter and have another voiding trial once he is released to a rehab facility. The patient is unable to perform self-catheterization due to his infected right hand.
--- NOTE | 2019-06-12 16:11 | P.CN ---
Psychiatric Consult - . Consult date: 06/12/19 Consult:: 06/12/19 16:03 IDENTIFYING DATA: This patient is a 88-year-old male who currently lives with his in a house is no kids and is retired HISTORY OF PRESENT ILLNESS: The patient and was brought into the hospital for complaints of weakness unable to get up office chair after calling 911. Patient has a long list of medical comorbidities including A. fib, CHF, COPD, TIAs, HLP, hypertension, OA. Psychiatry is consulted for suicidal ideation with no plan. Patient had allegedly stated while in the hospital that he does not want to live anymore however did not give a definitive plan. Since that remark, patient has not endorsed any depression or any more suicidal thoughts. As per nurse taking care of the patient states that patient has not been suicidal and has had no complaints. The patient has been cheerful and cooperative. Patient was interviewed at the bedside by automobile and property underwriter and appeared to be appropriate, directable during the conversation. Patient stated that "I made a mistake admission said that" when asked about his suicidal ideations and stated that he just felt overwhelmed as he has some stressors in his life. He mentioned that his is unable to care for the house and herself and he feels he needs to go back home to help her. He also spoke about different errands that he had to do. Patient claimed that he felt anxious being in the hospital awaiting surgery for his hand. He claimed that he was just "upset and never meant any harm". He states that he does have some mild depression and anxiety. He admitted to poor sleep and "on and off" appetite. He denied any problems concentration or any guilt. He denied any previous manic episodes. He denied any suicidal or homical ideations, intent or plan. Patient denies any auditory, visual hallucinations and denies any paranoia or delusions. 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 He denies any suicide attempts in the past.. He denies being on any psychotropic medications in the past. PAST MEDICAL HISTORY: A. fib, CHF, COPD, TIA, HLP, hypertension, osteoarthritis. ALLERGIES: as per EMR. CHEMICAL DEPENDENCY HISTORY: as per HPI. FAMILY PSYCHIATRIC/SUBSTANCE USE HISTORY: denies SOCIAL HISTORY: States that he was born and raised in [place] and lived in [place] before moving to the area. 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 He claims that he finished high school. He is with no kids lives at home with his . MENTAL STATUS EXAM: General Appearance: Patient appears to be alternately, frail, and appears to be stated age is alert, pleasant, and cooperative. Fair hygiene and fair grooming. Behavior: Patient is calmly lying in bed without any agitated behavior. Cooperative behavior. Speech: Patient's speech is fluent and nonpressured. Mood/Affect: Patient reports their mood is "fine", affect is congruent Suicidality/Homicidality: Patient denies having any suicidal or homicidal ideation intent or plan. Perceptions: Patient denies any auditory or visual hallucinations. Though content/process: There is no evidence of any delusional thought content and thought process is linear and goal-directed. Memory and concentration: AOX3, grossly intact for the purposes of this session. Can spell "WORLD" backwards Judgment and insight: fair IMPRESSIONS: Depressive disorder unspecified PLAN: -At this time patient does NOT meet criteria for inpatient psychiatric admission. -Would recommend the following medication changes/additions: Would recommend to discontinue Restoril at night due to patient's age and risks for potential fall and cognitive impairment. Patient's agreeable to start Remeron 7.5 mg daily at bedtime for mood, appetite, sleep. This medication can be increased to 15 mg daily at bedtime if patient claims that he is not sleeping well. I also ordered melatonin 2 mg for sleep. -Okay to discontinue sitter at this time. -Psychiatry will sign off at this point
--- NOTE | 2019-06-12 17:01 | PN ---
PROGRESS NOTE DATE OF SERVICE: 06/12/2019 REASON FOR FOLLOWUP: Right hand abscess and left leg wound. INTERVAL HISTORY: The patient is currently afebrile. The patient has been breathing comfortably. Denies having any chest pain or any cough. No nausea, no vomiting. No abdominal pain or any worsening pain to the right hand or the left leg wound area. PHYSICAL EXAMINATION: Blood pressure is 157/79 with a pulse of 80, temperature 97.7. He is 100% on room air. General description is an elderly male lying in bed in no distress. RESPIRATORY SYSTEM: Unlabored breathing. Clear to auscultation anteriorly. HEART: S1, S2. Regular rate and rhythm. ABDOMEN: Soft. No tenderness. Right hand wound post drainage of the abscess looks clean. No significant redness or drainage. LABS: Creatinine 0.93. Wound culture of right hand abscess currently pending. DIAGNOSTIC IMPRESSION AND PLAN: 1. Patient with right hand abscess, status post drainage. Waiting for the culture to finalize. Currently on vancomycin; to continue, monitoring kidney function closely. Discharge antibiotic will depend on the culture report. 2. Left leg wound. Continue with Hydrofera Blue dressing and continue with supportive care. MMODL / IJN: [id number] /
[2019-06-12] MEDS ORDERED: WARFARIN 1 MG TAB PO ONE (18:00)
--- NOTE | 2019-06-12 18:15 | P.PN ---
Subjective Progress Note Date: 06/12/19 Principal diagnosis: 88 yo M with PMH of atrial fibrillation, congestive heart failure, COPD, CVA/TIA, hyperlipidemia, hypertension, osteoarthritis, recurrent falls, colon and skin cancer status post surgery, chronic back pain. Chronic left leg wound. He presents because he felt weak and he could not get out of the chair yesterday so him and his decided to call 911. Patient has chronic dyspnea and he attributed that to his COPD and he is a steroid-dependent, however he denies chest pain or coughing. He denies abdominal pain or burning in his urine. However he says that his right arm got swollen about 2 days ago and it hurts. No headache or weakness or numbness. No palpitation or dizziness patient was admitted he had a fever of 100.8, rest of vitals looks stable. showing normal WBC at 10.2 K, rest of labs are unremarkable, INR is 2.8 which is therapeutic. UA is suspicious for infection, influenza is negative. Chest x- ray showing CHF exacerbation with a new mild interstitial edema, no new infiltrates however on admission he got 2 L of normal saline 06/05/2019 Patient is lying in bed comfortable, he still have baseline dyspnea probably related to his COPD and lung disease. He denies chest pain. No abdominal pain or vomiting. His cellulitis in his right upper extremity including the hand and forearm are improving he still complaining from pain in his right hand however it's less tender and the redness is regressing. Swelling also is decreasing. Hand x-ray done yesterday show no fracture. Patient remains on ceftriaxone. Infectious disease consult is appreciated. Continue with Lasix for his CHF. Physical therapy recommended home health care versus subacute rehab. Social work consult is placed 06/06/2019 Patient is awake, he has chronic dyspnea which is at his baseline as per patient, he so Dr. Cunningham #20 [place] to come to the hospital and at that time he had the same level of dyspnea as he confirms to me patient today. His cellulitis and swelling in the right forearm and hand are improving gradually. He had no fever and and CBC is within normal limits. INRs today is 1.4, so besides his usual 2 milligram of warfarin, going to give her another 1 mg. Creatinine is normal. Patient is medically getting close to discharge, discussed with social professionals he needs 3 days stay in the hospital to go to [facility] for subacute rehab, possible discharge on Saturday if he keep improving with no complications 06/07/2019 Patient improving gradually, his cellulitis and swelling and tenderness in the right forearm and hand are improved significantly. Vitals are stable. His repeat urine analysis is almost back to normal with only trace leukocyte esterase. No leukocytosis or fever. Creatinine is normal as well as sodium and potassium levels. INR is 1.5 today we going to give him 5 mg of Coumadin. We'll repeat chest x-ray tomorrow for he has another congestion on presentation 06/08/2019 Patient today is more short of breath, is a bit hypotensive and feeling dizzy. Repeat chest x-ray showing a new infiltrate in the right middle lobe. Also on examination his cellulitis in his right hand and forearm are significantly improving with less swelling, redness and tenderness however he has pockets of purulent material in the middle of his right palm about half inch in diameter with surrounding area of erythema and tenderness. Patient antibiotics was already been changed from subtraction to Zosyn. His warfarin increased yesterday and his INR today is 2.2. Because of worsening pulmonary infection we are calling Pulmonary consult. And orthopedic consult 06/09/2019 Patient will undergo incision and drainage tomorrow patient's INR is elevated to 4.2 Coumadin is being held and patient received vitamin K today. 06/10/2019 Patient's INR has come down patient will undergo incision and drainage today patient is complaining of pain in the right hand but fairly controlled at this time. 06/11/2019 Patient had incision and drainage of his right hand abscess pain is better, patient appears to be bit depressed and apparently complained that he wanted to although he doesn't have a plan and he denied any suicidal ideation to me suggest depressed. Patient presently has a sitter because of his possible suici willa complaints., Psychiatry was consulted. Patient is on vancomycin at this time wound cultures are still pending Constitutional: Denied any fatigue denied any fever. Cardio vascular: denied any chest pain, palpitations Gastrointestinal denied any nausea vomiting Pulmonary: Denied any shortness of breath cough Neurologic denied any new focal deficits All inpatient medications were reviewed and appropriate changes in these medications as dictated in the interval history and assessment and plan. 06/12/2019 Patient is sitting up at the side of the bed in no acute distress. Patient sitter at the bedside as he is currently awaiting a psych consult for making comments of wanting to kill himself yesterday to staff. When talking with the patient today, patient is not suicidal and states that he made a mistake by saying that yesterday as he is under a lot of stress while being hospitalized a nd having his at home alone taking care of personal issues and friends within his age group slowing "dying off" and that he is under major stress. Patient states that he does not want to harm himself and has no plans for this. Patient denies any chest pain, shortness of breath, or palpitations at this time. Patient had his hand redressed from the PA earlier this morning and states that his right hand feels much better today and he is finally able to tolerate touch and can bend all of his fingers as the swelling has decreased. Patient is afebrile. Patient denies any nausea or vomiting and is tolerating diet. Guarded prognosis. Objective - Vital Signs Vital signs: Vital Signs Temp 97.5 F L 06/12/19 07:00 Pulse 92 06/12/19 08:30 Resp 16 06/12/19 07:00 BP 158/67 06/12/19 07:00 Pulse Ox 96 06/12/19 09:15 Intake & Output 06/11/19 06/12/19 06/12/19 18:59 06:59 18:59 Intake Total 240 296 Output Total 225 2 Balance 15 -2 296 Weight 61.8 kg Intake: Oral 240 296 Output: Urine 225 Straight 225 Stool 2 Other: Voiding Method Toilet Toilet Toilet Urinal Incontinent Incontinent Incontinent # Voids 3 1 - Exam GENERAL: The patient is alert and oriented x3, not in any acute distress. Well developed, well nourished. Vital signs are stable. Temp is 97.5F, pulse is 59, respirations are 16, blood pressures 150/67, oxygen saturation is 97% on room air. HEENT: Pupils are round and equally reacting to light. EOMI. No scleral icterus. No conjunctival pallor. Normocephalic, atraumatic. No pharyngeal erythema. No thyromegaly. CARDIOVASCULAR: S1 and S2 present. No murmurs, rubs, or gallops. PULMONARY: Diminished breath sounds at the bases otherwise chest is clear to auscultation, no wheezing or crackles. ABDOMEN: Soft, nontender, nondistended, normoactive bowel sounds. No palpable organomegaly. MUSCULOSKELETAL: No joint swelling or deformity.patient is status post incision and drainage of the right hand. patient has a postsurgical dressing that was just changed today and is dry and intact. EXTREMITIES: No cyanosis, clubbing, or pedal edema. right hand swelling has decreased with positive pulses noted and cap refill <3. NEUROLOGICAL: Gross neurological examination did not reveal any focal deficits. SKIN: No rashes. discoloration noted to bilateral lower extremities and knees - Labs CBC & Chem 7: 06/10/19 06:20 06/12/19 08:49 Labs: Abnormal Lab Results - Last 24 Hours (Table) 06/12/19 06/12/19 Range/Units 08:49 08:49 PT 18.6 H (9.0-12.0) sec INR 1.9 H (<1.2) Chloride 110 H (98-107) mmol/L BUN 28 H (9-20) mg/dL Calcium 8.0 L (8.4-10.2) mg/dL Microbiology - Last 24 Hours (Table) 06/08/19 10:34 Blood Culture - Preliminary Blood No Growth after 96 hours 06/10/19 14:15 Gram Stain - Preliminary Hand - Right Wound Culture - Preliminary 06/10/19 14:15 Gram Stain - Preliminary Hand - Right Wound Culture - Preliminary Assessment and Plan Assessment: Right forearm and hand cellulitis and abscess patient had incision and drainage Patient on vancomycin which will be continued. Infectious disease is following and awaiting for culture finalization -Suicidal ideation: Management as mentioned above Chronic left leg wound, he follows up with wound clinic Chronic atrial fibrillation possibility of Chronic diastolic congestive heart failure not in acute exacerbation actually hypovolemic, received IV fluids which will be discontinued repeat basic metabolic profile tomorrow COPD, not in acute exacerbation with moderate pulmonary hypertension History of CVA/TIA Hypertension Hyperlipidemia Primary osteoarthritis and chronic back pain History of recurrent falls History of colon and skin cancer status post surgery Recommendations and discussion: Recommend to continue current medications, management, and symptomatic treatment. Awaiting psychiatric consult for statements made yesterday about wanting to kill himself. uat tester at bedside for suicide precautions. Jena schmidt states he is not suicidal and has no plans. Patient states that he made those comments out of frustration for being hospitalized and not being at home taking care of his personal issues and that his is at home alone. Case management and social work are following for possible rehab upon discharge. Awaiting culture finalizations for ID recommendations of antibiotics. Currently maintained on IV vanco. Guarded prognosis. Further recommendations to follow.
[2019-06-12] MEDS: MELATONIN 1 MG TAB PO SCH (20:15)
[2019-06-12] MEDS ORDERED: MIRTAZAPINE 15 MG TAB PO SCH (21:00)
[2019-06-13] MEDS: HYDROcodone/APAP 10-325MG 1 EACH TAB PO PRN ×4 (01:02→21:42)
[2019-06-13 07:28] LABS: INR 1.7 (<1.2); Prothrombin Time 16.8 sec (9.0-12.0)
[2019-06-13] MEDS: CALCIUM CARB-VIT D 500MG-200UN 1 EACH TAB PO SCH ×3 (07:50→18:18)
[2019-06-13] MEDS: TAMSULOSIN 0.4 MG CAP.ER.24H PO SCH (07:51)
[2019-06-13] MEDS: SENNOSIDES 8.6 MG TAB PO SCH ×2 (07:52→21:42)
[2019-06-13] MEDS: FINASTERIDE 5 MG TAB PO SCH (07:53)
[2019-06-13] MEDS: predniSONE 5 MG TAB PO SCH ×2 (07:53→21:42)
[2019-06-13] MEDS: FAMOTIDINE 20 MG TAB PO SCH (07:53)
[2019-06-13] MEDS: BUDESONIDE 0.5 MG/2 ML NEBU INHALATION SCH ×2 (08:07→20:04)
--- NOTE | 2019-06-13 12:16 | P.GSCN ---
History of Present Illness Consult date: 06/13/19 Reason for Consult: Abdominal pain History of present illness: This a 88-year-old male admitted Dr. Philip degroot. Patient states he has abdom inal pain. He is extensive surgical history with multiple laparotomies. He is concerned he may have an incisional hernia. Patient has a midline scar as well as a right upper quadrant scar. Patient's quite thin he can feel mesh below his incisions. He states that his bowels are not working properly Past Medical History Past Medical History: Atrial Fibrillation, Cancer, Heart Failure, COPD, CVA/TIA, Hyperlipidemia, Hypertension, Osteoarthritis (OA), Pneumonia, Prostate Disorder Additional Past Medical History / Comment(s): TIA x 2, balance issues, falls, past fall with acetabular fracture, colon and skin cancer with surgery, R sided abdominal hernia, seasonal allergies, PVD, past bilateral leg wounds, pneumothorax with chest tube when in his 20s after a fall, bilateral tinnitis, chronic back pain, past L2 fracture, recent L4 fracture. History of Any Multi-Drug Resistant Organisms: None Reported Past Surgical History: Heart Catheterization, Hernia Repair Additional Past Surgical History / Comment(s): Laminictomy-lumbar, umbilical and incisional hernia repair, 1990 colon resection and temporary colostomy, skin cancer removal from face, L leg laser vein surgery, bronchoscopy, bilateral lower leg wounds with debridements, bilateral cataract removals. Past Anesthesia/Blood Transfusion Reactions: Postoperative Nausea & Vomiting (PONV) Additional Past Anesthesia/Blood Transfusion Reaction / Comm: Pt has received blood in past without reaction. Past Psychological History: No Psychological Hx Reported Additional Psychological History / Comment(s): Pt resides with his spouse. He states he has depression and in the past thoughts of suicide but not currently. He ambulates with a cane. He drives. He is an [employer] . Smoking Status: Former smoker Past Alcohol Use History: None Reported Additional Past Alcohol Use History / Comment(s): Pt started smoking in 1948 and quit in 1954. 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 Past Drug Use History: None Reported - Past Family History Father Additional Family Medical History / Comment(s): Father had mental health issues. He lived to be 84 yrs old. Mother Family Medical History: Pneumonia Additional Family Medical History / Comment(s): Mother of pneumonia at the age of 29yrs. Brother(s) History Unknown: Yes Family Medical History: Cancer Medications and Allergies Home Medications Medication Instructions Recorded Confirmed Type Finasteride [Proscar] 5 mg PO DAILY 08/28/15 06/03/19 History Tamsulosin HCl [Flomax] 0.4 mg PO DAILY 08/29/15 06/03/19 History predniSONE 5 mg PO BID 07/09/16 06/03/19 History HYDROcodone/APAP 10-325MG [[place] 1 tab PO TID PRN 02/10/18 06/03/19 History 10-325] Lisinopril [Prinivil] 10 mg PO DAILY 02/10/18 06/03/19 History Temazepam [Restoril] 15 mg PO HS PRN 02/10/18 06/03/19 History Furosemide [Lasix] 20 mg PO BID 04/17/18 06/03/19 History Budesonide [Pulmicort] 0.5 mg INHALATION RT-BID 03/15/19 06/03/19 History Warfarin [Coumadin] 1 mg PO DAILY 03/15/19 06/03/19 History Allergies Allergy/AdvReac Type Severity Reaction Status Date / Time No Known Allergies Allergy Verified 06/03/19 18:03 Surgical - Exam Vital Signs Temp Pulse Resp BP Pulse Ox 100.8 F H 114 H 16 132/86 97 06/03/19 17:15 06/03/19 17:15 06/03/19 17:15 06/03/19 17:15 06/03/19 17:15 - General no distress, chronically ill - Eyes PERRL - ENT normal pinna - Neck no masses - Respiratory normal expansion - Cardiovascular Rhythm: regular - Abdomen The patient is quite thin. His BMI is 22. Patient's multiple laparotomies. There is mesh palpable below the skin. I'm unable to see any definite inci sional hernias. Abdomen: soft Results - Labs 06/10/19 06:20 06/12/19 08:49 Abnormal Lab Results - Last 24 Hours (Table) 06/13/19 Range/Units 06:47 PT 16.8 H (9.0-12.0) sec INR 1.7 H (<1.2) Microbiology - Last 24 Hours (Table) 06/10/19 14:15 Anaerobic Culture - Preliminary Hand - Right 06/10/19 14:15 Anaerobic Culture - Preliminary Hand - Right 06/10/19 14:15 Gram Stain - Final Hand - Right Wound Culture - Final 06/10/19 14:15 Gram Stain - Final Hand - Right Wound Culture - Final 06/08/19 10:34 Blood Culture - Preliminary Blood No Growth after 96 hours Assessment and Plan Assessment: Abdominal pain. History of multiple laparotomies. Patient will undergo compu americo tomography scan with oral contrast to evaluate for possible partial small bowel obstruction.
[2019-06-13] MEDS: busPIRone HCl 10 MG TAB PO SCH ×2 (12:42→21:42)
[2019-06-13] MEDS: IOPAMIDOL CONTRAST (ORAL USE) VIAL PO PRN ×2 (12:43→13:58)
[2019-06-13] MEDS ORDERED: VANCOMYCIN TROUGH DUE 1 EACH MISC MISCELLANE ONE (13:00)
[2019-06-13] MEDS: VANCOMYCIN 1,250 MG in SODIUM CHLORIDE 0.9% 250 ML IVPB SCH (15:46)
--- NOTE | 2019-06-13 16:01 | CT ---
EXAMINATION TYPE: CT abdomen pelvis wo con DATE OF EXAM: 06/13/2019 COMPARISON: None HISTORY: Abdominal pain. CT DLP: 550.4 mGycm Automated exposure control for dose reduction was used. TECHNIQUE: Helical acquisition of images was performed from the lung bases through the pelvis. FINDINGS: There are bilateral pleural effusions. There is basilar pulmonary infiltrates and atelectasis. Heart is enlarged. There is atherosclerotic vascular calcification. Liver shows no focal defect. Gallbladder appears normal. There is no evidence of a splenic mass. Ther e is no pancreatic mass. There is no adrenal mass. There is left side upper pole renal cortical 3 cm cyst. There is no hydrone phrosis. Ureters are not dilated. There is no retroperitoneal adenopathy. Bladder distends smoothly. There is some retained fecal material in the large bowel. There is right-sided inguinal hernia that a ppears to contain anterior wall of the cecum without evidence of a bowel obstruction. This appears ne w compared to old CT scan of the pelvis of 09/14/1912. There is no mesenteric edema. There is no sign of a bowel obstruction. There is no ascites or free ai r. 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 There are spondylotic changes in the lumbar spine. The proximal femurs are intact. I see no acut e pelvic fracture. Sacroiliac joints are intact. There is previous surgery with apparent anastomosis in the distal sigmoid colon. IMPRESSION: PREVIOUS SURGERY. MILD CONSTIPATION. BILATERAL PLEURAL EFFUSIONS WITH BASILAR PULMONARY INFILTRATES AND ATELECTASIS THAT APPEAR INCREASED COMPARED TO OLD CT SCAN 11/19/2010. THIS COULD RELATE TO CONGESTIVE HEART FAILURE. There is new small right inguinal hernia compared to old exam. No bowel obstruction.
[2019-06-13] MEDS ORDERED: HYDROmorphone 0.5 MG/0.5 ML SYRINGE IVP PRN (16:50)
[2019-06-13] MEDS ORDERED: WARFARIN 1 MG TAB PO ONE (18:00)
--- NOTE | 2019-06-13 18:11 | PN ---
PROGRESS NOTE DATE OF SERVICE: 06/13/2019 This 88-year-old gentleman who was admitted with right forearm and hand cellulitis also had drainage. The patient also had some multiple medical issues, including suicidal ideation. Patient also had some anxiety. Psychiatry has changed the medications. Patient is also complaining of some abdominal pain and discomfort. CT scan of the abdomen and pelvis which was ordered by myself today showed bilateral pleural effusions with basilar pulmonary infiltrate and atelectasis. Otherwise, a small right inguinal hernia was also noted. The patient is being closely monitored at this time. Pain medication has been adjusted. Past medical history reviewed. REVIEW OF SYSTEMS: CARDIOVASCULAR SYSTEM: No angina, palpitations. RESPIRATORY SYSTEM: As mentioned earlier. GI: As mentioned earlier. : No dysuria or retention. NERVOUS SYSTEM: No numbness, weakness. CURRENT MEDICATIONS: 1. [place] 10 mg t.i.d. p.r.n. 2. Pulmicort 0.5 mg b.i.d. 3. BuSpar 10 mg b.i.d. 4. Os-Nathan with vitamin D p.o. daily. 5. Pepcid 20 mg daily. 6. Proscar 5 mg p.o. daily. 7. Melatonin 2 mg p.o. at bedtime. 8. Remeron 15 mg p.o. at bedtime. 9. Coumadin. 10.Prednisone 5 mg p.o. b.i.d. 11.Senokot 8.6 b.i.d. 12.Flomax. 13.Vancomycin IV. PHYSICAL EXAMINATION: Patient is alert, oriented x3. Pulse is 80, blood pressure 159/90, respiration 17, temperature 98.7, pulse ox 100% on 2 L. HEENT: Conjunctivae normal. NECK: No jugular venous distention. CARDIOVASCULAR SYSTEM: S1, S2 muffled. RESPIRATORY SYSTEM: Breath sounds diminished at the bases. A few rhonchi. No crackles. ABDOMEN: Soft, non-tender. LEGS: No edema. No swelling. NERVOUS SYSTEM: No focal deficit. LABS: INR 1.7. Sodium 139, potassium 4.4. CBC was noted. ASSESSMENT: 1. Right forearm and hand cellulitis with abscess, status post incision and drainage. Cultures are negative so far. 2. Suicidal ideations. 3. Abdominal pain with possible right inguinal hernia. 4. Chronic left leg wound; followed up in the wound care clinic. 5. Chronic atrial fibrillation. 6. Congestive heart failure with chronic diastolic dysfunction. No evidence of an acute exacerbation. 7. Chronic obstructive pulmonary disease, not in exacerbation. 8. History of cerebrovascular accident, transient ischemic attack. 9. Hypertension. 10.Hyperlipidemia. 11.History of primary degenerative joint disease. 12.History of recurrent falls. 13.History of colon and skin cancer, status post surgery. 14.NO CODE, NO CPR, NO VENT. RECOMMENDATIONS AND DISCUSSION: In this 88-year-old gentleman who presented with multiple complex medical issues, we will monitor the patient closely, continue the current medications, continue with symptomatic treatment. Otherwise at this time I recommend continuing with broad- spectrum IV antibiotics. Closely with Infectious Disease. DVT prophylaxis. The patient is also on prednisone 5 mg p.o. b.i.d. Remeron has been recommended by Psychiatry, which may be increased. Follow closely with Psychiatry for any adjustment for treatment of anxiety and depression. Pain medications. The prognosis is extremely guarded because of multiple complex medical issues. Further recommendations to follow. See orders for further details. MMODL / IJN: [id number] /
[2019-06-13] MEDS: MELATONIN 1 MG TAB PO SCH (21:42)
[2019-06-13] MEDS: MIRTAZAPINE 15 MG TAB PO SCH (21:42)
[2019-06-14 07:32] LABS: INR 1.7 (<1.2)
[2019-06-14] MEDS ORDERED: VANCOMYCIN 1,000 MG in SODIUM CHLORIDE 0.9% 250 ML IVPB SCH (08:00)
[2019-06-14] MEDS: BUDESONIDE 0.5 MG/2 ML NEBU INHALATION SCH ×2 (09:06→18:26)
[2019-06-14] MEDS: FINASTERIDE 5 MG TAB PO SCH (09:25)
[2019-06-14] MEDS: SENNOSIDES 8.6 MG TAB PO SCH ×2 (09:26→22:04)
[2019-06-14] MEDS: predniSONE 5 MG TAB PO SCH ×2 (09:26→22:05)
[2019-06-14] MEDS: FAMOTIDINE 20 MG TAB PO SCH (09:26)
[2019-06-14] MEDS: TAMSULOSIN 0.4 MG CAP.ER.24H PO SCH (09:26)
[2019-06-14] MEDS: CALCIUM CARB-VIT D 500MG-200UN 1 EACH TAB PO SCH ×3 (09:26→18:21)
[2019-06-14] MEDS: busPIRone HCl 10 MG TAB PO SCH ×2 (09:27→22:05)
[2019-06-14] MEDS: HYDROcodone/APAP 10-325MG 1 EACH TAB PO PRN ×2 (09:51→18:05)
--- NOTE | 2019-06-14 10:26 | P.PN ---
Progress Note - Text Progress Note Date: 06/14/19 The patient is resting comfortably in his bed. His CAT scan was reviewed. Patient has a large right inguinal hernia with a portion of the cecum within the hernia. On exam his vital signs are stable. His abdomen is soft. The hernia is reducible. Patient is scheduled for open repair of right inguinal hernia in the a.m.
[2019-06-14] MEDS ORDERED: PHYTONADIONE 10 MG in SODIUM CHLORIDE 0.9% 50 ML IVPB STA (10:30)
[2019-06-14 13:36] LABS: Basophils # (A) 0.1 k/uL (0-0.2); Basophils % (A) 1 %; Eosinophils # (A) 0.2 k/uL (0-0.7); Eosinophils % (A) 3 %; HCT 33.6 % (39.0-53.0); HGB 10.5 gm/dL (13.0-17.5); Hypochromasia Marked; Lymphocytes # (A) 0.8 k/uL (1.0-4.8); Lymphocytes % (A) 10 %; MCH 28.2 pg (25.0-35.0); MCHC 31.1 g/dL (31.0-37.0); MCV 90.7 fL (80.0-100.0); Mean Platelet Volume 6.4; Monocytes # (A) 0.3 k/uL (0-1.0); Monocytes % (A) 4 %; Neutrophils # (A) 7.1 k/uL (1.3-7.7); Neutrophils % (A) 82 %; Platelet Count 266 k/uL (150-450); RBC 3.71 m/uL (4.30-5.90); RDW 13.3 % (11.5-15.5); WBC 8.7 k/uL (3.8-10.6)
[2019-06-14] MEDS ORDERED: WARFARIN 2 MG TAB PO ONE (18:00)
[2019-06-14] MEDS ORDERED: FUROSEMIDE 10 MG/ML 2 ML VIAL IV ONE (18:10)
[2019-06-14] MEDS: ALBUTEROL NEBULIZED 2.5 MG/3 ML INHALATION PRN (18:26)
--- NOTE | 2019-06-14 20:51 | PN ---
PROGRESS NOTE DATE OF SERVICE: 06/14/2019 This 88-year-old gentleman admitted with significant right forearm and hand cellulitis and drainage is being closely monitored. The patient also complaining of severe abdominal pain. The patient had a CT scan of the abdomen and pelvis recommended by surgery which showed bilateral pleural effusion and as well as right inguinal hernia. Dr. Lange is planning surgery tomorrow. PAST MEDICAL HISTORY: Reviewed. REVIEW OF SYSTEMS: CARDIOVASCULAR SYSTEM: No angina. RESPIRATORY: As mentioned earlier. GI: As mentioned earlier. : No dysuria. NERVOUS SYSTEM: No weakness. CURRENT MEDICATIONS ARE: 1. [place] 10 mg q.6h p.r.n. 2. Pulmicort. 3. BuSpar. 4. Os-Nathan with vitamin D. 5. Proscar. 6. Dilaudid. 7. Melatonin. 8. Remeron. 9. Senokot. 10.Flomax. 11.Vancomycin. PHYSICAL EXAMINATION: Alert oriented x3. Pulse 94, blood pressure 151/70, respiration 16, temperature 98, pulse ox 100% on 2 L. HEENT: Conjunctivae normal. Oral mucosa moist. NECK: No jugular venous distention. No lymph node enlargement. CARDIOVASCULAR: S1, S2. RESPIRATORY: Diminished breath sounds at the bases. Scattered rhonchi and crackles. ABDOMEN: Soft. Mild diffuse discomfort on palpation. No mass palpable. LEGS: No edema, no swelling. NERVOUS SYSTEM: No focal deficits. LABS: WBC 8.2, hemoglobin 10.5. ASSESSMENT: 1. Right forearm and hand cellulitis with abscess status post incision and drainage, culture negative so far, present on admission. 2. Abdominal pain with right inguinal hernia for laparoscopic inguinal hernia repair tomorrow. 3. Suicidal ideations, improving. 4. Abdominal pain. 5. Chronic left leg wound follow up in the Wound Care Clinic. 6. Chronic atrial fibrillation. 7. Congestive heart failure with chronic diastolic dysfunction. No evidence of acute exacerbation. 8. Chronic obstructive pulmonary disease with no acute exacerbation. 9. History of cerebrovascular accident, transient ischemic attack. 10.Hypertension. 11.Hyperlipidemia. 12.History of degenerative joint disease, primary. 13.History of recurrent falls. 14.History of skin cancer, status post surgery. 15.NO CODE, NO CPR, NO VENT. RECOMMENDATIONS AND DISCUSSION: Continue current medications, continue to monitor, continue symptomatic treatment. Otherwise, at this time I recommend to hold anticoagulants for surgery. Monitor PT, INR closely. Closely follow with Dr. Lange. Further recommendations to follow. MMODL / IJN: [id number] /
[2019-06-14] MEDS: MELATONIN 1 MG TAB PO SCH (22:04)
[2019-06-14] MEDS: MIRTAZAPINE 15 MG TAB PO SCH (22:04)
--- NOTE | 2019-06-14 23:03 | PN ---
PROGRESS NOTE DATE OF SERVICE: 06/14/2019. REASON FOR FOLLOWUP: Right palm abscess. INTERVAL HISTORY: The patient is currently afebrile. Patient has been breathing comfortably. Denies having any chest pain or any cough or pain to the right hand area. No pain to the left leg. PHYSICAL EXAMINATION: Blood pressure 137/70 with a pulse of 77, temperature 98. He is 99% on 4 L nasal cannula. General description is an elderly male lying in bed in no distress. Respiratory system: Unlabored breathing. Clear to auscultation anteriorly. Heart S1, S2. Regular rate and rhythm. Abdomen soft, no tenderness. Right arm wound is currently dressed up. No obvious drainage on the dressing. LABS: Hemoglobin is 12.5, white count 8.7. The abscess culture has been negative so far. DIAGNOSTIC IMPRESSION AND PLAN: Patient with right arm abscess status post drainage. Culture has been negative for resistant pathogen. Vancomycin will be discontinued. Finish a short course of oral Keflex. Monitor clinical course closely. MMODL / IJN: [id number] /
[2019-06-15] MEDS: HYDROcodone/APAP 10-325MG 1 EACH TAB PO PRN ×3 (02:16→23:09)
[2019-06-15] MEDS: busPIRone HCl 10 MG TAB PO SCH ×2 (07:39→20:04)
[2019-06-15] MEDS: FINASTERIDE 5 MG TAB PO SCH (07:43)
[2019-06-15] MEDS: SENNOSIDES 8.6 MG TAB PO SCH ×2 (07:43→20:04)
[2019-06-15] MEDS: TAMSULOSIN 0.4 MG CAP.ER.24H PO SCH (07:43)
[2019-06-15] MEDS: CALCIUM CARB-VIT D 500MG-200UN 1 EACH TAB PO SCH ×3 (07:44→16:58)
[2019-06-15] MEDS: FAMOTIDINE 20 MG TAB PO SCH (07:44)
[2019-06-15] MEDS: predniSONE 5 MG TAB PO SCH ×2 (07:44→20:05)
[2019-06-15] MEDS: BUDESONIDE 0.5 MG/2 ML NEBU INHALATION SCH ×2 (07:57→19:49)
[2019-06-15 08:22] LABS: INR 1.3 (<1.2); Prothrombin Time 13.3 sec (9.0-12.0)
[2019-06-15 08:24] LABS: Calcium 8.3 mg/dL (8.4-10.2); Potassium 4.7 mmol/L (3.5-5.1)
[2019-06-15 08:25] LABS: Basophils # (A) 0.1 k/uL (0-0.2); Basophils % (A) 2 %; Eosinophils # (A) 0.3 k/uL (0-0.7); Eosinophils % (A) 4 %; HCT 33.2 % (39.0-53.0); HGB 9.8 gm/dL (13.0-17.5); Hypochromasia Marked; Lymphocytes # (A) 1.1 k/uL (1.0-4.8); Lymphocytes % (A) 17 %; MCH 27.1 pg (25.0-35.0); MCHC 29.6 g/dL (31.0-37.0); MCV 91.5 fL (80.0-100.0); Mean Platelet Volume 7.5; Monocytes # (A) 0.3 k/uL (0-1.0); Monocytes % (A) 5 %; Neutrophils # (A) 4.8 k/uL (1.3-7.7); Neutrophils % (A) 71 %; Platelet Count 265 k/uL (150-450); RBC 3.63 m/uL (4.30-5.90); RDW 13.9 % (11.5-15.5); WBC 6.7 k/uL (3.8-10.6)
[2019-06-15] MEDS ORDERED: CEPHALEXIN 500 MG CAP PO SCH (09:00)
[2019-06-15] MEDS ORDERED: ALPRAZolam 0.5 MG TAB PO STA (11:09)
[2019-06-15] MEDS ORDERED: IV FLUID CONTINUATION 800 ML IV ONE (11:35)
[2019-06-15] MEDS ORDERED: fentaNYL (PF) 50 MCG/ML 2 ML AMP IV ONE (12:21)
[2019-06-15] MEDS ORDERED: MIDAZOLAM 2 MG/2 ML VIAL IV ONE (12:21)
--- NOTE | 2019-06-15 12:58 | P.PN ---
Subjective Progress Note Date: 06/15/19 Principal diagnosis: 88 yo M with PMH of atrial fibrillation, congestive heart failure, COPD, CVA/TIA, hyperlipidemia, hypertension, osteoarthritis, recurrent falls, colon and skin cancer status post surgery, chronic back pain. Chronic left leg wound. He presents because he felt weak and he could not get out of the chair yesterday so him and his decided to call 911. Patient has chronic dyspnea and he attributed that to his COPD and he is a steroid-dependent, however he denies chest pain or coughing. He denies abdominal pain or burning in his urine. However he says that his right arm got swollen about 2 days ago and it hurts. No headache or weakness or numbness. No palpitation or dizziness patient was admitted he had a fever of 100.8, rest of vitals looks stable. showing normal WBC at 10.2 K, rest of labs are unremarkable, INR is 2.8 which is therapeutic. UA is suspicious for infection, influenza is negative. Chest x- ray showing CHF exacerbation with a new mild interstitial edema, no new infiltrates however on admission he got 2 L of normal saline 06/05/2019 Patient is lying in bed comfortable, he still have baseline dyspnea probably related to his COPD and lung disease. He denies chest pain. No abdominal pain or vomiting. His cellulitis in his right upper extremity including the hand and forearm are improving he still complaining from pain in his right hand however it's less tender and the redness is regressing. Swelling also is decreasing. Hand x-ray done yesterday show no fracture. Patient remains on ceftriaxone. Infectious disease consult is appreciated. Continue with Lasix for his CHF. Physical therapy recommended home health care versus subacute rehab. Social work consult is placed 06/06/2019 Patient is awake, he has chronic dyspnea which is at his baseline as per patient, he so Dr. Cunningham #20 [place] to come to the hospital and at that time he had the same level of dyspnea as he confirms to me patient today. His cellulitis and swelling in the right forearm and hand are improving gradually. He had no fever and and CBC is within normal limits. INRs today is 1.4, so besides his usual 2 milligram of warfarin, going to give her another 1 mg. Creatinine is normal. Patient is medically getting close to discharge, discussed with social worker assistant he needs 3 days stay in the hospital to go to [facility] for subacute rehab, possible discharge on Saturday if he keep improving with no complications 06/07/2019 Patient improving gradually, his cellulitis and swelling and tenderness in the right forearm and hand are improved significantly. Vitals are stable. His repeat urine analysis is almost back to normal with only trace leukocyte esterase. No leukocytosis or fever. Creatinine is normal as well as sodium and potassium levels. INR is 1.5 today we going to give him 5 mg of Coumadin. We'll repeat chest x-ray tomorrow for he has another congestion on presentation 06/08/2019 Patient today is more short of breath, is a bit hypotensive and feeling dizzy. Repeat chest x-ray showing a new infiltrate in the right middle lobe. Also on examination his cellulitis in his right hand and forearm are significantly improving with less swelling, redness and tenderness however he has pockets of purulent material in the middle of his right palm about half inch in diameter with surrounding area of erythema and tenderness. Patient antibiotics was already been changed from subtraction to Zosyn. His warfarin increased yesterday and his INR today is 2.2. Because of worsening pulmonary infection we are calling Pulmonary consult. And orthopedic consult 06/09/2019 Patient will undergo incision and drainage tomorrow patient's INR is elevated to 4.2 Coumadin is being held and patient received vitamin K today. 06/10/2019 Patient's INR has come down patient will undergo incision and drainage today patient is complaining of pain in the right hand but fairly controlled at this time. 06/11/2019 Patient had incision and drainage of his right hand abscess pain is better, patient appears to be bit depressed and apparently complained that he wanted to although he doesn't have a plan and he denied any suicidal ideation to me suggest depressed. Patient presently has a sitter because of his possible suici willa complaints., Psychiatry was consulted. Patient is on vancomycin at this time wound cultures are still pending Constitutional: Denied any fatigue denied any fever. Cardio vascular: denied any chest pain, palpitations Gastrointestinal denied any nausea vomiting Pulmonary: Denied any shortness of breath cough Neurologic denied any new focal deficits All inpatient medications were reviewed and appropriate changes in these medications as dictated in the interval history and assessment and plan. 06/12/2019 Patient is sitting up at the side of the bed in no acute distress. Patient sitter at the bedside as he is currently awaiting a psych consult for making comments of wanting to kill himself yesterday to staff. When talking with the patient today, patient is not suicidal and states that he made a mistake by saying that yesterday as he is under a lot of stress while being hospitalized a nd having his at home alone taking care of personal issues and friends within his age group slowing "dying off" and that he is under major stress. Patient states that he does not want to harm himself and has no plans for this. Patient denies any chest pain, shortness of breath, or palpitations at this time. Patient had his hand redressed from the PA earlier this morning and states that his right hand feels much better today and he is finally able to tolerate touch and can bend all of his fingers as the swelling has decreased. Patient is afebrile. Patient denies any nausea or vomiting and is tolerating diet. Guarded prognosis. 06/15/2019 Patient is sitting up in bed in no acute distress and currently awaiting surgery Dr. Lange this morning for right inguinal hernia repair and is feeling slightly anxious. A one-time dose of Xanax will be ordered. Patient denies any chest pain, shortness of breath, or palpitations at this time. Patient is afebrile. Patient denies any nausea or vomiting and has been nothing by mouth since midnight. Patient is having some mild abdominal discomfort on the right side. Dressing on the right hand is still dry and intact and has currently been switched over to oral antibiotics per infectious disease recommendations. Will await surgical report. Guarded prognosis. Objective - Vital Signs Vital signs: Vital Signs Temp 97.4 F L 06/15/19 11:50 Pulse 103 H 06/15/19 12:39 Resp 16 06/15/19 12:39 BP 159/70 06/15/19 12:39 Pulse Ox 100 06/15/19 12:39 Intake & Output 06/14/19 06/15/19 06/15/19 18:59 06:59 18:59 Intake Total 655 Output Total 358 077 Balance 319 -522 -208 Weight 68.8 kg Intake: Intake, IV Titration 175 Amount Phytonadione 10 mg In 50 Sodium Chloride 0.9% 50 ml @ 100 mls/hr IVPB ONCE STA Rx#:[id number] Vancomycin 1,000 mg In 125 Sodium Chloride 0.9% 250 ml @ 125 mls/hr IVPB Q16H [facility] Rx#:[id number] Oral 480 Output: Urine 500 450 Stool 1 Other: Voiding Method Toilet Toilet Incontinent Incontinent # Voids 2 2 - Exam GENERAL: The patient is alert and oriented x3, not in any acute distress. Slightly anxious. Well developed, well nourished. Vital signs are stable. Temp is 97.7F, pulse is 70, respirations are 16, blood pressures 170/81, oxygen saturation is 98% on room air. HEENT: Pupils are round and equally reacting to light. EOMI. No scleral icterus. No conjunctival pallor. Normocephalic, atraumatic. No pharyngeal erythema. No thyromegaly. CARDIOVASCULAR: S1 and S2 present. No murmurs, rubs, or gallops. PULMONARY: Diminished breath sounds at the bases otherwise chest is clear to auscultation, no wheezing or crackles. ABDOMEN: Soft, mild tenderness noted on the right side lower abdomen, nondistended, normoactive bowel sounds. No palpable organomegaly. MUSCULOSKELETAL: No joint swelling or deformity.patient is status post incision and drainage of the right hand. Right hand dressing is dry and intact. EXTREMITIES: No cyanosis, clubbing, or pedal edema. right hand swelling has decreased with positive pulses noted and cap refill <3. NEUROLOGICAL: Gross neurological examination did not reveal any focal deficits. SKIN: No rashes. discoloration noted to bilateral lower extremities and knees - Labs CBC & Chem 7: 06/15/19 07:46 06/15/19 07:46 Labs: Abnormal Lab Results - Last 24 Hours (Table) 06/14/19 06/15/19 06/15/19 Range/Units 13:17 07:46 07:46 RBC 3.71 L 3.63 L (4.30-5.90) m/uL Hgb 10.5 L 9.8 L (13.0-17.5) gm/dL Hct 33.6 L 33.2 L (39.0-53.0) % MCHC 29.6 L (31.0-37.0) g/dL Lymphocytes # 0.8 L (1.0-4.8) k/uL PT (9.0-12.0) sec INR (<1.2) Carbon Dioxide 31 H (22-30) mmol/L BUN 22 H (9-20) mg/dL Calcium 8.3 L (8.4-10.2) mg/dL 06/15/19 Range/Units 07:46 RBC (4.30-5.90) m/uL Hgb (13.0-17.5) gm/dL Hct (39.0-53.0) % MCHC (31.0-37.0) g/dL Lymphocytes # (1.0-4.8) k/uL PT 13.3 H (9.0-12.0) sec INR 1.3 H (<1.2) Carbon Dioxide (22-30) mmol/L BUN (9-20) mg/dL Calcium (8.4-10.2) mg/dL Microbiology - Last 24 Hours (Table) 06/10/19 14:15 Anaerobic Culture - Final Hand - Right 06/10/19 14:15 Anaerobic Culture - Final Hand - Right 06/08/19 10:34 Blood Culture - Final Blood No Growth after 144 hours Assessment and Plan Assessment: Right forearm and hand cellulitis and abscess patient had incision and drainage, present on admission. Cultures have been negative and patient has been switched to oral Keflex per infectious disease. Infectious disease is following -Abdominal pain with right inguinal hernia. Surgery has been consulted and patient is undergoing a laparoscopic inguinal hernia repair today with Dr. Lange -Suicidal ideation, improved. Patient is not suicidal and has been seen and cleared by psychiatry. Chronic left leg wound, he follows up with wound clinic Chronic atrial fibrillation Congestive heart failure with Chronic diastolic dysfunction. No evidence of acute exacerbation acute exacerbation COPD, not in acute exacerbation with moderate pulmonary hypertension History of CVA/TIA Hypertension Hyperlipidemia History of degenerative joint disease, primary History of recurrent falls History of skin cancer status post surgery No code, no CPR, no vent Recommendations and discussion: Recommend to continue current medications, management, and symptomatic treatment. Patient is awaiting surgery at this time for laparoscopic right inguinal hernia repair. Will await report. Case management and social work are following for possible rehab upon discharge. Infectious disease is following and patient has been transition to oral antibiotics in the form of Keflex and will continue this upon discharge. Repeat labs in the morning and will continue to monitor PT/INR closely. Guarded prognosis. Further recommendations to follow.
--- NOTE | 2019-06-15 13:10 | P.ANPRN ---
Procedure Note - Anesthesia - Nerve Block Performed Right Transversus Abdominis Single Time Out Performed: Yes Date of Procedure: 06/15/19 Procedure Start Time: 12:33 Procedure Stop Time: 12:40 Location of Patient Procedure: PreOp Indication: Acute Post-Operative Pain, Requested by Surgeon (rudy) Specifically requested for management of pain by DrLena: Patrice Lange Sedation Type: Sedate with meaningful contact maintained Preparation: Sterile Prep Position: Supine Catheter: None Needle Types: Pajunk Needle Gauge: 18, 20 Ultrasound used to visualize needle placement: Yes Ultrasound used to observe medication spread: Yes Injectate: Other (see comment) (0.25% ropivacaine/0.5% lidocaine 25 mL) Adjunct: Epinephrine (see comment for dilution ratio) (1:200,000) Blood Aspirated: No Pain Paresthesia on Injection Noted: No Resistance on Injection: Normal Image Stored and Saved: Yes Events: Uneventful and Well Tolerated
[2019-06-15] MEDS ORDERED: HEPARIN SODIUM,PORCINE 5,000 UNIT/ML 1 ML VIAL SQ ONE (13:17)
[2019-06-15] MEDS ORDERED: ROPIVACAINE 5 MG/ML 30 ML VIAL ONE (14:19)
[2019-06-15] MEDS ORDERED: NEOSTIGMINE 1 MG/ML 10 ML VIAL ONE (14:19)
[2019-06-15] MEDS ORDERED: PROPOFOL 10 MG/ML 20 ML VIAL IV ONE (14:19)
[2019-06-15] MEDS ORDERED: PHENYLEPHRINE-0.9% NACL SYG 1 MG/10 ML SYRINGE ONE (14:19)
[2019-06-15] MEDS ORDERED: SUCCINYLCHOLINE CHLORIDE 100 MG/5 ML SYR IV ONE (14:19)
[2019-06-15] MEDS ORDERED: fentaNYL (PF) 50 MCG/ML 2 ML AMP ONE (14:19)
[2019-06-15] MEDS ORDERED: ROCURONIUM BROMIDE 10 MG/ML 10 ML VIAL IV ONE (14:19)
[2019-06-15] MEDS ORDERED: LIDOCAINE 1% INJ 10MG/ML (20 ML MDV) ONE (14:19)
[2019-06-15] MEDS ORDERED: GLYCOPYRROLATE 0.2 MG/ML 2 ML VIAL ONE (14:19)
[2019-06-15] MEDS ORDERED: LIDOCAINE 1%-EPI 1:100,000 20 ML VIAL ONE (14:19)
[2019-06-15] MEDS ORDERED: SODIUM CHLORIDE 0.9% 100 ML with ceFAZolin 2,000 MG IV ONE ×2 (14:39)
[2019-06-15] MEDS ORDERED: LACTATED RINGERS 1,000 ML IV ONE (15:00)
--- NOTE | 2019-06-15 16:05 | P.OP ---
Date of Procedure: 06/15/19 Preoperative Diagnosis: + Right inguinal hernia Postoperative Diagnosis: Right inguinal hernia Procedure(s) Performed: Open repair of right inguinal hernia with Prolene hernia mesh system plug Anesthesia: HARDEEPA Surgeon: Patrice Lange Estimated Blood Loss (ml): 5 Pathology: none sent Condition: stable Disposition: PACU Description of Procedure: MDESCRIPTION OF PROCEDURE: The patient was placed in the supine position after receiving adequate anesthesia. Patients groin was prepped and draped in the usual sterile fashion. A standard hernia incision was made and the subcutaneous tissues were divided with electrocautery. The fascia of the external oblique was exposed. A harmony the fascia was made with #15 blade. The fascia was then opened with pair of Metzenbaum scissors. A Weitlaner retractor was placed in the wound and the cord structures were grasped and dissected free from the inguinal canal. A rubber [place] drain was placed around the cord structures. The hernial sac was seen on the anterior-medial portion of the cord and this was dissected free from the cord. The hernia sac was then invaginated to the peritoneal cavity. Using blunt finger dissection, the preperitoneal space was dissected and then the Prolene hernial mesh plug was placed into the prepared space. The inferior leaf was expanded. The superior leaf was secured to the pubic tubercle using 2-0 Prolene suture. The lateral portion of the superior leaf was incised and cords tied and secured to the transversalis fascia using 2-0 Prolene suture. Fascia of the external oblique was then closed using #0 Vicryl suture. The [place] drain was removed. The Scarpas fascia was then closed with 3-0 Vicryl suture and skin was closed with ludwig. The patient tolerated the procedure well.
[2019-06-15] MEDS: MIRTAZAPINE 15 MG TAB PO SCH (20:04)
[2019-06-15] MEDS: CEPHALEXIN 500 MG CAP PO SCH (20:04)
[2019-06-15] MEDS: MELATONIN 1 MG TAB PO SCH (20:04)
[2019-06-16] MEDS: HYDROcodone/APAP 10-325MG 1 EACH TAB PO PRN ×3 (04:56→20:08)
[2019-06-16] MEDS: busPIRone HCl 10 MG TAB PO SCH ×2 (06:47→20:10)
[2019-06-16] MEDS: TAMSULOSIN 0.4 MG CAP.ER.24H PO SCH (07:57)
[2019-06-16] MEDS: CALCIUM CARB-VIT D 500MG-200UN 1 EACH TAB PO SCH ×3 (07:57→18:19)
[2019-06-16] MEDS: predniSONE 5 MG TAB PO SCH ×2 (07:57→20:10)
[2019-06-16] MEDS: SENNOSIDES 8.6 MG TAB PO SCH ×2 (07:58→20:09)
[2019-06-16] MEDS: FINASTERIDE 5 MG TAB PO SCH (07:58)
[2019-06-16] MEDS: CEPHALEXIN 500 MG CAP PO SCH ×2 (07:58→20:08)
[2019-06-16] MEDS: FAMOTIDINE 20 MG TAB PO SCH (07:58)
[2019-06-16] MEDS: ALBUTEROL NEBULIZED 2.5 MG/3 ML INHALATION PRN (08:51)
[2019-06-16] MEDS: BUDESONIDE 0.5 MG/2 ML NEBU INHALATION SCH ×2 (08:51→20:47)
[2019-06-16 10:01] LABS: INR 1.2 (<1.2); Prothrombin Time 12.1 sec (9.0-12.0)
[2019-06-16 10:29] LABS: Calcium 8.5 mg/dL (8.4-10.2); Potassium 4.5 mmol/L (3.5-5.1)
[2019-06-16 10:31] LABS: Basophils # (A) 0.1 k/uL (0-0.2); Basophils % (A) 1 %; Eosinophils # (A) 0.2 k/uL (0-0.7); Eosinophils % (A) 2 %; HCT 35.7 % (39.0-53.0); HGB 10.8 gm/dL (13.0-17.5); Hypochromasia Marked; Lymphocytes % (A) 12 %; MCH 27.6 pg (25.0-35.0); MCHC 30.4 g/dL (31.0-37.0); MCV 90.8 fL (80.0-100.0); Mean Platelet Volume 6.4; Monocytes # (A) 0.3 k/uL (0-1.0); Monocytes % (A) 4 %; Neutrophils # (A) 6.3 k/uL (1.3-7.7); Neutrophils % (A) 79 %; Platelet Count 291 k/uL (150-450); RBC 3.94 m/uL (4.30-5.90); RDW 13.5 % (11.5-15.5)
[2019-06-16] MEDS: FUROSEMIDE 20 MG TAB PO SCH (12:01)
--- NOTE | 2019-06-16 13:02 | PN ---
PROGRESS NOTE DATE OF SERVICE: 06/16/2019 REASON FOR FOLLOWUP: Right hand palm abscess, cellulitis of the left leg wound. INTERVAL HISTORY: The patient is currently afebrile. The patient seems to be upset for not getting his Lasix. He is currently saturating 98% on room air. Denies having any chest pain, no shortness of breath. No cough. No pain to the right palm and no diarrhea. PHYSICAL EXAMINATION: Blood pressure 135/75 with a pulse of 77, temperature 98.4, he is 98% on room air. General description is an elderly male, lying in bed in no distress. RESPIRATORY SYSTEM: Unlabored breathing, clear to auscultation anteriorly. HEART: S1, S2. Regular rate and rhythm. ABDOMEN: Soft, no tenderness. Right hand wound is consistent, will continue with the dressing. LABS: Hemoglobin is 10.1, white count of 8.0, BUN of 21, creatinine 0.90. DIAGNOSTIC IMPRESSION AND PLAN: 1. Patient with right hand cellulitis with palm abscess, status post drainage, culture has been negative for resistant pathogen, on a short course of oral Keflex to continue. 2. Left leg wound. Local wound care with Hydrofera Blue dressing. Continue supportive care. MMODL / IJN: [id number] /
[2019-06-16 15:14] VITALS: BMI 21.6
--- NOTE | 2019-06-16 15:45 | P.PN ---
Subjective Progress Note Date: 06/16/19 CHIEF COMPLAINT: Inguinal hernia HISTORY OF PRESENT ILLNESS: Patient is status post open repair of right inguinal hernia. Postop day #1. Patient examined at the bedside Dr. Lange. Patient reports his pain is tolerable. Denies nausea or vomiting. Tolerating diet. WBC 8.0. Hemoglobin 10.8. PHYSICAL EXAM: VITAL SIGNS: Reviewed. GENERAL: Well-developed in no acute distress. HEENT: No sclera icterus. Extraocular movements grossly intact. Moist buccal mucosa. Head is atraumatic, normocephalic. ABDOMEN: Soft. Nondistended. Nontender. Surgical incision clean dry intact. NEUROLOGIC: Alert and oriented. Cranial nerves II through XII grossly intact. ASSESSMENT: 1. S/P open repair of right inguinal hernia PLAN: 1. Continue diet as tolerated 2. Pain control 3. Activity as tolerated 4. Incentive spirometer 5. Patient to follow up with Dr. Lange outpatient Nurse practitioner note has been reviewed by physician. Signing provider agrees with the documented findings, assessment, and plan of care. Objective - Vital Signs Vital signs: Vital Signs Temp 98.4 F 06/16/19 07:00 Pulse 76 06/16/19 09:05 Resp 16 06/16/19 07:00 BP 135/75 06/16/19 07:00 Pulse Ox 98 06/16/19 07:00 Intake & Output 06/15/19 06/16/19 06/16/19 18:59 06:59 18:59 Intake Total 1050 150 Output Total 1453 1000 Balance -403 150 -1000 Weight 68.3 kg 68.3 kg Intake: IV 1050 Oral 150 Output: Urine 1450 1000 Condom 1000 Estimated Blood Loss 3 Other: Voiding Method Toilet Toilet Incontinent Incontinent # Voids 2 0 - Labs CBC & Chem 7: 06/16/19 08:29 06/16/19 08:29 Labs: Abnormal Lab Results - Last 24 Hours (Table) 06/16/19 06/16/19 06/16/19 Range/Units 08:29 08:29 08:29 RBC 3.94 L (4.30-5.90) m/uL Hgb 10.8 L (13.0-17.5) gm/dL Hct 35.7 L (39.0-53.0) % MCHC 30.4 L (31.0-37.0) g/dL PT 12.1 H (9.0-12.0) sec INR 1.2 H (<1.2) BUN 21 H (9-20) mg/dL Glucose 101 H (74-99) mg/dL
--- NOTE | 2019-06-16 15:59 | P.PN ---
Subjective Progress Note Date: 06/16/19 Principal diagnosis: 88 yo M with PMH of atrial fibrillation, congestive heart failure, COPD, CVA/TIA, hyperlipidemia, hypertension, osteoarthritis, recurrent falls, colon and skin cancer status post surgery, chronic back pain. Chronic left leg wound. He presents because he felt weak and he could not get out of the chair yesterday so him and his decided to call 911. Patient has chronic dyspnea and he attributed that to his COPD and he is a steroid-dependent, however he denies chest pain or coughing. He denies abdominal pain or burning in his urine. However he says that his right arm got swollen about 2 days ago and it hurts. No headache or weakness or numbness. No palpitation or dizziness patient was admitted he had a fever of 100.8, rest of vitals looks stable. showing normal WBC at 10.2 K, rest of labs are unremarkable, INR is 2.8 which is therapeutic. UA is suspicious for infection, influenza is negative. Chest x- ray showing CHF exacerbation with a new mild interstitial edema, no new infiltrates however on admission he got 2 L of normal saline 06/05/2019 Patient is lying in bed comfortable, he still have baseline dyspnea probably related to his COPD and lung disease. He denies chest pain. No abdominal pain or vomiting. His cellulitis in his right upper extremity including the hand and forearm are improving he still complaining from pain in his right hand however it's less tender and the redness is regressing. Swelling also is decreasing. Hand x-ray done yesterday show no fracture. Patient remains on ceftriaxone. Infectious disease consult is appreciated. Continue with Lasix for his CHF. Physical therapy recommended home health care versus subacute rehab. Social work consult is placed 06/06/2019 Patient is awake, he has chronic dyspnea which is at his baseline as per patient, he so Dr. Cunningham #20 [place] to come to the hospital and at that time he had the same level of dyspnea as he confirms to me patient today. His cellulitis and swelling in the right forearm and hand are improving gradually. He had no fever and and CBC is within normal limits. INRs today is 1.4, so besides his usual 2 milligram of warfarin, going to give her another 1 mg. Creatinine is normal. Patient is medically getting close to discharge, discussed with social work assistant he needs 3 days stay in the hospital to go to [facility], possible discharge on Saturday if he keep improving with no complications 06/07/2019 Patient improving gradually, his cellulitis and swelling and tenderness in the right forearm and hand are improved significantly. Vitals are stable. His repeat urine analysis is almost back to normal with only trace leukocyte esterase. No leukocytosis or fever. Creatinine is normal as well as sodium and potassium levels. INR is 1.5 today we going to give him 5 mg of Coumadin. We'll repeat chest x-ray tomorrow for he has another congestion on presentation 06/08/2019 Patient today is more short of breath, is a bit hypotensive and feeling dizzy. Repeat chest x-ray showing a new infiltrate in the right middle lobe. Also on examination his cellulitis in his right hand and forearm are significantly improving with less swelling, redness and tenderness however he has pockets of purulent material in the middle of his right palm about half inch in diameter with surrounding area of erythema and tenderness. Patient antibiotics was already been changed from subtraction to Zosyn. His warfarin increased yesterday and his INR today is 2.2. Because of worsening pulmonary infection we are calling Pulmonary consult. And orthopedic consult 06/09/2019 Patient will undergo incision and drainage tomorrow patient's INR is elevated to 4.2 Coumadin is being held and patient received vitamin K today. 06/10/2019 Patient's INR has come down patient will undergo incision and drainage today patient is complaining of pain in the right hand but fairly controlled at this time. 06/11/2019 Patient had incision and drainage of his right hand abscess pain is better, patient appears to be bit depressed and apparently complained that he wanted to although he doesn't have a plan and he denied any suicidal ideation to me suggest depressed. Patient presently has a sitter because of his possible suici willa complaints., Psychiatry was consulted. Patient is on vancomycin at this time wound cultures are still pending Constitutional: Denied any fatigue denied any fever. Cardio vascular: denied any chest pain, palpitations Gastrointestinal denied any nausea vomiting Pulmonary: Denied any shortness of breath cough Neurologic denied any new focal deficits All inpatient medications were reviewed and appropriate changes in these medications as dictated in the interval history and assessment and plan. 06/12/2019 Patient is sitting up at the side of the bed in no acute distress. Patient sitter at the bedside as he is currently awaiting a psych consult for making comments of wanting to kill himself yesterday to staff. When talking with the patient today, patient is not suicidal and states that he made a mistake by saying that yesterday as he is under a lot of stress while being hospitalized a nd having his at home alone taking care of personal issues and friends within his age group slowing "dying off" and that he is under major stress. Patient states that he does not want to harm himself and has no plans for this. Patient denies any chest pain, shortness of breath, or palpitations at this time. Patient had his hand redressed from the PA earlier this morning and states that his right hand feels much better today and he is finally able to tolerate touch and can bend all of his fingers as the swelling has decreased. Patient is afebrile. Patient denies any nausea or vomiting and is tolerating diet. Guarded prognosis. 06/15/2019 Patient is sitting up in bed in no acute distress and currently awaiting surgery Dr. Lange this morning for right inguinal hernia repair and is feeling slightly anxious. A one-time dose of Xanax will be ordered. Patient denies any chest pain, shortness of breath, or palpitations at this time. Patient is afebrile. Patient denies any nausea or vomiting and has been nothing by mouth since midnight. Patient is having some mild abdominal discomfort on the right side. Dressing on the right hand is still dry and intact and has currently been switched over to oral antibiotics per infectious disease recommendations. Will await surgical report. Guarded prognosis. 06/16/2019 Patient is sitting up in bed in no acute distress with no acute overnight issues. Yesterday patient underwent right inguinal hernia repair with Dr. Lange and is doing well. Incision in the right groin is dry and intact with no bruising or swelling noted. Surgery is following closely. Patient continues on oral antibiotics in the form of Keflex for his right palm infection status post incision and drainage. Dressing is still intact and is dry. Patient states he is having some shortness of breath and believes it is due to not having his Lasix that he normally takes twice daily. Will reorder Lasix 20 mg twice a day. Will repeat a.m. labs. Patient denies any chest pain or palpitations at this time. Patient denies any nausea or vomiting and is t olerating diet. Encourage the patient to continue using the incentive spirometer at least 10 times every hour while awake. Guarded prognosis. Objective - Vital Signs Vital signs: Vital Signs Temp 98.4 F 06/16/19 07:00 Pulse 76 06/16/19 09:05 Resp 16 06/16/19 07:00 BP 135/75 06/16/19 07:00 Pulse Ox 98 06/16/19 07:00 Intake & Output 06/15/19 06/16/19 06/16/19 18:59 06:59 18:59 Intake Total 1050 150 Output Total 1453 1000 Balance -403 150 -1000 Weight 68.3 kg 68.3 kg Intake: IV 1050 Oral 150 Output: Urine 1450 1000 Condom 1000 Estimated Blood Loss 3 Other: Voiding Method Toilet Toilet Incontinent Incontinent # Voids 2 0 - Exam GENERAL: The patient is alert and oriented x3, not in any acute distress. Slightly anxious. Well developed, well nourished. Vital signs are stable. Temp is 8.4 F, pulse is 77, respirations are 16, blood pressures and 35/75, oxygen saturation is 98% on room air. HEENT: Pupils are round and equally reacting to light. EOMI. No scleral icterus. No conjunctival pallor. Normocephalic, atraumatic. No pharyngeal erythema. No thyromegaly. CARDIOVASCULAR: S1 and S2 present. No murmurs, rubs, or gallops. PULMONARY: Diminished breath sounds at the bases otherwise chest is clear to auscultation, no wheezing or crackles. ABDOMEN: Soft, mild tenderness noted on the right side lower abdomen at the surgical site, nondistended, normoactive bowel sounds. No palpable organomegaly. MUSCULOSKELETAL: No joint swelling or deformity.patient is status post incision and drainage of the right hand. Right hand dressing is dry and intact. EXTREMITIES: No cyanosis, clubbing, or pedal edema. right hand swelling has decreased with positive pulses noted and cap refill <3. NEUROLOGICAL: Gross neurological examination did not reveal any focal deficits. SKIN: No rashes. discoloration noted to bilateral lower extremities and knees left more so than the right - Labs CBC & Chem 7: 06/16/19 08:29 06/16/19 08:29 Labs: Abnormal Lab Results - Last 24 Hours (Table) 06/16/19 06/16/19 06/16/19 Range/Units 08:29 08:29 08:29 RBC 3.94 L (4.30-5.90) m/uL Hgb 10.8 L (13.0-17.5) gm/dL Hct 35.7 L (39.0-53.0) % MCHC 30.4 L (31.0-37.0) g/dL PT 12.1 H (9.0-12.0) sec INR 1.2 H (<1.2) BUN 21 H (9-20) mg/dL Glucose 101 H (74-99) mg/dL Assessment and Plan Assessment: Right forearm and hand cellulitis and abscess patient had incision and drainage, present on admission. Cultures have been negative and patient has been switched to oral Keflex per infectious disease. Infectious disease is following -Abdominal pain with right inguinal hernia. Patient underwent inguinal hernia repair on the right with Dr. Lange yesterday -Suicidal ideation, improved. Patient is not suicidal and has been seen and cleared by psychiatry. Chronic left leg wound, he follows up with wound clinic Chronic atrial fibrillation Congestive heart failure with Chronic diastolic dysfunction. No evidence of acute exacerbation acute exacerbation COPD, not in acute exacerbation with moderate pulmonary hypertension History of CVA/TIA Hypertension Hyperlipidemia History of degenerative joint disease, primary History of recurrent falls History of skin cancer status post surgery No code, no CPR, no vent Recommendations and discussion: Recommend to continue current medications, management, and symptomatic treatment. Patient underwent right inguinal hernia repair yesterday and is status post op day #1. Surgery is following and patient will follow-up in the outpatient setting upon discharge. Encourage the patient to continue using incentive spirometer at least 10 times every hour while awake. Patient is requ esting his Lasix 20 mg twice daily be reordered as he hasn't had it since admission. Case management and social work are following for possible rehab upon discharge. Infectious disease is following and patient has been transitioned to oral antibiotics in the form of Keflex and will continue this u rachael discharge. Will resume Coumadin and repeat labs in the morning and will continue to monitor PT/INR closely. Guarded prognosis. Further recommendations to follow. Possible discharge to rehab in 24-48 hours.
[2019-06-16] MEDS ORDERED: WARFARIN 2 MG TAB PO SCH (18:00)
[2019-06-16] MEDS: MIRTAZAPINE 15 MG TAB PO SCH (20:08)
[2019-06-16] MEDS: MELATONIN 1 MG TAB PO SCH (20:08)
[2019-06-17] MEDS: HYDROcodone/APAP 10-325MG 1 EACH TAB PO PRN ×3 (01:38→15:12)
[2019-06-17] MEDS: TAMSULOSIN 0.4 MG CAP.ER.24H PO SCH (08:29)
[2019-06-17] MEDS: FAMOTIDINE 20 MG TAB PO SCH (08:29)
[2019-06-17] MEDS: CALCIUM CARB-VIT D 500MG-200UN 1 EACH TAB PO SCH ×2 (08:29→14:07)
[2019-06-17] MEDS: predniSONE 5 MG TAB PO SCH (08:29)
[2019-06-17] MEDS: CEPHALEXIN 500 MG CAP PO SCH (08:29)
[2019-06-17] MEDS: FINASTERIDE 5 MG TAB PO SCH (08:29)
[2019-06-17] MEDS: SENNOSIDES 8.6 MG TAB PO SCH (08:29)
[2019-06-17] MEDS: busPIRone HCl 10 MG TAB PO SCH (08:29)
[2019-06-17] MEDS: FUROSEMIDE 20 MG TAB PO SCH ×2 (08:29→15:12)
[2019-06-17] MEDS: ALBUTEROL NEBULIZED 2.5 MG/3 ML INHALATION PRN (08:39)
[2019-06-17] MEDS: BUDESONIDE 0.5 MG/2 ML NEBU INHALATION SCH (08:39)
[2019-06-17 09:28] LABS: Basophils # (A) 0.1 k/uL (0-0.2); Basophils % (A) 1 %; Eosinophils # (A) 0.2 k/uL (0-0.7); Eosinophils % (A) 3 %; HCT 33.1 % (39.0-53.0); HGB 10.1 gm/dL (13.0-17.5); Hypochromasia Marked; Lymphocytes % (A) 15 %; MCH 27.6 pg (25.0-35.0); MCHC 30.6 g/dL (31.0-37.0); MCV 90.3 fL (80.0-100.0); Mean Platelet Volume 6.4; Monocytes # (A) 0.3 k/uL (0-1.0); Monocytes % (A) 5 %; Neutrophils # (A) 4.9 k/uL (1.3-7.7); Neutrophils % (A) 75 %; Platelet Count 238 k/uL (150-450); RBC 3.67 m/uL (4.30-5.90); RDW 13.7 % (11.5-15.5); WBC 6.6 k/uL (3.8-10.6)
[2019-06-17 09:31] LABS: INR 1.2 (<1.2); Prothrombin Time 12.7 sec (9.0-12.0)
[2019-06-17 10:03] LABS: Calcium 8.3 mg/dL (8.4-10.2); Potassium 4.2 mmol/L (3.5-5.1)
--- NOTE | 2019-06-17 10:17 | P.PN ---
Progress Note - Text Progress Note Date: 06/17/19 The patient developed urinary retention following his hernia repair and has an indwelling catheter at the present time. He apparently had 900 mL in his bladder when the catheter was placed. He had been experiencing urinary incontinence for the previous week and I suspect that he has been in urinary retention for a considerable period of time. I would suggest leaving the catheter in place for at least another week. If the patient continues to have difficulty voiding he might be able to begin intermittent catheterization at that time provided that his right hand abscess continues to improve. If he is transferred to a rehab unit then arrangements for a voiding trial could be made in 1 week.
--- NOTE | 2019-06-17 12:27 | P.DS ---
Providers Date of admission: 06/05/19 15:02 Expected date of discharge: 06/17/19 Attending physician: Napoleon Palacios Consults: 06/04/19 12:04 Consult Physician Urgent Consulting Provider: Senia Berger Consult Reason/Comments: cellulitis and UTI Do you want consulting provider notified?: Yes 06/08/19 10:13 Consult Physician Urgent Consulting Provider: Dominick Cunningham Consult Reason/Comments: worseingi pna Do you want consulting provider notified?: Yes 06/08/19 11:08 Consult Physician Urgent Consulting Provider: Drew Murcia Consult Reason/Comments: pus pocket on right hand Do you want consulting provider notified?: Yes 06/09/19 10:22 Consult Physician Routine Consulting Provider: Niall Isaacs Consult Reason/Comments: urinary frequency Do you want consulting provider notified?: Yes 06/11/19 10:07 Consult Physician Routine Consulting Provider: Adolph Calhoun Consult Reason/Comments: patient stated he wanted to kill himself but does not have a plan Do you want consulting provider notified?: Already Contacted 06/13/19 11:38 Consult Physician Stat Consulting Provider: Patrice Lange Consult Reason/Comments: Abdominal pain Do you want consulting provider notified?: Yes Primary care physician: [facility] Course: Final diagnosis Right forearm and hand cellulitis and abscess, present on admission status post incision and drainage Abdominal pain with right inguinal hernia status post inguinal hernia repair Suicidal ideation improved Chronic left leg wound Chronic atrial fibrillation Congestive heart failure with chronic diastolic dysfunction, no evidence of acute exacerbation COPD, not in acute exacerbation with moderate pulmonary hypertension History of CVA/TIA Hypertension Hyperlipidemia History of degenerative joint disease, primary History of recurrent falls History of skin cancer status post surgery No code, no CPR, no vent Discharge disposition Patient is being discharged in a stable condition with guarded prognosis to [facility] for continued PT/OT therapy. Patient will also continue with short course of oral antibiotics in the form of Keflex twice daily for the next 8 days and then may discontinue per infectious disease recommendations. Total time taken is 35 minutes. History of present illness This is an 88-year-old male was recently admitted for weakness as well as right hand and arm pain and swelling and was being closely monitored. Patient underwent incision and drainage of the right hand abscess and will continue on oral antibiotics in the form of Keflex per infectious disease recommendations for the next 8 days. Patient will need to follow-up with orthopedic surgery in approximately 1-2 weeks for suture removal. During hospitalization patient had made some comments about wanting to kill himself which he states was a mistake in saying and that he was just frustrated and stressed due to personal issues at home. He was seen by psychiatry and cleared with a few medication adjustments. Patient is not suicidal and has no plans. During hospitalization patient had some abdominal pain and was seen by surgery and had right inguinal hernia repair and is doing well. Patient is continue using the incentive spirometer at least 10 times per hour while awake. Status post surgery patient was retaining urine and a Tomlin catheter was placed and will continue with these indwelling catheter for at least one week. Patient was resumed on his Lasix 20 mg twice daily. Patient's Coumadin was resumed yesterday and his INR is 1.2 and will need repeat labs in 2-3 days. Patient will be continued on Coumadin 3 mg daily for the next 3 days and then repeat PT/INR and adjust accordingly. Currently patient denies any chest pain, shortness of breath, or palpitations at this time. Patient is afebrile. Patient denies any nausea or vomiting and is tolerating diet. Currently patient's condition is stable with much improvement and will be discharged today to the [facility]. Guarded prognosis. On exam vital signs are stable. Temp is 97.8F, pulse is 66, respirations are 18, blood pressure is 131/64, oxygen saturation is 98% on room air. Cardio S1 and S2 are present. Respiratory system shows diminished breath sounds at the bases otherwise clear to auscultation. Abdomen is soft, thin, mild tenderness on right lower abdomen at the incision site of the hernia. Nervous system shows no focal deficits with mild diffuse weakness. Please refer to medication reconciliation sheet for a list of medications. Patient Condition at Discharge: Fair Plan - Discharge Summary Discharge Rx Participant: Yes New Discharge Prescriptions: New busPIRone HCl [Buspar] 10 mg PO BID 30 Days #60 tab Warfarin [Coumadin] 3 mg PO DAILY@1800 #3 tab Cephalexin [Keflex] 500 mg PO BID 8 Days #16 cap Melatonin 2 mg PO HS tab Calcium Carb-Vit D 500Mg-200Un [Oscal 500+D] 1 each PO TID-W/MEALS tab Famotidine [Pepcid] 20 mg PO DAILY tab Mirtazapine [Remeron] 15 mg PO HS 30 Days #30 tab Sennosides [Senokot] 8.6 mg PO BID tab Albuterol Nebulized [Ventolin Nebulized] 2.5 mg INHALATION RT-QID PRN nebu PRN Reason: Shortness Of Breath Or Wheezing Continue Finasteride [Proscar] 5 mg PO DAILY Tamsulosin HCl [Flomax] 0.4 mg PO DAILY predniSONE 5 mg PO BID Temazepam [Restoril] 15 mg PO HS PRN PRN Reason: Insomnia Lisinopril [Prinivil] 10 mg PO DAILY Furosemide [Lasix] 20 mg PO BID Budesonide [Pulmicort] 0.5 mg INHALATION RT-BID HYDROcodone/APAP 10-325MG [Glidden 10-325] 1 tab PO TID PRN #6 tab PRN Reason: Pain Discontinued Warfarin [Coumadin] 1 mg PO DAILY Discharge Medication List Finasteride [Proscar] 5 mg PO DAILY 08/28/15 [History] Tamsulosin HCl [Flomax] 0.4 mg PO DAILY 08/29/15 [History] predniSONE 5 mg PO BID 07/09/16 [History] Lisinopril [Prinivil] 10 mg PO DAILY 02/10/18 [History] Temazepam [Restoril] 15 mg PO HS PRN 02/10/18 [History] Furosemide [Lasix] 20 mg PO BID 04/17/18 [History] Budesonide [Pulmicort] 0.5 mg INHALATION RT-BID 03/15/19 [History] Albuterol Nebulized [Ventolin Nebulized] 2.5 mg INHALATION RT-QID PRN nebu 06/17/19 [Rx] Calcium Carb-Vit D 500Mg-200Un [Oscal 500+D] 1 each PO TID-W/MEALS tab 06/17/19 [Rx] Cephalexin [Keflex] 500 mg PO BID 8 Days #16 cap 06/17/19 [Rx] Famotidine [Pepcid] 20 mg PO DAILY tab 06/17/19 [Rx] HYDROcodone/APAP 10-325MG [Glidden 10-325] 1 tab PO TID PRN #6 tab 10/23/19 [Rx] Melatonin 2 mg PO HS tab 06/17/19 [Rx] Mirtazapine [Remeron] 15 mg PO HS 30 Days #30 tab 06/17/19 [Rx] Sennosides [Senokot] 8.6 mg PO BID tab 06/17/19 [Rx] Warfarin [Coumadin] 3 mg PO DAILY@1800 #3 tab 06/17/19 [Rx] busPIRone HCl [Buspar] 10 mg PO BID 30 Days #60 tab 06/17/19 [Rx] Follow up Appointment(s)/Referral(s): Yazmin Niño MD [Primary Care Provider] - 1-2 days [facility], [NON-STAFF] - Sesar Wolf PAC [PHYSICIAN P[employer]ADER [employer]] - 2 Weeks Patrice Lange MD [STAFF PHYSICIAN] - 1 Week Ambulatory/Diagnostic Orders: Prothrombin Time INR [LAB.AMB] Time Frame: 3 Days, Location: None Selected Activity/Diet/Wound Care/Special Instructions: Patient is going to [facility] Discharge instructions: 1. Daily dressing changes 2. Keep incision dry and covered while showering 3. Avoid excess use of the right hand 4. Plan for follow-up at [facility] in 2 weeks for suture removal Continue current diet Repeat labs in 2-3 days to check INR levels Please continue with Coumadin 3 mg daily for the next 3 days and recheck INR and adjust accordingly Follow-up with primary care provider upon discharge Follow-up with orthopedics for suture removal Continue working with PT/OT Discharge Disposition: TRANSFER TO SNF/F
--- NOTE | 2019-06-17 12:51 | PN ---
PROGRESS NOTE DATE OF SERVICE: 06/17/2019 REASON FOR FOLLOWUP: 1. Right hand cellulitis and abscess. 2. Left leg wound. INTERVAL HISTORY: The patient is currently afebrile. The patient has been breathing comfortably. The patient did get a Tomlin catheter for urinary retention. Denies any pain and swelling to the right palm or pain to the left leg. PHYSICAL EXAMINATION: Blood pressure is 131/64 with a pulse of 66. Temperature 97.8. He is 98% on room air. General description is an elderly male lying in bed in no distress. RESPIRATORY SYSTEM: Unlabored breathing, clear to auscultation anteriorly. HEART: S1, S2. Regular rate and rhythm. ABDOMEN: Soft, no tenderness. Right palm wound incision is currently healed with no swelling, no redness. LABS: Hemoglobin is 10.1, white count 6.6, BUN of 22, creatinine 0.98. DIAGNOSTIC IMPRESSION AND PLAN: 1. Patient with right hand cellulitis with underlying abscess, status post surgical drainage. Culture negative for resistant pathogen. On oral Keflex for another 2 to 3 days. 2. Left leg wound. Wound care with Hydrofera Blue dressing. MMODL / IJN: [id number] /
[2019-06-17 14:18] VITALS: BP 117/50; PULSE 87; RESP 17; TEMP 98.1
--- NOTE | 2019-06-17 16:06 | P.PN ---
Subjective Progress Note Date: 06/17/19 Principal diagnosis: Status post right inguinal hernia repair and underlying COPD. This is a 88-year-old white male patient of Dr. 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 He denied any cough or congestion, denied any pain. Reports pain in his right palm area and he states he uses a cane on a regular basis for balance issues, but has noticed some redness and some antacids formation in his right palm, with redness traveling up the medial tendon up to his elbow area, he also reports some swelling in his right arm. Denied any worsening dyspnea, denies any chest pain, or chest congestion, no wheezing, no urinary symptoms, patient was afebrile on admission with a temp of 100.8F, and the rest of the vitals were stable, initial chest x-ray showed chronic parenchymal changes without suspicious focal airspace opacity, small to tiny bilateral pleural effusions and suspected mild interstitial edema, no new focal infiltrates. Admission blood work showed white count of 9.3, hemoglobin of 9.8, INR was 2.8, electrolytes were within normal limits, BUN of 37, creatinine is 1.29. Influenza screen was negative, urinalysis showed elevated white count at 82, and moderate leuk trase. Right hand x-ray was obtained related to redness and swelling and showed no acute fracture or dislocation in the right hand, mild to moderate narrowing and mild spurring throughout the phalanges with relative sparing of the MCP joints, though some varus positioning of the third and fourth proximal interphalangeal joints, bony projection distal radial metaphysis radial aspect could reflect osteochondroma. Some mild diffuse tissue swelling but no suspicious cortical destruction or periosteal reaction. Blood and urine culture showed no growth, patient is on empiric and maximum form of Zosyn. Follow-up chest x-ray today showed right middle lobe airspace disease, which was felt to be worsening, possibility of atelectasis and slightly improving retrocardiac airspace disease, and we were consulted for the same Patient was reevaluated today on 05/27, mostly because he requested to be seen. He called our office wondering if we could evaluate him for his underlying COPD again. I came in to see the patient, and he seems to be doing fairly well. He was already seen by Dr. Cunningham on consultation, and he was treated for COPD, and right middle lobe atelectasis, questionable pneumonia. Presently the patient is doing well, asymptomatic, he was already on antibiotics for his right palm abscess and lymphangitis. Patient is on maintenance dose of prednisone 5 mg daily, and he is on bronchodilators as noted on the chart. Presently, no cough no wheezing no shortness of breath. Patient is actually in the process of being sent to medical [place] for rehabilitation. Labs today were reviewed he had basically normal CBC and basically normal basic metabolic profile. Objective - Vital Signs Vital signs: Vital Signs Temp 98.1 F 06/17/19 14:17 Pulse 87 06/17/19 14:17 Resp 17 06/17/19 14:17 BP 117/50 06/17/19 14:17 Pulse Ox 98 06/17/19 14:17 Intake & Output 06/16/19 06/17/19 06/17/19 18:59 06:59 18:59 Intake Total 350 Output Total 1000 950 702 Balance -1000 -600 -702 Weight 68.3 kg 68 kg Intake: Oral 350 Output: Urine 1000 950 700 Condom 1000 Straight 300 Uretheral ([place]) 650 Stool 2 Other: Voiding Method Toilet Toilet Incontinent Incontinent # Voids 0 # Bowel Movements 0 - Exam GENERAL EXAM: Alert, very pleasant, 88-year-old white male, comfortable in no apparent distress. HEENT: PERRLA, EOMI, no icterus. CHEST: No chest wall deformity. Symmetrical expansion. LUNGS: Diminished breath sounds at the bases, no crackles or rhonchi or wheezes. CVS: Regular rate and rhythm, normal S1 and S2, no gallops, no murmurs, no rubs ABDOMEN: Soft, nontender. No hepatosplenomegaly, normal bowel sounds, no guarding or rigidity. Right lower quadrant surgical scar is noted clean and dry. EXTREMITIES: No clubbing, no edema, no cyanosis, 2+ pulses and upper and lower extremities. Right palm surgical scar is noted clean and dr SKIN: No rashes. Surgical scar has been healing nicely. And no erythema, no drainage. This is noted on his right palm. CENTRAL NERVOUS SYSTEM: Alert and oriented -3. No focal deficits, tone is normal in all 4 extremities. PSYCHIATRIC: Alert and oriented -3. Appropriate affect. Intact judgment and insight. - Labs CBC & Chem 7: 06/17/19 07:59 06/17/19 07:59 Labs: Abnormal Lab Results - Last 24 Hours (Table) 06/17/19 06/17/19 06/17/19 Range/Units 07:59 07:59 07:59 RBC 3.67 L (4.30-5.90) m/uL Hgb 10.1 L (13.0-17.5) gm/dL Hct 33.1 L (39.0-53.0) % MCHC 30.6 L (31.0-37.0) g/dL PT 12.7 H (9.0-12.0) sec INR 1.2 H (<1.2) Carbon Dioxide 31 H (22-30) mmol/L BUN 22 H (9-20) mg/dL Calcium 8.3 L (8.4-10.2) mg/dL Assessment and Plan Assessment: Impression: recent right inguinal hernia repair, status post incision and drainage of right hand abscess, Chronic atrial fibrillation Severe COPD but presently stable Degenerative joint disease Hypertension Dyslipidemia Recommendation: Reviewed and discussed with the patient his bronchodilators, his prednisone will remain at 5 mg daily, we will clear the patient for discharge, and follow-up with me on outpatient basis. Time with Patient: Less than 30
== END 2019-06-17 16:29 | DRG 580 ==
LOC: EC 17:10 → 4SSUR 23:25 → OBSVTOIN 06-05 15:02
PROVIDERS: ADMIT Hospitalist; ATTEND Hospitalist
PROC: 0JBJ0ZZ Excision of Right Hand Subcutaneous Tissue and Fascia, Open Approach (ICD-10-PCS; principal; 2019-06-10 08:00)
PROC: 0YU50JZ Supplement Right Inguinal Region with Synthetic Substitute, Open Approach (ICD-10-PCS; 2019-06-15)
DX: L03.113 Cellulitis of right upper limb (principal); L02.511 Cutaneous abscess of right hand; I48.20 Chronic atrial fibrillation, unspecified; R45.851 Suicidal ideations; I50.32 Chronic diastolic (congestive) heart failure; J98.11 Atelectasis; Z66 Do not resuscitate; I95.9 Hypotension, unspecified; I27.20 Pulmonary hypertension, unspecified; I11.0 Hypertensive heart disease with heart failure; E86.0 Dehydration; J44.9 Chronic obstructive pulmonary disease, unspecified; E86.1 Hypovolemia; S81.802A Unspecified open wound, left lower leg, initial encounter; I34.0 Nonrheumatic mitral (valve) insufficiency; L02.413 Cutaneous abscess of right upper limb; I73.9 Peripheral vascular disease, unspecified; R79.1 Abnormal coagulation profile; N40.1 Benign prostatic hyperplasia with lower urinary tract symptoms; N39.41 Urge incontinence; R33.8 Other retention of urine; R39.12 Poor urinary stream; F41.9 Anxiety disorder, unspecified; K40.90 Unilateral inguinal hernia, without obstruction or gangrene, not specified as recurrent; I25.10 Atherosclerotic heart disease of native coronary artery without angina pectoris; M19.91 Primary osteoarthritis, unspecified site; E78.5 Hyperlipidemia, unspecified; R29.6 Repeated falls; R26.9 Unspecified abnormalities of gait and mobility; G89.29 Other chronic pain; M54.9 Dorsalgia, unspecified; Z53.8 Procedure and treatment not carried out for other reasons; Z79.01 Long term (current) use of anticoagulants; Z79.52 Long term (current) use of systemic steroids; Z79.51 Long term (current) use of inhaled steroids; Z79.899 Other long term (current) drug therapy; Z86.73 Personal history of transient ischemic attack (TIA), and cerebral infarction without residual deficits; Z87.891 Personal history of nicotine dependence; Z87.01 Personal history of pneumonia (recurrent); Z87.81 Personal history of (healed) traumatic fracture; Z85.828 Personal history of other malignant neoplasm of skin; Z85.038 Personal history of other malignant neoplasm of large intestine; Z87.311 Personal history of (healed) other pathological fracture; Z98.890 Other specified postprocedural states; Z91.048 Other nonmedicinal substance allergy status; Z98.42 Cataract extraction status, left eye; Z98.41 Cataract extraction status, right eye; Z81.8 Family history of other mental and behavioral disorders; Z83.6 Family history of other diseases of the respiratory system
CPT/HCPCS: 36415; 64486; 71045; 71046; 74176; 80048; 80053; 80202; 81001; 83605; 83735; 84100; 84145; 85025; 85610; 86850; 86900; 86901; 87040; 87070; 87075; 87086; 87102; 87205; 87502; 93005; 94640; 94760; 96361; 96365; 99285